=== PATIENT | female | born 1975 | race Caucasian/White ===

== ENCOUNTER 2020-12-30 14:14 | Emergency (ER) | payer OTHER, SELFPAY ==
--- NOTE | ~2020-12-30 | XR_ITS ---
EXAMINATION: XR CHEST CLINICAL INFORMATION: Cough COMPARISON: CT abdomen and pelvis 06/13/2019. TECHNIQUE: Frontal view of the chest was obtained. FINDINGS: The lungs are clear. There is no pneumothorax, pleural reaction, airspace solid lesion, or groundglass opacity. The costophrenic sulci are clear. The heart is normal in size. The hilar and mediastinal contours and visualized bony structures are unremarkable. There is a benign chronic calcified granuloma right posterior base overlying the upper abdomen on this frontal projection, measuring [address] 2019. XR/XR chest 1V IMPRESSION: 1. Normal chest. 2. Calcified granuloma right base similar to CT 2019.
[2020-12-30 14:20] VITALS: BP 133/83; PULSE 97; RESP 18; TEMP 36.6; O2SAT 97; BMI 28.2
--- NOTE | 2020-12-30 14:41 | ED.URI ---
HPI - URI/Sore Throat General Chief Complaint: Upper Respiratory Symptoms Stated Complaint: cough, headache Time Seen by Provider: 12/30/20 14:38 Source: patient Mode of arrival: ambulatory Limitations: no limitations History of Present Illness MD elicited complaint: cough and rhinorrhea Pertinent past history: seasonal allergies Onset (ago): week(s) (2) Consistency: constant Severity: moderate Description of mucous: clear Able to tolerate fluids by mouth: Yes Exacerbating factors: supine positioning Relieving factors: nothing Context: other (second covid shot 2 days ago) Associated symptoms: headache, rhinorrhea, nasal congestion and cough Treatments prior to arrival: none Related Data Previous Rx's Medication Instructions Recorded azithromycin See Rx Instructions .ROUTE 12/30/20 .COMPLEX #6 tab cetirizine 10 mg PO DAILY PRN #30 tab 12/30/20 hydrocodone-homatropine 5 ml PO Q6H PRN #60 ml 12/30/20 prednisone 40 mg PO DAILY 5 Days #10 tab 12/30/20 Allergies Allergy/AdvReac Type Severity Reaction Status Date / Time Sulfa (Sulfonamide Allergy Unknown SHORTNESS Verified 12/30/20 14:25 Antibiotics) OF BREATH [SULFA (SULFONAMIDE ANTIBIOTICS)] Review of Systems Review of Systems: Constitutional : No Weight loss, No Fever, No Chills, No Fatigue, pos Malaise ENT/Mouth : No sore throat, No Rhinorrhea Eyes: No Eye Pain, No Swelling, No Redness Cardiovascular : No Chest Pain, No SOB, No Dyspnea on Exertion, No Orthopnea, No Edema, No Palpitations Respiratory : pos Cough, No Sputum, No Wheezing Gastrointestinal : No Nausea, No Vomiting, No Diarrhea, No Constipation, No abdominal Pain, No Hematochezia, No Melena Genitourinary : No Dysuria, No Urinary Frequency, No Hematuria, Musculoskeletal : No joint pain, pos Myalgias, No Joint Swelling Skin : No Skin Lesions, No rash Neuro : No Weakness, No Numbness, No Dizziness, No Headache All other systems reviewed and are negative REPLACED BY [facility] Past Medical History Attestation statement: The following information was validated with the patient. Medical History Thyroid disease Social History Social History (Updated 12/30/20 @ 15:01 by Jacklyn Daley DO) Patient Tobacco Use Status: Never used Tobacco Use of substances other than those prescribed or required for medical reasons: No Advance Directives: No Advance Directives Information Provided: Yes Patient : No Physical Exam Vital Signs: Vital Signs: Last Vital Signs Temp 98 F 12/30/20 14:20 Pulse 96 12/30/20 15:14 Resp 18 12/30/20 14:20 BP 133/83 12/30/20 14:20 Pulse Ox 97 12/30/20 14:20 Body Mass Index 28.2 Appearance: Alert. Oriented X3. No acute distress. Eyes: Pupils equal, round and reactive to light. ENT: Pharynx normal. Neck: Normal inspection. Neck supple. CVS: Normal heart rate and rhythm. Pulses normal. Respiratory: No respiratory distress. Breath sounds normal. Abdomen: Soft and nontender. Skin: Skin warm and dry. Normal skin color. Normal skin turgor. Extremities: No lower extremity edema. No calf ttp Neuro: Oriented X 3. No motor deficit. No sensory deficit. Course Course Course Narrative: stable for DC MDM - URI/Sore Throat MDM Narrative Medical decision making narrative: 45 yo female with cough x 2 weeks now with headache, has post nasal drip possible seasonal allergies - at this time will need INH, CXR, COVID swab, anti tussive, dispo per results and findings, not toxic, will likely need to start on allergy medications as well. Lab Data Labs: Lab Results 12/30/20 12/30/20 Range/Units 14:53 14:57 Urine Color YELLOW Urine Appearance CLEAR Urine pH 6.0 (5.0-8.0) Ur Specific [place] <= 1.005 (1.005-1.025) Urine Protein NEG (NEG-TRACE) MG/DL Urine Glucose (UA) NEG (NEG) MG/DL Urine Ketones NEG (NEG) MG/DL Urine Blood NEG (NEG) Urine Nitrite NEG (NEG) Ur Leukocyte Esterase NEG (NEG) COVID-19 (GENI) Negative (Negative) COVID-19 Clin Com See Note Discharge Plan Discharge Clinical Impression: Bronchitis Allergic rhinitis Qualifiers: Allergic rhinitis trigger: unspecified Allergic rhinitis seasonality: unspecified Qualified Code(s): J30.9 - Allergic rhinitis, unspecified Patient Disposition: Home, Self-Care Instructions: Acute Bronchitis (ED), Allergies (ED) Additional Instructions: return to ED for any worsening symptoms or concerns USE INHALER 2 PUFFS EVERY 4 HOURS NEEDED FOR WHEEZING/SHORTNESS OF BREATH Prescriptions: New prednisone 20 mg tablet 40 mg PO DAILY 5 Days Qty: 10 RF: 0 azithromycin 500 mg tablet See Rx Instructions .ROUTE .COMPLEX Qty: 6 RF: 0 hydrocodone-homatropine 5-1.5 mg/5 mL (5 mL) syrup 5 ml PO Q6H PRN (Reason: cough) Qty: 60 RF: 0 cetirizine 10 mg tablet 10 mg PO DAILY PRN (Reason: allergy symptoms) Qty: 30 RF: 1 Stand Alone Forms: Work/School Release Print Language: Ukrainian
[2020-12-30 15:06] LABS: Appearance Urine CLEAR; Color Urine YELLOW; Glucose Urine UA NEG (NEG); Leukocyte Esterase Urine NEG (NEG); Nitrite Urine NEG (NEG); Specific Gravity - Urine <= 1.005 (1.005-1.025); Urine Blood NEG (NEG); Urine Ketones NEG (NEG); Urine Protein NEG (NEG-TRACE)
[2020-12-30] MEDS: Albuterol Sulfate 90 MCG 8 GM INHALER 2 PUFF INHALE (15:12)
[2020-12-30 15:14] VITALS: PULSE 96; O2SAT 100
[2020-12-30] MEDS: guaiFEN/Codeine SF 200/20/10ML 10 ML LIQUID 5 ML PO (15:18)
[2020-12-30 15:19] LABS: COVID-19 Test Negative (Negative); IDNOW Serial# 9DD0AD1C
== END 2020-12-30 15:53 | disposition home or self-care (01) ==
PROVIDERS: Emergency Provider Emergency Medicine
DX: J20.9 Acute bronchitis, unspecified (principal); J30.9 Allergic rhinitis, unspecified; R05 Cough; R51.9 Headache, unspecified; Z79.899 Other long term (current) drug therapy; Z20.822 Contact with and (suspected) exposure to COVID-19
CPT/HCPCS: 36415; 71045; 81003; 87635; 94640; 99283

== ENCOUNTER 2021-05-08 17:57 | Emergency (ER) | payer OTHER, SELFPAY ==
--- NOTE | ~2021-05-08 | XR_ITS ---
EXAMINATION: XR CHEST CLINICAL INFORMATION: Left chest wall pain. COMPARISON: Chest radiograph dated from 12/30/2020. TECHNIQUE: 2 views of the chest were obtained. FINDINGS: Normal appearance of the cardiomediastinal silhouette. Clear lungs. No pleural effusion or pneumothorax. Unchanged calcific body projecting over the right upper quadrant. No acute osseous abnormalities. Indeterminate linear foreign body projecting over the superficial soft tissues of the back on the lateral view. XR/XR chest 2V IMPRESSION: No acute cardiopulmonary findings.
[2021-05-08 20:22] VITALS: BP 132/95; PULSE 78; RESP 16; TEMP 36.8; O2SAT 100; BMI 23.8
--- NOTE | 2021-05-08 20:53 | ED.GENADULT ---
HPI - General Adult General Chief complaint: General Medical Stated complaint: multiple complaints Source: patient Mode of arrival: ambulatory Limitations: language barrier History of Present Illness HPI narrative: 45-year-old female presents with ulcerations in her mouth and lips. States that she has recurrent ulcerations, happens approximately once a month for the past 20 years. Onset (ago): day(s) (8) Location: mouth Severity: moderate Severity scale (1-10): 7 Quality: burning and aching Pain Consistency: constant Relieving factors: none Exacerbating factors: eating Associated symptoms: denies other symptoms Treatments prior to arrival: NSAID Related Data Previous Rx's Medication Instructions Recorded azithromycin 500 mg tablet See Rx Instructions .ROUTE 12/30/20 .COMPLEX #6 tab cetirizine 10 mg tablet 10 mg PO DAILY PRN #30 tab 12/30/20 hydrocodone-homatropine 5 mg-1.5 5 ml PO Q6H PRN #60 ml 12/30/20 mg/5 mL (5 mL) oral syrup prednisone 20 mg tablet 40 mg PO DAILY 5 Days #10 tab 12/30/20 Magic Mouthwash 30 ml PO Q6H 10 Days #240 ml 05/08/21 Diphen/Lido/Antacid 1:1:1 240 mL suspension Allergies Allergy/AdvReac Type Severity Reaction Status Date / Time Sulfa (Sulfonamide Allergy Unknown SHORTNESS Verified 12/30/20 14:25 Antibiotics) OF BREATH [SULFA (SULFONAMIDE ANTIBIOTICS)] Review of Systems Review of Systems: Constitutional: No Fever, No Chills ENT/Mouth: Positive ulcerations, No Ear Pain, No Hoarseness, positive sore throat Eyes: No Eye Pain, No Swelling, No Redness, No Foreign Body Cardiovascular: No Chest Pain, No SOB Respiratory: No Cough, No Dyspnea Gastrointestinal: No Nausea, No Vomiting, No Diarrhea, No abdominal Pain Genitourinary: No Dysuria, No Hematuria Musculoskeletal: positive left chest wall pain, No Myalgias, No Joint Swelling Skin: No Skin lacerations, No rash Neuro: No Weakness, No Numbness, No Paresthesias, No Loss of Consciousness, No Dizziness, No Headache Psych: No Anxiety/Panic, No Depression Heme/Lymph: no easy bruising, no Lymphadenopathy Endocrine: No Polyuria, No Polydipsia Yes all other systems are reviewed and are negative [facility] Past Medical History Attestation statement: The following information was validated with the patient. Source: old records reviewed Medical History Thyroid disease Social History Social History Alcohol intake: never Patient Tobacco Use Status: Never used Tobacco Use of substances other than those prescribed or required for medical reasons: No Advance Directives: No Advance Directives Information Provided: Yes Physical Exam Vital Signs: Vital Signs: Last Vital Signs Temp 98.2 F 05/08/21 20:22 Pulse 78 05/08/21 20:22 Resp 16 05/08/21 20:22 BP 132/95 H 05/08/21 20:22 Pulse Ox 100 05/08/21 20:22 Body Mass Index 23.8 Appearance: Alert. Oriented X3. No acute distress. Eyes: Pupils equal, round and reactive to light. ENT: Multiple ulcerations buccal mucosa, upper palate, and pharynx. Neck: Normal inspection. Neck supple. CVS: Normal heart rate and rhythm. Pulses normal. Reproducible chest pain to palpation to the left side. Respiratory: No respiratory distress. Breath sounds normal. Abdomen: Soft and nontender. Skin: Skin warm and dry. Normal skin color. Normal skin turgor. Extremities: No lower extremity edema. Gait well balanced well coordinated. Neuro: No motor deficit. No sensory deficit. Cranial nerves 2-12 intact. Course Course Course Narrative: 45-year-old female presents with abscess ulcer. States this is been a chronic condition for the past 20 years and occurs approximately once a month. She usually has a mouthwash, but does not know the name of it because she usually gets it from [facility]. She also reports left-sided chest wall pain. Lung sounds clear to auscultation all lobes. No recent travel. No hormone use. Will provide lidocaine swish swallow, EKG and chest x-ray. EKG is normal sinus rhythm, chest x-ray is normal. Patient will follow-up with primary care for recurrent aphthous ulcers, script for magic mouthwash given. Patient verbalized understanding of and agrees plan of care discharge home. 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 Google translate utilized for discharge instructions. Medical Decision Making MDM Narrative Medical decision making narrative: Aphthous stomatitis Medical Records Medical records reviewed: Yes I reviewed the patient's medical records. Imaging Data Chest x-ray: Attestation: I personally reviewed and interpreted this imaging study as follows: Radiologist's impression: EXAMINATION: XR CHEST CLINICAL INFORMATION: Left chest wall pain. COMPARISON: Chest radiograph dated from 12/30/2020. TECHNIQUE: 2 views of the chest were obtained. FINDINGS: Normal appearance of the cardiomediastinal silhouette. Clear lungs. No pleural effusion or pneumothorax. Unchanged calcific body projecting over the right upper quadrant. No acute osseous abnormalities. Indeterminate linear foreign body projecting over the superficial soft tissues of the back on the lateral view. XR/XR chest 2V IMPRESSION: No acute cardiopulmonary findings. ECG Data Attestation: I personally reviewed and interpreted this ECG as follows: Prior ECG tracings: not available for review Interpretation: Vent. Rate : 064 BPM ? ? Atrial Rate : 064 BPM ?? P-R Int : 144 ms? QRS Dur : 096 ms ? ? QT Int : 406 ms ? ? ? P-R-T Axes : 058 -14 029 degrees ?? QTc Int : 418 ms ? Normal sinus rhythm Incomplete right bundle branch block Borderline ECG No previous ECGs available 08-MAY-2021 22:25:28 Discharge Plan Discharge Clinical Impression: Aphthous stomatitis Patient Disposition: Home, Self-Care Instructions: Canker Sores (ED) Additional Instructions: Voc? foi avaliado para ?lceras aptosas recorrentes. N?s prescrevemos enxaguat?brown bucal Magic. Use 30 mL a cada 6-8 horas conforme necess?brown para o controle da colin. Agite e cuspa esta solu??o. Obrigado por escolher anthony departamento de emerg?ncia para avalia??o. Acompanhe com um m?dico de aten??o prim?octavio conforme necess?brown. Retorne ao pronto-corona para qualquer sintoma getachew, preocupante ou agravante. You were evaluated for recurrent apthous ulcers. We prescribed Magic mouthwash. Please use 30 mL every 6-8 hours as needed for pain management. Swish and spit this solution. Thank you for choosing this emergency department for evaluation. Please follow-up with primary care physician as needed. Return to the emergency department for any new, concerning, or worsening symptoms. Prescriptions: New Magic Mouthwash Diphen/Lido/Antacid 1:1:1 240 mL suspension 30 ml PO Q6H 10 Days Qty: 240 RF: 2 No Action prednisone 20 mg tablet 40 mg PO DAILY 5 Days Qty: 10 RF: 0 azithromycin 500 mg tablet See Rx Instructions .ROUTE .COMPLEX Qty: 6 RF: 0 hydrocodone-homatropine 5-1.5 mg/5 mL (5 mL) syrup 5 ml PO Q6H PRN (Reason: cough) Qty: 60 RF: 0 cetirizine 10 mg tablet 10 mg PO DAILY PRN (Reason: allergy symptoms) Qty: 30 RF: 1 Interventions: ED Discharge Assessment Last Done: 05/08/21 23:12 Discharge Date/Time: 05/08/21 23:12
--- NOTE | 2021-05-08 21:11 | ECG_ITS ---
Test Reason : CHEST PAIN Blood Pressure : / mmHG Vent. Rate : 064 BPM Atrial Rate : 064 BPM P-R Int : 144 ms QRS Dur : 096 ms QT Int : 406 ms P-R-T Axes : 058 -14 029 degrees QTc Int : 418 ms Normal sinus rhythm Incomplete right bundle branch block Borderline ECG No previous ECGs available Referred By: Cherise Scott Electronically Signed By:JENNY BOWLING
[2021-05-08] MEDS: Lidocaine HCl Viscous 2 % 15 ML SOLUTION MUCOUS MEM (21:41)
== END 2021-05-08 23:12 | disposition home or self-care (01) ==
PROVIDERS: Emergency Provider Emergency Medicine Emergency Medical Services
DX: K12.0 Recurrent oral aphthae (principal); R07.89 Other chest pain; Z79.899 Other long term (current) drug therapy
CPT/HCPCS: 71046; 93005; 99283

== ENCOUNTER 2022-09-22 21:44 | Inpatient (IN) | payer MEDICAID, OTHER, SELFPAY ==
--- NOTE | ~2022-09-22 | XR_ITS ---
EXAMINATION: XR CHEST CLINICAL INFORMATION: Cough COMPARISON: 05/08/2021 TECHNIQUE: Frontal view of the chest was obtained. FINDINGS: Cardiac leads overlie the chest. The lungs are well expanded. There is no focal consolidation, edema, or effusion. No pneumothorax. The cardiomediastinal silhouette is within normal limits. No acute osseous abnormality. XR/XR chest 1V IMPRESSION: Clear lungs.
--- NOTE | ~2022-09-22 | CT_ITS ---
EXAMINATION: CT HEAD WITH/WITHOUT CONTRAST CLINICAL INFORMATION: Fever. Bacteremia. Rule out meningitis. COMPARISON: None TECHNIQUE: Contiguous axial imaging was performed from the skull base to vertex before and after the administration of 100 mL of Omnipaque [address] examination was performed using dose optimization techniques as appropriate, variously including the following: *Automated exposure control *Adjustment of mA and/or kV according to patient size (this includes techniques or standardized protocols for targeted exams where dose is matched to indication/reason for exam; i.e. extremities or head) *Use of iterative reconstruction technique DLP: 1365 mGy-cm FINDINGS: There is no evidence of an extra-axial collection. There is no evidence of intra or extra-axial hemorrhage. The ventricles and extra-axial CSF spaces are appropriate. Lau-white matter differentiation is normal. No mass, mass effect or infarct. No abnormal enhancement. No bone lesion or skull fracture. The paranasal sinuses, mastoid air cells and middle ears are clear. CT/CT head/brain wo/w IV con IMPRESSION: Unremarkable exam.
--- NOTE | ~2022-09-22 | NM_ITS ---
EXAMINATION: BILIARY TRACT IMAGING STUDY WITH CCK CLINICAL INFORMATION: Abnormal abdominal ultrasound.. COMPARISON: No previous biliary scan is available for comparison. Abdominal ultrasound dated 09/25/2022 is available for comparison.. TECHNIQUE: Serial gamma scintillation camera images were obtained over the abdomen for a total observation period of 90 minutes following the intravenous administration of 5 mCi Tc-99m Mebrofenin. FINDINGS: There is good concentration of activity in the liver by 5 minutes post injection. Biliary activity is visualized by 10 minutes. The gallbladder is well visualized by 15 minutes. Small bowel is also well visualized by 15 minutes. The gallbladder continues to accumulate activity and is better visualized at 60 minutes post injection. At 60 minutes post radiopharmaceutical injection, a 30-minute infusion of 1.3 micrograms Sincalide was then begun and an additional 40 minutes of images were obtained. There is good emptying of the gallbladder. By the end of the study there is good clearance of activity from the liver and visualization of diffuse small bowel activity. The calculated gallbladder ejection fraction is 79% (normal gallbladder ejection fraction is greater than 35%). NM/NM hepatobiliary w pharm IMPRESSION: Visualization of the gallbladder is evidence of a patent cystic duct and strong evidence against the diagnosis of acute cholecystitis. The common bile duct is patent. Gallbladder emptying and ejection fraction are normal. Liver function appears normal.
--- NOTE | ~2022-09-22 | US_ITS ---
EXAMINATION: US ABDOMEN LIMITED CLINICAL INFORMATION: The Bacteremia. Rule out biliary involvement.. COMPARISON: Previous CT of the abdomen and pelvis 09/23/2022 and abdominal ultrasound June 2019 TECHNIQUE: Real-time imaging of the right upper quadrant abdominal viscera. FINDINGS: PANCREAS: Not well visualized. LIVER: Normal. The liver is normal in size. The liver contour is normal. Parenchymal echogenicity is normal. No focal hepatic lesion. There is no intrahepatic biliary duct dilatation seen. GALLBLADDER: The gallbladder is normal in size. No gallstones are seen. The gallbladder wall appears thickened and edematous. COMMON BILE DUCT: Normal in caliber measuring 0.3 cm in diameter. RIGHT KIDNEY: Normal. No hydronephrosis. No renal calculi or focal parenchymal lesions. The kidney measures 11.5 cm in maximum dimension. FREE FLUID: There is trace ascites seen around the liver.. US/US abdomen limited IMPRESSION: Normal-size gallbladder. Thickened edematous gallbladder wall. No gallstone seen by CT scan. Differential would include acalculous cholecystitis, gallbladder wall changes related to liver disease, low albumin and cholangitis. If there is concern for acalculous cholecystitis, HIDA scan would be recommended. Findings will be communicated by the [place] work flow teamcenter consultant.
--- NOTE | ~2022-09-22 | US_ITS ---
EXAMINATION: US PELVIS COMPLETE CLINICAL INFORMATION: Menorrhagia; the last menstrual period was on 08/2020. COMPARISON: None. TECHNIQUE: Transabdominal and transvaginal imaging were performed. FINDINGS: The uterus is of normal size and echogenicity measuring 9.8 x 4.5 x 4.9 cm. A regular homogeneous endometrium is identified measuring 0.5 cm. FIBROIDS: There are 2 fibroids seen. 1. Location: Anterior fundus, myometrial. Size: 2.2 x 2.0 x 2.3 cm. Fibroid characteristics: Isoechoic. 2. Location: Upper leftward body, subserosal. Size: 1.5 x 1.3 x 1.4 cm. Fibroid characteristics: Heterogeneously hypoechoic. Both ovaries are of normal size and echogenicity. The right ovary measures 3.1 x 3.2 x 2 point cm for a volume of 7.8 mL. The right ovary contains a 2.1 cm in maximal diameter corpus luteum cyst. The left ovary measures 2.9 x 2.1 x 1.6 cm for a volume of 5.1 mL. There is moderate free fluid in the cul-de-sac. No adnexal sammi is seen. US/US pelvic and transvaginal IMPRESSION: 1. There is uterine fibroid disease. 2. A 2.1 cm right ovarian corpus luteum cyst is seen. 3. There is moderate free fluid in the cul-de-sac.
--- NOTE | ~2022-09-22 | CT_ITS ---
EXAMINATION: CT ABDOMEN AND PELVIS WITH CONTRAST CLINICAL INFORMATION: Left lower quadrant pain COMPARISON: 06/13/2019 TECHNIQUE: Multidetector volumetric images were obtained from the superior aspect of the liver through the pubic symphysis following administration 85 mL of Omnipaque 350 intravenous contrast. Sagittal and coronal reformatted images were obtained on the technologist's workstation. Oral contrast: No This CT examination was performed using dose optimization techniques as appropriate, variously including the following: *Automated exposure control *Adjustment of mA and/or kV according to patient size (this includes techniques or standardized protocols for targeted exams where dose is matched to indication/reason for exam; i.e. extremities or head) *Use of iterative reconstruction technique DLP: 543 mGy-cm FINDINGS: LUNG BASES: Calcified right lower lobe nodule again noted, unchanged. No acute finding. Normal heart size. LIVER, GALLBLADDER, AND BILIARY TREE: The liver is normal in size, shape, and attenuation. No focal hepatic lesion or biliary ductal dilatation is present. The gallbladder is unremarkable with no evidence of radiopaque gallstones, gallbladder wall thickening, or obvious pericholecystic inflammatory changes. PANCREAS: Unremarkable. SPLEEN: Unremarkable. ADRENAL GLANDS: Unremarkable. KIDNEYS AND URETERS: The kidneys are normal in size, shape, and attenuation. No hydronephrosis or hydroureter. 0.2 cm left upper pole calculus is 7 cm from the posterior axillary line. BLADDER: Unremarkable. GASTROINTESTINAL TRACT: The stomach is unremarkable. Normal caliber small bowel. No obstruction. No colonic wall thickening or inflammatory change. No free air. No significant free fluid. Normal appendix. Likely tiny appendicolith. ABDOMINAL WALL: No significant hernia is appreciated. LYMPH NODES: Normal. VASCULAR: Normal caliber aorta. Circumaortic left renal vein. PELVIC VISCERA: Anteverted uterus. Peripherally enhancing right ovarian follicle. No adnexal mass. OSSEOUS STRUCTURES: No acute or suspicious osseous abnormality. Posterior hardware from L4 through the sacrum. CT/CT abdomen pelvis w IV con IMPRESSION: 1. No acute findings in the abdomen or pelvis. No inflammatory changes. 2. Nonobstructing left upper pole renal calculus. Fleischner guidelines were followed.
--- NOTE | ~2022-09-22 | FL_ITS ---
EXAMINATION: XR LUMBAR PUNCTURE CLINICAL INFORMATION: Fever with bacteremia, headache, and stiff neck. COMPARISON: CT abdomen of September 23, 2022 TECHNIQUE: Fluoroscopic guided lumbar puncture. FINDINGS: Informed consent was obtained from the patient prior to the procedure. During this process, the procedure and potential alternatives were explained, along with the intended outcome and benefits. The risks of the procedure, as well as the risk of not doing the procedure, were discussed. The patient was given the opportunity to ask questions regarding the procedure and appeared competent to make medical decisions. A signed consent form which documents this discussion was placed in the medical record. Patient is status post previous back surgery of L4-S1. Patient gives history of previous dry tap. Using sterile technique and fluoroscopic guidance a 22-gauge spinal needle was directed into the L2-L3 level from a midline approach. Opening pressure was 21 cm water. 8 mL of clear CSF was collected. Patient tolerated procedure without difficulty. FLUOROSCOPY TIME: 0.5 minutes DOSE AREA PRODUCT: 2.782 Gy-cm2 (davis-centimeter squared) FL/FL guided lumbar puncture LP IMPRESSION: Noncomplicated lumbar puncture as described.
[2022-09-22 22:01] VITALS: BP 95/51; PULSE 133; RESP 16; TEMP 37.5; O2SAT 98; BMI 23.8
[2022-09-22 22:18] LABS: Basophils Percent Auto 0.1 % (0-2); Eosinophils Percent Auto 0.1 % (0-4); Hemoglobin 10.5 g/dl (12.0-16.0); Imm Gran Abs Auto 0.01 X10*3/uL (0.00-0.03); Imm Gran Pct Auto 0.1 % (0.0-0.4); Lymphocytes Absolute Auto 0.4 X10*3/uL (1.2-4.9); Lymphocytes Percent Auto 4.8 % (20-40); MANUAL DIFF FLAG SCAN; Mean Corpuscular HGB Conc 32.8 g/dl (31.0-35.0); Mean Corpuscular Hemoglobin 24.9 pg (27.0-33.0); Mean Platelet Volume 9.1 fL (9.4-12.3); Monocytes Absolute Auto 0.2 X10*3/uL (0.1-1.2); Monocytes Percent Auto 2.3 % (2-11); Neutrophils Absolute Auto 7.4 x10*3/uL (2.0-8.3); Neutrophils Percent Auto 92.6 % (45-73); Platelet Count 231 X10*3/uL (160-400); Red Blood Count 4.21 X10*6/uL (4.20-5.50); SCAN SMEAR FLAG 1
[2022-09-22 22:23] LABS: Appearance Urine Clear; Color Urine Yellow; Glucose Urine UA Negative (Negative); Leukocyte Esterase Urine Negative (Negative); Nitrite Urine Negative (Negative); Urine Blood Negative (Negative); Urine Ketones Negative (Negative); Urine Protein Negative (Neg-Trace)
[2022-09-22 22:25] LABS: UPreg QC Valid YES; Urine Pregnancy NEGATIVE (NEGATIVE)
[2022-09-22 22:28] LABS: Bacteria Urine None Seen (None Seen); Hyaline Casts Urine 0-2 /LPF (0-2); RBC Urine 0-2 /HPF (0-2); Squamous Epithelial Cell Urine 0-2 /HPF (0-2); WBC Urine 0-5 /HPF (0-5)
[2022-09-22 22:33] LABS: Alanine Aminotransferase 7 U/L (0-31); Albumin Level 4.5 g/dL (3.5-5.0); Alkaline Phosphatase 64 U/L (39-117); Anion Gap 16 (12-20); Aspartate Amino Transferase 11 U/L (5-31); Bilirubin Direct < 0.2 mg/dL (0.0-0.5); Bilirubin Total 0.5 mg/dL (0.0-1.0); Blood Urea Nitrogen 16 mg/dL (9-16); Calcium 9.1 mg/dL (8.4-10.2); Carbon Dioxide 18 mmol/L (22-29); Chloride 107 mmol/L (96-108); Estimated Glomerular Filt Rate 54; Glucose Random 113 mg/dL (60-115); Lipase 38 U/L (8-78); Potassium 3.4 mmol/L (3.3-5.1); Sodium 138 mmol/L (135-145); Total Protein 6.9 g/dL (6.5-8.0)
[2022-09-22 22:36] LABS: Lactic Acid 2.1 mmol/L (0.5-2.0)
--- NOTE | 2022-09-22 22:48 | ED.ABDPAIN ---
HPI - Abdominal Pain General Chief Complaint: Abdominal Pain Stated Complaint: ?kidney stones/Fever Time Seen by Provider: 09/22/22 22:05 Source: patient and family (Patient's daughter) Mode of arrival: ambulatory Limitations: no limitations History of Present Illness HPI narrative: Patient comes in the emergency room complaining of headache and abdominal pain in lower quadrants and epigastric area. Patient complaining of fever and chills at home. Also patient reports nausea vomiting and 1 episode of diarrhea. Patient also complaining of headache. Patient denies fever chills Related Data Previous Rx's Medication Instructions Recorded azithromycin 500 mg tablet See Rx Instructions PO .COMPLEX #6 12/30/20 tabs cetirizine 10 mg tablet 10 mg PO DAILY PRN allergy 12/30/20 symptoms #30 tabs hydrocodone-homatropine 5 mg-1.5 5 ml PO Q6H PRN cough #60 mL 12/30/20 mg/5 mL (5 mL) oral syrup prednisone 20 mg tablet 40 mg PO DAILY 5 days #10 tabs 12/30/20 Magic Mouthwash 30 ml PO Q6H 10 days #240 mL 05/08/21 Diphen/Lido/Antacid 1:1:1 240 mL suspension Allergies Allergy/AdvReac Type Severity Reaction Status Date / Time Sulfa (Sulfonamide Allergy Unknown SHORTNESS Verified 12/30/20 14:25 Antibiotics) OF BREATH [SULFA (SULFONAMIDE ANTIBIOTICS)] Review of Systems Review of Systems Constitutional : No Weight loss, No Fever, No Chills, No Night Sweats, No Fatigue, No Malaise ENT/Mouth : No Hearing loss, No Ear Pain, No Nasal Congestion, No Sinus Pain, No Hoarseness, No sore throat, No Rhinorrhea, No Swallowing Difficulty Eyes: No Eye Pain, No Swelling, No Redness, No Foreign Body, No Discharge, No Vision Changes Cardiovascular : No Chest Pain, No SOB, No Dyspnea on Exertion, No Orthopnea, No Edema, No Palpitations Respiratory : No Cough, No Sputum, No Wheezing, No Smoke Exposure, No Dyspnea Gastrointestinal : Patient complaining of nausea vomiting, No Diarrhea, No Constipation, No abdominal Pain, No Hematochezia, No Melena Genitourinary : no irregular bleeding, No Dysuria, No Urinary Frequency, No Hematuria, No Urinary Incontinence, No Urgency, No Flank Pain, No Urinary Flow Changes, No Hesitancy Musculoskeletal : No joint pain, No Myalgias, No Joint Swelling Skin : No Skin Lesions, No rash Neuro : No Weakness, No Numbness, No Paresthesias, No Loss of Consciousness, No Dizziness, complaining of Headache Psych : No Anxiety/Panic, No Depression, No SI/HI/AH/VH, No Social Issues, Heme/Lymph: No Bruising, No Bleeding,No Lymphadenopathy Endocrine : No Polyuria, No Polydipsia, No Temperature Intolerance [facility] Past Medical History Medical History Thyroid disease Social History Social History Alcohol intake: current Alcohol intake frequency: holidays/special occasions only Patient Tobacco Use Status: Never used Tobacco Smoked in Last 30 Days: No Use of substances other than those prescribed or required for medical reasons: No Advance Directives: No Patient : No Physical Exam ED Vital Signs: Vital Signs - 24 hr 09/22/22 22:01 09/22/22 23:07 09/22/22 23:26 Temperature 99.5 F Pulse Rate 133 H 134 H 107 H Respiratory Rate 16 15 20 Blood Pressure 95/51 L 82/43 L 124/65 Pulse Oximetry 98 98 98 Oxygen Delivery Method Room Air Room Air Room Air 09/23/22 00:57 09/23/22 00:57 09/23/22 00:58 Temperature Pulse Rate 120 H 138 H 140 H Respiratory Rate Blood Pressure 102/61 94/56 L 79/37 L Pulse Oximetry Oxygen Delivery Method 09/23/22 01:23 09/23/22 02:31 Temperature Pulse Rate 113 H 116 H Respiratory Rate 19 21 H Blood Pressure 95/52 L 88/50 L Pulse Oximetry 100 98 Oxygen Delivery Method Room Air Room Air BMI result Body Mass Index 23.8 Const Other: Appearance: Alert. Oriented X3. No acute distress. Eyes: Pupils equal, round and reactive to light. ENT: Pharynx normal. Neck: Normal inspection. Neck supple. No lymph nodes noted. No crepitus CVS: Normal heart rate and rhythm. Pulses normal. Normal S1 and S2 Respiratory: No respiratory distress. Breath sounds normal. No Wheezing. No rales Abdomen: Soft , minimal to moderate tenderness to palpation in all quadrants especially epigastric area No rigidity. No distention. Skin: Skin warm and dry. Normal skin color. Normal skin turgor. Extremities: No lower extremity edema. No Lacerations. No Rash Neuro: Oriented X 3. No motor deficit. No sensory deficit. Moving all extremities. No slurred speech. CN 2 through 12 grossly intact Psych: calm, cooperative, normal affect Course Course Course Narrative: -patient's orthostatic vitals were grossly positive. -patient receiving IV fluids and we will reassess vitals. -CT scan shows no acute findings -patient has had 2 L of IV fluids, patient remains tachycardic. Remains feeling lightheaded with standing. Patient given 1 dose of midodrine -sign-out given to Dr. Johansen Medical Decision Making Medical Decision Making [facility] Narrative: -patient's EKG my interpretation: Sinus tachycardia, 100 109, no ST segment depressions or elevation, no T-wave inversions, QTC 490. EKG not the best quality, due to patient's tremor -patient has almost had 3 L of normal saline, blood pressure is on the softer side. Patient about to get midodrine. -patient remains tachycardic, D-dimer pending. -sign-out given to Dr. Carson Lab Data [facility] Lab Attestation statement: I reviewed the patient's lab results. 09/22/22 22:09 09/22/22 22:09 Labs: Lab Results 09/22/22 09/22/22 09/22/22 Range/Units 22:09 22:09 22:09 WBC 8.0 (4.8-10.8) X10*3/uL RBC 4.21 (4.20-5.50) X10*6/uL Hgb 10.5 L (12.0-16.0) g/dl Hct 32.0 L (37.0-47.0) % MCV 76.0 L (80.0-98.0) fL MCH 24.9 L (27.0-33.0) pg MCHC 32.8 (31.0-35.0) g/dl RDW 14.0 (11.0-16.0) % Plt Count 231 (160-400) X10*3/uL MPV 9.1 L (9.4-12.3) fL Immature Gran % (Auto) 0.1 (0.0-0.4) % Neut % (Auto) 92.6 H (45-73) % Lymph % (Auto) 4.8 L (20-40) % [place] % (Auto) 2.3 (2-11) % Eos % (Auto) 0.1 (0-4) % Baso % (Auto) 0.1 (0-2) % Lymph # (Auto) 0.4 L (1.2-4.9) X10*3/uL [place] # (Auto) 0.2 (0.1-1.2) X10*3/uL Eos # (Auto) 0.0 (0.0-0.4) X10*3/uL Baso # (Auto) 0.0 (0.0-0.2) X10*3/uL Abs Immat Gran (auto) 0.01 (0.00-0.03) X10*3/uL Absolute Neuts (auto) 7.4 (2.0-8.3) x10*3/uL Absolute Nucleated RBC 0.000 (0.0-0.012) X10*3/uL Nucleated RBC % (auto) 0.0 (0.0-0.2) /100WBC Smear Tech's Comments VERIFIED Sodium 138 (135-145) mmol/L Potassium 3.4 (3.3-5.1) mmol/L Chloride 107 (96-108) mmol/L Carbon Dioxide 18 L (22-29) mmol/L Anion Gap 16 (12-20) BUN 16 (9-16) mg/dL Creatinine 1.09 (0.5-1.4) mg/dL Estim Creat Clear Calc 58.0 Estimated GFR 54 Random Glucose 113 (60-115) mg/dL Lactic Acid 2.1 H* (0.5-2.0) mmol/L Lactic Acid F/U @ 2Hr (0.5-2.0) mmol/L Calcium 9.1 (8.4-10.2) mg/dL Total Bilirubin 0.5 (0.0-1.0) mg/dL Direct Bilirubin < 0.2 (0.0-0.5) mg/dL AST 11 (5-31) U/L ALT 7 (0-31) U/L Alkaline Phosphatase 64 (39-117) U/L Total Protein 6.9 (6.5-8.0) g/dL Albumin 4.5 (3.5-5.0) g/dL Lipase 38 (8-78) U/L Urine Color Urine Appearance Urine pH (5.0-9.0) Ur Specific [place] (1.005-1.025) Urine Protein (Neg-Trace) mg/dL Urine Glucose (UA) (Negative) mg/dL Urine Ketones (Negative) mg/dL Urine Blood (Negative) Urine Nitrite (Negative) Ur Leukocyte Esterase (Negative) Urine RBC (0-2) /HPF Urine WBC (0-5) /HPF Ur Squamous Epith Cells (0-2) /HPF Urine Bacteria (None Seen) Hyaline Casts (0-2) /LPF Urine Test (NEGATIVE) COVID-19 (GENI) (Negative) COVID-19 Clin Com Influenza Type A (ANIYA) (Negative) Influenza Type B (ANIYA) (Negative) Influenza A & B Note 09/22/22 09/22/22 09/22/22 Range/Units 22:15 22:15 23:11 WBC (4.8-10.8) X10*3/uL RBC (4.20-5.50) X10*6/uL Hgb (12.0-16.0) g/dl Hct (37.0-47.0) % MCV (80.0-98.0) fL MCH (27.0-33.0) pg MCHC (31.0-35.0) g/dl RDW (11.0-16.0) % Plt Count (160-400) X10*3/uL MPV (9.4-12.3) fL Immature Gran % (Auto) (0.0-0.4) % Neut % (Auto) (45-73) % Lymph % (Auto) (20-40) % [place]lan % (Auto) (2-11) % Eos % (Auto) (0-4) % Baso % (Auto) (0-2) % Lymph # (Auto) (1.2-4.9) X10*3/uL [place] # (Auto) (0.1-1.2) X10*3/uL Eos # (Auto) (0.0-0.4) X10*3/uL Baso # (Auto) (0.0-0.2) X10*3/uL Abs Immat Gran (auto) (0.00-0.03) X10*3/uL Absolute Neuts (auto) (2.0-8.3) x10*3/uL Absolute Nucleated RBC (0.0-0.012) X10*3/uL Nucleated RBC % (auto) (0.0-0.2) /100WBC Smear Tech's Comments Sodium (135-145) mmol/L Potassium (3.3-5.1) mmol/L Chloride (96-108) mmol/L Carbon Dioxide (22-29) mmol/L Anion Gap (12-20) BUN (9-16) mg/dL Creatinine (0.5-1.4) mg/dL Estim Creat Clear Calc Estimated GFR Random Glucose (60-115) mg/dL Lactic Acid (0.5-2.0) mmol/L Lactic Acid F/U @ 2Hr (0.5-2.0) mmol/L Calcium (8.4-10.2) mg/dL Total Bilirubin (0.0-1.0) mg/dL Direct Bilirubin (0.0-0.5) mg/dL AST (5-31) U/L ALT (0-31) U/L Alkaline Phosphatase (39-117) U/L Total Protein (6.5-8.0) g/dL Albumin (3.5-5.0) g/dL Lipase (8-78) U/L Urine Color Yellow Urine Appearance Clear Urine pH 5.0 (5.0-9.0) Ur Specific [place] 1.010 (1.005-1.025) Urine Protein Negative (Neg-Trace) mg/dL Urine Glucose (UA) Negative (Negative) mg/dL Urine Ketones Negative (Negative) mg/dL Urine Blood Negative (Negative) Urine Nitrite Negative (Negative) Ur Leukocyte Esterase Negative (Negative) Urine RBC 0-2 (0-2) /HPF Urine WBC 0-5 (0-5) /HPF Ur Squamous Epith Cells 0-2 (0-2) /HPF Urine Bacteria None Seen (None Seen) Hyaline Casts 0-2 (0-2) /LPF Urine Test NEGATIVE (NEGATIVE) COVID-19 (GENI) (Negative) COVID-19 Clin Com Influenza Type A (ANIYA) Negative (Negative) Influenza Type B (ANIYA) Negative (Negative) Influenza A & B Note See Note 09/22/22 09/23/22 Range/Units 23:11 00:47 WBC (4.8-10.8) X10*3/uL RBC (4.20-5.50) X10*6/uL Hgb (12.0-16.0) g/dl Hct (37.0-47.0) % MCV (80.0-98.0) fL MCH (27.0-33.0) pg MCHC (31.0-35.0) g/dl RDW (11.0-16.0) % Plt Count (160-400) X10*3/uL MPV (9.4-12.3) fL Immature Gran % (Auto) (0.0-0.4) % Neut % (Auto) (45-73) % Lymph % (Auto) (20-40) % [place] % (Auto) (2-11) % Eos % (Auto) (0-4) % Baso % (Auto) (0-2) % Lymph # (Auto) (1.2-4.9) X10*3/uL [place] # (Auto) (0.1-1.2) X10*3/uL Eos # (Auto) (0.0-0.4) X10*3/uL Baso # (Auto) (0.0-0.2) X10*3/uL Abs Immat Gran (auto) (0.00-0.03) X10*3/uL Absolute Neuts (auto) (2.0-8.3) x10*3/uL Absolute Nucleated RBC (0.0-0.012) X10*3/uL Nucleated RBC % (auto) (0.0-0.2) /100WBC Smear Tech's Comments Sodium (135-145) mmol/L Potassium (3.3-5.1) mmol/L Chloride (96-108) mmol/L Carbon Dioxide (22-29) mmol/L Anion Gap (12-20) BUN (9-16) mg/dL Creatinine (0.5-1.4) mg/dL Estim Creat Clear Calc Estimated GFR Random Glucose (60-115) mg/dL Lactic Acid (0.5-2.0) mmol/L Lactic Acid F/U @ 2Hr 1.0 (0.5-2.0) mmol/L Calcium (8.4-10.2) mg/dL Total Bilirubin (0.0-1.0) mg/dL Direct Bilirubin (0.0-0.5) mg/dL AST (5-31) U/L ALT (0-31) U/L Alkaline Phosphatase (39-117) U/L Total Protein (6.5-8.0) g/dL Albumin (3.5-5.0) g/dL Lipase (8-78) U/L Urine Color Urine Appearance Urine pH (5.0-9.0) Ur Specific [place] (1.005-1.025) Urine Protein (Neg-Trace) mg/dL Urine Glucose (UA) (Negative) mg/dL Urine Ketones (Negative) mg/dL Urine Blood (Negative) Urine Nitrite (Negative) Ur Leukocyte Esterase (Negative) Urine RBC (0-2) /HPF Urine WBC (0-5) /HPF Ur Squamous Epith Cells (0-2) /HPF Urine Bacteria (None Seen) Hyaline Casts (0-2) /LPF Urine Test (NEGATIVE) COVID-19 (GENI) Negative (Negative) COVID-19 Clin Com See Note Influenza Type A (ANIYA) (Negative) Influenza Type B (ANIYA) (Negative) Influenza A & B Note Radiology Impression Discussion of test interpretation with radiology: I have reviewed the radiologist's reading. Radiologist Impression: FINDINGS: LUNG BASES: Calcified right lower lobe nodule again noted, unchanged. No acute finding. Normal heart size. LIVER, GALLBLADDER, AND BILIARY TREE: The liver is normal in size, shape, and attenuation. No focal hepatic lesion or biliary ductal dilatation is present. The gallbladder is unremarkable with no evidence of radiopaque gallstones, gallbladder wall thickening, or obvious pericholecystic inflammatory changes.? PANCREAS: Unremarkable.? SPLEEN: Unremarkable.? ADRENAL GLANDS: Unremarkable.? KIDNEYS AND URETERS: The kidneys are normal in size, shape, and attenuation. No hydronephrosis or hydroureter. 0.2 cm left upper pole calculus is 7 cm from the posterior axillary line. BLADDER: Unremarkable.? GASTROINTESTINAL TRACT: The stomach is unremarkable. Normal caliber small bowel. No obstruction. No colonic wall thickening or inflammatory change. No free air. No significant free fluid. Normal appendix. Likely tiny appendicolith. ABDOMINAL WALL: No significant hernia is appreciated.? LYMPH NODES: Normal. VASCULAR: Normal caliber aorta. Circumaortic left renal vein. PELVIC VISCERA: Anteverted uterus. Peripherally enhancing right ovarian follicle. No adnexal mass. OSSEOUS STRUCTURES: No acute or suspicious osseous abnormality. Posterior hardware from L4 through the sacrum.? CT/CT abdomen pelvis w IV con IMPRESSION: 1.? No acute findings in the abdomen or pelvis. No inflammatory changes. 2.? Nonobstructing left upper pole renal calculus. Medications Administered Discontinued Medications Generic Name Dose Route Start Last Admin Trade Name Freq PRN Reason Stop Dose Admin Sodium Chloride 1,000 mls @ 999 mls/hr 09/22/22 22:44 09/23/22 00:47 Ns IVCONT 09/22/22 23:44 Infused .Q1H1M ONE Infusion Sodium Chloride 1,000 mls @ 999 mls/hr 09/23/22 01:11 09/23/22 02:21 Ns IVCONT 09/23/22 02:11 Infused .Q1H1M ONE Infusion Iohexol 85 ml 09/23/22 00:18 09/23/22 00:19 Iohexol 350 Mg/Ml 100 Ml Infus..Btl IV 09/23/22 00:19 85 ml ONCE ONE Administration Midodrine 10 mg 09/23/22 02:28 09/23/22 02:36 Midodrine Hcl 10 Mg Tablet PO 09/23/22 02:29 10 mg ONCE ONE Administration Morphine Sulfate 2 mg 09/22/22 22:44 09/22/22 23:08 Morphine Sulfate 2 Mg/Ml Cartridge IVPUSH 09/22/22 22:45 2 mg ONCE ONE Administration Protocol Ondansetron HCl 4 mg 09/22/22 22:44 09/22/22 23:08 Ondansetron Hcl 4 Mg/2 Ml Vial IVPUSH 09/22/22 22:45 4 mg ONCE ONE Administration Discharge Plan Discharge Clinical Impression: Abdominal pain, Nausea & vomiting, Orthostatic hypotension Patient Disposition: Still a Patient Prescriptions: No Action prednisone 20 mg tablet 40 mg PO DAILY 5 Days Qty: 10 0RF azithromycin 500 mg tablet See Rx Instructions .ROUTE .COMPLEX Qty: 6 0RF Rx Instructions: take 500 mg today (day 1), then 250 mg for 4 days (days 2-5) hydrocodone-homatropine 5-1.5 mg/5 mL (5 mL) syrup 5 ml PO Q6H PRN (Reason: cough) Qty: 60 0RF cetirizine 10 mg tablet 10 mg PO DAILY PRN (Reason: allergy symptoms) Qty: 30 1RF Magic Mouthwash Diphen/Lido/Antacid 1:1:1 240 mL suspension 30 ml PO Q6H 10 Days Qty: 240 2RF Rx Instructions: Lidocaine Viscous 2 % 80mL; diphenhydramine 12.5 mg/5 mL 80mL; aluminum-mag hydrox-simeth [id number] 80mL
[2022-09-22 23:07] VITALS: BP 82/43; PULSE 134; RESP 15; O2SAT 98
[2022-09-22] MEDS: Morphine Sulfate 2 MG/ML CARTRIDGE IVPUSH (23:08)
[2022-09-22] MEDS: 0.9 % Sodium Chloride 1,000 ML 999 ML IVCONT (23:08)
[2022-09-22] MEDS: ondansetron HCL 4 MG/2 ML VIAL IVPUSH (23:08)
[2022-09-22 23:18] LABS: SLIDE REVIEW VERIFIED
[2022-09-22 23:26] VITALS: BP 124/65; PULSE 107; RESP 20; O2SAT 98
[2022-09-22 23:55] LABS: COVID-19 Test Negative (Negative); IDNOW Serial# 16C4AD1C; IDNOW Serial# BCCEAD1C; Influenza A Negative (Negative); Influenza B2 Negative (Negative)
[2022-09-23] VITALS (19 sets, daily range): BP systolic 79–109; BP diastolic 37–74; PULSE 87–140; RESP 13–30; TEMP 36.6–40; O2SAT 95–100
--- NOTE | 2022-09-23 | ECG_ITS ---
Test Reason : chest pain Blood Pressure : / mmHG Vent. Rate : 109 BPM Atrial Rate : 109 BPM P-R Int : 120 ms QRS Dur : 088 ms QT Int : 364 ms P-R-T Axes : 051 -08 049 degrees QTc Int : 490 ms Sinus tachycardia Otherwise normal ECG When compared with ECG of 08-MAY-2021 22:25, Vent. rate has increased BY 45 BPM QT has lengthened Referred By: Miriam Correia Electronically Signed By:Silvano Melton
[2022-09-23 00:16] LABS: Reflex Lactate? Lactic Acid Added
[2022-09-23] MEDS: iohexoL 350 MG/ML 100 ML INFUS..BTL 85 ML IV (00:19)
--- NOTE | 2022-09-23 01:06 | PC.NURSE ---
Late entry: pt family member attempted to bring to pt bathroom, pt stated she felt faint. pt was brought back to room and moved back to stretcher safely. Pt BP did decrease. Orthostatic vital signs completed on pt, positive orthos obtained. Pt verbalizes feeling better as of this time. Pt has been given fluid and, morphine and zofran. awaiting new MD orders at this time
--- NOTE | 2022-09-23 01:08 | PC.NURSE ---
Addendum entered by Hue Maurer 09/23/22 01:11: MD scott is aware Original Note: Late entry: septic workup for pt complete including blood cultures and lactic, low grade temp, tachy and low bp
[2022-09-23] MEDS: 0.9 % Sodium Chloride 1,000 ML 999 ML IVCONT (01:24)
--- NOTE | 2022-09-23 02:31 | PC.NURSE ---
aware of low BPs, pt began reporting chest pressure, enid RAYO in room at this time performing ekg, aware no new orders at this time
[2022-09-23] MEDS: Midodrine HCl 10 MG TABLET PO (02:36)
[2022-09-23 03:06] LABS: D Dimer High Sensitivity 176 NG/ML
--- NOTE | 2022-09-23 03:49 | PC.NURSE ---
Took over care at 3:30am pt has low bp and is having tachycardia. Notified Dr. Shin, Will continue to monitor. No new orders at this time.
[2022-09-23] MEDS: cefTRIAXone sodium 1 GM in 0.9 % Sodium Chloride 50 ML IV (04:50)
[2022-09-23] MEDS: ondansetron HCL 4 MG/2 ML VIAL IVPUSH ×3 (04:50→16:03)
--- NOTE | 2022-09-23 04:56 | PC.NURSE ---
Pt medicated per mar, labs drawn, collected and sent.
[2022-09-23 05:05] LABS: Basophils Percent Auto 0.1 % (0-2); Hematocrit 28.2 % (37.0-47.0); Hemoglobin 9.3 g/dl (12.0-16.0); Imm Gran Abs Auto 0.02 X10*3/uL (0.00-0.03); Imm Gran Pct Auto 0.3 % (0.0-0.4); Lymphocytes Absolute Auto 0.2 X10*3/uL (1.2-4.9); Lymphocytes Percent Auto 3.4 % (20-40); MANUAL DIFF FLAG SCAN; Mean Corpuscular Hemoglobin 25.6 pg (27.0-33.0); Mean Corpuscular Volume 77.7 fL (80.0-98.0); Mean Platelet Volume 9.4 fL (9.4-12.3); Monocytes Absolute Auto 0.2 X10*3/uL (0.1-1.2); Monocytes Percent Auto 2.5 % (2-11); Neutrophils Absolute Auto 6.6 x10*3/uL (2.0-8.3); Neutrophils Percent Auto 93.7 % (45-73); Platelet Count 178 X10*3/uL (160-400); Red Blood Count 3.63 X10*6/uL (4.20-5.50); Red Cell Distribution Width 14.1 % (11.0-16.0); SCAN SMEAR FLAG 1; White Blood Count 7.1 X10*3/uL (4.8-10.8)
[2022-09-23 05:19] LABS: Anion Gap 15 (12-20); Blood Urea Nitrogen 11 mg/dL (9-16); Carbon Dioxide 17 mmol/L (22-29); Chloride 113 mmol/L (96-108); Creatinine Clr Calc Pharmacy 74.4; Estimated Glomerular Filt Rate > 60; Glucose Random 137 mg/dL (60-115); Potassium 4.1 mmol/L (3.3-5.1); Sodium 141 mmol/L (135-145)
--- NOTE | 2022-09-23 05:27 | P.HPHOSP_ITS ---
History of Present Illness Date of Service: 09/23/22 Chief Complaint: Abdominal pain/nausea/vomiting This is a 47-year-old female with pertinent history of hypothyroidism who presents to the emergency department for evaluation of abdominal pain/nausea/vomiting. Patient states it was sudden in since onset and started around 15:00. Patient had left-sided flank pain along with epigastric pain, it was constant and did not relieved with Tylenol at home. No exacerbating factors. It was associated with nausea and multiple episodes of nonbloody emesis. No diarrhea. Patient also had fevers up to 103 and chills at home. No similar symptoms in the past. No recent travel. No tick or insect bite. States her was sick with productive cough and laryngitis about a week ago. Soon after patient had developed similar cough but it is now resolving. No urinary complaints. Patient denies chest discomfort, palpitations, shortness of breath, changes in urinary or bowel habits. Patient also complains of dizziness. In the emergency department, patient was found to be tachycardic and hypotensive. Orthostatic vital signs positive in the ER Review of Systems Constitutional: Constitutional: Reports chills, Reports fever(s), Reports lethargy and Reports malaise Cardiovascular: Cardiovascular: Reports no additional cardiovascular complaints Respiratory: Respiratory: Reports no additional respiratory complaints Gastrointestinal: Gastrointestinal: Reports abdominal pain, Reports nausea and Reports vomiting Genitourinary: Genitourinary: Reports no additional female genitourinary c omplaints [facility] Medical History Thyroid disease Functional capacity: independent ambulation Pertinent family history: No family history of CAD Social History Alcohol intake: current Alcohol intake frequency: holidays/special occasions only Patient Tobacco Use Status: Never used Tobacco Smoked in Last 30 Days: No Use of substances other than those prescribed or required for medical reasons: No Advance Directives: No Patient : No Meds Allergies Allergy/AdvReac Type Severity Reaction Status Date / Time Sulfa (Sulfonamide Allergy Unknown SHORTNESS Verified 09/23/22 03:11 Antibiotics) OF BREATH [SULFA (SULFONAMIDE ANTIBIOTICS)] Physical Exam Vital Signs and Narrative: Vital Signs: Last Vital Signs Temp 98.2 F 09/23/22 03:49 Pulse 119 H 09/23/22 04:00 Resp 28 H 09/23/22 03:09 BP 109/60 09/23/22 04:00 Pulse Ox 100 09/23/22 03:09 O2 Del Method 09/23/22 03:09 BMI result Body Mass Index 23.8 Middle-aged female lying in bed in mild distress Neck supple, no JVD Tachycardic with regular rhythm, S1-S2 heard Regular breath sounds bilaterally, no wheezing or crackles appreciated Abdomen with epigastric tenderness, no guarding, no rigidity, no rebound tenderness Patient is awake, alert and oriented to self, place, time and person ; no focal motor deficit Psych: Normal mood No pedal edema Results Labs 09/23/22 04:58 09/23/22 04:58 Labs: Laboratory Results - last 24 hr 09/22/22 09/22/22 09/22/22 22:09 22:09 22:09 MCV 76.0 L MCH 24.9 L MCHC 32.8 RDW 14.0 Plt Count 231 MPV 9.1 L Immature Gran % (Auto) 0.1 Neut % (Auto) 92.6 H Lymph % (Auto) 4.8 L [place] % (Auto) 2.3 Eos % (Auto) 0.1 Baso % (Auto) 0.1 Lymph # (Auto) 0.4 L [place] # (Auto) 0.2 Eos # (Auto) 0.0 Baso # (Auto) 0.0 Abs Immat Gran (auto) 0.01 Absolute Neuts (auto) 7.4 Absolute Nucleated RBC 0.000 Nucleated RBC % (auto) 0.0 Smear Tech's Comments VERIFIED D-Dimer High Sensitivty Anion Gap 16 Estim Creat Clear Calc 58.0 Estimated GFR 54 Random Glucose 113 Lactic Acid 2.1 H* Lactic Acid F/U @ 2Hr Calcium 9.1 Total Bilirubin 0.5 Direct Bilirubin < 0.2 AST 11 ALT 7 Alkaline Phosphatase 64 C-Reactive Protein Total Protein 6.9 Albumin 4.5 Lipase 38 Urine Color Urine Appearance Urine pH Ur Specific Sherman Urine Protein Urine Glucose (UA) Urine Ketones Urine Blood Urine Nitrite Ur Leukocyte Esterase Urine RBC Urine WBC Ur Squamous Epith Cells Urine Bacteria Hyaline Casts Urine Test COVID-19 (GENI) COVID-19 Clin Com Influenza Type A (ANIYA) Influenza Type B (ANIYA) Influenza A & B Note 09/22/22 09/22/22 09/22/22 22:15 22:15 23:11 MCV MCH MCHC RDW Plt Count MPV Immature Gran % (Auto) Neut % (Auto) Lymph % (Auto) [place] % (Auto) Eos % (Auto) Baso % (Auto) Lymph # (Auto) [place] # (Auto) Eos # (Auto) Baso # (Auto) Abs Immat Gran (auto) Absolute Neuts (auto) Absolute Nucleated RBC Nucleated RBC % (auto) Smear Tech's Comments D-Dimer High Sensitivty Anion Gap Estim Creat Clear Calc Estimated GFR Random Glucose Lactic Acid Lactic Acid F/U @ 2Hr Calcium Total Bilirubin Direct Bilirubin AST ALT Alkaline Phosphatase C-Reactive Protein Total Protein Albumin Lipase Urine Color Yellow Urine Appearance Clear Urine pH 5.0 Ur Specific Sherman 1.010 Urine Protein Negative Urine Glucose (UA) Negative Urine Ketones Negative Urine Blood Negative Urine Nitrite Negative Ur Leukocyte Esterase Negative Urine RBC 0-2 Urine WBC 0-5 Ur Squamous Epith Cells 0-2 Urine Bacteria None Seen Hyaline Casts 0-2 Urine Test NEGATIVE COVID-19 (GENI) [email or web address] Influenza Type A (ANIYA) Negative Influenza Type B (ANIYA) Negative Influenza A & B Note See Note 09/22/22 09/23/22 09/23/22 23:11 00:47 02:46 MCV MCH MCHC RDW Plt Count MPV Immature Gran % (Auto) Neut % (Auto) Lymph % (Auto) [place] % (Auto) Eos % (Auto) Baso % (Auto) Lymph # (Auto) [place] # (Auto) Eos # (Auto) Baso # (Auto) Abs Immat Gran (auto) Absolute Neuts (auto) Absolute Nucleated RBC Nucleated RBC % (auto) Smear Tech's Comments D-Dimer High Sensitivty 176 Anion Gap Estim Creat Clear Calc Estimated GFR Random Glucose Lactic Acid Lactic Acid F/U @ 2Hr 1.0 Calcium Total Bilirubin Direct Bilirubin AST ALT Alkaline Phosphatase C-Reactive Protein Total Protein Albumin Lipase Urine Color Urine Appearance Urine pH Ur Specific Sherman Urine Protein Urine Glucose (UA) Urine Ketones Urine Blood Urine Nitrite Ur Leukocyte Esterase Urine RBC Urine WBC Ur Squamous Epith Cells Urine Bacteria Hyaline Casts Urine Test COVID-19 (GENI) Negative COVID-[email or web address] See Note Influenza Type A (ANIAY) Influenza Type B (ANIYA) Influenza A & B Note 09/23/22 09/23/22 04:58 04:58 MCV 77.7 L MCH 25.6 L MCHC 33.0 RDW 14.1 Plt Count 178 MPV 9.4 Immature Gran % (Auto) 0.3 Neut % (Auto) 93.7 H Lymph % (Auto) 3.4 L [place] % (Auto) 2.5 Eos % (Auto) 0.0 Baso % (Auto) 0.1 Lymph # (Auto) 0.2 L [place] # (Auto) 0.2 Eos # (Auto) 0.0 Baso # (Auto) 0.0 Abs Immat Gran (auto) 0.02 Absolute Neuts (auto) 6.6 Absolute Nucleated RBC 0.000 Nucleated RBC % (auto) 0.0 Smear Tech's Comments D-Dimer High Sensitivty Anion Gap 15 Estim Creat Clear Calc 74.4 Estimated GFR > 60 Random Glucose 137 H Lactic Acid Lactic Acid F/U @ 2Hr Calcium 8.0 L D Total Bilirubin Direct Bilirubin AST ALT Alkaline Phosphatase C-Reactive Protein 3.20 H Total Protein Albumin Lipase Urine Color Urine Appearance Urine pH Ur Specific [place] Urine Protein Urine Glucose (UA) Urine Ketones Urine Blood Urine Nitrite Ur Leukocyte Esterase Urine RBC Urine WBC Ur Squamous Epith Cells Urine Bacteria Hyaline Casts Urine Test COVID-19 (GENI) COVID-19 Clin Com Influenza Type A (ANIYA) Influenza Type B (ANIYA) Influenza A & B Note Imaging Radiologist's Impressions: Impressions Abdomen/Pelvis CT 09/23/22 00:19 IMPRESSION: 1. No acute findings in the abdomen or pelvis. No inflammatory changes. 2. Nonobstructing left upper pole renal calculus. Fleischner guidelines were followed. Chest X-Ray 09/23/22 04:15 IMPRESSION: Clear lungs. Assessment and Plan (1) Abdominal pain: Status: Acute (2) Nausea & vomiting: Status: Acute (3) Orthostatic hypotension: Status: Acute Plan This is a 47-year-old female with pertinent history of hypothyroidism who presents to the emergency department for evaluation of abdominal pain/michael sea/vomiting. #. SIRS with abdominal pain and nausea/vomiting: Unclear etiology. CT abdomen unrevealing. Patient was given Rocephin 1 g in the ER. Defer further antibiotics. Procalcitonin pending. Symptomatic treatment for now. Consider GI consult if symptoms continue. Resuscitated with IV crystalloids in the ER. Lactic acid and blood culture obtained #. Orthostatic hypotension in the setting of GI losses #. Acute lactic acidosis due to sepsis. Resolved with fluid resuscitation #. Hypothyroidism: Continue Synthroid. Obtaining TSH #. Microcytic anemia: Obtaining iron studies Med rec pending DVT prophylaxis: Lovenox 40 mg daily Full code Regular diet Time Spent With Patient Time: Total time managing care of this patient today ____ minutes. Quality Stroke Does the patient have a stroke diagnosis?: No VTE Prior VTE?: No VTE Risk Level:: Medical - moderate - high VTE Device Contraindication: Treatment Not Indicated VTE Drug Contraindication: N/A - Med Ordered
[2022-09-23 05:49] LABS: Procalcitonin 2.43 ng/mL
--- NOTE | 2022-09-23 06:00 | ECG_ITS ---
Test Reason : cp Blood Pressure : / mmHG Vent. Rate : 143 BPM Atrial Rate : 000 BPM P-R Int : 000 ms QRS Dur : 084 ms QT Int : 342 ms P-R-T Axes : 000 003 054 degrees QTc Int : 527 ms Artifact in tracing Probably Sinus tachycardia Nonspecific ST and T wave abnormality Abnormal ECG When compared with ECG of 23-SEP-2022 02:35, No significant changes seen Referred By: Royer Hoenycutt Electronically Signed By:SHANELLE FINN
[2022-09-23 06:10] LABS: Iron 15 mcg/dL (30-160); Percent Iron Saturation 6 % (15-50); Thyroid Stimulating Hormone 2.75 uIU/mL (0.32-4.0); Total Iron Binding Capacity 268 mcg/dL (228-428); Unsaturated Iron Binding 253 ug/dL
[2022-09-23] MEDS: Acetaminophen 325 MG TABLET 650 MG PO ×2 (06:12→16:02)
--- NOTE | 2022-09-23 06:15 | PC.NURSE ---
PT Tachy cardiac, Rectal temp taken -103.7 provider aware, medicated per oct. Ice pack placed for cooling, Will continue to monitor.
--- NOTE | 2022-09-23 06:19 | PC.NURSE ---
pt able to void in bed pain 200cc of clear urine.
--- NOTE | 2022-09-23 07:53 | PC.NURSE ---
Mel Mayo made aware of BP 92/49 (MAP 61) as well as high temp 104 rectally. no new orders at this time
[2022-09-23] MEDS: cefEPime HCl 2 GM in 0.9 % Sodium Chloride 50 ML IV ×3 (08:03→22:51)
[2022-09-23] MEDS: Lactated Ringers 1,000 ML 150 ML IVCONT ×3 (08:08→20:45)
--- NOTE | 2022-09-23 08:14 | PC.NURSE ---
22G IV placed in pts R hand. pt started on cooling blanket at this time for rectal temp 104.
--- NOTE | 2022-09-23 08:46 | PHA.MEDREC ---
Pharmacy Consult ? Medication Reconciliation Pharmacy has completed the medication reconciliation. Patient is from [place] and only speaks Portugese. Completed med rec with help of family member at bedside. She takes a thyroid medication from [place] that they say is called T4 . The dose is unknown. It could be some form of levothyroxine. She also states she took a cough syrup but doesn't know which one.
[2022-09-23] MEDS: Enoxaparin Sodium 40 MG/0.4 ML SYRINGE SUBCUT (09:10)
[2022-09-23] MEDS: Ibuprofen 400 MG TABLET PO (09:11)
[2022-09-23] MEDS: vancomycin HCL 1,500 MG in 0.9 % Sodium Chloride 500 ML 333.33 MG IV (09:11)
--- NOTE | 2022-09-23 09:28 | PHA.PROG ---
Addendum entered by Monique Kurtz RPh 09/23/22 12:57: Patient had infusion related reaction. Started aggresively itching her head. Order was dc'd and switch to Doxycyline per Mel Mayo Original Note: Admission Date/Time: September 23, 2022 05:28 Indication: Sepsis Weight in k.864 kg Adjusted body weight in K.145 kg Gentry body weight in K kg Obesity Dosing Indication % IBW: 113% Serum Creatinine - Last 168 Hours 09/22/22 09/23/22 22:09 04:58 Creatinine 1.09 0.85 Estimated CrCl and GFR - Last 168 Hours 09/22/22 09/23/22 22:09 04:58 Estim Creat Clear Calc 58.0 74.4 Estimated GFR 54 > 60 Vancomycin Loading Dose: 1500 mg Current Vancomycin Dosing Regimen: 1000 mg Q12H Date and Time for next Vancomycin Level to be drawn: 09/24 @ 1900 Pharmacist Comments on Vancomycin Plan: Patient received an adequate vancomycin 1500 mg loading dose on 09/23 @ 0911. Maintenance dose vancomycin 1000 mg Q12H is schedule to start 09/23 @ 2100. Expected AUC 579 with a trough of 18.1. Trough to be drawn prior to 4th Pharmacy to monitor renal function daily Monique Kurtz PharmJorden Vancomycin dosing will take advantage of [employer] as a clinical decision support tool that uses Bayesian modeling to calculate individual patient's pharmacokinetic parameters and forecast the patient's drug concentration time course with the target goal AUC 24 range of 400 - 600 mg/L/hr.
--- NOTE | 2022-09-23 09:55 | PC.NURSE ---
pt reporting severe head itching. vanco currently running and has been stopped to hear back from Mel DYER. Mel made aware via [employer] of pts sx, she reports no other sx at this time.
--- NOTE | 2022-09-23 10:59 | PM.EVENT ---
Event Note Date of Service: 09/23/22 Event Note: This is a 47-year-old female with pertinent history of hypothyroidism who presents to the emergency department for evaluation of abdominal pain/nausea/vomiting. SIRS with abdominal pain and nausea/vomiting, no source fever, tachycardia, tachypnea, lactic acidosisa Unclear etiology.? CT abdomen unrevealinga as well as CXR neg covid, flu,rsv, ua started on Rocephin and Vanco ? CRP 3.20, procal 2.43 complete respiratory pathogen panel, HIV, throat swab follow final blood cultures Alternate Tylenol and ibuprofen for fever Orthostatic hypotension in the setting of GI losses resolved continue IV fluids Acute lactic acidosis due to sepsis Resolved with fluid resuscitation Hypothyroidism Continue Synthroid.? TSH 2.75 Microcytic anemia iron 15, TIBC 268 add iron supplement at discharge Time Spent With Patient Time: Total time managing care of this patient today ____ minutes.
[2022-09-23 11:24] LABS: Amphetamine Screen Urine Not Detected (Not Detect); Barbiturates, Urine Not Detected (Not Detect); Benzodiazepines Screen Urine Not Detected (Not Detect); Cannabinoid Screen Urine Not Detected (Not Detect); Cocaine Screen Urine Not Detected (Not Detect); Fentanyl, urine Not Detected (Not Detect); Opiate Screen Urine Not Detected (Not Detect); Phencyclidine Screen Urine Not Detected (Not Detect)
--- NOTE | 2022-09-23 12:03 | PC.NURSE ---
pt taken off of cooling blanket - rectal temp 99.7
[2022-09-23 13:01] LABS: Adenovirus PCR Not Detected (Not Detect.); Bordetella parapertussis PCR Not Detected (Not Detect.); Bordetella pertussis PCR Not Detected (Not Detect.); Chlamydia pneumoniae PCR Not Detected (Not Detect.); Coronavirus 229E PCR Not Detected (Not Detect.); Coronavirus HKU1 PCR Not Detected (Not Detect.); Coronavirus NL63 PCR Not Detected (Not Detect.); Coronavirus OC43 PCR Not Detected (Not Detect.); Human metapneumovirus PCR Not Detected (Not Detect.); Influenza A PCR Not Detected (Not Detect.); Influenza B PCR Not Detected (Not Detect.); Mycoplasma pneumoniae PCR Not Detected (Not Detect.); Parainfluenza 1 PCR Not Detected (Not Detect.); Parainfluenza 2 PCR Not Detected (Not Detect.); Parainfluenza 3 PCR Not Detected (Not Detect.); Parainfluenza 4 PCR Not Detected (Not Detect.); RSV PCR Not Detected (Not Detect.); Rhino/Enterovirus PCR Not Detected (Not Detect.); SARS-CoV-2 PCR Not Detected (Not Detect.)
[2022-09-23] MEDS: Doxycycline Hyclate 100 MG in 0.9 % Sodium Chloride 250 ML 166.67 MG IV (14:27)
[2022-09-23] MEDS: 0.9 % Sodium Chloride Flush 3 ML SYRINGE IVFLUSH (16:03)
[2022-09-23] MEDS: Metoclopramide HCl 10 MG/2 ML VIAL IVPUSH (21:02)
--- NOTE | 2022-09-24 | ECG_ITS ---
Test Reason : chest pain Blood Pressure : / mmHG Vent. Rate : 069 BPM Atrial Rate : 069 BPM P-R Int : 160 ms QRS Dur : 096 ms QT Int : 422 ms P-R-T Axes : 060 -06 011 degrees QTc Int : 452 ms Normal sinus rhythm Normal ECG When compared with ECG of 23-SEP-2022 02:35, Vent. rate has decreased BY 40 BPM Referred By: Royer Honeycutt Electronically Signed By:SHANELLE FINN
[2022-09-24] MEDS: Doxycycline Hyclate 100 MG in 0.9 % Sodium Chloride 250 ML 166.67 MG IV (00:34)
[2022-09-24] MEDS: Acetaminophen 325 MG TABLET 650 MG PO ×3 (00:42→16:05)
[2022-09-24] MEDS: ondansetron HCL 4 MG/2 ML VIAL IVPUSH ×3 (01:48→22:14)
[2022-09-24] MEDS: Lactated Ringers 1,000 ML 150 ML IVCONT ×3 (02:53→20:34)
[2022-09-24 03:51] VITALS: BP 99/58; PULSE 95; RESP 16; TEMP 37.3; O2SAT 96
[2022-09-24 06:31] LABS: Hematocrit 25.3 % (37.0-47.0); Hemoglobin 8.1 g/dl (12.0-16.0); Mean Corpuscular Hemoglobin 24.7 pg (27.0-33.0); Mean Corpuscular Volume 77.1 fL (80.0-98.0); Mean Platelet Volume 9.9 fL (9.4-12.3); Platelet Count 160 X10*3/uL (160-400); Red Blood Count 3.28 X10*6/uL (4.20-5.50); Red Cell Distribution Width 14.3 % (11.0-16.0); White Blood Count 2.5 X10*3/uL (4.8-10.8)
[2022-09-24] MEDS: cefEPime HCl 2 GM in 0.9 % Sodium Chloride 50 ML IV (06:33)
[2022-09-24 06:40] LABS: Creatinine Clr Calc Pharmacy 90.4; Estimated Glomerular Filt Rate > 60
[2022-09-24 06:47] LABS: Anion Gap 12 (12-20); Blood Urea Nitrogen 8 mg/dL (9-16); Calcium 7.4 mg/dL (8.4-10.2); Carbon Dioxide 16 mmol/L (22-29); Chloride 115 mmol/L (96-108); Creatinine Clr Calc Pharmacy 91.6; Estimated Glomerular Filt Rate > 60; Glucose Random 96 mg/dL (60-115); Potassium 3.2 mmol/L (3.3-5.1); Sodium 140 mmol/L (135-145)
[2022-09-24 06:52] LABS: Band Neutrophils Percent 15 % (3-5); Lymphocytes Absolute Manual 0.3 X10*3/uL (1.2-4.9); Lymphocytes Percent Manual 12 % (20-40); Monocytes Percent Manual 1 % (2-11); Neutrophils Absolute Manual 2.2 X10*3/uL (2.0-8.3); Neutrophils Percent Manual 72 % (45-73)
[2022-09-24 06:54] LABS: Hypochromasia 1+ (5-14) /OIF; Microcytosis 1+ (5-14) /OIF; Platelet Estimate NORMAL (NORMAL); Platelet Morphology Comment NORMAL; RBC Morphology NOTED
[2022-09-24 08:00] VITALS: BP 107/65; PULSE 88; RESP 18; TEMP 37.1; O2SAT 98
[2022-09-24] MEDS: Enoxaparin Sodium 40 MG/0.4 ML SYRINGE SUBCUT (08:00)
[2022-09-24] MEDS: Potassium Chloride Packet 20 MEQ PACKET 40 MEQ PO (08:00)
[2022-09-24] MEDS: 0.9 % Sodium Chloride Flush 3 ML SYRINGE IVFLUSH (08:01)
--- NOTE | 2022-09-24 09:44 | P.PNIM_ITS ---
Subjective Subjective Date of Service: 09/24/22 Review of Systems Follow up sepsis, GPR bacteremia neck pain, nausea an vomiting Physical Exam Vital Signs: Vital Signs: Last Vital Signs Temp 98.8 F 09/24/22 08:00 Pulse 88 09/24/22 08:00 Resp 18 09/24/22 08:00 BP 107/65 09/24/22 08:00 Pulse Ox 98 09/24/22 08:00 O2 Del Method 09/24/22 08:00 BMI result Body Mass Index 23.8 Appearing in no acute distress head is normocephalic atraumatic eyes pupils are PERRLA sclera is anicteric mouth throat mucous membranes are intact and moist neck is supple no lymphadenopathy, no JVD noted lung sounds are clear to auscultation heart regular rate rhythm, clear S1, S2 positive bowel sounds, abdomen is soft, nontender neuro patient is alert x3, no focal deficits Objective Data Active Medications Acetaminophen (Acetaminophen 325 Mg Tablet) 650 mg PO Q6H PRN PRN Reason: Pain, Mild (Pain Scale 1-3) Last Admin: 09/24/22 08:10 Dose: 650 mg Documented By: ROBERT Enoxaparin Sodium (Enoxaparin Sodium 40 Mg/0.4 Ml Syringe) 40 mg SUBCUT DAILY [facility] Last Admin: 09/24/22 08:00 Dose: 40 mg Documented By: ROBERT Cefepime HCl 2 gm/ Sodium (Chloride) 50 mls @ 100 mls/hr IV Q8H [facility] Last Infusion: 09/24/22 08:15 Dose: 0 mls/hr Documented By: ROBERT Lactated Ringer's (Lr) 1,000 mls @ 150 mls/hr IVCONT .Q6H40M [facility] Last Infusion: 09/24/22 09:35 Dose: 0 mls/hr Documented By: ROBERT Doxycycline Hyclate 100 mg/ (Sodium Chloride) 250 mls @ 166.67 mls/hr IV Q12H [facility] Last Infusion: 09/24/22 02:20 Dose: 0 mls/hr Documented By: ANGELA Ibuprofen (Ibuprofen 400 Mg Tablet) 400 mg PO Q4H PRN PRN Reason: Fever Last Admin: 09/23/22 09:11 Dose: 400 mg Documented By: MARY Melatonin (Melatonin 3 Mg Tablet) 6 mg PO BEDTIME PRN PRN Reason: Insomnia Ondansetron HCl (Ondansetron Hcl 4 Mg/2 Ml Vial) 4 mg IVPUSH Q8H PRN PRN Reason: Nausea and Vomiting Last Admin: 09/24/22 01:48 Dose: 4 mg Documented By: ANGELA Pharmacy Consult (Consult Rx Perform Med Rec) 1 each MISCELLANE ONCE PRN PRN Reason: Consult order Sodium Chloride (0.9 % Sodium Chloride Flush 3 Ml Syringe) 3 ml IVFLUSH QSHIFT ALYSSA Last Admin: 09/24/22 08:01 Dose: 3 ml Documented By: ROBERT Labs 09/24/22 05:20 09/24/22 05:20 Labs: Laboratory Results - last 24 hr 09/23/22 09/23/22 09/24/22 10:51 11:06 05:20 MCV MCH MCHC RDW Plt Count MPV Immature Gran % (Auto) Neut % (Auto) Lymph % (Auto) [place] % (Auto) Eos % (Auto) Baso % (Auto) Lymph # (Auto) [place] # (Auto) Eos # (Auto) Baso # (Auto) Abs Immat Gran (auto) Absolute Neuts (auto) Absolute Nucleated RBC Nucleated RBC % (auto) Neutrophils % (Manual) Band Neutrophils % Lymphocytes % (Manual) Monocytes % (Manual) Abs Neuts (Manual) Lymphocytes # (Manual) Platelet Estimate Plt Morphology Comment RBC Morphology Hypochromasia Microcytosis Anion Gap Estim Creat Clear Calc 90.4 Estimated GFR > 60 Random Glucose Calcium Urine Opiates Screen Not Detected Urine Fentanyl Screen Not Detected Ur Barbiturates Screen Not Detected Ur Phencyclidine Scrn Not Detected Ur Amphetamines Screen Not Detected U Benzodiazepines Scrn Not Detected Urine Cocaine Screen Not Detected U Marijuana (THC) Screen Not Detected Respiratory Panel Herrera See Note Adenovirus (Rapid PCR) Not Detected B.pert (TEM-PCR) Not Detected B.parapertussis DNA PCR Not Detected C. pneumoniae DNA (PCR) Not Detected Coronavirus OC43 (PCR) Not Detected Coronavirus HKU1 (PCR) Not Detected Coronavirus 229E (PCR) Not Detected Coronavirus NL63 (PCR) Not Detected Human Metapneumovir PCR Not Detected Influenza A (RT-PCR) Not Detected Influenza B (RT-PCR) Not Detected M. pneumoniae (PCR) Not Detected Parainfluenza 1 (PCR) Not Detected Parainfluenza 2 (PCR) Not Detected Parainfluenza 3 (PCR) Not Detected Parainfluenza 4 (PCR) Not Detected RSV (PCR) Not Detected Entero/Rhino (PCR) Not Detected SARS-CoV-2 RNA (RT-PCR) Not Detected 09/24/22 09/24/22 05:20 05:20 MCV 77.1 L MCH 24.7 L MCHC 32.0 RDW 14.3 Plt Count 160 MPV 9.9 Immature Gran % (Auto) Cancelled Neut % (Auto) Cancelled Lymph % (Auto) Cancelled [place] % (Auto) Cancelled Eos % (Auto) Cancelled Baso % (Auto) Cancelled Lymph # (Auto) Cancelled [place] # (Auto) Cancelled Eos # (Auto) Cancelled Baso # (Auto) Cancelled Abs Immat Gran (auto) Cancelled Absolute Neuts (auto) Cancelled Absolute Nucleated RBC 0.000 Nucleated RBC % (auto) 0.0 Neutrophils % (Manual) 72 Band Neutrophils % 15 H Lymphocytes % (Manual) 12 L Monocytes % (Manual) 1 L Abs Neuts (Manual) 2.2 Lymphocytes # (Manual) 0.3 L Platelet Estimate NORMAL Plt Morphology Comment NORMAL RBC Morphology NOTED Hypochromasia 1+ (5-14) Microcytosis 1+ (5-14) Anion Gap 12 Estim Creat Clear Calc 91.6 Estimated GFR > 60 Random Glucose 96 Calcium 7.4 L D Urine Opiates Screen Urine Fentanyl Screen Ur Barbiturates Screen Ur Phencyclidine Scrn Ur Amphetamines Screen U Benzodiazepines Scrn Urine Cocaine Screen U Marijuana (THC) Screen Respiratory Panel Herrera Adenovirus (Rapid PCR) B.pert (TEM-PCR) B.parapertussis DNA PCR C. pneumoniae DNA (PCR) Coronavirus OC43 (PCR) Coronavirus HKU1 (PCR) Coronavirus 229E (PCR) Coronavirus NL63 (PCR) Human Metapneumovir PCR Influenza A (RT-PCR) Influenza B (RT-PCR) M. pneumoniae (PCR) Parainfluenza 1 (PCR) Parainfluenza 2 (PCR) Parainfluenza 3 (PCR) Parainfluenza 4 (PCR) RSV (PCR) Entero/Rhino (PCR) SARS-CoV-2 RNA (RT-PCR) Microbiology Microbiology Results: Microbiology 09/22/22 22:09 Blood Culture - Preliminary Blood - Venous Prelim: GNR Gram Stain only 09/22/22 22:09 Blood Culture - Preliminary Blood - Venous Prelim: GNR Gram Stain only Assessment and Plan (1) Bacteremia: Status: Acute Plan This is a 47-year-old female with pertinent history of hypothyroidism who presents to the emergency department for evaluation of abdominal pain/nausea/vomiting. SIRS with abdominal pain and nausea/vomiting, no source fever, tachycardia, tachypnea, lactic acidosis Unclear etiology.?? GI source vs CSF CT abdomen unrevealing as well as CXR neg covid, flu,rsv, ua, resp pathogen panel CRP 3.20, procal 2.43 Alternate Tylenol and ibuprofen for fever GPR bacteremia LP ordered to r/o viral meningitis HSV, HIV, Lyme pending discussed with ID will change to ampicillin, Rocephin and acyclovir stool studies need to be collected Orthostatic hypotension in the setting of GI losses resolved continue IV fluids Acute lactic acidosis due to sepsis Resolved with fluid resuscitation Hypothyroidism Continue Synthroid.? TSH 2.75 Microcytic anemia iron 15, TIBC 268 add iron supplement at discharge DVT prophylaxis with Lovenox Attending Dr. Stewart Full code OBS Time Spent With Patient Time: Total time managing care of this patient today ____ minutes. Quality Stroke Does the patient have a stroke diagnosis?: No VTE Prior VTE?: No VTE Risk Level:: Medical - moderate - high VTE Device Contraindication: Treatment Not Indicated VTE Drug Contraindication: N/A - Med Ordered
[2022-09-24] MEDS: cefTRIAXone sodium 1 GM in 0.9 % Sodium Chloride 50 ML IV (10:31)
--- NOTE | 2022-09-24 11:27 | MHC.CM.PN ---
PATIENT (PRIMARILY SPANISH SPEAKING) LIVES WITH SPOUSE RECENTLY HERE FROM [place] AND DO NOT HAVE THEIR TRAVELER'S INSURANCE ANY LONGER PATIENT AND SPOUSE GIVE PERMISSION FOR FACE SHEET TO BE FAXED TO [facility], NOW COMPLETED. ([phone]) PATIENT IS INDEPENDENT WITH HER ADLS. NO DME OR [facility]NA SERVICES NO PCP YET LAN[place] 09/24 IN CHART
[2022-09-24] MEDS: Ampicillin Sodium 2 GM in 0.9 % Sodium Chloride 100 ML IV ×3 (13:50→22:14)
[2022-09-24 14:34] LABS: Adenovirus F 40/41 Not Detected (Not Detect.); Astrovirus Not Detected (Not Detect.); Campylobacter Not Detected (Not Detect.); Cryptosporidium Not Detected (Not Detect.); Cyclospora cayetanensis Not Detected (Not Detect.); E. coli EAEC Not Detected (Not Detect.); E. coli EPEC Not Detected (Not Detect.); E. coli ETEC Not Detected (Not Detect.); E. coli STEC Not Detected (Not Detect.); Entamoeba histolytica Not Detected (Not Detect.); Giardia lamblia Not Detected (Not Detect.); Norovirus GI/GII Not Detected (Not Detect.); Plesiomonas shigelloides Not Detected (Not Detect.); Rotavirus A Not Detected (Not Detect.); Salmonella Not Detected (Not Detect.); Sapovirus Not Detected (Not Detect.); Shigella sp./EIEC Not Detected (Not Detect.); Vibrio Not Detected (Not Detect.); Vibrio Cholerae Not Detected (Not Detect.); Yersinia enterocolitica Not Detected (Not Detect.)
[2022-09-24 16:00] VITALS: BP 116/71; PULSE 72; RESP 18; TEMP 36.3; O2SAT 100
[2022-09-24] MEDS: Ibuprofen 400 MG TABLET PO (17:30)
[2022-09-24 19:49] LABS: Vancomycin Trough < 2.0 mcg/mL (10.0-20.0)
[2022-09-24 20:00] VITALS: BP 111/71; PULSE 71; RESP 16; TEMP 36.5; O2SAT 100
[2022-09-24 23:40] LABS: Troponin-I High Sensitivity < 3.5 ng/L (<3.5-17.0)
[2022-09-25] VITALS (7 sets, daily range): BP systolic 111–128; BP diastolic 70–79; PULSE 64–79; RESP 18–20; TEMP 36–37.1; O2SAT 96–100
[2022-09-25] MEDS: Ampicillin Sodium 2 GM in 0.9 % Sodium Chloride 100 ML IV ×5 (01:46→19:34)
[2022-09-25] MEDS: Lactated Ringers 1,000 ML 150 ML IVCONT (03:42)
[2022-09-25] MEDS: Acetaminophen 325 MG TABLET 650 MG PO ×2 (05:51→17:56)
[2022-09-25 06:30] LABS: MANUAL DIFF FLAG NO
[2022-09-25 06:35] LABS: Basophils Percent Auto 0.3 % (0-2); Eosinophils Percent Auto 0.7 % (0-4); Hematocrit 26.6 % (37.0-47.0); Hemoglobin 8.6 g/dl (12.0-16.0); Imm Gran Abs Auto 0.01 X10*3/uL (0.00-0.03); Imm Gran Pct Auto 0.3 % (0.0-0.4); Lymphocytes Absolute Auto 0.5 X10*3/uL (1.2-4.9); Lymphocytes Percent Auto 18.2 % (20-40); Mean Corpuscular HGB Conc 32.3 g/dl (31.0-35.0); Mean Corpuscular Hemoglobin 24.9 pg (27.0-33.0); Mean Corpuscular Volume 76.9 fL (80.0-98.0); Mean Platelet Volume 9.9 fL (9.4-12.3); Monocytes Absolute Auto 0.2 X10*3/uL (0.1-1.2); Monocytes Percent Auto 6.4 % (2-11); Neutrophils Absolute Auto 2.2 x10*3/uL (2.0-8.3); Neutrophils Percent Auto 74.1 % (45-73); Platelet Count 183 X10*3/uL (160-400); Red Blood Count 3.46 X10*6/uL (4.20-5.50); Red Cell Distribution Width 14.5 % (11.0-16.0)
[2022-09-25 07:00] LABS: Anion Gap 12 (12-20); Blood Urea Nitrogen 7 mg/dL (9-16); Calcium 7.7 mg/dL (8.4-10.2); Carbon Dioxide 19 mmol/L (22-29); Chloride 112 mmol/L (96-108); Creatinine Clr Calc Pharmacy 89.1; Estimated Glomerular Filt Rate > 60; Glucose Random 83 mg/dL (60-115); Potassium 3.1 mmol/L (3.3-5.1); Sodium 140 mmol/L (135-145)
[2022-09-25 07:13] LABS: Creatinine Clr Calc Pharmacy 91.6; Estimated Glomerular Filt Rate > 60
[2022-09-25 08:24] LABS: HIV Num 1 1.06 S/CO (0.00-0.99)
[2022-09-25] MEDS: Potassium Chloride ER 20 MEQ TAB.ER.PRT 60 MEQ PO (08:32)
[2022-09-25 09:45] LABS: Prothrombin Time 11.9 SEC (10.0-13.1)
[2022-09-25 09:58] LABS: HIV AB/AG Nonreactive (Nonreactive); HIV Num 2 0.06 S/CO; HIV Num 3 0.06 S/CO
--- NOTE | 2022-09-25 10:17 | P.PNIM_ITS ---
Subjective Subjective Date of Service: 09/25/22 Review of Systems Follow up sepsis, ecoli bacteremia neck pain, nausea and vomiting Physical Exam Vital Signs: Vital Signs: Last Vital Signs Temp 98.8 F 09/25/22 08:00 Pulse 79 09/25/22 08:00 Resp 18 09/25/22 08:00 BP 111/71 09/25/22 08:00 Pulse Ox 96 09/25/22 08:00 O2 Del Method 09/25/22 08:00 BMI result Body Mass Index 23.8 Appearing in no acute distress lung sounds are clear to auscultation heart regular rate rhythm, clear S1, S2 positive bowel sounds, abdomen is soft, nontender neuro patient is alert x3, no focal deficits Objective Data Active Medications Acetaminophen (Acetaminophen 325 Mg Tablet) 650 mg PO Q6H PRN PRN Reason: Pain, Mild (Pain Scale 1-3) Last Admin: 09/25/22 05:51 Dose: 650 mg Documented By: SIHVA Enoxaparin Sodium (Enoxaparin Sodium 40 Mg/0.4 Ml Syringe) 40 mg SUBCUT DAILY [facility] Last Admin: 09/24/22 08:00 Dose: 40 mg Documented By: ROBERT Ampicillin Sodium 2 gm/ Sodium (Chloride) 100 mls @ 100 mls/hr IV Q4H [facility] Last Admin: 09/25/22 09:39 Dose: 100 mls/hr Documented By: CAESAR Ceftriaxone Sodium 1 gm/ (Sodium Chloride) 50 mls @ 100 mls/hr IV Q24H [facility] Last Infusion: 09/24/22 11:13 Dose: 0 mls/hr Documented By: ROBERT Ibuprofen (Ibuprofen 400 Mg Tablet) 400 mg PO Q4H PRN PRN Reason: Fever Last Admin: 09/24/22 17:30 Dose: 400 mg Documented By: ROBERT Melatonin (Melatonin 3 Mg Tablet) 6 mg PO BEDTIME PRN PRN Reason: Insomnia Ondansetron HCl (Ondansetron Hcl 4 Mg/2 Ml Vial) 4 mg IVPUSH Q8H PRN PRN Reason: Nausea and Vomiting Last Admin: 09/24/22 22:14 Dose: 4 mg Documented By: SHIVA Pharmacy Consult (Consult Rx Perform Med Rec) 1 each MISCELLANE ONCE PRN PRN Reason: Consult order Sodium Chloride (0.9 % Sodium Chloride Flush 3 Ml Syringe) 3 ml IVFLUSH QSHIFT [facility] Last Admin: 09/25/22 07:31 Dose: Not Given Documented By: CAESAR Non-Admin Reason: IV Running Labs 09/25/22 05:35 09/25/22 05:35 Labs: Laboratory Results - last 24 hr 09/23/22 09/24/22 09/24/22 11:08 11:55 19:04 MCV MCH MCHC RDW Plt Count MPV Immature Gran % (Auto) Neut % (Auto) Lymph % (Auto) [place] % (Auto) Eos % (Auto) Baso % (Auto) Lymph # (Auto) [place] # (Auto) Eos # (Auto) Baso # (Auto) Abs Immat Gran (auto) Absolute Neuts (auto) Absolute Nucleated RBC Nucleated RBC % (auto) PT INR Anion Gap Estim Creat Clear Calc Estimated GFR Random Glucose Calcium Troponin I High Sens Stl C. cayetanensis PCR Not Detected Stool Rotavirus A PCR Not Detected Stl Adenov F 40/41 PCR Not Detected Stool Astrovirus (PCR) Not Detected Stool Campylobacter PCR Not Detected Stool Cryptosporidium PCR Not Detected Stl Sh Tox Pr E STEC PCR Not Detected Stool E coli O157 PCR Not applicable Stl Enterotoxigenic E PCR Not Detected Stool EPEC (PCR) Not Detected Stool EAEC (PCR) Not Detected Stl E. histolytica PCR Not Detected Stool Giardia Lamblia PCR Not Detected Stl P. shigelloides PCR Not Detected Stool Salmonella PCR Not Detected Stool Sapovirus (PCR) Not Detected Stl Shigella/EIEC PCR Not Detected St Y.enterocolitica PCR Not Detected Stool Vibrio (PCR) Not Detected Stl Vibrio cholerae PCR Not Detected Stl Norovirus GI/GII PCR Not Detected Vancomycin Trough < 2.0 L HIV 1&2 Ab/P24 Ag 4thGn Nonreactive 09/24/22 09/25/22 09/25/22 23:10 05:35 05:35 MCV 76.9 L MCH 24.9 L MCHC 32.3 RDW 14.5 Plt Count 183 MPV 9.9 Immature Gran % (Auto) 0.3 Neut % (Auto) 74.1 H Lymph % (Auto) 18.2 L [place] % (Auto) 6.4 Eos % (Auto) 0.7 Baso % (Auto) 0.3 Lymph # (Auto) 0.5 L [place] # (Auto) 0.2 Eos # (Auto) 0.0 Baso # (Auto) 0.0 Abs Immat Gran (auto) 0.01 Absolute Neuts (auto) 2.2 Absolute Nucleated RBC 0.000 Nucleated RBC % (auto) 0.0 PT INR Anion Gap Estim Creat Clear Calc 91.6 Estimated GFR > 60 Random Glucose Calcium Troponin I High Sens < 3.5 Stl C. cayetanensis PCR Stool Rotavirus A PCR Stl Adenov F / PCR Stool Astrovirus (PCR) Stool Campylobacter PCR Stool Cryptosporidium PCR Stl Sh Tox Pr E STEC PCR Stool E coli O157 PCR Stl Enterotoxigenic E PCR Stool EPEC (PCR) Stool EAEC (PCR) Stl E. histolytica PCR Stool Giardia Lamblia PCR Stl P. shigelloides PCR Stool Salmonella PCR Stool Sapovirus (PCR) Stl Shigella/EIEC PCR St Y.enterocolitica PCR Stool Vibrio (PCR) Stl Vibrio cholerae PCR Stl Norovirus GI/GII PCR Vancomycin Trough HIV 1&2 Ab/P24 Ag 4thGn 09/25/22 09/25/22 05:35 08:43 MCV MCH MCHC RDW Plt Count MPV Immature Gran % (Auto) Neut % (Auto) Lymph % (Auto) [place] % (Auto) Eos % (Auto) Baso % (Auto) Lymph # (Auto) [place] # (Auto) Eos # (Auto) Baso # (Auto) Abs Immat Gran (auto) Absolute Neuts (auto) Absolute Nucleated RBC Nucleated RBC % (auto) PT 11.9 INR 1.0 Anion Gap 12 Estim Creat Clear Calc 89.1 Estimated GFR > 60 Random Glucose 83 Calcium 7.7 L Troponin I High Sens Stl C. cayetanensis PCR Stool Rotavirus A PCR Stl Adenov F PCR Stool Astrovirus (PCR) Stool Campylobacter PCR Stool Cryptosporidium PCR Stl Sh Tox Pr E STEC PCR Stool E coli O157 PCR Stl Enterotoxigenic E PCR Stool EPEC (PCR) Stool EAEC (PCR) Stl E. histolytica PCR Stool Giardia Lamblia PCR Stl P. shigelloides PCR Stool Salmonella PCR Stool Sapovirus (PCR) Stl Shigella/EIEC PCR St Y.enterocolitica PCR Stool Vibrio (PCR) Stl Vibrio cholerae PCR Stl Norovirus GI/GII PCR Vancomycin Trough HIV 1&2 Ab/P24 Ag 4thGn Microbiology Microbiology Results: Microbiology 09/22/22 22:09 Blood Culture - Final Blood - Venous Escherichia coli 09/22/22 22:09 Blood Culture - Final Blood - Venous Escherichia coli Assessment and Plan (1) Bacteremia: Status: Acute Plan This is a 47-year-old female with pertinent history of hypothyroidism who presents to the emergency department for evaluation of abdominal pain/nausea/vomiting. SIRS with abdominal pain, nausea and vomiting, no source ? gallbladder fever as high as 104, tachycardia, tachypnea, lactic acidosis CT abdomen unrevealing as well as CXR neg covid, flu, rsv, ua, resp pathogen panel, stool panel, HIV CRP 3.20, procal 2.43 HSV, CMV, Lyme pending head CT acute abnormalities noted CSF WNL Ecoli bacteremia LP ordered to r/o viral meningitis, WNL continue ampicillin, Rocephin, stop acyclovir ABD us to r/u biliary tree involvement, question acalculous cholecystitis, radiologist recommend HIDA scan HIDA scan tomorrow, NPO after midnight Orthostatic hypotension in the setting of GI losses resolved continue IV fluids Acute lactic acidosis due to sepsis Resolved with fluid resuscitation Hypothyroidism Continue Synthroid.? TSH 2.75 Microcytic anemia iron 15, TIBC 268 add iron supplement at discharge DVT prophylaxis with Lovenox Attending Dr. Villanueva Full code OBS Time Spent With Patient Time: Total time managing care of this patient today ____ minutes. Quality Stroke Does the patient have a stroke diagnosis?: No VTE Prior VTE?: No VTE Risk Level:: Medical - moderate - high VTE Device Contraindication: Treatment Not Indicated VTE Drug Contraindication: N/A - Med Ordered
[2022-09-25] MEDS: cefTRIAXone sodium 1 GM in 0.9 % Sodium Chloride 50 ML IV (10:48)
[2022-09-25] MEDS: Ibuprofen 400 MG TABLET PO ×2 (10:57→23:20)
[2022-09-25] MEDS: iohexoL 350 MG/ML 100 ML INFUS..BTL 85 ML IV (12:05)
[2022-09-25] MEDS: Acyclovir Sodium 600 MG in 0.9 % Sodium Chloride 100 ML 112 MG IV (14:35)
[2022-09-25 15:51] LABS: CSF Appearance Clear, Colorless; CSF Tube # 1
[2022-09-25 15:58] LABS: Appearance CSF CLEAR; CSF Monos 0 %; CSF Other Cells % 0 %; CSF Tube # 1; Color CSF COLORLESS; Lymphocytes CSF 0 %; Neutrophils CSF 0 %; Red Blood Cell CSF 20 MM*3; White Blood Cell CSF 0 MM*3
[2022-09-25 15:59] LABS: Appearance CSF CLEAR; CSF Tube # 4; Color CSF COLORLESS; Glucose CSF 47 mg/dL; Lymphocytes CSF 100 %; Red Blood Cell CSF 208 MM*3; Total Protein CSF 26.4 mg/dL (15-45); White Blood Cell CSF 8 MM*3
[2022-09-25 16:52] LABS: Cryptococcus neoformans/gattii Not Detected (Not Detect.); Enterovirus Not Detected (Not Detect.); Escherichia coli K1 Not Detected (Not Detect.); Haemophilus influenzae Not Detected (Not Detect.); Herpes simplex virus 1 Not Detected (Not Detect.); Herpes simplex virus 2 Not Detected (Not Detect.); Human herpesvirus 6 Not Detected (Not Detect.); Human parechovirus Not Detected (Not Detect.); Listeria monocytogenes Not Detected (Not Detect.); Neisseria meningitidis Not Detected (Not Detect.); Streptococcus agalactiae Not Detected (Not Detect.); Streptococcus pneumoniae Not Detected (Not Detect.); Varicella zoster virus Not Detected (Not Detect.)
[2022-09-25] MEDS: ondansetron HCL 4 MG/2 ML VIAL IVPUSH (17:49)
[2022-09-25] MEDS: 0.9 % Sodium Chloride Flush 3 ML SYRINGE IVFLUSH (19:34)
[2022-09-25] MEDS: Melatonin 3 MG TABLET 6 MG PO (23:20)
[2022-09-26 00:59] LABS: Lyme Abs Screen <0.90 index
[2022-09-26 03:22] VITALS: BP 105/60; PULSE 79; RESP 18; TEMP 36.7; O2SAT 95
[2022-09-26] MEDS: Acetaminophen 325 MG TABLET 650 MG PO (06:02)
[2022-09-26 06:39] LABS: Anion Gap 16 (12-20); Blood Urea Nitrogen 5 mg/dL (9-16); Calcium 7.8 mg/dL (8.4-10.2); Carbon Dioxide 16 mmol/L (22-29); Chloride 111 mmol/L (96-108); Creatinine Clr Calc Pharmacy 95.8; Creatinine Clr Calc Pharmacy 97.2; Estimated Glomerular Filt Rate > 60; Glucose Random 74 mg/dL (60-115); Potassium 3.5 mmol/L (3.3-5.1); Sodium 139 mmol/L (135-145)
[2022-09-26 06:46] LABS: Hematocrit 24.8 % (37.0-47.0); Hemoglobin 8.2 g/dl (12.0-16.0); Mean Corpuscular HGB Conc 33.1 g/dl (31.0-35.0); Mean Corpuscular Hemoglobin 25.3 pg (27.0-33.0); Mean Corpuscular Volume 76.5 fL (80.0-98.0); Mean Platelet Volume 10.1 fL (9.4-12.3); Platelet Count 185 X10*3/uL (160-400); Red Blood Count 3.24 X10*6/uL (4.20-5.50); Red Cell Distribution Width 14.5 % (11.0-16.0); White Blood Count 4.9 X10*3/uL (4.8-10.8)
[2022-09-26 06:56] VITALS: BP 98/55; PULSE 71; RESP 18; TEMP 36.1; O2SAT 99
--- NOTE | 2022-09-26 07:46 | P.CONGS_ITS ---
History of Present Illness Consult details Consult date: 09/26/22 Reason for consult: abdominal pain Requesting physician: Mel Mayo Narrative: 47-year-old female patient presenting with complaints of abdominal pain in the right upper quadrant and epigastrium. The pain began in the back on 09/22/2022 and began suddenly. She denies previous episode of similar pain. The pain then became more concentrated to the right upper quadrant was associated with multiple episodes of nausea and vomiting. Initial workup with CT abdomen and pelvis revealed a normal appearing gallbladder with no gallstones. Subsequent ultrasound however revealed a physiologically distended gallbladder with no wall thickening but pericholecystic fluid. Findings were suggestive of acalculous cholecystitis. She is awaiting HIDA scan this morning. She continues to report abdominal pain in the right upper quadrant this morning. Blood cultures were positive for E coli. Review of Systems Review of Systems: Yes all other systems are reviewed and are negative Constitutional: Constitutional: Reports chills and Reports fever(s) Cardiovascular: Cardiovascular: Denies chest pain and Reports Epigastric Pain Respiratory: Respiratory: Denies chest congestion, Denies cough and Denies hemoptysis Gastrointestinal: Gastrointestinal: Reports as per [facility] Past Medical History Medical History Thyroid disease Functional capacity: independent ambulation Social History Social History Household Members: Family Housing: House Do you presently have visiting nurse or other home services: No Alcohol intake: current Alcohol intake frequency: holidays/special occasions only Patient Tobacco Use Status: Never used Tobacco Smoked in Last 30 Days: No Use of substances other than those prescribed or required for medical reasons: No Currently Displaying Signs/Symptoms of Drug Intoxication Withdrawal: No Have you been hit, kicked, punched, or otherwise hurt by someone within the past year? If so, by whom?: No Do you feel safe in your current relationship?: Yes Is there a partner from a previous relationship who is making you feel unsafe now?: No Are you made to feel afraid or neglected: No Advance Directives: No Do you have thoughts of harming others: None Do you have a plan to hurt others: No Plan Nutrition Risks: No Nutritional Risk Patient : No : No Poor oral hygiene: No service: No Current occupational status: unemployed Meds Allergies Allergy/AdvReac Type Severity Reaction Status Date / Time Sulfa (Sulfonamide Allergy Unknown SHORTNESS Verified 09/23/22 03:11 Antibiotics) OF BREATH [SULFA (SULFONAMIDE ANTIBIOTICS)] vancomycin AdvReac Red Man Verified 09/23/22 18:14 Syndrome Active Medications: Current Medications Acetaminophen (Acetaminophen 325 Mg Tablet) 650 mg PO Q6H PRN PRN Reason: Pain, Mild (Pain Scale 1-3) Last Admin: 09/26/22 06:02 Dose: 650 mg Enoxaparin Sodium (Enoxaparin Sodium 40 Mg/0.4 Ml Syringe) 40 mg SUBCUT DAILY [facility] OF [facility] Last Admin: 09/24/22 08:00 Dose: 40 mg Ceftriaxone Sodium 1 gm/ (Sodium Chloride) 50 mls @ 100 mls/hr IV Q24H [facility] OF [facility] Last Infusion: 09/25/22 12:38 Dose: Infused Ibuprofen (Ibuprofen 400 Mg Tablet) 400 mg PO Q4H PRN PRN Reason: Fever Last Admin: 09/25/22 23:20 Dose: 400 mg Melatonin (Melatonin 3 Mg Tablet) 6 mg PO BEDTIME PRN PRN Reason: Insomnia Last Admin: 09/25/22 23:20 Dose: 6 mg Ondansetron HCl (Ondansetron Hcl 4 Mg/2 Ml Vial) 4 mg IVPUSH Q8H PRN PRN Reason: Nausea and Vomiting Last Admin: 09/25/22 17:49 Dose: 4 mg Pharmacy Consult (Consult Rx Perform Med Rec) 1 each MISCELLANE ONCE PRN PRN Reason: Consult order Sodium Chloride (0.9 % Sodium Chloride Flush 3 Ml Syringe) 3 ml IVFLUSH QSHIFT ON LICENSE OF [facility] Last Admin: 09/25/22 19:34 Dose: 3 ml Home Medications Medication Instructions Recorded Confirmed Last Taken Type acetaminophen 325 mg tablet 650 mg PO Q6H PRN Fever Or Pain 09/23/22 09/23/22 09/22/22 History non-formulary 1 tab PO DAILY 09/23/22 09/23/22 09/22/22 History Physical Exam Vital Signs: Vital Signs: Last Vital Signs Temp 97 F 09/26/22 06:56 Pulse 71 09/26/22 06:56 Resp 18 09/26/22 06:56 BP 98/55 L 09/26/22 06:56 Pulse Ox 99 09/26/22 06:56 O2 Del Method 09/26/22 06:56 BMI result Body Mass Index 23.8 Const: General: no acute distress and well developed Nutritional Appearance: well nourished Orientation/consciousness: patient oriented x3 Limitations: no limitations HEENT: Head: Yes normocephalic and Yes atraumatic Ears: hearing grossly normal bilaterally Resp: Effort & Inspection: normal respiratory effort, no audible wheezes, no cough and no respiratory distress GI: Inspection: Yes normal to inspection Palpation (GI): Soft to palpation, Tenderness to palpation present (GI) in the RUQ and Fuentes's sign positive, no guarding and not rigid Percussion: Yes normal to percussion Auscultation: normal bowel sounds Rectal Exam - Female: deferred Skin: General skin exam: no rashes or lesions noted Neuro: General: patient oriented x3 Extrem: General: Yes no clubbing, cyanosis or edema Results Labs 09/26/22 05:20 09/26/22 05:20 Labs: Abnormal lab results 09/26/22 09/26/22 Range/Units 05:20 05:20 RBC 3.24 L (4.20-5.50) X10*6/uL Hgb 8.2 L (12.0-16.0) g/dl Hct 24.8 L (37.0-47.0) % MCV 76.5 L (80.0-98.0) fL MCH 25.3 L (27.0-33.0) pg Chloride 111 H (96-108) mmol/L Carbon Dioxide 16 L (22-29) mmol/L BUN 5 L (9-16) mg/dL Calcium 7.8 L (8.4-10.2) mg/dL Short CBC 09/26/22 Range/Units 05:20 WBC 4.9 (4.8-10.8) X10*3/uL Hgb 8.2 L (12.0-16.0) g/dl Hct 24.8 L (37.0-47.0) % Plt Count 185 (160-400) X10*3/uL BMP 09/26/22 09/26/22 05:20 05:20 Sodium 139 Potassium 3.5 Chloride 111 H Carbon Dioxide 16 L BUN 5 L Creatinine 0.66 0.65 Calcium 7.8 L Urine 09/22/22 09/22/22 Range/Units 22:15 22:15 Urine Color Yellow Urine Appearance Clear Urine pH 5.0 (5.0-9.0) Ur Specific [place] 1.010 (1.005-1.025) Urine Protein Negative (Neg-Trace) mg/dL Urine Glucose (UA) Negative (Negative) mg/dL Urine Test NEGATIVE (NEGATIVE) All other labs normal. Assessment and Plan (1) Abdominal pain: Status: Acute (2) Bacteremia: Status: Acute Plan 47-year-old female patient presenting with right upper quadrant abdominal pain, nausea, vomiting, E coli bacteremia found to have pericholecystic fluid but no gallstones. These are suggestive of acute acalculous cholecystitis. She is scheduled for a HIDA scan this morning. Will review this study when complete and provide further recommendations. Time Spent With Patient Time: Total time managing care of this patient today ____ minutes. Procedures Date of Service Date of Service: 09/26/22
--- NOTE | 2022-09-26 09:04 | HO.PM.IMPN ---
Subjective Subjective Date of Service: 09/26/22 Review of Systems Follow up sepsis, ecoli bacteremia neck pain, nausea and vomiting feeling better today Physical Exam Vital Signs: Vital Signs: Last Vital Signs Temp 97 F 09/26/22 06:56 Pulse 71 09/26/22 06:56 Resp 18 09/26/22 06:56 BP 98/55 L 09/26/22 06:56 Pulse Ox 99 09/26/22 06:56 O2 Del Method 09/26/22 06:56 BMI result Body Mass Index 23.8 Appearing in no acute distress lung sounds are clear to auscultation heart regular rate rhythm, clear S1, S2 positive bowel sounds, abdomen is soft, nontender neuro patient is alert x3, no focal deficits Objective Data Active Medications Acetaminophen (Acetaminophen 325 Mg Tablet) 650 mg PO Q6H PRN PRN Reason: Pain, Mild (Pain Scale 1-3) Last Admin: 09/26/22 06:02 Dose: 650 mg Documented By: SHIVA Enoxaparin Sodium (Enoxaparin Sodium 40 Mg/0.4 Ml Syringe) 40 mg SUBCUT DAILY [facility] Last Admin: 09/24/22 08:00 Dose: 40 mg Documented By: ROBERT Ceftriaxone Sodium 1 gm/ (Sodium Chloride) 50 mls @ 100 mls/hr IV Q24H [facility] Last Infusion: 09/25/22 12:38 Dose: 0 mls/hr Documented By: CAESAR Ibuprofen (Ibuprofen 400 Mg Tablet) 400 mg PO Q4H PRN PRN Reason: Fever Last Admin: 09/25/22 23:20 Dose: 400 mg Documented By: SHIVA Melatonin (Melatonin 3 Mg Tablet) 6 mg PO BEDTIME PRN PRN Reason: Insomnia Last Admin: 09/25/22 23:20 Dose: 6 mg Documented By: SHIVA Ondansetron HCl (Ondansetron Hcl 4 Mg/2 Ml Vial) 4 mg IVPUSH Q8H PRN PRN Reason: Nausea and Vomiting Last Admin: 09/25/22 17:49 Dose: 4 mg Documented By: CAESAR Pharmacy Consult (Consult Rx Perform Med Rec) 1 each MISCELLANE ONCE PRN PRN Reason: Consult order Sodium Chloride (0.9 % Sodium Chloride Flush 3 Ml Syringe) 3 ml IVFLUSH QSHIFT [facility] Last Admin: 09/25/22 19:34 Dose: 3 ml Documented By: SHIVA Labs 09/26/22 05:20 09/26/22 05:20 Labs: Laboratory Results - last 24 hr 09/23/22 09/24/22 09/25/22 11:08 10:06 08:43 MCV MCH MCHC RDW Plt Count MPV Absolute Nucleated RBC Nucleated RBC % (auto) PT 11.9 INR 1.0 Anion Gap Estim Creat Clear Calc Estimated GFR Random Glucose Calcium CSF Tube Number CSF Volume CSF Appearance CSF Color CSF WBC CSF RBC CSF Neutrophils CSF Lymphocytes CSF Monocytes % CSF Other Cells % CSF Appearance (b) CSF Glucose CSF Total Protein CSF C.neoform/gat PCR CSF CMV DNA (PCR) CSF Enterovirus (PCR) CSF E. coli K1 (PCR) CSF H. influenzae (PCR) CSF HSV I (PCR) CSF HSV II (PCR) CSF HHV 6 (PCR) CSF L.monocytogenes PCR CSF N. meningitidis PCR CSF Parechovirus (PCR) CSF S. agalactiae (PCR) CSF S. pneumoniae (PCR) CSF VZV (PCR) Lyme Screen IgG & IgM <0.90 HIV 1&2 Ab/P24 Ag 4thGn Nonreactive 09/25/22 09/25/22 09/25/22 13:55 13:55 13:55 MCV MCH MCHC RDW Plt Count MPV Absolute Nucleated RBC Nucleated RBC % (auto) PT INR Anion Gap Estim Creat Clear Calc Estimated GFR Random Glucose Calcium CSF Tube Number 1 1 CSF Volume 2.0 CSF Appearance CLEAR CSF Color COLORLESS CSF WBC 0 CSF RBC 20 CSF Neutrophils 0 CSF Lymphocytes 0 CSF Monocytes % 0 CSF Other Cells % 0 CSF Appearance (b) Clear, Colorless CSF Glucose 47 CSF Total Protein 26.4 CSF C.neoform/gat PCR Not Detected CSF CMV DNA (PCR) Not Detected CSF Enterovirus (PCR) Not Detected CSF E. coli K1 (PCR) Not Detected CSF H. influenzae (PCR) Not Detected CSF HSV I (PCR) Not Detected CSF HSV II (PCR) Not Detected CSF HHV 6 (PCR) Not Detected CSF L.monocytogenes PCR Not Detected CSF N. meningitidis PCR Not Detected CSF Parechovirus (PCR) Not Detected CSF S. agalactiae (PCR) Not Detected CSF S. pneumoniae (PCR) Not Detected CSF VZV (PCR) Not Detected Lyme Screen IgG & IgM HIV 1&2 Ab/P24 Ag 4thGn 09/25/22 09/26/22 09/26/22 13:55 05:20 05:20 MCV 76.5 L MCH 25.3 L MCHC 33.1 RDW 14.5 Plt Count 185 MPV 10.1 Absolute Nucleated RBC 0.000 Nucleated RBC % (auto) 0.0 PT INR Anion Gap Estim Creat Clear Calc 95.8 Estimated GFR > 60 Random Glucose Calcium CSF Tube Number 4 CSF Volume 2.0 CSF Appearance CLEAR CSF Color COLORLESS CSF WBC 8 CSF RBC 208 CSF Neutrophils CSF Lymphocytes 100 CSF Monocytes % CSF Other Cells % CSF Appearance (b) CSF Glucose CSF Total Protein CSF C.neoform/gat PCR CSF CMV DNA (PCR) CSF Enterovirus (PCR) CSF E. coli K1 (PCR) CSF H. influenzae (PCR) CSF HSV I (PCR) CSF HSV II (PCR) CSF HHV 6 (PCR) CSF L.monocytogenes PCR CSF N. meningitidis PCR CSF Parechovirus (PCR) CSF S. agalactiae (PCR) CSF S. pneumoniae (PCR) CSF VZV (PCR) Lyme Screen IgG & IgM HIV 1&2 Ab/P24 Ag 4thGn 09/26/22 05:20 MCV MCH MCHC RDW Plt Count MPV Absolute Nucleated RBC Nucleated RBC % (auto) PT INR Anion Gap 16 Estim Creat Clear Calc 97.2 Estimated GFR > 60 Random Glucose 74 Calcium 7.8 L CSF Tube Number CSF Volume CSF Appearance CSF Color CSF WBC CSF RBC CSF Neutrophils CSF Lymphocytes CSF Monocytes % CSF Other Cells % CSF Appearance (b) CSF Glucose CSF Total Protein CSF C.neoform/gat PCR CSF CMV DNA (PCR) CSF Enterovirus (PCR) CSF E. coli K1 (PCR) CSF H. influenzae (PCR) CSF HSV I (PCR) CSF HSV II (PCR) CSF HHV 6 (PCR) CSF L.monocytogenes PCR CSF N. meningitidis PCR CSF Parechovirus (PCR) CSF S. agalactiae (PCR) CSF S. pneumoniae (PCR) CSF VZV (PCR) Lyme Screen IgG & IgM HIV 1&2 Ab/P24 Ag 4thGn Microbiology Microbiology Results: Microbiology 09/25/22 13:55 Gram Stain - Final Cerebrospinal Fluid CSF Examination - Final Fluid Description - Final CSF Culture - Preliminary No growth after 1 day 09/22/22 22:09 Blood Culture - Final Blood - Venous Escherichia coli 09/22/22 22:09 Blood Culture - Final Blood - Venous Escherichia coli Assessment and Plan (1) Bacteremia: Status: Acute Plan This is a 47-year-old female with pertinent history of hypothyroidism who presents to the emergency department for evaluation of abdominal pain/nausea/vomiting. SIRS with abdominal pain, nausea and vomiting, no source ? gallbladder fever as high as 104, tachycardia, tachypnea, lactic acidosis CT abdomen unrevealing as well as CXR neg covid, flu, rsv, ua, resp pathogen panel, stool panel, HIV CRP 3.20, procal 2.43 HSV, CMV, Lyme pending head CT acute abnormalities noted CSF WNL Ecoli bacteremia LP ordered to r/o viral meningitis, WNL continue Rocephin, stop acyclovir and ampicillin ABD us to r/u biliary tree involvement, question acalculous cholecystitis, radiologist recommend HIDA scan HIDA scan today general surgery following Orthostatic hypotension in the setting of GI losses resolved continue IV fluids Acute lactic acidosis due to sepsis Resolved with fluid resuscitation Hypothyroidism Continue Synthroid.? TSH 2.75 Microcytic anemia iron 15, TIBC 268 add iron supplement at discharge DVT prophylaxis with Lovenox Attending Dr. Villanueva Full code OBS Time Spent With Patient Time: Total time managing care of this patient today ____ minutes. Quality Stroke Does the patient have a stroke diagnosis?: No VTE Prior VTE?: No VTE Risk Level:: Medical - moderate - high VTE Device Contraindication: Treatment Not Indicated VTE Drug Contraindication: N/A - Med Ordered
[2022-09-26] MEDS: 0.9 % Sodium Chloride Flush 3 ML SYRINGE IVFLUSH ×3 (09:37→21:14)
[2022-09-26] MEDS: cefTRIAXone sodium 1 GM in 0.9 % Sodium Chloride 50 ML IV (09:37)
[2022-09-26] MEDS: Ibuprofen 400 MG TABLET PO ×2 (10:19→21:05)
--- NOTE | 2022-09-26 13:11 | MHC.CM.PN ---
EMR REVIEWED, PER HOSPITALIST PLAN FOR HIDA SCAN TODAY AND PLAN PENDING RESULTS, NO D/C PLAN AT THIS TIME, CM TO CONT TO FOLLOW D/C NEEDS.
[2022-09-26 13:39] LABS: CMV DNA PCR Qn Source BLOOD; CMV DNA Qn PCR NOT DETECTED Log IU/mL (NOT DETECTED); CMV DNA Qn Real Time PCR NOT DETECTED (NOT DETECTED)
[2022-09-26 15:26] VITALS: BP 123/79; PULSE 70; RESP 18; TEMP 37.2; O2SAT 97
--- NOTE | 2022-09-26 17:39 | P.CNGI_ITS ---
History of Present Illness Data of Consult Service Date: 09/26/22 Requesting physician: Mel Mayo Primary Care Provider: None Physician HPI Reason for consult: E coli bacteremia 47-year-old female with history of hypothyroidism who I am seeing for assessment for e coli bacteremia. SHe initially presented with sudden onset severe left flank and epigastric pain with nausea and non bloody emesis. Associated with poor appetite and fevers not relieved by tylenol. she did admit to constipation which is he baseline for a long time going up to 7 d without stool sometimes. Denies rectal bleeding or melena. Endorses heavy period bleeding for last 6 months which is new. No urinary complaints.?No similar symptoms in the past.? No recent travel Blood cultures eventually grew GNR but symptoms and lab indices have improved with antibiotics. UA was clean, and biliary scans were negative. She has never had colonoscopy, there is hx of CRC in uncle and uterine ca in aunt, father with brain ca. she also had LP this admission which was neg. Currently there is ongoing epigastric pain 4/10 wore with food, and still associated with nausea, but no more vomiting. No relieving factors Review of Systems Review of Systems: Constitutional : No Weight loss, + Fever, No Chills ENT/Mouth : No sore throat, No Rhinorrhea Eyes: No Swelling, No Redness Cardiovascular : No Chest Pain, No SOB, No Edema Respiratory : No Cough, No Sputum, No Wheezing Gastrointestinal : see HPI Genitourinary : NO Dysuria, No Urinary Frequency, No Hematuria, No Urgency Musculoskeletal : No joint pain, No Myalgias, No Joint Swelling Skin : No Skin Lesions, No rash Neuro : No Weakness, No Numbness, No Dizziness, No Headache Psych : No Anxiety/Panic, No Depression Heme/Lymph: No Bruising, No Lymphadenopathy Endocrine : No Polyuria, No Polydipsia All other systems reviewed and are negative. [facility] Past Medical History Medical History Thyroid disease Functional capacity: independent ambulation Family History Pertinent family history: as above in HPI Social History Social History Household Members: Family Housing: House Do you presently have visiting nurse or other home services: No Alcohol intake: current Alcohol intake frequency: holidays/special occasions only Patient Tobacco Use Status: Never used Tobacco Smoked in Last 30 Days: No Use of substances other than those prescribed or required for medical reasons: No Currently Displaying Signs/Symptoms of Drug Intoxication Withdrawal: No Have you been hit, kicked, punched, or otherwise hurt by someone within the past year? If so, by whom?: No Do you feel safe in your current relationship?: Yes Is there a partner from a previous relationship who is making you feel unsafe now?: No Are you made to feel afraid or neglected: No Advance Directives: No Do you have thoughts of harming others: None Do you have a plan to hurt others: No Plan Nutrition Risks: No Nutritional Risk Patient : No : No Poor oral hygiene: No service: No Current occupational status: unemployed Meds Allergies Allergy/AdvReac Type Severity Reaction Status Date / Time Sulfa (Sulfonamide Allergy Unknown SHORTNESS Verified 09/23/22 03:11 Antibiotics) OF BREATH [SULFA (SULFONAMIDE ANTIBIOTICS)] vancomycin AdvReac Red Man Verified 09/23/22 18:14 Syndrome Active Medications: Current Medications Acetaminophen (Acetaminophen 325 Mg Tablet) 650 mg PO Q6H PRN PRN Reason: Pain, Mild (Pain Scale 1-3) Last Admin: 09/26/22 06:02 Dose: 650 mg Enoxaparin Sodium (Enoxaparin Sodium 40 Mg/0.4 Ml Syringe) 40 mg SUBCUT DAILY [facility] Last Admin: 09/24/22 08:00 Dose: 40 mg Ceftriaxone Sodium 1 gm/ (Sodium Chloride) 50 mls @ 100 mls/hr IV Q24H [facility] Last Infusion: 09/26/22 10:17 Dose: Infused Ibuprofen (Ibuprofen 400 Mg Tablet) 400 mg PO Q4H PRN PRN Reason: Fever Last Admin: 09/26/22 10:19 Dose: 400 mg Melatonin (Melatonin 3 Mg Tablet) 6 mg PO BEDTIME PRN PRN Reason: Insomnia Last Admin: 09/25/22 23:20 Dose: 6 mg Ondansetron HCl (Ondansetron Hcl 4 Mg/2 Ml Vial) 4 mg IVPUSH Q8H PRN PRN Reason: Nausea and Vomiting Last Admin: 09/25/22 17:49 Dose: 4 mg Pharmacy Consult (Consult Rx Perform Med Rec) 1 each MISCELLANE ONCE PRN PRN Reason: Consult order Sodium Chloride (0.9 % Sodium Chloride Flush 3 Ml Syringe) 3 ml IVFLUSH QSHIFT [facility] Last Admin: 09/26/22 16:57 Dose: 3 ml Home Medications Medication Instructions Recorded Confirmed Last Taken Type acetaminophen 325 mg tablet 650 mg PO Q6H PRN Fever Or Pain 09/23/22 09/23/22 09/22/22 History non-formulary 1 tab PO DAILY 09/23/22 09/23/22 09/22/22 History Physical Exam Vital Signs: Vital Signs: Last Vital Signs Temp 98.9 F 09/26/22 15:26 Pulse 70 09/26/22 15:26 Resp 18 09/26/22 15:26 BP 123/79 09/26/22 15:26 Pulse Ox 97 09/26/22 15:26 O2 Del Method 09/26/22 15:26 BMI result Body Mass Index 23.8 EXAM: GENERAL: The patient is well developed and nontoxic. VITAL SIGNS:see workflow HEENT: Nonicteric sclerae, PERRLA, EOMI. Oropharynx clear. Moist mucous membranes. Conjunctivae appear well perfused. No thyroid mass. CHEST: Chest wall is nontender. HEART: Regular rate and rhythm without murmurs. LUNGS: Clear to auscultation bilaterally. ABDOMEN: Soft, positive bowel sounds, tender epigastrium with some guarding, no organomegaly.no flank tenderness SKIN: No rash, no excessive bruising, petechiae, or purpura. NEUROLOGIC: Cranial nerves II-XII intact without motor/sensory deficit. psych--nml affect Results Labs 09/26/22 05:20 09/26/22 05:20 Labs: Short CBC 09/26/22 Range/Units 05:20 WBC 4.9 (4.8-10.8) X10*3/uL Hgb 8.2 L (12.0-16.0) g/dl Hct 24.8 L (37.0-47.0) % Plt Count 185 (160-400) X10*3/uL BMP 09/26/22 09/26/22 05:20 05:20 Sodium 139 Potassium 3.5 Chloride 111 H Carbon Dioxide 16 L BUN 5 L Creatinine 0.66 0.65 Calcium 7.8 L Microbiology Microbiology Results: Microbiology 09/25/22 13:55 Cerebrospinal Fluid Gram Stain - Final 09/25/22 13:55 Cerebrospinal Fluid CSF Examination - Final 09/25/22 13:55 Cerebrospinal Fluid Fluid Description - Final 09/25/22 13:55 Cerebrospinal Fluid CSF Culture - Preliminary No growth after 1 day 09/22/22 22:09 Blood - Venous Blood Culture - Final Escherichia coli 09/22/22 22:09 Blood - Venous Blood Culture - Final Escherichia coli Imaging CT scan - abdomen: Attestation: I personally reviewed and interpreted this imaging study as follows: (normal) Assessment and Plan (1) Bacteremia: Status: Acute (2) Epigastric abdominal pain: Status: Acute (3) FH: colon cancer: Status: Acute Plan 1/ E.coli bacteremia w/o obvious source of infection, there is FH of crc, uterine ca and brain ca which cqn be seen in colonic polyposis syndromes. If there is an early stage crc or advanced polyp this could be associated with bacterial translocation PLAN: 1/ Clears tomorrow and bowel prep from the evening with plan for egd and colonoscopy 2/ consider pelvic us due to change in periods last several months Time Spent With Patient Time: Total time managing care of this patient today ____ minutes. Procedures Date of Service Date of Service: 09/26/22
[2022-09-26 23:40] VITALS: BP 119/72; PULSE 76; RESP 18; TEMP 37.1; O2SAT 95
[2022-09-27 03:45] VITALS: BP 124/75; PULSE 68; RESP 16; TEMP 36.6; O2SAT 97
[2022-09-27] MEDS: Acetaminophen 325 MG TABLET 650 MG PO (03:54)
--- NOTE | 2022-09-27 04:24 | MHC.PIE ---
p; pt c/o nasal congestion i; dr harvey notified; new order nasal spray e; will cont to monitor
[2022-09-27 06:56] LABS: Creatinine Clr Calc Pharmacy 97.2; Estimated Glomerular Filt Rate > 60
--- NOTE | 2022-09-27 07:40 | PM.UROCN ---
History of Present Illness Consult details Consult date: 09/27/22 Requesting physician: Mel Mayo Narrative: 47-year-old female with history of kidney stones, states she saw a Urologist in the past in [place]. The patient's sister in law Chichi was available to interpret. H/O UTI about 5 years ago. Denies UTI symptoms. H of hypothyroidism who was admitted on 09/22/22 with complaints of abdominal pain/nausea/vomiting.? Patient states it was sudden in onset she had left-sided flank pain, it was constant and was not relieved with Tylenol at home.? It was associated with nausea and multiple episodes of nonbloody emesis.? No diarrhea.? Patient also had fevers up to 103 and chills at home.? Per history and physical.? Patient denies chest discomfort, palpitations, shortness of breath, changes in urinary or bowel habits.? Called for consult due to blood cultures positive for E. coli. Urinalysis was negative. Pertinent CT findings: KIDNEYS AND URETERS: The kidneys are normal in size, shape, and attenuation. No hydronephrosis or hydroureter. 0.2 cm left upper pole calculus. BLADDER: Unremarkable.? Review of Systems Review of Systems: 10 point ROS negative other than noted in [facility] Past Medical History Medical History Thyroid disease Functional capacity: independent ambulation Social History Social History Household Members: Family Housing: House Do you presently have visiting nurse or other home services: No Alcohol intake: current Alcohol intake frequency: holidays/special occasions only Patient Tobacco Use Status: Never used Tobacco Smoked in Last 30 Days: No Use of substances other than those prescribed or required for medical reasons: No Currently Displaying Signs/Symptoms of Drug Intoxication Withdrawal: No Have you been hit, kicked, punched, or otherwise hurt by someone within the past year? If so, by whom?: No Do you feel safe in your current relationship?: Yes Is there a partner from a previous relationship who is making you feel unsafe now?: No Are you made to feel afraid or neglected: No Advance Directives: No Do you have thoughts of harming others: None Do you have a plan to hurt others: No Plan Nutrition Risks: No Nutritional Risk Patient : No : No Poor oral hygiene: No service: No Current occupational status: unemployed Meds Allergies Allergy/AdvReac Type Severity Reaction Status Date / Time Sulfa (Sulfonamide Allergy Unknown SHORTNESS Verified 09/23/22 03:11 Antibiotics) OF BREATH [SULFA (SULFONAMIDE ANTIBIOTICS)] vancomycin AdvReac Red Man Verified 09/23/22 18:14 Syndrome Active Medications: Current Medications Acetaminophen (Acetaminophen 325 Mg Tablet) 650 mg PO Q6H PRN PRN Reason: Pain, Mild (Pain Scale 1-3) Last Admin: 09/27/22 03:54 Dose: 650 mg Enoxaparin Sodium (Enoxaparin Sodium 40 Mg/0.4 Ml Syringe) 40 mg SUBCUT DAILY [facility] Last Admin: 09/24/22 08:00 Dose: 40 mg Fluticasone Propionate (Fluticasone Propionate Nasal 16 Gm [place]) 1 spray NOSTRIL-B DAILY [facility] Last Admin: 09/27/22 01:01 Dose: Not Given Ceftriaxone Sodium 1 gm/ (Sodium Chloride) 50 mls @ 100 mls/hr IV Q24H [facility] Last Infusion: 09/26/22 10:17 Dose: Infused Ibuprofen (Ibuprofen 400 Mg Tablet) 400 mg PO Q4H PRN PRN Reason: Fever Last Admin: 09/26/22 21:05 Dose: 400 mg Melatonin (Melatonin 3 Mg Tablet) 6 mg PO BEDTIME PRN PRN Reason: Insomnia Last Admin: 09/25/22 23:20 Dose: 6 mg Ondansetron HCl (Ondansetron Hcl 4 Mg/2 Ml Vial) 4 mg IVPUSH Q8H PRN PRN Reason: Nausea and Vomiting Last Admin: 09/25/22 17:49 Dose: 4 mg Pharmacy Consult (Consult Rx Perform Med Rec) 1 each MISCELLANE ONCE PRN PRN Reason: Consult order Sodium Chloride (0.9 % Sodium Chloride Flush 3 Ml Syringe) 3 ml IVFLUSH QSHIFT [facility] Last Admin: 09/26/22 21:14 Dose: 3 ml Home Medications Medication Instructions Recorded Confirmed Last Taken Type acetaminophen 325 mg tablet 650 mg PO Q6H PRN Fever Or Pain 09/23/22 09/23/22 09/22/22 History non-formulary 1 tab PO DAILY 09/23/22 09/23/2209/22/23 History Physical Exam Vital Signs: Vital Signs: Last Vital Signs Temp 97.8 F 09/27/22 03:45 Pulse 68 09/27/22 03:45 Resp 16 09/27/22 03:45 BP 124/75 09/27/22 03:45 Pulse Ox 97 09/27/22 03:45 O2 Del Method 09/27/22 03:45 BMI result Body Mass Index 23.8 Const: General: cooperative, healthy appearing and no acute distress Orientation/consciousness: patient oriented x3 HEENT: Head: Yes normal to inspection, Yes normocephalic and Yes atraumatic Eyes: Conjunctivae: conjunctivae normal Neck: Neck: Yes normal visual inspection and Yes trachea midline Chest: Chest palpation & inspection: normal inspection of the chest Resp: Effort & Inspection: normal respiratory effort Cardio: Rate: regular rate GI: Inspection: Yes normal to inspection Palpation (GI): Soft to palpation : General: No no CVA tenderness Back/Spine/Pelvis: Back: No no CVA tenderness Skin: General skin exam: no rashes or lesions noted Neuro: General: patient oriented x3 Extrem: General: No edema Psych: Appearance: grossly normal Results Labs 09/26/22 05:20 09/27/22 05:23 Labs: BMP 09/27/22 05:23 Creatinine 0.65 Urine 09/22/22 09/22/22 Range/Units 22:15 22:15 Urine Color Yellow Urine Appearance Clear Urine pH 5.0 (5.0-9.0) Ur Specific [place] 1.010 (1.005-1.025) Urine Protein Negative (Neg-Trace) mg/dL Urine Glucose (UA) Negative (Negative) mg/dL Urine Test NEGATIVE (NEGATIVE) Imaging Abdomen CT scan report/results: report reviewed and image reviewed CT scan - pelvis: report reviewed and image reviewed Additional studies: Date of Service: 09/23/22 EXAMINATION: CT ABDOMEN AND PELVIS WITH CONTRAST? CLINICAL INFORMATION: Left lower quadrant pain? COMPARISON: 06/13/2019? FINDINGS: LUNG BASES: Calcified right lower lobe nodule again noted, unchanged. No acute finding. Normal heart size. LIVER, GALLBLADDER, AND BILIARY TREE: The liver is normal in size, shape, and attenuation. No focal hepatic lesion or biliary ductal dilatation is present. The gallbladder is unremarkable with no evidence of radiopaque gallstones, gallbladder wall thickening, or obvious pericholecystic inflammatory changes.? PANCREAS: Unremarkable.? SPLEEN: Unremarkable.? ADRENAL GLANDS: Unremarkable.? KIDNEYS AND URETERS: The kidneys are normal in size, shape, and attenuation. No hydronephrosis or hydroureter. 0.2 cm left upper pole calculus is 7 cm from the posterior axillary line. BLADDER: Unremarkable.? GASTROINTESTINAL TRACT: The stomach is unremarkable. Normal caliber small bowel. No obstruction. No colonic wall thickening or inflammatory change. No free air. No significant free fluid. Normal appendix. Likely tiny appendicolith. ABDOMINAL WALL: No significant hernia is appreciated.? LYMPH NODES: Normal. VASCULAR: Normal caliber aorta. Circumaortic left renal vein. PELVIC VISCERA: Anteverted uterus. Peripherally enhancing right ovarian follicle. No adnexal mass. OSSEOUS STRUCTURES: No acute or suspicious osseous abnormality. Posterior hardware from L4 through the sacrum.? IMPRESSION: 1.? No acute findings in the abdomen or pelvis. No inflammatory changes. 2.? Nonobstructing left upper pole renal calculus. Assessment and Plan (1) Kidney stone on left side: Status: Acute (2) History of kidney stones: Status: Acute (3) E. coli bacteremia: Status: Acute Plan Lakshmi's symptoms of Left flank pain is suspicious of renal colic and she may have passed a tiny stone, currently left sided pain is resolved. UA is negative and she denies UTI symptoms or problems with recurrent UTI's Unclear if E.coli bacteremia is secondary to primary, however no surgical intervention indicated at this time and will have her follow up as an out patient. Time Spent With Patient Time: Total time managing care of this patient today ____ minutes. Procedures Date of Service Date of Service: 09/27/22
[2022-09-27 07:59] VITALS: BP 124/81; PULSE 67; RESP 16; TEMP 36.8; O2SAT 97
[2022-09-27] MEDS: 0.9 % Sodium Chloride Flush 3 ML SYRINGE IVFLUSH ×2 (08:10→15:05)
[2022-09-27] MEDS: cefTRIAXone sodium 1 GM in 0.9 % Sodium Chloride 50 ML IV (08:12)
[2022-09-27] MEDS: Fluticasone Propionate Nasal 16 GM SPRAY 1 SPRAY NOSTRIL-B (10:45)
[2022-09-27] MEDS: Levothyroxine Sodium 100 MCG TABLET PO (10:46)
--- NOTE | 2022-09-27 12:14 | W.PM.IDCN ---
History of Present Illness Data of Consult Service Date: 09/26/22 Requesting physician: Mel Mayo Primary Care Provider: None Physician HPI Reason for consult: sepsis,abdominal pain She presents with abdominal pain epigastric upper 02/12 with presentation ER 09/22. Pain described at that time LUQ. She has small renal stone left,non obstructive. She had chills and rigors with initial presentation and elevated lactate level. Review of Systems Review of Systems: Yes all other systems are reviewed and are negative PMFSH Past Medical History Medical History Thyroid disease Functional capacity: independent ambulation Family History Family history: reviewed and not pertinent Social History Social History Household Members: Family Housing: House Do you presently have visiting nurse or other home services: No Alcohol intake: current Alcohol intake frequency: holidays/special occasions only Patient Tobacco Use Status: Never used Tobacco Smoked in Last 30 Days: No Use of substances other than those prescribed or required for medical reasons: No Currently Displaying Signs/Symptoms of Drug Intoxication Withdrawal: No Have you been hit, kicked, punched, or otherwise hurt by someone within the past year? If so, by whom?: No Do you feel safe in your current relationship?: Yes Is there a partner from a previous relationship who is making you feel unsafe now?: No Are you made to feel afraid or neglected: No Advance Directives: No Do you have thoughts of harming others: None Do you have a plan to hurt others: No Plan Nutrition Risks: No Nutritional Risk Patient : No : No Poor oral hygiene: No service: No Current occupational status: unemployed Meds Allergies Allergy/AdvReac Type Severity Reaction Status Date / Time Sulfa (Sulfonamide Allergy Unknown SHORTNESS Verified 09/23/22 03:11 Antibiotics) OF BREATH [SULFA (SULFONAMIDE ANTIBIOTICS)] vancomycin AdvReac Red Man Verified 09/23/22 18:14 Syndrome Active Medications: Current Medications Acetaminophen (Acetaminophen 325 Mg Tablet) 650 mg PO Q6H PRN PRN Reason: Pain, Mild (Pain Scale 1-3) Last Admin: 09/27/22 03:54 Dose: 650 mg Enoxaparin Sodium (Enoxaparin Sodium 40 Mg/0.4 Ml Syringe) 40 mg SUBCUT DAILY [facility] Last Admin: 09/24/22 08:00 Dose: 40 mg Fluticasone Propionate (Fluticasone Propionate Nasal 16 Gm [place]) 1 spray NOSTRIL-B DAILY [facility] Last Admin: 09/27/22 10:45 Dose: 1 spray Ceftriaxone Sodium 1 gm/ (Sodium Chloride) 50 mls @ 100 mls/hr IV Q24H [facility] Last Infusion: 09/27/22 09:19 Dose: Infused Ibuprofen (Ibuprofen 400 Mg Tablet) 400 mg PO Q4H PRN PRN Reason: Fever Last Admin: 09/26/22 21:05 Dose: 400 mg Levothyroxine Sodium (Levothyroxine Sodium 100 Mcg Tablet) 100 mcg PO DAILY@0600 [facility] Melatonin (Melatonin 3 Mg Tablet) 6 mg PO BEDTIME PRN PRN Reason: Insomnia Last Admin: 09/25/22 23:20 Dose: 6 mg Ondansetron HCl (Ondansetron Hcl 4 Mg/2 Ml Vial) 4 mg IVPUSH Q8H PRN PRN Reason: Nausea and Vomiting Last Admin: 09/25/22 17:49 Dose: 4 mg Pharmacy Consult (Consult Rx Perform Med Rec) 1 each MISCELLANE ONCE PRN PRN Reason: Consult order Polyethylene Glycol/Electrolytes (Peg 3350/Na Sulf,Bicarb,Cl/Kcl 4,000 Ml Soln.Recon) 4,000 ml PO ONCE ONE Stop: 09/27/22 19:31 Sodium Chloride (0.9 % Sodium Chloride Flush 3 Ml Syringe) 3 ml IVFLUSH QSHIFT [facility] Last Admin: 09/27/22 08:10 Dose: 3 ml Home Medications Medication Instructions Recorded Confirmed Last Taken Type acetaminophen 325 mg tablet 650 mg PO Q6H PRN Fever Or Pain 09/23/22 09/23/22 09/22/22 History non-formulary 1 tab PO DAILY 09/23/22 09/23/22 09/22/22 History Physical Exam Vital Signs: Vital Signs: Last Vital Signs Temp 98.3 F 09/27/22 07:59 Pulse 67 09/27/22 07:59 Resp 16 09/27/22 07:59 BP 124/81 09/27/22 07:59 Pulse Ox 97 09/27/22 07:59 O2 Del Method 09/27/22 07:59 BMI result Body Mass Index 23.8 Const: General: cooperative HEENT: Head: Yes normal to inspection Face and sinus: Yes normal facial exam Mouth: Normal oral and palatal mucosa present Teeth and gingiva: dentition normal Eyes: General: appearance normal, both eyes and all related structures Pupils: Equal, round and reactive pupils present Resp: Effort & Inspection: normal respiratory effort Cardio: Rate: regular rate Rhythm: regular rhythm GI: Other: mild abdominal discomfort,epigastric Palpation (GI): Soft to palpation and nontender : General: Yes no CVA tenderness Back/Spine/Pelvis: Back: no CVA tenderness Skin: General skin exam: no rashes or lesions noted Neuro: General: moves all extremities Cranial nerves: Yes Equal, round and reactive pupils present Extrem: General: Yes normal to inspection Psych: Appearance: grossly normal Results Labs 09/26/22 05:20 09/27/22 05:23 Labs: BMP 09/27/22 05:23 Creatinine 0.65 Microbiology Microbiology Results: Microbiology 09/25/22 13:55 Cerebrospinal Fluid Gram Stain - Final 09/25/22 13:55 Cerebrospinal Fluid CSF Examination - Final 09/25/22 13:55 Cerebrospinal Fluid Fluid Description - Final 09/25/22 13:55 Cerebrospinal Fluid CSF Culture - Preliminary No growth after 2 days 09/22/22 22:09 Blood - Venous Blood Culture - Final Escherichia coli 09/22/22 22:09 Blood - Venous Blood Culture - Final Escherichia coli Assessment and Plan (1) Bacteremia: Status: Acute E. coli bacteremia This with initial left sided pain may be consistent with nephrolithiasis,with passing of stone concern Less likely but possible is pain due to gynecologic reasons or bowel source (2) Abdominal pain: Status: Acute Plan Continue Cefriaxone. Await possible EGD and colonoscopy. Urology evaluation Probable po Ceftin or Levaquin cover above on discharge for 14 days total. Time Spent With Patient Time: Total time managing care of this patient today ____ minutes.
[2022-09-27] MEDS: bisacodyL 5 MG TABLET.DR 10 MG PO (12:23)
--- NOTE | 2022-09-27 12:47 | PM.EVENT ---
Event Note Date of Service: 09/27/22 Event Note: she also complained of breast lump for last month .5 cm mobile dense area by my palpation medial to nipple right breast Time Spent With Patient Time: Total time managing care of this patient today ____ minutes.
--- NOTE | 2022-09-27 13:15 | MHC.CM.PN ---
Per MD rounds no dc today. Patient is planned for EGD tomorrow. CM will follow for discharge.
--- NOTE | 2022-09-27 14:20 | HO.PM.IMPN ---
Subjective Subjective Date of Service: 09/27/22 Interval History: All information clean via social media marketing analyst. .. Patient reported he speaking States pain has essentially resolved. Review of Systems Denies chest pain Denies shortness of breath Denies nausea vomiting diarrhea Denies fever chills Physical Exam Vital Signs: Vital Signs: Last Vital Signs Temp 98.3 F 09/27/22 07:59 Pulse 67 09/27/22 07:59 Resp 16 09/27/22 07:59 BP 124/81 09/27/22 07:59 Pulse Ox 97 09/27/22 07:59 O2 Del Method 09/27/22 07:59 BMI result Body Mass Index 23.8 Const: Other: Awake alert oriented x3 no acute distress Resp: Other: Clear to auscultation bilaterally no rales rhonchi or wheezes Cardio: Other: No S4; positive S1-S2; no S3 murmurs or gallops GI: Other: Soft nontender nondistended normoactive bowel sounds. No acute peritoneal signs Back/Spine/Pelvis: Other: No CVA tenderness Extrem: Other: No edema bilaterally Objective Data Active Medications Acetaminophen (Acetaminophen 325 Mg Tablet) 650 mg PO Q6H PRN PRN Reason: Pain, Mild (Pain Scale 1-3) Last Admin: 09/27/22 03:54 Dose: 650 mg Documented By: SARKIS Enoxaparin Sodium (Enoxaparin Sodium 40 Mg/0.4 Ml Syringe) 40 mg SUBCUT DAILY [facility] Last Admin: 09/24/22 08:00 Dose: 40 mg Documented By: ROBERT Fluticasone Propionate (Fluticasone Propionate Nasal 16 Gm [place]) 1 spray NOSTRIL-B DAILY [facility] Last Admin: 09/27/22 10:45 Dose: 1 spray Documented By: DESI Ceftriaxone Sodium 1 gm/ (Sodium Chloride) 50 mls @ 100 mls/hr IV Q24H [facility] Last Infusion: 09/27/22 09:19 Dose: 0 mls/hr Documented By: CHRISTIANO Ibuprofen (Ibuprofen 400 Mg Tablet) 400 mg PO Q4H PRN PRN Reason: Fever Last Admin: 09/26/22 21:05 Dose: 400 mg Documented By: SARKIS Levothyroxine Sodium (Levothyroxine Sodium 100 Mcg Tablet) 100 mcg PO DAILY@0600 [facility] Melatonin (Melatonin 3 Mg Tablet) 6 mg PO BEDTIME PRN PRN Reason: Insomnia Last Admin: 09/25/22 23:20 Dose: 6 mg Documented By: SHIVA Ondansetron HCl (Ondansetron Hcl 4 Mg/2 Ml Vial) 4 mg IVPUSH Q8H PRN PRN Reason: Nausea and Vomiting Last Admin: 09/25/22 17:49 Dose: 4 mg Documented By: CAESAR Pharmacy Consult (Consult Rx Perform Med Rec) 1 each MISCELLANE ONCE PRN PRN Reason: Consult order Polyethylene Glycol/Electrolytes (Peg 3350/Na Sulf,Bicarb,Cl/Kcl 4,000 Ml Soln.Recon) 4,000 ml PO ONCE ONE Stop: 09/27/22 19:31 Sodium Chloride (0.9 % Sodium Chloride Flush 3 Ml Syringe) 3 ml IVFLUSH QSHIFT [facility] Last Admin: 09/27/22 08:10 Dose: 3 ml Documented By: DESI Labs 09/26/22 05:20 09/27/22 05:23 Labs: Laboratory Results - last 24 hr 09/24/22 09/27/22 10:06 05:23 Estim Creat Clear Calc 97.2 Estimated GFR > 60 [place] Progressive Test TNP Microbiology Microbiology Results: Microbiology 09/25/22 13:55 Gram Stain - Final Cerebrospinal Fluid CSF Examination - Final Fluid Description - Final CSF Culture - Preliminary No growth after 2 days Assessment and Plan (1) Abdominal pain: Status: Acute (2) E. coli bacteremia: Status: Acute (3) Hypothyroidism: Status: Acute Plan This is a 47-year-old female with pertinent history of hypothyroidism who presents to the emergency department for evaluation of abdominal pain/nausea/vomiting. 1.SIRS with abdominal pain(resolved) -likely secondary to renal calculi -follow clinically 2.Ecoli bacteremia -surgical workup essentially unremarkable -GI to scope; EGD/colon in a.m. -continue ceftriaxone(4) 3.Hypothyroidism -Synthroid as ordered Lovenox Full code Requires ongoing hospitalization for IV antibiotics to treat bacteremia pending workup Time Spent With Patient Time: Total time managing care of this patient today ____ minutes. Quality Stroke Does the patient have a stroke diagnosis?: No VTE Prior VTE?: No VTE Risk Level:: Medical - moderate - high VTE Device Contraindication: Treatment Not Indicated VTE Drug Contraindication: N/A - Med Ordered
[2022-09-27 15:39] VITALS: BP 120/80; PULSE 70; RESP 16; TEMP 37.5; O2SAT 98
[2022-09-27] MEDS: PEG 3350/Na Sulf,Bicarb,Cl/KCL 4,000 ML SOLN.RECON 4000 ML PO (17:49)
[2022-09-27 17:53] LABS: Albumin 3.1 g/dL (3.6-5.1); Albumin, CSF 15.2 mg/dL (8.0-42.0); IgG 521 mg/dL (600-1640); IgG Synthesis Rate 0.8 mg/24 h (-9.9-3.3); IgG, CSF 1.7 mg/dL (0.8-7.7)
[2022-09-27 18:19] LABS: VDRL Qualitative CSF Nonreactive (Nonreactive)
[2022-09-27 19:44] VITALS: BP 128/67; PULSE 70; RESP 18; TEMP 36.9; O2SAT 99
[2022-09-27 23:39] VITALS: BP 124/79; PULSE 60; RESP 18; TEMP 36.9; O2SAT 99
[2022-09-28] MEDS: Acetaminophen 325 MG TABLET 650 MG PO (06:03)
[2022-09-28 06:38] LABS: Basophils Percent Auto 0.3 % (0-2); Eosinophils Absolute Auto 0.1 X10*3/uL (0.0-0.4); Eosinophils Percent Auto 1.8 % (0-4); Hematocrit 24.2 % (37.0-47.0); Imm Gran Abs Auto 0.07 X10*3/uL (0.00-0.03); Imm Gran Pct Auto 2.1 % (0.0-0.4); Lymphocytes Absolute Auto 1.5 X10*3/uL (1.2-4.9); Lymphocytes Percent Auto 42.5 % (20-40); MANUAL DIFF FLAG SCAN; Mean Corpuscular HGB Conc 33.1 g/dl (31.0-35.0); Mean Corpuscular Hemoglobin 24.8 pg (27.0-33.0); Mean Corpuscular Volume 74.9 fL (80.0-98.0); Mean Platelet Volume 9.7 fL (9.4-12.3); Monocytes Absolute Auto 0.3 X10*3/uL (0.1-1.2); Monocytes Percent Auto 8.5 % (2-11); Neutrophils Absolute Auto 1.5 x10*3/uL (2.0-8.3); Neutrophils Percent Auto 44.8 % (45-73); Platelet Count 243 X10*3/uL (160-400); Red Blood Count 3.23 X10*6/uL (4.20-5.50); Red Cell Distribution Width 14.1 % (11.0-16.0); SCAN SMEAR FLAG 1; White Blood Count 3.4 X10*3/uL (4.8-10.8)
[2022-09-28 06:56] LABS: SLIDE REVIEW VERIFIED
[2022-09-28 07:46] LABS: Alanine Aminotransferase 7 U/L (0-31); Albumin Level 3.3 g/dL (3.5-5.0); Alkaline Phosphatase 44 U/L (39-117); Anion Gap 13 (12-20); Aspartate Amino Transferase 9 U/L (5-31); Bilirubin Total 0.2 mg/dL (0.0-1.0); Blood Urea Nitrogen 9 mg/dL (9-16); Calcium 7.9 mg/dL (8.4-10.2); Carbon Dioxide 22 mmol/L (22-29); Chloride 111 mmol/L (96-108); Estimated Glomerular Filt Rate > 60; Glucose Fasting 96 mg/dL (60-99); Potassium 3.7 mmol/L (3.3-5.1); Sodium 142 mmol/L (135-145); Total Protein 5.2 g/dL (6.5-8.0)
[2022-09-28 08:00] VITALS: BP 125/73; PULSE 68; RESP 17; TEMP 37.6; O2SAT 96
[2022-09-28] MEDS: 0.9 % Sodium Chloride Flush 3 ML SYRINGE IVFLUSH (08:19)
[2022-09-28] MEDS: Fluticasone Propionate Nasal 16 GM SPRAY 1 SPRAY NOSTRIL-B (08:19)
--- NOTE | 2022-09-28 11:28 | MHC.SHP ---
Pre-Procedural Eval Section A Date of Service: 09/28/22 The patient is an INPATIENT: Yes The History & Physical has been completed within 30 days and I have reviewed it.: Yes Section B Chief Complaint: Abdominal pain Allergies: Allergies Allergy/AdvReac Type Severity Reaction Status Date / Time Sulfa (Sulfonamide Allergy Unknown SHORTNESS Verified 09/23/22 03:11 Antibiotics) OF BREATH [SULFA (SULFONAMIDE ANTIBIOTICS)] vancomycin AdvReac Red Man Verified 09/23/22 18:14 Syndrome Plan Diagnosis/Plan: Unchanged I have reviewed the history and physical and performed a pertinent physical examination on my patient. No changes have occurred unless specified. Time Spent With Patient Time: Total time managing care of this patient today ____ minutes.
[2022-09-28] MEDS: cefTRIAXone sodium 1 GM in 0.9 % Sodium Chloride 50 ML IV (12:10)
--- NOTE | 2022-09-28 12:53 | HO.ANESPROP2 ---
Documented by User: Katya Durand MD 09/28/22 14:32 HPI - Anesthesia Eval Consult details Narrative: 47 yo female for EGD, Colonoscopy PMF Active Problems Active Problems: All Active Problems (Updated 09/28/22 @ 14:28 by Katya Durand MD) Hypothyroidism (Acute) E. coli bacteremia (Acute) History of kidney stones (Acute) Kidney stone on left side (Acute) FH: colon cancer (Acute) Epigastric abdominal pain (Acute) Bacteremia (Acute) Abdominal pain (Acute) Nausea & vomiting (Acute) Orthostatic hypotension (Acute) Anemia Past Medical History Medical History Thyroid disease Family History Family history of problems with anesthesia: No Surgical History Surgical History (Updated 09/28/22 @ 14:13 by Katya Durand MD) H/O section History of back surgery History of Problems with Anesthesia: No Social History Social History Household Members: Family Housing: House Do you presently have visiting nurse or other home services: No Alcohol intake: current Alcohol intake frequency: holidays/special occasions only Patient Tobacco Use Status: Never used Tobacco Smoked in Last 30 Days: No Use of substances other than those prescribed or required for medical reasons: No Currently Displaying Signs/Symptoms of Drug Intoxication Withdrawal: No Have you been hit, kicked, punched, or otherwise hurt by someone within the past year? If so, by whom?: No Do you feel safe in your current relationship?: Yes Is there a partner from a previous relationship who is making you feel unsafe now?: No Are you made to feel afraid or neglected: No Advance Directives: No Do you have thoughts of harming others: None Do you have a plan to hurt others: No Plan Nutrition Risks: No Nutritional Risk Patient : No : No Poor oral hygiene: No service: No Current occupational status: unemployed Meds Allergies Allergy/AdvReac Type Severity Reaction Status Date / Time Sulfa (Sulfonamide Allergy Unknown SHORTNESS Verified 09/23/22 03:11 Antibiotics) OF BREATH [SULFA (SULFONAMIDE ANTIBIOTICS)] vancomycin AdvReac Red Man Verified 09/23/22 18:14 Syndrome Home Medications Medication Instructions Recorded Confirmed Last Taken Type acetaminophen 325 mg tablet 650 mg PO Q6H PRN Fever Or Pain 09/23/22 09/23/22 09/22/22 History non-formulary 1 tab PO DAILY 09/23/22 09/23/22 09/22/22 History Exam Height,Weight and Vital Signs: Height 5 ft 5 in Weight 64.864 kg Last Vital Signs Temp 99.6 F 09/28/22 08:00 Pulse 68 09/28/22 08:00 Resp 17 09/28/22 08:00 BP 125/73 09/28/22 08:00 Pulse Ox 96 09/28/22 08:00 O2 Del Method 09/28/22 08:00 Vital Signs Temp Pulse Resp BP Pulse Ox O2 Del Method 09/28/22 13:15 98.3 F 66 18 141/86 H 100 Room Air 09/28/22 08:00 99.6 F 68 17 125/73 96 Room Air 09/27/22 23:39 98.5 F 60 18 124/79 99 Room Air 09/27/22 19:44 98.5 F 70 18 128/67 99 Room Air 09/27/22 15:39 99.5 F 70 16 120/80 98 Room Air Airway Mallampati Class: II TM Dist: >3cm Neck ROM: Limited (Some occipital and neck pain) Loose/Missing/Broken Teeth: Yes (Broken tooth bottom right. Many missing teeth) Heart: RRR Lungs: CTAB Assessment and Plan Assessment Anesthesia Assessment: Anesthesia Plan Discussed and Chart Reviewed Final Anesthetic Review Family History of Problems with Anesthesia: No History of Problems with Anesthesia: No NPO: Yes ASA Class: III Final Preanesthetic Review: No Changes in Pt Med Stat, Meds/Allgs Chart Reviewed, Consent Obtained/Reviewed and Anes Risks/Benef Reviewed Patient Risk: Intermediate Procedure Risk: Low Assessment/Block/Sedation in SS: Assess/Block/Sedation-SS Anesthetic Plan Anesthetic Plan: MAC: Disposition: Standard PACU Documented by User: Vika Garcia MD [facility] Active Problems Active Problems: All Active Problems (Updated 09/27/22 @ 14:28 by Thierno Mcdaniel DO) Hypothyroidism (Acute) E. coli bacteremia (Acute) History of kidney stones (Acute) Kidney stone on left side (Acute) FH: colon cancer (Acute) Epigastric abdominal pain (Acute) Bacteremia (Acute) Abdominal pain (Acute) Nausea & vomiting (Acute) Orthostatic hypotension (Acute) Past Medical History Medical History Thyroid disease Functional capacity: independent ambulation Surgical History Surgical History (Updated 09/28/22 @ 14:13 by Katya Durand MD) H/O section History of back surgery Social History Social History Household Members: Family Housing: House Do you presently have visiting nurse or other home services: No Alcohol intake: current Alcohol intake frequency: holidays/special occasions only Patient Tobacco Use Status: Never used Tobacco Smoked in Last 30 Days: No Use of substances other than those prescribed or required for medical reasons: No Currently Displaying Signs/Symptoms of Drug Intoxication Withdrawal: No Have you been hit, kicked, punched, or otherwise hurt by someone within the past year? If so, by whom?: No Do you feel safe in your current relationship?: Yes Is there a partner from a previous relationship who is making you feel unsafe now?: No Are you made to feel afraid or neglected: No Advance Directives: No Do you have thoughts of harming others: None Do you have a plan to hurt others: No Plan Nutrition Risks: No Nutritional Risk Patient : No : No Poor oral hygiene: No service: No Current occupational status: unemployed Meds Allergies Allergy/AdvReac Type Severity Reaction Status Date / Time Sulfa (Sulfonamide Allergy Unknown SHORTNESS Verified 09/23/22 03:11 Antibiotics) OF BREATH [SULFA (SULFONAMIDE ANTIBIOTICS)] vancomycin AdvReac Red Man Verified 09/23/22 18:14 Syndrome Active Medications: Current Medications Acetaminophen (Acetaminophen 325 Mg Tablet) 650 mg PO Q6H PRN PRN Reason: Pain, Mild (Pain Scale 1-3) Last Admin: 09/28/22 06:03 Dose: 650 mg Enoxaparin Sodium (Enoxaparin Sodium 40 Mg/0.4 Ml Syringe) 40 mg SUBCUT DAILY [facility] Last Admin: 09/24/22 08:00 Dose: 40 mg Fluticasone Propionate (Fluticasone Propionate Nasal 16 Gm [place]) 1 spray NOSTRIL-B DAILY [facility] Last Admin: 09/28/22 08:19 Dose: 1 spray Ceftriaxone Sodium 1 gm/ (Sodium Chloride) 50 mls @ 100 mls/hr IV Q24H [facility] Last Admin: 09/28/22 12:10 Dose: 100 mls/hr Ibuprofen (Ibuprofen 400 Mg Tablet) 400 mg PO Q4H PRN PRN Reason: Fever Last Admin: 09/26/22 21:05 Dose: 400 mg Levothyroxine Sodium (Levothyroxine Sodium 100 Mcg Tablet) 100 mcg PO DAILY@0600 [facility] Last Admin: 09/28/22 04:40 Dose: Not Given Melatonin (Melatonin 3 Mg Tablet) 6 mg PO BEDTIME PRN PRN Reason: Insomnia Last Admin: 09/25/22 23:20 Dose: 6 mg Ondansetron HCl (Ondansetron Hcl 4 Mg/2 Ml Vial) 4 mg IVPUSH Q8H PRN PRN Reason: Nausea and Vomiting Last Admin: 09/25/22 17:49 Dose: 4 mg Pharmacy Consult (Consult Rx Perform Med Rec) 1 each MISCELLANE ONCE PRN PRN Reason: Consult order Sodium Chloride (0.9 % Sodium Chloride Flush 3 Ml Syringe) 3 ml IVFLUSH QSHIFT [facility] Last Admin: 09/28/22 08:19 Dose: 3 ml Home Medications Medication Instructions Recorded Confirmed Last Taken Type acetaminophen 325 mg tablet 650 mg PO Q6H PRN Fever Or Pain 09/23/22 09/23/22 09/22/22 History non-formulary 1 tab PO DAILY 09/23/22 09/23/22 09/22/22 History Exam Exam Date and Time: September 28, 2022 1253 Height,Weight and Vital Signs: Height 5 ft 5 in Weight 64.864 kg Last Vital Signs Temp 99.6 F 09/28/22 08:00 Pulse 68 09/28/22 08:00 Resp 17 09/28/22 08:00 BP 125/73 09/28/22 08:00 Pulse Ox 96 09/28/22 08:00 O2 Del Method 09/28/22 08:00 Pertinent Lab Results Pertinent Lab Results: Laboratory Tests 09/22/22 09/22/22 09/22/22 22:09 22:09 22:09 WBC 8.0 RBC 4.21 Hgb 10.5 L Hct 32.0 L MCV 76.0 L MCH 24.9 L MCHC 32.8 RDW 14.0 Plt Count 231 MPV 9.1 L Immature Gran % (Auto) 0.1 Neut % (Auto) 92.6 H Lymph % (Auto) 4.8 L [place] % (Auto) 2.3 Eos % (Auto) 0.1 Baso % (Auto) 0.1 Lymph # (Auto) 0.4 L [place] # (Auto) 0.2 Eos # (Auto) 0.0 Baso # (Auto) 0.0 Abs Immat Gran (auto) 0.01 Absolute Neuts (auto) 7.4 Absolute Nucleated RBC 0.000 Nucleated RBC % (auto) 0.0 Neutrophils % (Manual) Band Neutrophils % Lymphocytes % (Manual) Monocytes % (Manual) Abs Neuts (Manual) Lymphocytes # (Manual) Platelet Estimate Plt Morphology Comment RBC Morphology Hypochromasia Microcytosis Smear Tech's Comments VERIFIED PT INR D-Dimer High Sensitivty Sodium 138 Potassium 3.4 Chloride 107 Carbon Dioxide 18 L Anion Gap 16 BUN 16 Creatinine 1.09 Estim Creat Clear Calc 58.0 Estimated GFR 54 Random Glucose 113 Fasting Glucose Lactic Acid 2.1 H* Lactic Acid F/U @ 2Hr Calcium 9.1 Iron TIBC % Saturation Unsat Iron Binding Total Bilirubin 0.5 Direct Bilirubin < 0.2 AST 11 ALT 7 Alkaline Phosphatase 64 Troponin I High Sens C-Reactive Protein Total Protein 6.9 Albumin 4.5 Albumin (Send Out) Lipase 38 Procalcitonin TSH Urine Color Urine Appearance Urine pH Ur Specific [place] Urine Protein Urine Glucose (UA) Urine Ketones Urine Blood Urine Nitrite Ur Leukocyte Esterase Urine RBC Urine WBC Ur Squamous Epith Cells Urine Bacteria Hyaline Casts Urine Test CSF Tube Number CSF Volume CSF Appearance CSF Color CSF WBC CSF RBC CSF Neutrophils CSF Lymphocytes CSF Monocytes % CSF Other Cells % CSF Appearance (b) CSF Glucose CSF Total Protein CSF Albumin CSF IgG Index CSF IgG Synthesis Rate CSF/Serum IgG Index CSF VDRL CSF C.neoform/gat PCR CSF CMV DNA (PCR) CSF Enterovirus (PCR) CSF E. coli K1 (PCR) CSF H. influenzae (PCR) CSF HSV I (PCR) CSF HSV II (PCR) CSF HHV 6 (PCR) CSF L.monocytogenes PCR CSF N. meningitidis PCR CSF Parechovirus (PCR) CSF S. agalactiae (PCR) CSF S. pneumoniae (PCR) CSF VZV (PCR) Stl C. cayetanensis PCR Stool Rotavirus A PCR Stl Adenov F 40/41 PCR Stool Astrovirus (PCR) Stool Campylobacter PCR Stool Cryptosporidium PCR Stl Sh Tox Pr E STEC PCR Stool E coli O157 PCR Stl Enterotoxigenic E PCR Stool EPEC (PCR) Stool EAEC (PCR) Stl E. histolytica PCR Stool Giardia Lamblia PCR Stl P. shigelloides PCR Stool Salmonella PCR Stool Sapovirus (PCR) Stl Shigella/EIEC PCR St Y.enterocolitica PCR Stool Vibrio (PCR) Stl Vibrio cholerae PCR Stl Norovirus GI/GII PCR Vancomycin Trough Urine Opiates Screen Urine Fentanyl Screen Ur Barbiturates Screen Ur Phencyclidine Scrn Ur Amphetamines Screen U Benzodiazepines Scrn Urine Cocaine Screen U Marijuana (THC) Screen IgG Index Respiratory Panel Herrera Adenovirus (Rapid PCR) B.pert (TEM-PCR) B.parapertussis DNA PCR Lyme Screen IgG & IgM Lyme Progressive Test C. pneumoniae DNA (PCR) Coronavirus OC43 (PCR) Coronavirus HKU1 (PCR) Coronavirus 229E (PCR) COVID-19 (GENI) COVID-19 Clin Com Coronavirus NL63 (PCR) CMV Specimen Source CMV Qnt PCR IU/mL CMV Qnt PCR log IU/mL HIV 1&2 Ab/P24 Ag 4thGn Human Metapneumovir PCR Influenza Type A (ANIYA) Influenza A (RT-PCR) Influenza Type B (ANIYA) Influenza B (RT-PCR) Influenza A & B Note M. pneumoniae (PCR) Parainfluenza 1 (PCR) Parainfluenza 2 (PCR) Parainfluenza 3 (PCR) Parainfluenza 4 (PCR) RSV (PCR) Entero/Rhino (PCR) SARS-CoV-2 RNA (RT-PCR) 09/22/22 09/22/22 09/22/22 22:15 22:15 23:11 WBC RBC Hgb Hct MCV MCH MCHC RDW Plt Count MPV Immature Gran % (Auto) Neut % (Auto) Lymph % (Auto) [place] % (Auto) Eos % (Auto) Baso % (Auto) Lymph # (Auto) [place] # (Auto) Eos # (Auto) Baso # (Auto) Abs Immat Gran (auto) Absolute Neuts (auto) Absolute Nucleated RBC Nucleated RBC % (auto) Neutrophils % (Manual) Band Neutrophils % Lymphocytes % (Manual) Monocytes % (Manual) Abs Neuts (Manual) Lymphocytes # (Manual) Platelet Estimate Plt Morphology Comment RBC Morphology Hypochromasia Microcytosis Smear Tech's Comments PT INR D-Dimer High Sensitivty Sodium Potassium Chloride Carbon Dioxide Anion Gap BUN Creatinine Estim Creat Clear Calc Estimated GFR Random Glucose Fasting Glucose Lactic Acid Lactic Acid F/U @ 2Hr Calcium Iron TIBC % Saturation Unsat Iron Binding Total Bilirubin Direct Bilirubin AST ALT Alkaline Phosphatase Troponin I High Sens C-Reactive Protein Total Protein Albumin Albumin (Send Out) Lipase Procalcitonin TSH Urine Color Yellow Urine Appearance Clear Urine pH 5.0 Ur Specific [place] 1.010 Urine Protein Negative Urine Glucose (UA) Negative Urine Ketones Negative Urine Blood Negative Urine Nitrite Negative Ur Leukocyte Esterase Negative Urine RBC 0-2 Urine WBC 0-5 Ur Squamous Epith Cells 0-2 Urine Bacteria None Seen Hyaline Casts 0-2 Urine Test NEGATIVE CSF Tube Number CSF Volume CSF Appearance CSF Color CSF WBC CSF RBC CSF Neutrophils CSF Lymphocytes CSF Monocytes % CSF Other Cells % CSF Appearance (b) CSF Glucose CSF Total Protein CSF Albumin CSF IgG Index CSF IgG Synthesis Rate CSF/Serum IgG Index CSF VDRL CSF C.neoform/gat PCR CSF CMV DNA (PCR) CSF Enterovirus (PCR) CSF E. coli K1 (PCR) CSF H. influenzae (PCR) CSF HSV I (PCR) CSF HSV II (PCR) CSF HHV 6 (PCR) CSF L.monocytogenes PCR CSF N. meningitidis PCR CSF Parechovirus (PCR) CSF S. agalactiae (PCR) CSF S. pneumoniae (PCR) CSF VZV (PCR) Stl C. cayetanensis PCR Stool Rotavirus A PCR Stl Adenov F 40/41 PCR Stool Astrovirus (PCR) Stool Campylobacter PCR Stool Cryptosporidium PCR Stl Sh Tox Pr E STEC PCR Stool E coli O157 PCR Stl Enterotoxigenic E PCR Stool EPEC (PCR) Stool EAEC (PCR) Stl E. histolytica PCR Stool Giardia Lamblia PCR Stl P. shigelloides PCR Stool Salmonella PCR Stool Sapovirus (PCR) Stl Shigella/EIEC PCR St Y.enterocolitica PCR Stool Vibrio (PCR) Stl Vibrio cholerae PCR Stl Norovirus GI/GII PCR Vancomycin Trough Urine Opiates Screen Urine Fentanyl Screen Ur Barbiturates Screen Ur Phencyclidine Scrn Ur Amphetamines Screen U Benzodiazepines Scrn Urine Cocaine Screen U Marijuana (THC) Screen IgG Index Respiratory Panel Herrera Adenovirus (Rapid PCR) B.pert (TEM-PCR) B.parapertussis DNA PCR Lyme Screen IgG & IgM Lyme Progressive Test C. pneumoniae DNA (PCR) Coronavirus OC43 (PCR) Coronavirus HKU1 (PCR) Coronavirus 229E (PCR) COVID-19 (GENI) COVID-19 Clin Com Coronavirus NL63 (PCR) CMV Specimen Source CMV Qnt PCR IU/mL CMV Qnt PCR log IU/mL HIV 1&2 Ab/P24 Ag 4thGn Human Metapneumovir PCR Influenza Type A (ANIYA) Negative Influenza A (RT-PCR) Influenza Type B (ANIYA) Negative Influenza B (RT-PCR) Influenza A & B Note See Note M. pneumoniae (PCR) Parainfluenza 1 (PCR) Parainfluenza 2 (PCR) Parainfluenza 3 (PCR) Parainfluenza 4 (PCR) RSV (PCR) Entero/Rhino (PCR) SARS-CoV-2 RNA (RT-PCR) 09/22/22 09/23/22 09/23/22 23:11 00:47 02:46 WBC RBC Hgb Hct MCV MCH MCHC RDW Plt Count MPV Immature Gran % (Auto) Neut % (Auto) Lymph % (Auto) [place] % (Auto) Eos % (Auto) Baso % (Auto) Lymph # (Auto) [place] # (Auto) Eos # (Auto) Baso # (Auto) Abs Immat Gran (auto) Absolute Neuts (auto) Absolute Nucleated RBC Nucleated RBC % (auto) Neutrophils % (Manual) Band Neutrophils % Lymphocytes % (Manual) Monocytes % (Manual) Abs Neuts (Manual) Lymphocytes # (Manual) Platelet Estimate Plt Morphology Comment RBC Morphology Hypochromasia Microcytosis Smear Tech's Comments PT INR D-Dimer High Sensitivty 176 Sodium Potassium Chloride Carbon Dioxide Anion Gap BUN Creatinine Estim Creat Clear Calc Estimated GFR Random Glucose Fasting Glucose Lactic Acid Lactic Acid F/U @ 2Hr 1.0 Calcium Iron TIBC % Saturation Unsat Iron Binding Total Bilirubin Direct Bilirubin AST ALT Alkaline Phosphatase Troponin I High Sens C-Reactive Protein Total Protein Albumin Albumin (Send Out) Lipase Procalcitonin TSH Urine Color Urine Appearance Urine pH Ur Specific [place] Urine Protein Urine Glucose (UA) Urine Ketones Urine Blood Urine Nitrite Ur Leukocyte Esterase Urine RBC Urine WBC Ur Squamous Epith Cells Urine Bacteria Hyaline Casts Urine Test CSF Tube Number CSF Volume CSF Appearance CSF Color CSF WBC CSF RBC CSF Neutrophils CSF Lymphocytes CSF Monocytes % CSF Other Cells % CSF Appearance (b) CSF Glucose CSF Total Protein CSF Albumin CSF IgG Index CSF IgG Synthesis Rate CSF/Serum IgG Index CSF VDRL CSF C.neoform/gat PCR CSF CMV DNA (PCR) CSF Enterovirus (PCR) CSF E. coli K1 (PCR) CSF H. influenzae (PCR) CSF HSV I (PCR) CSF HSV II (PCR) CSF HHV 6 (PCR) CSF L.monocytogenes PCR CSF N. meningitidis PCR CSF Parechovirus (PCR) CSF S. agalactiae (PCR) CSF S. pneumoniae (PCR) CSF VZV (PCR) Stl C. cayetanensis PCR Stool Rotavirus A PCR Stl Adenov F 40/41 PCR Stool Astrovirus (PCR) Stool Campylobacter PCR Stool Cryptosporidium PCR Stl Sh Tox Pr E STEC PCR Stool E coli O157 PCR Stl Enterotoxigenic E PCR Stool EPEC (PCR) Stool EAEC (PCR) Stl E. histolytica PCR Stool Giardia Lamblia PCR Stl P. shigelloides PCR Stool Salmonella PCR Stool Sapovirus (PCR) Stl Shigella/EIEC PCR St Y.enterocolitica PCR Stool Vibrio (PCR) Stl Vibrio cholerae PCR Stl Norovirus GI/GII PCR Vancomycin Trough Urine Opiates Screen Urine Fentanyl Screen Ur Barbiturates Screen Ur Phencyclidine Scrn Ur Amphetamines Screen U Benzodiazepines Scrn Urine Cocaine Screen U Marijuana (THC) Screen IgG Index Respiratory Panel Herrera Adenovirus (Rapid PCR) B.pert (TEM-PCR) B.parapertussis DNA PCR Lyme Screen IgG & IgM Lyme Progressive Test C. pneumoniae DNA (PCR) Coronavirus OC43 (PCR) Coronavirus HKU1 (PCR) Coronavirus 229E (PCR) COVID-19 (GENI) Negative COVID-19 Clin Com See Note Coronavirus NL63 (PCR) CMV Specimen Source CMV Qnt PCR IU/mL CMV Qnt PCR log IU/mL HIV 1&2 Ab/P24 Ag 4thGn Human Metapneumovir PCR Influenza Type A (ANIYA) Influenza A (RT-PCR) Influenza Type B (ANIYA) Influenza B (RT-PCR) Influenza A & B Note M. pneumoniae (PCR) Parainfluenza 1 (PCR) Parainfluenza 2 (PCR) Parainfluenza 3 (PCR) Parainfluenza 4 (PCR) RSV (PCR) Entero/Rhino (PCR) SARS-CoV-2 RNA (RT-PCR) 09/23/22 09/23/22 09/23/22 04:58 04:58 10:51 WBC 7.1 RBC 3.63 L Hgb 9.3 L Hct 28.2 L MCV 77.7 L MCH 25.6 L MCHC 33.0 RDW 14.1 Plt Count 178 MPV 9.4 Immature Gran % (Auto) 0.3 Neut % (Auto) 93.7 H Lymph % (Auto) 3.4 L [place] % (Auto) 2.5 Eos % (Auto) 0.0 Baso % (Auto) 0.1 Lymph # (Auto) 0.2 L [place] # (Auto) 0.2 Eos # (Auto) 0.0 Baso # (Auto) 0.0 Abs Immat Gran (auto) 0.02 Absolute Neuts (auto) 6.6 Absolute Nucleated RBC 0.000 Nucleated RBC % (auto) 0.0 Neutrophils % (Manual) Band Neutrophils % Lymphocytes % (Manual) Monocytes % (Manual) Abs Neuts (Manual) Lymphocytes # (Manual) Platelet Estimate Plt Morphology Comment RBC Morphology Hypochromasia Microcytosis Smear Tech's Comments PT INR D-Dimer High Sensitivty Sodium 141 Potassium 4.1 D Chloride 113 H Carbon Dioxide 17 L Anion Gap 15 BUN 11 Creatinine 0.85 Estim Creat Clear Calc 74.4 Estimated GFR > 60 Random Glucose 137 H Fasting Glucose Lactic Acid Lactic Acid F/U @ 2Hr Calcium 8.0 L D Iron 15 L TIBC 268 % Saturation 6 L Unsat Iron Binding 253 Total Bilirubin Direct Bilirubin AST ALT Alkaline Phosphatase Troponin I High Sens C-Reactive Protein 3.20 H Total Protein Albumin Albumin (Send Out) Lipase Procalcitonin 2.43 TSH 2.75 Urine Color Urine Appearance Urine pH Ur Specific [place] Urine Protein Urine Glucose (UA) Urine Ketones Urine Blood Urine Nitrite Ur Leukocyte Esterase Urine RBC Urine WBC Ur Squamous Epith Cells Urine Bacteria Hyaline Casts Urine Test CSF Tube Number CSF Volume CSF Appearance CSF Color CSF WBC CSF RBC CSF Neutrophils CSF Lymphocytes CSF Monocytes % CSF Other Cells % CSF Appearance (b) CSF Glucose CSF Total Protein CSF Albumin CSF IgG Index CSF IgG Synthesis Rate CSF/Serum IgG Index CSF VDRL CSF C.neoform/gat PCR CSF CMV DNA (PCR) CSF Enterovirus (PCR) CSF E. coli K1 (PCR) CSF H. influenzae (PCR) CSF HSV I (PCR) CSF HSV II (PCR) CSF HHV 6 (PCR) CSF L.monocytogenes PCR CSF N. meningitidis PCR CSF Parechovirus (PCR) CSF S. agalactiae (PCR) CSF S. pneumoniae (PCR) CSF VZV (PCR) Stl C. cayetanensis PCR Stool Rotavirus A PCR Stl Adenov F 40/41 PCR Stool Astrovirus (PCR) Stool Campylobacter PCR Stool Cryptosporidium PCR Stl Sh Tox Pr E STEC PCR Stool E coli O157 PCR Stl Enterotoxigenic E PCR Stool EPEC (PCR) Stool EAEC (PCR) Stl E. histolytica PCR Stool Giardia Lamblia PCR Stl P. shigelloides PCR Stool Salmonella PCR Stool Sapovirus (PCR) Stl Shigella/EIEC PCR St Y.enterocolitica PCR Stool Vibrio (PCR) Stl Vibrio cholerae PCR Stl Norovirus GI/GII PCR Vancomycin Trough Urine Opiates Screen Not Detected Urine Fentanyl Screen Not Detected Ur Barbiturates Screen Not Detected Ur Phencyclidine Scrn Not Detected Ur Amphetamines Screen Not Detected U Benzodiazepines Scrn Not Detected Urine Cocaine Screen Not Detected U Marijuana (THC) Screen Not Detected IgG Index Respiratory Panel Herrera Adenovirus (Rapid PCR) B.pert (TEM-PCR) B.parapertussis DNA PCR Lyme Screen IgG & IgM Lyme Progressive Test C. pneumoniae DNA (PCR) Coronavirus OC43 (PCR) Coronavirus HKU1 (PCR) Coronavirus 229E (PCR) COVID-19 (GENI) COVID-19 Clin Com Coronavirus NL63 (PCR) CMV Specimen Source CMV Qnt PCR IU/mL CMV Qnt PCR log IU/mL HIV 1&2 Ab/P24 Ag 4thGn Human Metapneumovir PCR Influenza Type A (ANIYA) Influenza A (RT-PCR) Influenza Type B (ANIYA) Influenza B (RT-PCR) Influenza A & B Note M. pneumoniae (PCR) Parainfluenza 1 (PCR) Parainfluenza 2 (PCR) Parainfluenza 3 (PCR) Parainfluenza 4 (PCR) RSV (PCR) Entero/Rhino (PCR) SARS-CoV-2 RNA (RT-PCR) 09/23/22 09/23/22 09/24/22 11:06 11:08 05:20 WBC RBC Hgb Hct MCV MCH MCHC RDW Plt Count MPV Immature Gran % (Auto) Neut % (Auto) Lymph % (Auto) [place] % (Auto) Eos % (Auto) Baso % (Auto) Lymph # (Auto) [place] # (Auto) Eos # (Auto) Baso # (Auto) Abs Immat Gran (auto) Absolute Neuts (auto) Absolute Nucleated RBC Nucleated RBC % (auto) Neutrophils % (Manual) Band Neutrophils % Lymphocytes % (Manual) Monocytes % (Manual) Abs Neuts (Manual) Lymphocytes # (Manual) Platelet Estimate Plt Morphology Comment RBC Morphology Hypochromasia Microcytosis Smear Tech's Comments PT INR D-Dimer High Sensitivty Sodium Potassium Chloride Carbon Dioxide Anion Gap BUN Creatinine 0.70 Estim Creat Clear Calc 90.4 Estimated GFR > 60 Random Glucose Fasting Glucose Lactic Acid Lactic Acid F/U @ 2Hr Calcium Iron TIBC % Saturation Unsat Iron Binding Total Bilirubin Direct Bilirubin AST ALT Alkaline Phosphatase Troponin I High Sens C-Reactive Protein Total Protein Albumin Albumin (Send Out) Lipase Procalcitonin TSH Urine Color Urine Appearance Urine pH Ur Specific [place] Urine Protein Urine Glucose (UA) Urine Ketones Urine Blood Urine Nitrite Ur Leukocyte Esterase Urine RBC Urine WBC Ur Squamous Epith Cells Urine Bacteria Hyaline Casts Urine Test CSF Tube Number CSF Volume CSF Appearance CSF Color CSF WBC CSF RBC CSF Neutrophils CSF Lymphocytes CSF Monocytes % CSF Other Cells % CSF Appearance (b) CSF Glucose CSF Total Protein CSF Albumin CSF IgG Index CSF IgG Synthesis Rate CSF/Serum IgG Index CSF VDRL CSF C.neoform/gat PCR CSF CMV DNA (PCR) CSF Enterovirus (PCR) CSF E. coli K1 (PCR) CSF H. influenzae (PCR) CSF HSV I (PCR) CSF HSV II (PCR) CSF HHV 6 (PCR) CSF L.monocytogenes PCR CSF N. meningitidis PCR CSF Parechovirus (PCR) CSF S. agalactiae (PCR) CSF S. pneumoniae (PCR) CSF VZV (PCR) Stl C. cayetanensis PCR Stool Rotavirus A PCR Stl Adenov F 40/41 PCR Stool Astrovirus (PCR) Stool Campylobacter PCR Stool Cryptosporidium PCR Stl Sh Tox Pr E STEC PCR Stool E coli O157 PCR Stl Enterotoxigenic E PCR Stool EPEC (PCR) Stool EAEC (PCR) Stl E. histolytica PCR Stool Giardia Lamblia PCR Stl P. shigelloides PCR Stool Salmonella PCR Stool Sapovirus (PCR) Stl Shigella/EIEC PCR St Y.enterocolitica PCR Stool Vibrio (PCR) Stl Vibrio cholerae PCR Stl Norovirus GI/GII PCR Vancomycin Trough Urine Opiates Screen Urine Fentanyl Screen Ur Barbiturates Screen Ur Phencyclidine Scrn Ur Amphetamines Screen U Benzodiazepines Scrn Urine Cocaine Screen U Marijuana (THC) Screen IgG Index Respiratory Panel Herrera See Note Adenovirus (Rapid PCR) Not Detected B.pert (TEM-PCR) Not Detected B.parapertussis DNA PCR Not Detected Lyme Screen IgG & IgM Lyme Progressive Test C. pneumoniae DNA (PCR) Not Detected Coronavirus OC43 (PCR) Not Detected Coronavirus HKU1 (PCR) Not Detected Coronavirus 229E (PCR) Not Detected COVID-19 (GENI) COVID-19 Clin Com Coronavirus NL63 (PCR) Not Detected CMV Specimen Source CMV Qnt PCR IU/mL CMV Qnt PCR log IU/mL HIV 1&2 Ab/P24 Ag 4thGn Nonreactive Human Metapneumovir PCR Not Detected Influenza Type A (ANIYA) Influenza A (RT-PCR) Not Detected Influenza Type B (ANIYA) Influenza B (RT-PCR) Not Detected Influenza A & B Note M. pneumoniae (PCR) Not Detected Parainfluenza 1 (PCR) Not Detected Parainfluenza 2 (PCR) Not Detected Parainfluenza 3 (PCR) Not Detected Parainfluenza 4 (PCR) Not Detected RSV (PCR) Not Detected Entero/Rhino (PCR) Not Detected SARS-CoV-2 RNA (RT-PCR) Not Detected 09/24/22 09/24/22 09/24/22 05:20 05:20 10:06 WBC 2.5 L RBC 3.28 L Hgb 8.1 L Hct 25.3 L MCV 77.1 L MCH 24.7 L MCHC 32.0 RDW 14.3 Plt Count 160 MPV 9.9 Immature Gran % (Auto) Cancelled Neut % (Auto) Cancelled Lymph % (Auto) Cancelled [place] % (Auto) Cancelled Eos % (Auto) Cancelled Baso % (Auto) Cancelled Lymph # (Auto) Cancelled [place] # (Auto) Cancelled Eos # (Auto) Cancelled Baso # (Auto) Cancelled Abs Immat Gran (auto) Cancelled Absolute Neuts (auto) Cancelled Absolute Nucleated RBC 0.000 Nucleated RBC % (auto) 0.0 Neutrophils % (Manual) 72 Band Neutrophils % 15 H Lymphocytes % (Manual) 12 L Monocytes % (Manual) 1 L Abs Neuts (Manual) 2.2 Lymphocytes # (Manual) 0.3 L Platelet Estimate NORMAL Plt Morphology Comment NORMAL RBC Morphology NOTED Hypochromasia 1+ (5-14) Microcytosis 1+ (5-14) Smear Tech's Comments PT INR D-Dimer High Sensitivty Sodium 140 Potassium 3.2 L D Chloride 115 H Carbon Dioxide 16 L Anion Gap 12 BUN 8 L Creatinine 0.69 Estim Creat Clear Calc 91.6 Estimated GFR > 60 Random Glucose 96 Fasting Glucose Lactic Acid Lactic Acid F/U @ 2Hr Calcium 7.4 L D Iron TIBC % Saturation Unsat Iron Binding Total Bilirubin Direct Bilirubin AST ALT Alkaline Phosphatase Troponin I High Sens C-Reactive Protein Total Protein Albumin Albumin (Send Out) Lipase Procalcitonin TSH Urine Color Urine Appearance Urine pH Ur Specific [place] Urine Protein Urine Glucose (UA) Urine Ketones Urine Blood Urine Nitrite Ur Leukocyte Esterase Urine RBC Urine WBC Ur Squamous Epith Cells Urine Bacteria Hyaline Casts Urine Test CSF Tube Number CSF Volume CSF Appearance CSF Color CSF WBC CSF RBC CSF Neutrophils CSF Lymphocytes CSF Monocytes % CSF Other Cells % CSF Appearance (b) CSF Glucose CSF Total Protein CSF Albumin CSF IgG Index CSF IgG Synthesis Rate CSF/Serum IgG Index CSF VDRL CSF C.neoform/gat PCR CSF CMV DNA (PCR) CSF Enterovirus (PCR) CSF E. coli K1 (PCR) CSF H. influenzae (PCR) CSF HSV I (PCR) CSF HSV II (PCR) CSF HHV 6 (PCR) CSF L.monocytogenes PCR CSF N. meningitidis PCR CSF Parechovirus (PCR) CSF S. agalactiae (PCR) CSF S. pneumoniae (PCR) CSF VZV (PCR) Stl C. cayetanensis PCR Stool Rotavirus A PCR Stl Adenov F 40/41 PCR Stool Astrovirus (PCR) Stool Campylobacter PCR Stool Cryptosporidium PCR Stl Sh Tox Pr E STEC PCR Stool E coli O157 PCR Stl Enterotoxigenic E PCR Stool EPEC (PCR) Stool EAEC (PCR) Stl E. histolytica PCR Stool Giardia Lamblia PCR Stl P. shigelloides PCR Stool Salmonella PCR Stool Sapovirus (PCR) Stl Shigella/EIEC PCR St Y.enterocolitica PCR Stool Vibrio (PCR) Stl Vibrio cholerae PCR Stl Norovirus GI/GII PCR Vancomycin Trough Urine Opiates Screen Urine Fentanyl Screen Ur Barbiturates Screen Ur Phencyclidine Scrn Ur Amphetamines Screen U Benzodiazepines Scrn Urine Cocaine Screen U Marijuana (THC) Screen IgG Index Respiratory Panel Herrera Adenovirus (Rapid PCR) B.pert (TEM-PCR) B.parapertussis DNA PCR Lyme Screen IgG & IgM <0.90 Lyme Progressive Test TNP C. pneumoniae DNA (PCR) Coronavirus OC43 (PCR) Coronavirus HKU1 (PCR) Coronavirus 229E (PCR) COVID-19 (GENI) COVID-19 Clin Com Coronavirus NL63 (PCR) CMV Specimen Source CMV Qnt PCR IU/mL CMV Qnt PCR log IU/mL HIV 1&2 Ab/P24 Ag 4thGn Human Metapneumovir PCR Influenza Type A (ANIYA) Influenza A (RT-PCR) Influenza Type B (ANIYA) Influenza B (RT-PCR) Influenza A & B Note M. pneumoniae (PCR) Parainfluenza 1 (PCR) Parainfluenza 2 (PCR) Parainfluenza 3 (PCR) Parainfluenza 4 (PCR) RSV (PCR) Entero/Rhino (PCR) SARS-CoV-2 RNA (RT-PCR) 09/24/22 09/24/22 09/24/22 11:55 19:04 23:10 WBC RBC Hgb Hct MCV MCH MCHC RDW Plt Count MPV Immature Gran % (Auto) Neut % (Auto) Lymph % (Auto) [place] % (Auto) Eos % (Auto) Baso % (Auto) Lymph # (Auto) [place] # (Auto) Eos # (Auto) Baso # (Auto) Abs Immat Gran (auto) Absolute Neuts (auto) Absolute Nucleated RBC Nucleated RBC % (auto) Neutrophils % (Manual) Band Neutrophils % Lymphocytes % (Manual) Monocytes % (Manual) Abs Neuts (Manual) Lymphocytes # (Manual) Platelet Estimate Plt Morphology Comment RBC Morphology Hypochromasia Microcytosis Smear Tech's Comments PT INR D-Dimer High Sensitivty Sodium Potassium Chloride Carbon Dioxide Anion Gap BUN Creatinine Estim Creat Clear Calc Estimated GFR Random Glucose Fasting Glucose Lactic Acid Lactic Acid F/U @ 2Hr Calcium Iron TIBC % Saturation Unsat Iron Binding Total Bilirubin Direct Bilirubin AST ALT Alkaline Phosphatase Troponin I High Sens < 3.5 C-Reactive Protein Total Protein Albumin Albumin (Send Out) Lipase Procalcitonin TSH Urine Color Urine Appearance Urine pH Ur Specific [place] Urine Protein Urine Glucose (UA) Urine Ketones Urine Blood Urine Nitrite Ur Leukocyte Esterase Urine RBC Urine WBC Ur Squamous Epith Cells Urine Bacteria Hyaline Casts Urine Test CSF Tube Number CSF Volume CSF Appearance CSF Color CSF WBC CSF RBC CSF Neutrophils CSF Lymphocytes CSF Monocytes % CSF Other Cells % CSF Appearance (b) CSF Glucose CSF Total Protein CSF Albumin CSF IgG Index CSF IgG Synthesis Rate CSF/Serum IgG Index CSF VDRL CSF C.neoform/gat PCR CSF CMV DNA (PCR) CSF Enterovirus (PCR) CSF E. coli K1 (PCR) CSF H. influenzae (PCR) CSF HSV I (PCR) CSF HSV II (PCR) CSF HHV 6 (PCR) CSF L.monocytogenes PCR CSF N. meningitidis PCR CSF Parechovirus (PCR) CSF S. agalactiae (PCR) CSF S. pneumoniae (PCR) CSF VZV (PCR) Stl C. cayetanensis PCR Not Detected Stool Rotavirus A PCR Not Detected Stl Adenov F 40/41 PCR Not Detected Stool Astrovirus (PCR) Not Detected Stool Campylobacter PCR Not Detected Stool Cryptosporidium PCR Not Detected Stl Sh Tox Pr E STEC PCR Not Detected Stool E coli O157 PCR Not applicable Stl Enterotoxigenic E PCR Not Detected Stool EPEC (PCR) Not Detected Stool EAEC (PCR) Not Detected Stl E. histolytica PCR Not Detected Stool Giardia Lamblia PCR Not Detected Stl P. shigelloides PCR Not Detected Stool Salmonella PCR Not Detected Stool Sapovirus (PCR) Not Detected Stl Shigella/EIEC PCR Not Detected St Y.enterocolitica PCR Not Detected Stool Vibrio (PCR) Not Detected Stl Vibrio cholerae PCR Not Detected Stl Norovirus GI/GII PCR Not Detected Vancomycin Trough < 2.0 L Urine Opiates Screen Urine Fentanyl Screen Ur Barbiturates Screen Ur Phencyclidine Scrn Ur Amphetamines Screen U Benzodiazepines Scrn Urine Cocaine Screen U Marijuana (THC) Screen IgG Index Respiratory Panel [place] Adenovirus (Rapid PCR) B.pert (TEM-PCR) B.parapertussis DNA PCR Lyme Screen IgG & IgM Lyme Progressive Test C. pneumoniae DNA (PCR) Coronavirus OC43 (PCR) Coronavirus HKU1 (PCR) Coronavirus 229E (PCR) COVID-19 (GENI) COVID-19 Clin Com Coronavirus NL63 (PCR) CMV Specimen Source CMV Qnt PCR IU/mL CMV Qnt PCR log IU/mL HIV 1&2 Ab/P24 Ag 4thGn Human Metapneumovir PCR Influenza Type A (ANIYA) Influenza A (RT-PCR) Influenza Type B (ANIYA) Influenza B (RT-PCR) Influenza A & B Note M. pneumoniae (PCR) Parainfluenza 1 (PCR) Parainfluenza 2 (PCR) Parainfluenza 3 (PCR) Parainfluenza 4 (PCR) RSV (PCR) Entero/Rhino (PCR) SARS-CoV-2 RNA (RT-PCR) 09/25/22 09/25/22 09/25/22 05:35 05:35 05:35 WBC 3.0 L RBC 3.46 L Hgb 8.6 L Hct 26.6 L MCV 76.9 L MCH 24.9 L MCHC 32.3 RDW 14.5 Plt Count 183 MPV 9.9 Immature Gran % (Auto) 0.3 Neut % (Auto) 74.1 H Lymph % (Auto) 18.2 L [place] % (Auto) 6.4 Eos % (Auto) 0.7 Baso % (Auto) 0.3 Lymph # (Auto) 0.5 L [place] # (Auto) 0.2 Eos # (Auto) 0.0 Baso # (Auto) 0.0 Abs Immat Gran (auto) 0.01 Absolute Neuts (auto) 2.2 Absolute Nucleated RBC 0.000 Nucleated RBC % (auto) 0.0 Neutrophils % (Manual) Band Neutrophils % Lymphocytes % (Manual) Monocytes % (Manual) Abs Neuts (Manual) Lymphocytes # (Manual) Platelet Estimate Plt Morphology Comment RBC Morphology Hypochromasia Microcytosis Smear Tech's Comments PT INR D-Dimer High Sensitivty Sodium Potassium Chloride Carbon Dioxide Anion Gap BUN Creatinine 0.69 Estim Creat Clear Calc 91.6 Estimated GFR > 60 Random Glucose Fasting Glucose Lactic Acid Lactic Acid F/U @ 2Hr Calcium Iron TIBC % Saturation Unsat Iron Binding Total Bilirubin Direct Bilirubin AST ALT Alkaline Phosphatase Troponin I High Sens C-Reactive Protein Total Protein Albumin Albumin (Send Out) Lipase Procalcitonin TSH Urine Color Urine Appearance Urine pH Ur Specific [place] Urine Protein Urine Glucose (UA) Urine Ketones Urine Blood Urine Nitrite Ur Leukocyte Esterase Urine RBC Urine WBC Ur Squamous Epith Cells Urine Bacteria Hyaline Casts Urine Test CSF Tube Number CSF Volume CSF Appearance CSF Color CSF WBC CSF RBC CSF Neutrophils CSF Lymphocytes CSF Monocytes % CSF Other Cells % CSF Appearance (b) CSF Glucose CSF Total Protein CSF Albumin CSF IgG Index CSF IgG Synthesis Rate CSF/Serum IgG Index CSF VDRL CSF C.neoform/gat PCR CSF CMV DNA (PCR) CSF Enterovirus (PCR) CSF E. coli K1 (PCR) CSF H. influenzae (PCR) CSF HSV I (PCR) CSF HSV II (PCR) CSF HHV 6 (PCR) CSF L.monocytogenes PCR CSF N. meningitidis PCR CSF Parechovirus (PCR) CSF S. agalactiae (PCR) CSF S. pneumoniae (PCR) CSF VZV (PCR) Stl C. cayetanensis PCR Stool Rotavirus A PCR Stl Adenov F 40/41 PCR Stool Astrovirus (PCR) Stool Campylobacter PCR Stool Cryptosporidium PCR Stl Sh Tox Pr E STEC PCR Stool E coli O157 PCR Stl Enterotoxigenic E PCR Stool EPEC (PCR) Stool EAEC (PCR) Stl E. histolytica PCR Stool Giardia Lamblia PCR Stl P. shigelloides PCR Stool Salmonella PCR Stool Sapovirus (PCR) Stl Shigella/EIEC PCR St Y.enterocolitica PCR Stool Vibrio (PCR) Stl Vibrio cholerae PCR Stl Norovirus GI/GII PCR Vancomycin Trough Urine Opiates Screen Urine Fentanyl Screen Ur Barbiturates Screen Ur Phencyclidine Scrn Ur Amphetamines Screen U Benzodiazepines Scrn Urine Cocaine Screen U Marijuana (THC) Screen IgG Index Respiratory Panel Herrera Adenovirus (Rapid PCR) B.pert (TEM-PCR) B.parapertussis DNA PCR Lyme Screen IgG & IgM Lyme Progressive Test C. pneumoniae DNA (PCR) Coronavirus OC43 (PCR) Coronavirus HKU1 (PCR) Coronavirus 229E (PCR) COVID-19 (GENI) COVID-19 Clin Com Coronavirus NL63 (PCR) CMV Specimen Source BLOOD CMV Qnt PCR IU/mL NOT DETECTED CMV Qnt PCR log IU/mL NOT DETECTED HIV 1&2 Ab/P24 Ag 4thGn Human Metapneumovir PCR Influenza Type A (ANIYA) Influenza A (RT-PCR) Influenza Type B (ANIYA) Influenza B (RT-PCR) Influenza A & B Note M. pneumoniae (PCR) Parainfluenza 1 (PCR) Parainfluenza 2 (PCR) Parainfluenza 3 (PCR) Parainfluenza 4 (PCR) RSV (PCR) Entero/Rhino (PCR) SARS-CoV-2 RNA (RT-PCR) 09/25/22 09/25/22 09/25/22 05:35 08:43 13:55 WBC RBC Hgb Hct MCV MCH MCHC RDW Plt Count MPV Immature Gran % (Auto) Neut % (Auto) Lymph % (Auto) [place] % (Auto) Eos % (Auto) Baso % (Auto) Lymph # (Auto) [place] # (Auto) Eos # (Auto) Baso # (Auto) Abs Immat Gran (auto) Absolute Neuts (auto) Absolute Nucleated RBC Nucleated RBC % (auto) Neutrophils % (Manual) Band Neutrophils % Lymphocytes % (Manual) Monocytes % (Manual) Abs Neuts (Manual) Lymphocytes # (Manual) Platelet Estimate Plt Morphology Comment RBC Morphology Hypochromasia Microcytosis Smear Tech's Comments PT 11.9 INR 1.0 D-Dimer High Sensitivty Sodium 140 Potassium 3.1 L Chloride 112 H Carbon Dioxide 19 L Anion Gap 12 BUN 7 L Creatinine 0.71 Estim Creat Clear Calc 89.1 Estimated GFR > 60 Random Glucose 83 Fasting Glucose Lactic Acid Lactic Acid F/U @ 2Hr Calcium 7.7 L Iron TIBC % Saturation Unsat Iron Binding Total Bilirubin Direct Bilirubin AST ALT Alkaline Phosphatase Troponin I High Sens C-Reactive Protein Total Protein Albumin Albumin (Send Out) Lipase Procalcitonin TSH Urine Color Urine Appearance Urine pH Ur Specific [place] Urine Protein Urine Glucose (UA) Urine Ketones Urine Blood Urine Nitrite Ur Leukocyte Esterase Urine RBC Urine WBC Ur Squamous Epith Cells Urine Bacteria Hyaline Casts Urine Test CSF Tube Number CSF Volume CSF Appearance CSF Color CSF WBC CSF RBC CSF Neutrophils CSF Lymphocytes CSF Monocytes % CSF Other Cells % CSF Appearance (b) CSF Glucose CSF Total Protein CSF Albumin CSF IgG Index CSF IgG Synthesis Rate CSF/Serum IgG Index CSF VDRL CSF C.neoform/gat PCR Not Detected CSF CMV DNA (PCR) Not Detected CSF Enterovirus (PCR) Not Detected CSF E. coli K1 (PCR) Not Detected CSF H. influenzae (PCR) Not Detected CSF HSV I (PCR) Not Detected CSF HSV II (PCR) Not Detected CSF HHV 6 (PCR) Not Detected CSF L.monocytogenes PCR Not Detected CSF N. meningitidis PCR Not Detected CSF Parechovirus (PCR) Not Detected CSF S. agalactiae (PCR) Not Detected CSF S. pneumoniae (PCR) Not Detected CSF VZV (PCR) Not Detected Stl C. cayetanensis PCR Stool Rotavirus A PCR Stl Adenov F 40/41 PCR Stool Astrovirus (PCR) Stool Campylobacter PCR Stool Cryptosporidium PCR Stl Sh Tox Pr E STEC PCR Stool E coli O157 PCR Stl Enterotoxigenic E PCR Stool EPEC (PCR) Stool EAEC (PCR) Stl E. histolytica PCR Stool Giardia Lamblia PCR Stl P. shigelloides PCR Stool Salmonella PCR Stool Sapovirus (PCR) Stl Shigella/EIEC PCR St Y.enterocolitica PCR Stool Vibrio (PCR) Stl Vibrio cholerae PCR Stl Norovirus GI/GII PCR Vancomycin Trough Urine Opiates Screen Urine Fentanyl Screen Ur Barbiturates Screen Ur Phencyclidine Scrn Ur Amphetamines Screen U Benzodiazepines Scrn Urine Cocaine Screen U Marijuana (THC) Screen IgG Index Respiratory Panel Herrera Adenovirus (Rapid PCR) B.pert (TEM-PCR) B.parapertussis DNA PCR Lyme Screen IgG & IgM Lyme Progressive Test C. pneumoniae DNA (PCR) Coronavirus OC43 (PCR) Coronavirus HKU1 (PCR) Coronavirus 229E (PCR) COVID-19 (GENI) COVID-19 Clin Com Coronavirus NL63 (PCR) CMV Specimen Source CMV Qnt PCR IU/mL CMV Qnt PCR log IU/mL HIV 1&2 Ab/P24 Ag 4thGn Human Metapneumovir PCR Influenza Type A (ANIYA) Influenza A (RT-PCR) Influenza Type B (ANIYA) Influenza B (RT-PCR) Influenza A & B Note M. pneumoniae (PCR) Parainfluenza 1 (PCR) Parainfluenza 2 (PCR) Parainfluenza 3 (PCR) Parainfluenza 4 (PCR) RSV (PCR) Entero/Rhino (PCR) SARS-CoV-2 RNA (RT-PCR) 09/25/22 09/25/22 09/25/22 13:55 13:55 13:55 WBC RBC Hgb Hct MCV MCH MCHC RDW Plt Count MPV Immature Gran % (Auto) Neut % (Auto) Lymph % (Auto) [place] % (Auto) Eos % (Auto) Baso % (Auto) Lymph # (Auto) [place] # (Auto) Eos # (Auto) Baso # (Auto) Abs Immat Gran (auto) Absolute Neuts (auto) Absolute Nucleated RBC Nucleated RBC % (auto) Neutrophils % (Manual) Band Neutrophils % Lymphocytes % (Manual) Monocytes % (Manual) Abs Neuts (Manual) Lymphocytes # (Manual) Platelet Estimate Plt Morphology Comment RBC Morphology Hypochromasia Microcytosis Smear Tech's Comments PT INR D-Dimer High Sensitivty Sodium Potassium Chloride Carbon Dioxide Anion Gap BUN Creatinine Estim Creat Clear Calc Estimated GFR Random Glucose Fasting Glucose Lactic Acid Lactic Acid F/U @ 2Hr Calcium Iron TIBC % Saturation Unsat Iron Binding Total Bilirubin Direct Bilirubin AST ALT Alkaline Phosphatase Troponin I High Sens C-Reactive Protein Total Protein Albumin Albumin (Send Out) Lipase Procalcitonin TSH Urine Color Urine Appearance Urine pH Ur Specific [place] Urine Protein Urine Glucose (UA) Urine Ketones Urine Blood Urine Nitrite Ur Leukocyte Esterase Urine RBC Urine WBC Ur Squamous Epith Cells Urine Bacteria Hyaline Casts Urine Test CSF Tube Number 1 1 4 CSF Volume 2.0 2.0 CSF Appearance CLEAR CLEAR CSF Color COLORLESS COLORLESS CSF WBC 0 8 CSF RBC 20 208 CSF Neutrophils 0 CSF Lymphocytes 0 100 CSF Monocytes % 0 CSF Other Cells % 0 CSF Appearance (b) Clear, Colorless CSF Glucose 47 CSF Total Protein 26.4 CSF Albumin CSF IgG Index CSF IgG Synthesis Rate CSF/Serum IgG Index CSF VDRL CSF C.neoform/gat PCR CSF CMV DNA (PCR) CSF Enterovirus (PCR) CSF E. coli K1 (PCR) CSF H. influenzae (PCR) CSF HSV I (PCR) CSF HSV II (PCR) CSF HHV 6 (PCR) CSF L.monocytogenes PCR CSF N. meningitidis PCR CSF Parechovirus (PCR) CSF S. agalactiae (PCR) CSF S. pneumoniae (PCR) CSF VZV (PCR) Stl C. cayetanensis PCR Stool Rotavirus A PCR Stl Adenov F 40/41 PCR Stool Astrovirus (PCR) Stool Campylobacter PCR Stool Cryptosporidium PCR Stl Sh Tox Pr E STEC PCR Stool E coli O157 PCR Stl Enterotoxigenic E PCR Stool EPEC (PCR) Stool EAEC (PCR) Stl E. histolytica PCR Stool Giardia Lamblia PCR Stl P. shigelloides PCR Stool Salmonella PCR Stool Sapovirus (PCR) Stl Shigella/EIEC PCR St Y.enterocolitica PCR Stool Vibrio (PCR) Stl Vibrio cholerae PCR Stl Norovirus GI/GII PCR Vancomycin Trough Urine Opiates Screen Urine Fentanyl Screen Ur Barbiturates Screen Ur Phencyclidine Scrn Ur Amphetamines Screen U Benzodiazepines Scrn Urine Cocaine Screen U Marijuana (THC) Screen IgG Index Respiratory Panel Herrera Adenovirus (Rapid PCR) B.pert (TEM-PCR) B.parapertussis DNA PCR Lyme Screen IgG & IgM Lyme Progressive Test C. pneumoniae DNA (PCR) Coronavirus OC43 (PCR) Coronavirus HKU1 (PCR) Coronavirus 229E (PCR) COVID-19 (GENI) COVID-19 Clin Com Coronavirus NL63 (PCR) CMV Specimen Source CMV Qnt PCR IU/mL CMV Qnt PCR log IU/mL HIV 1&2 Ab/P24 Ag 4thGn Human Metapneumovir PCR Influenza Type A (ANIYA) Influenza A (RT-PCR) Influenza Type B (ANIYA) Influenza B (RT-PCR) Influenza A & B Note M. pneumoniae (PCR) Parainfluenza 1 (PCR) Parainfluenza 2 (PCR) Parainfluenza 3 (PCR) Parainfluenza 4 (PCR) RSV (PCR) Entero/Rhino (PCR) SARS-CoV-2 RNA (RT-PCR) 09/25/22 09/25/22 09/26/22 13:55 13:55 05:20 WBC RBC Hgb Hct MCV MCH MCHC RDW Plt Count MPV Immature Gran % (Auto) Neut % (Auto) Lymph % (Auto) [place] % (Auto) Eos % (Auto) Baso % (Auto) Lymph # (Auto) [place] # (Auto) Eos # (Auto) Baso # (Auto) Abs Immat Gran (auto) Absolute Neuts (auto) Absolute Nucleated RBC Nucleated RBC % (auto) Neutrophils % (Manual) Band Neutrophils % Lymphocytes % (Manual) Monocytes % (Manual) Abs Neuts (Manual) Lymphocytes # (Manual) Platelet Estimate Plt Morphology Comment RBC Morphology Hypochromasia Microcytosis Smear Tech's Comments PT INR D-Dimer High Sensitivty Sodium Potassium Chloride Carbon Dioxide Anion Gap BUN Creatinine 0.66 Estim Creat Clear Calc 95.8 Estimated GFR > 60 Random Glucose Fasting Glucose Lactic Acid Lactic Acid F/U @ 2Hr Calcium Iron TIBC % Saturation Unsat Iron Binding Total Bilirubin Direct Bilirubin AST ALT Alkaline Phosphatase Troponin I High Sens C-Reactive Protein Total Protein Albumin Albumin (Send Out) 3.1 L Lipase Procalcitonin TSH Urine Color Urine Appearance Urine pH Ur Specific [place] Urine Protein Urine Glucose (UA) Urine Ketones Urine Blood Urine Nitrite Ur Leukocyte Esterase Urine RBC Urine WBC Ur Squamous Epith Cells Urine Bacteria Hyaline Casts Urine Test CSF Tube Number CSF Volume CSF Appearance CSF Color CSF WBC CSF RBC CSF Neutrophils CSF Lymphocytes CSF Monocytes % CSF Other Cells % CSF Appearance (b) CSF Glucose CSF Total Protein CSF Albumin 15.2 CSF IgG Index 0.67 CSF IgG Synthesis Rate 0.8 CSF/Serum IgG Index 1.7 CSF VDRL Nonreactive CSF C.neoform/gat PCR CSF CMV DNA (PCR) CSF Enterovirus (PCR) CSF E. coli K1 (PCR) CSF H. influenzae (PCR) CSF HSV I (PCR) CSF HSV II (PCR) CSF HHV 6 (PCR) CSF L.monocytogenes PCR CSF N. meningitidis PCR CSF Parechovirus (PCR) CSF S. agalactiae (PCR) CSF S. pneumoniae (PCR) CSF VZV (PCR) Stl C. cayetanensis PCR Stool Rotavirus A PCR Stl Adenov F 40/41 PCR Stool Astrovirus (PCR) Stool Campylobacter PCR Stool Cryptosporidium PCR Stl Sh Tox Pr E STEC PCR Stool E coli O157 PCR Stl Enterotoxigenic E PCR Stool EPEC (PCR) Stool EAEC (PCR) Stl E. histolytica PCR Stool Giardia Lamblia PCR Stl P. shigelloides PCR Stool Salmonella PCR Stool Sapovirus (PCR) Stl Shigella/EIEC PCR St Y.enterocolitica PCR Stool Vibrio (PCR) Stl Vibrio cholerae PCR Stl Norovirus GI/GII PCR Vancomycin Trough Urine Opiates Screen Urine Fentanyl Screen Ur Barbiturates Screen Ur Phencyclidine Scrn Ur Amphetamines Screen U Benzodiazepines Scrn Urine Cocaine Screen U Marijuana (THC) Screen IgG Index 521 L Respiratory Panel Herrera Adenovirus (Rapid PCR) B.pert (TEM-PCR) B.parapertussis DNA PCR Lyme Screen IgG & IgM Lyme Progressive Test C. pneumoniae DNA (PCR) Coronavirus OC43 (PCR) Coronavirus HKU1 (PCR) Coronavirus 229E (PCR) COVID-19 (GENI) COVID-19 Clin Com Coronavirus NL63 (PCR) CMV Specimen Source CMV Qnt PCR IU/mL CMV Qnt PCR log IU/mL HIV 1&2 Ab/P24 Ag 4thGn Human Metapneumovir PCR Influenza Type A (ANIYA) Influenza A (RT-PCR) Influenza Type B (ANIYA) Influenza B (RT-PCR) Influenza A & B Note M. pneumoniae (PCR) Parainfluenza 1 (PCR) Parainfluenza 2 (PCR) Parainfluenza 3 (PCR) Parainfluenza 4 (PCR) RSV (PCR) Entero/Rhino (PCR) SARS-CoV-2 RNA (RT-PCR) 09/26/22 09/26/22 09/27/22 05:20 05:20 05:23 WBC 4.9 RBC 3.24 L Hgb 8.2 L Hct 24.8 L MCV 76.5 L MCH 25.3 L MCHC 33.1 RDW 14.5 Plt Count 185 MPV 10.1 Immature Gran % (Auto) Neut % (Auto) Lymph % (Auto) [place] % (Auto) Eos % (Auto) Baso % (Auto) Lymph # (Auto) [place] # (Auto) Eos # (Auto) Baso # (Auto) Abs Immat Gran (auto) Absolute Neuts (auto) Absolute Nucleated RBC 0.000 Nucleated RBC % (auto) 0.0 Neutrophils % (Manual) Band Neutrophils % Lymphocytes % (Manual) Monocytes % (Manual) Abs Neuts (Manual) Lymphocytes # (Manual) Platelet Estimate Plt Morphology Comment RBC Morphology Hypochromasia Microcytosis Smear Tech's Comments PT INR D-Dimer High Sensitivty Sodium 139 Potassium 3.5 Chloride 111 H Carbon Dioxide 16 L Anion Gap 16 BUN 5 L Creatinine 0.65 0.65 Estim Creat Clear Calc 97.2 97.2 Estimated GFR > 60 > 60 Random Glucose 74 Fasting Glucose Lactic Acid Lactic Acid F/U @ 2Hr Calcium 7.8 L Iron TIBC % Saturation Unsat Iron Binding Total Bilirubin Direct Bilirubin AST ALT Alkaline Phosphatase Troponin I High Sens C-Reactive Protein Total Protein Albumin Albumin (Send Out) Lipase Procalcitonin TSH Urine Color Urine Appearance Urine pH Ur Specific [place] Urine Protein Urine Glucose (UA) Urine Ketones Urine Blood Urine Nitrite Ur Leukocyte Esterase Urine RBC Urine WBC Ur Squamous Epith Cells Urine Bacteria Hyaline Casts Urine Test CSF Tube Number CSF Volume CSF Appearance CSF Color CSF WBC CSF RBC CSF Neutrophils CSF Lymphocytes CSF Monocytes % CSF Other Cells % CSF Appearance (b) CSF Glucose CSF Total Protein CSF Albumin CSF IgG Index CSF IgG Synthesis Rate CSF/Serum IgG Index CSF VDRL CSF C.neoform/gat PCR CSF CMV DNA (PCR) CSF Enterovirus (PCR) CSF E. coli K1 (PCR) CSF H. influenzae (PCR) CSF HSV I (PCR) CSF HSV II (PCR) CSF HHV 6 (PCR) CSF L.monocytogenes PCR CSF N. meningitidis PCR CSF Parechovirus (PCR) CSF S. agalactiae (PCR) CSF S. pneumoniae (PCR) CSF VZV (PCR) Stl C. cayetanensis PCR Stool Rotavirus A PCR Stl Adenov F 40/41 PCR Stool Astrovirus (PCR) Stool Campylobacter PCR Stool Cryptosporidium PCR Stl Sh Tox Pr E STEC PCR Stool E coli O157 PCR Stl Enterotoxigenic E PCR Stool EPEC (PCR) Stool EAEC (PCR) Stl E. histolytica PCR Stool Giardia Lamblia PCR Stl P. shigelloides PCR Stool Salmonella PCR Stool Sapovirus (PCR) Stl Shigella/EIEC PCR St Y.enterocolitica PCR Stool Vibrio (PCR) Stl Vibrio cholerae PCR Stl Norovirus GI/GII PCR Vancomycin Trough Urine Opiates Screen Urine Fentanyl Screen Ur Barbiturates Screen Ur Phencyclidine Scrn Ur Amphetamines Screen U Benzodiazepines Scrn Urine Cocaine Screen U Marijuana (THC) Screen IgG Index Respiratory Panel Herrera Adenovirus (Rapid PCR) B.pert (TEM-PCR) B.parapertussis DNA PCR Lyme Screen IgG & IgM Lyme Progressive Test C. pneumoniae DNA (PCR) Coronavirus OC43 (PCR) Coronavirus HKU1 (PCR) Coronavirus 229E (PCR) COVID-19 (GENI) COVID-19 Clin Com Coronavirus NL63 (PCR) CMV Specimen Source CMV Qnt PCR IU/mL CMV Qnt PCR log IU/mL HIV 1&2 Ab/P24 Ag 4thGn Human Metapneumovir PCR Influenza Type A (ANIYA) Influenza A (RT-PCR) Influenza Type B (ANIYA) Influenza B (RT-PCR) Influenza A & B Note M. pneumoniae (PCR) Parainfluenza 1 (PCR) Parainfluenza 2 (PCR) Parainfluenza 3 (PCR) Parainfluenza 4 (PCR) RSV (PCR) Entero/Rhino (PCR) SARS-CoV-2 RNA (RT-PCR) 09/28/22 09/28/22 05:23 05:23 WBC 3.4 L RBC 3.23 L Hgb 8.0 L Hct 24.2 L MCV 74.9 L MCH 24.8 L MCHC 33.1 RDW 14.1 Plt Count 243 D MPV 9.7 Immature Gran % (Auto) 2.1 H Neut % (Auto) 44.8 L Lymph % (Auto) 42.5 H [place] % (Auto) 8.5 Eos % (Auto) 1.8 Baso % (Auto) 0.3 Lymph # (Auto) 1.5 [place] # (Auto) 0.3 Eos # (Auto) 0.1 Baso # (Auto) 0.0 Abs Immat Gran (auto) 0.07 H Absolute Neuts (auto) 1.5 L Absolute Nucleated RBC 0.000 Nucleated RBC % (auto) 0.0 Neutrophils % (Manual) Band Neutrophils % Lymphocytes % (Manual) Monocytes % (Manual) Abs Neuts (Manual) Lymphocytes # (Manual) Platelet Estimate Plt Morphology Comment RBC Morphology Hypochromasia Microcytosis Smear Tech's Comments VERIFIED PT INR D-Dimer High Sensitivty Sodium 142 Potassium 3.7 Chloride 111 H Carbon Dioxide 22 Anion Gap 13 BUN 9 Creatinine 0.68 Estim Creat Clear Calc 93.0 Estimated GFR > 60 Random Glucose Fasting Glucose 96 Lactic Acid Lactic Acid F/U @ 2Hr Calcium 7.9 L Iron TIBC % Saturation Unsat Iron Binding Total Bilirubin 0.2 Direct Bilirubin AST 9 ALT 7 Alkaline Phosphatase 44 Troponin I High Sens C-Reactive Protein Total Protein 5.2 L Albumin 3.3 L Albumin (Send Out) Lipase Procalcitonin TSH Urine Color Urine Appearance Urine pH Ur Specific [place] Urine Protein Urine Glucose (UA) Urine Ketones Urine Blood Urine Nitrite Ur Leukocyte Esterase Urine RBC Urine WBC Ur Squamous Epith Cells Urine Bacteria Hyaline Casts Urine Test CSF Tube Number CSF Volume CSF Appearance CSF Color CSF WBC CSF RBC CSF Neutrophils CSF Lymphocytes CSF Monocytes % CSF Other Cells % CSF Appearance (b) CSF Glucose CSF Total Protein CSF Albumin CSF IgG Index CSF IgG Synthesis Rate CSF/Serum IgG Index CSF VDRL CSF C.neoform/gat PCR CSF CMV DNA (PCR) CSF Enterovirus (PCR) CSF E. coli K1 (PCR) CSF H. influenzae (PCR) CSF HSV I (PCR) CSF HSV II (PCR) CSF HHV 6 (PCR) CSF L.monocytogenes PCR CSF N. meningitidis PCR CSF Parechovirus (PCR) CSF S. agalactiae (PCR) CSF S. pneumoniae (PCR) CSF VZV (PCR) Stl C. cayetanensis PCR Stool Rotavirus A PCR Stl Adenov F 40/41 PCR Stool Astrovirus (PCR) Stool Campylobacter PCR Stool Cryptosporidium PCR Stl Sh Tox Pr E STEC PCR Stool E coli O157 PCR Stl Enterotoxigenic E PCR Stool EPEC (PCR) Stool EAEC (PCR) Stl E. histolytica PCR Stool Giardia Lamblia PCR Stl P. shigelloides PCR Stool Salmonella PCR Stool Sapovirus (PCR) Stl Shigella/EIEC PCR St Y.enterocolitica PCR Stool Vibrio (PCR) Stl Vibrio cholerae PCR Stl Norovirus GI/GII PCR Vancomycin Trough Urine Opiates Screen Urine Fentanyl Screen Ur Barbiturates Screen Ur Phencyclidine Scrn Ur Amphetamines Screen U Benzodiazepines Scrn Urine Cocaine Screen U Marijuana (THC) Screen IgG Index Respiratory Panel Herrera Adenovirus (Rapid PCR) B.pert (TEM-PCR) B.parapertussis DNA PCR Lyme Screen IgG & IgM Lyme Progressive Test C. pneumoniae DNA (PCR) Coronavirus OC43 (PCR) Coronavirus HKU1 (PCR) Coronavirus 229E (PCR) COVID-19 (GENI) COVID-19 Clin Com Coronavirus NL63 (PCR) CMV Specimen Source CMV Qnt PCR IU/mL CMV Qnt PCR log IU/mL HIV 1&2 Ab/P24 Ag 4thGn Human Metapneumovir PCR Influenza Type A (ANIYA) Influenza A (RT-PCR) Influenza Type B (ANIYA) Influenza B (RT-PCR) Influenza A & B Note M. pneumoniae (PCR) Parainfluenza 1 (PCR) Parainfluenza 2 (PCR) Parainfluenza 3 (PCR) Parainfluenza 4 (PCR) RSV (PCR) Entero/Rhino (PCR) SARS-CoV-2 RNA (RT-PCR)
[2022-09-28 13:15] VITALS: BP 141/86; PULSE 66; RESP 18; TEMP 36.8; O2SAT 100
--- NOTE | 2022-09-28 14:28 | P.OP_ITS ---
Operative Note Operative Note Date of Service: 09/28/22 Narrative: Operative Information Procedure Description: EGD, Colonoscopy Indication: anemia, abdo pain, e coli bacteremia Anesthesia: MAC FLEXIBLE TRANSORAL UPPER GASTROINTESTINAL ENDOSCOPY AND COLONOSCOPY PROCEDURE NOTE UPPER ENDOSCOPY Consent: Indications for the procedure and potential complications of bleeding, perforation, reaction to medications and missed diagnosis were discussed with the patient and informed consent was obtained. Instrument: Olympus GIF H 190 J mid size upper endoscope Monitoring: Vital signs and clinical assessment, continuous EKG monitoring, Pulse oximetry, Carbon Dioxide monitoring and blood pressure monitoring were done throughout the procedure. Procedure: The patient was placed in the left lateral decubitis position and pre-procedure medications were administered and a bite block was placed. The endoscope was inserted into the mouth and advanced under direct vision to the third part of duodenum. A careful inspection was made as the upper endoscope was withdrawn including a retroflexed examination of the proximal stomach; Findings and interventions are described below. Findings: Larynx:normal Esophagus: GE junction at 39 cm, diaphragm hiatus at 39 cm, bogginess and erythema with irregular Z line, bx taken to r/o barretts esophagus Stomach: Patchy erythema. Biopsies were obtained. Grade 2 flap valve on retroflexed examination of the cardia. Few fundic gland appearing polyps noted and one was biopsied. At antrum there was an inflammed polypoid lesion vs fold about 10 mm removed with cold snare Duodenum: Normal bulb and descending duodenum, bx taken to r/o celiac sprue Intervention: Biopsies as noted above, polypectomy, snare COLONOSCOPY Instrument: Olympus variable stiffness pediatric scope 190L Colonoscopy Monitoring: Vital signs and clinical assessment, continuous EKG monitoring, Pulse oximetry, Carbon Dioxide monitoring and blood pressure monitoring were done throughout the procedure. Colon withdrawal time was 12 minutes. Procedure: The patient was placed in the left lateral decubitis position and pre-procedure medications were administered. After a digital rectal examination of the ano-rectum, the video colonoscope was inserted into the rectum and advanced through the colon to the cecum/TI. The colonoscope was slowly withdrawn in a retrograde panoramic fashion and the colon mucosa was carefully examined including a retroflexed view of the rectum. Findings and interventions are described below. Procedure Difficulty:easy Findings: Terminal Ileum-normal Cecum: 10-11 mm sessile polyp, adenomatous appearing by kudo markings, removed by cold snare but not retrieved Ascending Colon: normal Transverse Colon -normal Descending Colon:normal Sigmoid Colon: normal Rectum: Retroflexion with small internal hemorrhoids, grade I, 10 mm sessile polyp removed with cold snare Anorectum - normal Colon preparation: [place] Bowel Preparation Scale Right colon; 2 Transverse colon: 2 Left colon; 1-2 (0 = Unprepared colon segment with mucosa not seen due to solid stool that cannot be cleared. 1 = Portion of mucosa of the colon segment seen, but other areas of the colon segment not well seen due to staining, residual stool and/or opaque liquid. 2 = Minor amount of residual staining, small fragments of stool and/or opaque liquid, but mucosa of colon segment seen well. 3 = Entire mucosa of colon segment seen well with no residual staining, small fragments of stool or opaque liquid) Impression and Post Procedure Diagnosis: Endoscopy Findings: hiatal hernia gastritis esophagitis, possible barretts Colonoscopy Findings: polyps internal hemorrhoids Plan: Await Pathology results Repeat Colonoscopy in 2-3 years due to left sided fair prep or earlier if clinically indicated High fiber diet leaflet avoid straining at stool, epsom salts and sitz bath, anusol supps or cream if h pylori pos then treat no obvious cause to explain e coli bactermia on exam today, consider gyne input due to free fluid around pelvis and ongoing menstrual bleeding Above findings were reviewed with the patient and relevant handouts were provided if indicated.
[2022-09-28 14:35] VITALS: BP 99/57; PULSE 67; RESP 20; TEMP 36.6; O2SAT 100
--- NOTE | 2022-09-28 14:39 | HO.PM.IMPN ---
Subjective Subjective Date of Service: 09/28/22 Interval History: remains pain-free overnight. Tolerated colo Review of Systems Denies chest pain Denies shortness of breath Denies nausea vomiting diarrhea Denies fever chills Physical Exam Vital Signs: Vital Signs: Last Vital Signs Temp 98.3 F 09/28/22 13:15 Pulse 66 09/28/22 13:15 Resp 18 09/28/22 13:15 BP 141/86 H 09/28/22 13:15 Pulse Ox 100 09/28/22 13:15 O2 Del Method 09/28/22 13:15 BMI result Body Mass Index 23.8 Const: Other: Awake alert oriented x3 no acute distress Resp: Other: Clear to auscultation bilaterally no rales rhonchi or wheezes Cardio: Other: No S4; positive S1-S2; no S3 murmurs or gallops GI: Other: Soft nontender nondistended normoactive bowel sounds. No acute peritoneal signs Back/Spine/Pelvis: Other: No CVA tenderness Extrem: Other: No edema bilaterally Objective Data Active Medications Acetaminophen (Acetaminophen 325 Mg Tablet) 650 mg PO Q6H PRN PRN Reason: Pain, Mild (Pain Scale 1-3) Last Admin: 09/28/22 06:03 Dose: 650 mg Documented By: MAGY Enoxaparin Sodium (Enoxaparin Sodium 40 Mg/0.4 Ml Syringe) 40 mg SUBCUT DAILY ON LICENSE OF [facility] Last Admin: 09/24/22 08:00 Dose: 40 mg Documented By: ROBERT Fluticasone Propionate (Fluticasone Propionate Nasal 16 Gm [place]) 1 spray NOSTRIL-B DAILY ON LICENSE OF [facility] Last Admin: 09/28/22 08:19 Dose: 1 spray Documented By: CHRISTIANO Ceftriaxone Sodium 1 gm/ (Sodium Chloride) 50 mls @ 100 mls/hr IV Q24H ON LICENSE OF [facility] Last Infusion: 09/28/22 13:06 Dose: 0 mls/hr Documented By: ANGEL Lactated Ringer's (Lr) 1,000 mls @ 100 mls/hr IVCONT .Q10H ON LICENSE OF [facility] Ibuprofen (Ibuprofen 400 Mg Tablet) 400 mg PO Q4H PRN PRN Reason: Fever Last Admin: 09/26/22 21:05 Dose: 400 mg Documented By: SARKIS Levothyroxine Sodium (Levothyroxine Sodium 100 Mcg Tablet) 100 mcg PO DAILY@0600 ON LICENSE OF [facility] Last Admin: 09/28/22 04:40 Dose: Not Given Documented By: MAGY Non-Admin Reason: NPO Melatonin (Melatonin 3 Mg Tablet) 6 mg PO BEDTIME PRN PRN Reason: Insomnia Last Admin: 09/25/22 23:20 Dose: 6 mg Documented By: SHIVA Ondansetron HCl (Ondansetron Hcl 4 Mg/2 Ml Vial) 4 mg IVPUSH Q8H PRN PRN Reason: Nausea and Vomiting Last Admin: 09/25/22 17:49 Dose: 4 mg Documented By: CAESAR Pharmacy Consult (Consult Rx Perform Med Rec) 1 each MISCELLANE ONCE PRN PRN Reason: Consult order Sodium Chloride (0.9 % Sodium Chloride Flush 3 Ml Syringe) 3 ml IVFLUSH QSHIFT ON LICENSE OF [facility] Last Admin: 09/28/22 08:19 Dose: 3 ml Documented By: MARLENEENOAL Labs 09/28/22 05:23 09/28/22 05:23 Labs: Laboratory Results - last 24 hr 09/25/22 09/25/22 09/28/22 13:55 13:55 05:23 MCV MCH MCHC RDW Plt Count MPV Immature Gran % (Auto) Neut % (Auto) Lymph % (Auto) [place] % (Auto) Eos % (Auto) Baso % (Auto) Lymph # (Auto) [place] # (Auto) Eos # (Auto) Baso # (Auto) Abs Immat Gran (auto) Absolute Neuts (auto) Absolute Nucleated RBC Nucleated RBC % (auto) Smear Tech's Comments Anion Gap 13 Estim Creat Clear Calc 93.0 Estimated GFR > 60 Fasting Glucose 96 Calcium 7.9 L Total Bilirubin 0.2 AST 9 ALT 7 Alkaline Phosphatase 44 Total Protein 5.2 L Albumin 3.3 L Albumin (Send Out) 3.1 L CSF Albumin 15.2 CSF IgG Index 0.67 CSF IgG Synthesis Rate 0.8 CSF/Serum IgG Index 1.7 CSF VDRL Nonreactive IgG Index 521 L 09/28/22 05:23 MCV 74.9 L MCH 24.8 L MCHC 33.1 RDW 14.1 Plt Count 243 D MPV 9.7 Immature Gran % (Auto) 2.1 H Neut % (Auto) 44.8 L Lymph % (Auto) 42.5 H [place] % (Auto) 8.5 Eos % (Auto) 1.8 Baso % (Auto) 0.3 Lymph # (Auto) 1.5 [place] # (Auto) 0.3 Eos # (Auto) 0.1 Baso # (Auto) 0.0 Abs Immat Gran (auto) 0.07 H Absolute Neuts (auto) 1.5 L Absolute Nucleated RBC 0.000 Nucleated RBC % (auto) 0.0 Smear Tech's Comments VERIFIED Anion Gap Estim Creat Clear Calc Estimated GFR Fasting Glucose Calcium Total Bilirubin AST ALT Alkaline Phosphatase Total Protein Albumin Albumin (Send Out) CSF Albumin CSF IgG Index CSF IgG Synthesis Rate CSF/Serum IgG Index CSF VDRL IgG Index Microbiology Microbiology Results: Microbiology 09/25/22 13:55 Gram Stain - Final Cerebrospinal Fluid CSF Examination - Final Fluid Description - Final CSF Culture - Final No growth after 3 days. 09/26/22 16:03 Blood Culture - Preliminary Blood - Venous No growth after 24 hours. 09/26/22 16:03 Blood Culture - Preliminary Blood - Venous No growth after 24 hours. Assessment and Plan (1) E. coli bacteremia: Status: Acute (2) Hypothyroidism: Status: Acute Plan This is a 47-year-old female with pertinent history of hypothyroidism who presents to the emergency department for evaluation of abdominal pain/nausea/vomiting. 1.SIRS with abdominal pain(resolved) -likely secondary to renal calculi -follow clinically 2.Ecoli bacteremia -surgical workup essentially unremarkable; likely related to renal calculus which has passed -GI to scope; EGD/colon in a.m. -continue ceftriaxone(5) 3.Hypothyroidism -Synthroid as ordered Lovenox Full code Requires ongoing hospitalization for IV antibiotics to treat bacteremia pending workup Time Spent With Patient Time: Total time managing care of this patient today ____ minutes. Quality Stroke Does the patient have a stroke diagnosis?: No VTE Prior VTE?: No VTE Risk Level:: Medical - moderate - high VTE Device Contraindication: Treatment Not Indicated VTE Drug Contraindication: N/A - Med Ordered
--- NOTE | 2022-09-28 15:20 | PM.DS ---
DS: Providers Provider Date of Service: 09/28/22 Date of admission: 09/26/22 13:22 Date of discharge: 09/28/22 Primary care physician: None Physician Consults: 09/23/22 06:38 Consult to Infectious Diseases Routine Consulting Provider: Mylene Parks Reason for consultation: sepsis. ?source 09/25/22 16:27 Consult to General Surgery Routine Consulting Provider: Hardik Lemus Reason for consultation: acalculous cholecystitis Has provider been notified: No 09/26/22 14:57 Consult to Gastroenterology Routine Consulting Provider: Jair Perez Reason for consultation: ecoli bacteremia Has provider been notified: No 09/26/22 15:16 Consult to Urology Routine Consulting Provider: Johnson Duran Reason for consultation: ecoli bacteremia, no source DS: Diagnosis Discharge Diagnosis (1) E. coli bacteremia: Status: Acute (2) Hypothyroidism: Status: Acute DS: Summary Hospital Course Hospital Course: 47-year-old female with pertinent history of hypothyroidism who presents to the emergency department for evaluation of abdominal pain/nausea/vomiting.? Patient states it was sudden in since onset and started around 15:00.? Patient had left-sided flank pain along with epigastric pain, it was constant and did not relieved with Tylenol at home.? No exacerbating factors.? It was associated with nausea and multiple episodes of nonbloody emesis.? No diarrhea.? Patient also had fevers up to 103 and chills at home.? No similar symptoms in the past.? No recent travel.? No tick or insect bite.? States her was sick with productive cough and laryngitis about a week ago.? Soon after patient had developed similar cough but it is now resolving.? No urinary complaints.? Patient denies chest discomfort, palpitations, shortness of breath, changes in urinary or bowel habits.? Patient also complains of dizziness. Hospital Course . admitted to general medical floor. Seen in consultation by Urology who felt there was no indication for surgical intervention. Pain continued and about 48-72 hours pain subsided. She was seen in consultation by Infectious Disease who felt as did urology that her pain was related to her renal calculi. Subsequent blood cultures grew out E coli 2/2 sensitive to ceftriaxone; urine culture was not obtained. she was also seen in consultation by GI and underwent an upper and lower endoscopy that failed to reveal any acute pathology. Most likely cause for hospitalization was UTI with sepsis related to renal calculi. She remained afebrile and blood cultures have been negative since starting antibiotic. Patient was offered iron infusion however declined as she wished to go home. Given such she will be started on iron/ vitamin-C b.i.d. and can follow-up with her PCP. She also complained of some dysfunctional uterine bleeding and is advised to follow up with trade show coordinator as outpatient Time Spent with Patient Time attestation: Total time managing care of this patient today ____ minutes. Discharge coordination time: Greater than 30 minutes Quality: Safe Use of Opioids Does Pt have an Active Cancer Diagnosis on the Problem List?: No Quality: Stroke Does the patient have a stroke diagnosis?: No Physical Exam Vital Signs: Vital Signs: Last Vital Signs Temp 98 F 09/28/22 14:35 Pulse 67 09/28/22 14:35 Resp 20 09/28/22 14:35 BP 99/57 L 09/28/22 14:35 Pulse Ox 100 09/28/22 14:35 O2 Del Method 09/28/22 14:35 BMI result Body Mass Index 23.8 Const: Other: Awake alert oriented x3 no acute distress Resp: Other: Clear to auscultation bilaterally no rales rhonchi or wheezes Cardio: Other: No S4; positive S1-S2; no S3 murmurs or gallops GI: Other: Soft nontender nondistended normoactive bowel sounds. No acute peritoneal signs Back/Spine/Pelvis: Other: No CVA tenderness Extrem: Other: No edema bilaterally DS: Data Data Completed and Pending Pending studies at discharge: Pending at discharge 09/28/22 14:00 Surgical [PTH] Routine Labs on day of discharge: Laboratory Results - last 24 hr 09/25/22 09/25/22 09/28/22 13:55 13:55 05:23 WBC RBC Hgb Hct MCV MCH MCHC RDW Plt Count MPV Immature Gran % (Auto) Neut % (Auto) Lymph % (Auto) [place] % (Auto) Eos % (Auto) Baso % (Auto) Lymph # (Auto) [place] # (Auto) Eos # (Auto) Baso # (Auto) Abs Immat Gran (auto) Absolute Neuts (auto) Absolute Nucleated RBC Nucleated RBC % (auto) Smear Tech's Comments Sodium 142 Potassium 3.7 Chloride 111 H Carbon Dioxide 22 Anion Gap 13 BUN 9 Creatinine 0.68 Estim Creat Clear Calc 93.0 Estimated GFR > 60 Fasting Glucose 96 Calcium 7.9 L Total Bilirubin 0.2 AST 9 ALT 7 Alkaline Phosphatase 44 Total Protein 5.2 L Albumin 3.3 L Albumin (Send Out) 3.1 L CSF Albumin 15.2 CSF IgG Index 0.67 CSF IgG Synthesis Rate 0.8 CSF/Serum IgG Index 1.7 CSF VDRL Nonreactive IgG Index 521 L 09/28/22 05:23 WBC 3.4 L RBC 3.23 L Hgb 8.0 L Hct 24.2 L MCV 74.9 L MCH 24.8 L MCHC 33.1 RDW 14.1 Plt Count 243 D MPV 9.7 Immature Gran % (Auto) 2.1 H Neut % (Auto) 44.8 L Lymph % (Auto) 42.5 H [place] % (Auto) 8.5 Eos % (Auto) 1.8 Baso % (Auto) 0.3 Lymph # (Auto) 1.5 [place] # (Auto) 0.3 Eos # (Auto) 0.1 Baso # (Auto) 0.0 Abs Immat Gran (auto) 0.07 H Absolute Neuts (auto) 1.5 L Absolute Nucleated RBC 0.000 Nucleated RBC % (auto) 0.0 Smear Tech's Comments VERIFIED Sodium Potassium Chloride Carbon Dioxide Anion Gap BUN Creatinine Estim Creat Clear Calc Estimated GFR Fasting Glucose Calcium Total Bilirubin AST ALT Alkaline Phosphatase Total Protein Albumin Albumin (Send Out) CSF Albumin CSF IgG Index CSF IgG Synthesis Rate CSF/Serum IgG Index CSF VDRL IgG Index Preliminary micro results at discharge 09/26/22 16:03 Blood Culture - Preliminary Blood - Venous No growth after 24 hours. 09/26/22 16:03 Blood Culture - Preliminary Blood - Venous No growth after 24 hours. Discharge Plan Discharge Anticipated Discharge Date/Time: 09/28/22 15:14 Patient Disposition: Home, Self-Care Discharge Diagnosis: E coli bacteremia secondary to renal calculi Referrals: Physician,None [Primary Care Provider] - 1 Week Discharge Medications: New levothyroxine [Synthroid] 100 mcg Tablet 100 mcg PO DAILY@0600 Qty: 30 0RF cefuroxime axetil 500 mg tablet 500 mg PO BID Qty: 28 0RF ferrous sulfate [Feosol] 325 mg (65 mg iron) tablet 325 mg PO BID Qty: 60 0RF ascorbic acid (vitamin C) 500 mg tablet 500 mg PO BID Qty: 60 0RF Continued acetaminophen 325 mg Tablet 650 mg PO Q6H PRN (Reason: Fever Or Pain) Discontinued non-formulary tablet 1 tab PO DAILY Rx Instructions: T4 thyroid medication from [facility] (unknown exact name or dose) Discharge Orders: Discharge Order (Routine); Ordered 09/28/22 Ordered By: Thierno Mcdaniel Diet: Advance to usual diet Activity on Discharge: As tolerated Stand Alone Forms: Patient Portal Discharge page Care Plan Goals: follow-up with PCP in 2 weeks; you need to obtain an trade show coordinator and get established Health Concerns: complete Ceftin twice daily for 14 days; iron/ vitamin-C twice daily. Plan of Treatment: Follow-up with your PCP in 2 weeks Assessment: see discharge summary
[2022-09-28 15:26] VITALS: BP 145/83; PULSE 64; RESP 18; TEMP 36.2; O2SAT 100
--- NOTE | 2022-09-28 15:52 | MHC.CM.PN ---
PT MEDICALLY CLEARED FOR D/C HOME SELF CARE, PT TO ARRANGE TRANSPORT.
[2022-09-28 19:13] LABS: Lyme IgG CSF Immunoblot NO BANDS DETECTED; Lyme IgM CSF Immunoblot NO BANDS DETECTED
[2022-09-28 20:53] LABS: Myelin Basic Protein <2.0 mcg/L (<=4.0)
[2022-09-29 19:33] LABS: HSV 1 IgM IFA Negative (Negative); HSV 2 IgM IFA Negative (Negative)
== END 2022-09-28 16:42 | disposition home or self-care (01) | DRG 872 ==
LOC: HO.ED 09-23 02:34 → HO.EDOVER 09-23 05:49 → HO.S3 09-23 19:32
PROVIDERS: Internal Medicine; Internal Medicine Gastroenterology; Nurse Practitioner Acute Care; Admitting Provider Student in an Organized Health Care Education/Training Program; Emergency Provider Emergency Medicine; Visit Provider Hospitalist
PROC: 0DB98ZX Excision of Duodenum, Via Natural or Artificial Opening Endoscopic, Diagnostic (ICD-10-PCS; principal; 2022-09-28 13:50)
DX: A41.9 Sepsis, unspecified organism (principal); N39.0 Urinary tract infection, site not specified; I95.1 Orthostatic hypotension; D50.9 Iron deficiency anemia, unspecified; K29.70 Gastritis, unspecified, without bleeding; K44.9 Diaphragmatic hernia without obstruction or gangrene; K20.90 Esophagitis, unspecified without bleeding; K64.8 Other hemorrhoids; K62.1 Rectal polyp; D12.0 Benign neoplasm of cecum; N20.0 Calculus of kidney; B96.20 Unspecified Escherichia coli [E. coli] as the cause of diseases classified elsewhere; K22.70 Barrett's esophagus without dysplasia; E03.9 Hypothyroidism, unspecified; Z20.822 Contact with and (suspected) exposure to COVID-19; Z87.442 Personal history of urinary calculi; Z88.2 Allergy status to sulfonamides; Z79.890 Hormone replacement therapy; Z79.899 Other long term (current) drug therapy
CPT/HCPCS: 36415; 62328; 70470; 71045; 74177; 76705; 76830; 76856; 78227; 80048; 80053; 80076; 80202; 80307; 81001; 81025; 82042; 82565; 82945; 83540; 83605; 83690; 83873; 83916; 84145; 84157; 84166; 84443; 84484; 85007; 85025; 85027; 85379; 85610; 86140; 86335; 86592; 86617; 86618; 86695; 86696; 87015; 87040; 87070; 87077; 87102; 87116; 87186; 87205; 87206; 87389; 87483; 87497; 87502; 87507; 87633; 87635; 88305; 88342; 89051; 93005; 99285; A9537; J0133; J0290; J0692; J0696; J1650; J2270; J2405; J2765; J2805; J3371; Q9967

== ENCOUNTER 2022-10-20 19:30 | Emergency (ER) | payer MEDICAID, OTHER, SELFPAY ==
--- NOTE | ~2022-10-20 | CT_ITS ---
EXAMINATION: CT ABDOMEN AND PELVIS WITH CONTRAST CLINICAL INFORMATION: Lower abdominal pain. COMPARISON: CT abdomen/pelvis 09/23/2022. TECHNIQUE: Multidetector volumetric images were obtained from the superior aspect of the liver through the pubic symphysis following administration 85 mL of Omnipaque 350 intravenous contrast. Sagittal and coronal reformatted images were obtained on the technologist's workstation. Oral contrast: No This CT examination was performed using dose optimization techniques as appropriate, variously including the following: *Automated exposure control *Adjustment of mA and/or kV according to patient size (this includes techniques or standardized protocols for targeted exams where dose is matched to indication/reason for exam; i.e. extremities or head) *Use of iterative reconstruction technique DLP: 491 mGy-cm FINDINGS: LUNG BASES: Redemonstration of calcified granuloma in the right lung base. No focal consolidation or pleural effusion. LIVER, GALLBLADDER, AND BILIARY TREE: The liver is enlarged measuring 21 cm craniocaudally but is otherwise normal in shape and attenuation. No discrete focal lesion. Decompressed gallbladder. No significant pericholecystic inflammatory changes to suspect acute cholecystitis. PANCREAS: Unremarkable. SPLEEN: The spleen is enlarged measuring 13.3 cm anterior to posterior. No focal lesion. ADRENAL GLANDS: Unremarkable. KIDNEYS AND URETERS: There is redemonstration of a 0.3 cm calculus in the upper pole of the left kidney, and a few additional bilateral punctate nonobstructive calculi. Symmetric nephrograms. No hydronephrosis. No perinephric fat stranding. A region of focal hypodensity and cortical thinning, likely scarring in the upper left kidney (8:49) is unchanged compared to 09/23/2022 in the area of a prior hemorrhagic/proteinaceous cyst on 06/13/2019. A few tiny cortical hypodensities are noted bilaterally, to a small to characterize but statistically likely to represent simple cysts, for which no imaging follow-up is recommended. BLADDER: Decompressed and suboptimally assessed. GASTROINTESTINAL TRACT: Nonspecific gastric distention. The small bowel is nondilated. Normal appendix. Colonic diverticulosis. No pericolonic inflammatory changes or evidence of bowel obstruction. ABDOMINAL WALL: No significant hernia is appreciated. LYMPH NODES: No lymphadenopathy. VASCULAR: Abdominal aorta is of normal diameter. Main portal vein is patent. PELVIC VISCERA: Heterogeneous uterine myometrium with multiple lesions, a statistically likely to represent fibroids. One of the lesions distorts the endometrium with a possible submucosal component (age: 69). The endometrium measures 0.7 cm in thickness. There is a 1.3 cm corpus luteal cyst in the left ovary (7:38). Trace amount of free fluid, likely physiologic. OSSEOUS STRUCTURES: Redemonstration of cerclage wire and postsurgical changes from L4 through S1. Multilevel degenerative changes of the spine with unchanged anterolisthesis of L5 on S1. No acute or aggressive appearing osseous abnormalities. CT/CT abdomen pelvis w IV con IMPRESSION: 1. Nonspecific gastric distention, correlate clinically for postprandial state, other differentials include gastroparesis and gastric outlet obstruction. 2. Mild colonic diverticulosis but no evidence of acute diverticulitis. 3. Nonobstructive bilateral renal calculi. 4. Nonspecific hepatosplenomegaly. 5. Heterogeneous uterine myometrium with multiple lesions, statistically likely to represent fibroids. One of the lesions distorts the endometrium with a possible submucosal component. The endometrium measures 0.7 cm in thickness, which is enlarged for a postmenopausal patient. Recommend correlation with menstrual history, and if indicated PRODUCTION COOK consultation.
[2022-10-20 19:45] VITALS: BP 117/82; PULSE 91; RESP 16; TEMP 36.6; O2SAT 100; BMI 23.6
--- NOTE | 2022-10-20 19:51 | ED_ITS ---
HPI - General Adult General Chief complaint: General Medical <GOMEZ Cruz - Last Filed: 10/20/22 19:52> Stated complaint: Vomiting/Diarrhea <GOMEZ Cruz - Last Filed: 10/20/22 19:52> Time Seen by Provider: 10/20/22 22:01 <GOMEZ Cruz - Last Filed: 10/20/22 19:52> Source: patient and RN notes reviewed <River Ritchie - Last Filed: 10/21/22 02:28> Mode of arrival: ambulatory <River Ritchie - Last Filed: 10/21/22 02:28> Limitations: no limitations <River Ritchie - Last Filed: 10/21/22 02:28> History of Present Illness HPI narrative: 47-year-old primarily Icelandic speaking female presents for evaluation of vomiting and diarrhea. Of note, the patient was admitted to this facility on 09/22/2022 with E coli bacteremia The source was felt to be a renal stone despite the CT scan not showing any obstructive uropathy in the urine being negative for infection. The patient was treated with ceftriaxone while admitted and was discharged with cefuroxime which she was taking up until 4 days ago She reports that her symptoms started shortly after stopping the antibiotics The patient presents to the daughter and states that she has had left lower abdominal pain with nausea vomiting and diarrhea for the last 4 days. She also reports subjective fevers at home not take her temperature She is concerned due to her recent blood infected <River Ritchie - Last Filed: 10/21/22 02:28> Related Data Home medications: Home Medications Medication Instructions Recorded Confirmed acetaminophen 325 mg tablet 650 mg PO Q6H PRN Fever Or Pain 09/23/22 09/23/22 Previous Rx's Medication Instructions Recorded ascorbic acid (vitamin C) 500 mg 500 mg PO BID #60 tabs 09/28/22 tablet cefuroxime axetil 500 mg tablet 500 mg PO BID #28 tabs 09/28/22 ferrous sulfate 325 mg (65 mg 325 mg PO BID #60 tabs 09/28/22 iron) tablet (Feosol) levothyroxine 100 mcg tablet 100 mcg PO DAILY@0600 #30 tabs 09/28/22 (Synthroid) fidaxomicin 200 mg tablet 200 mg PO BID 10 days #20 tabs 10/20/22 vancomycin 125 mg capsule 125 mg PO QID #40 caps 10/21/22 <GOMEZ Cruz - Last Filed: 10/20/22 19:52> Allergies/adverse reactions: Allergies Allergy/AdvReac Type Severity Reaction Status Date / Time Sulfa (Sulfonamide Allergy Unknown SHORTNESS Verified 09/23/22 03:11 Antibiotics) OF BREATH [SULFA (SULFONAMIDE ANTIBIOTICS)] vancomycin AdvReac Red Man Verified 09/23/22 18:14 Syndrome <GOMEZ Cruz - Last Filed: 10/20/22 19:52> Review of Systems Constitutional: Constitutional: Reports as per HPI, Denies chills, Denies fatigue, Denies fever(s) and Denies headache(s) <River Ritchie - Last Filed: 10/21/22 02:28> ENT: Denies headache(s) <River Ritchie - Last Filed: 10/21/22 02:28> Cardiovascular: Cardiovascular: Denies chest pain and Denies dyspnea <River Ritchie - Last Filed: 10/21/22 02:28> Respiratory: Respiratory: Denies cough and Denies dyspnea <River Ritchie - Last Filed: 10/21/22 02:28> Gastrointestinal: Gastrointestinal: Reports abdominal pain, Denies constipation, Reports diarrhea and Reports vomiting <River Ritchie - Last Filed: 10/21/22 02:28> Genitourinary: Genitourinary: Denies dysuria <River Ritchie - Last Filed: 10/21/22 02:28> Neurologic: Denies headache(s) and Denies focal weakness <River Ritchie - Last Filed: 10/21/22 02:28> Endocrine: Endocrine: Denies fatigue <River Ritchie - Last Filed: 10/21/22 02:28> PENDING SALE TO [facility] Past Medical History Medical History: Medical History (Updated 10/20/22 @ 23:49 by River Ritchie) FH: colon cancer Thyroid disease <GOMEZ Cruz - Last Filed: 10/20/22 19:52> Surgical History: Surgical History (Updated 09/28/22 @ 14:13 by Katya Durand MD) H/O section History of back surgery <GOMEZ Cruz - Last Filed: 10/20/22 19:52> Social History Social History: Social History Household Members: Family Housing: House Do you presently have visiting nurse or other home services: No Alcohol intake: never Patient Tobacco Use Status: Never used Tobacco Smoked in Last 30 Days: No Use of substances other than those prescribed or required for medical reasons: No Advance Directives: No Advance Directives Information Provided: No Patient : No service: No Current occupational status: unemployed <GOMEZ Cruz - Last Filed: 10/20/22 19:52> Physical Exam ED Vital Signs: Vital Signs - 24 hr 10/20/22 19:45 10/20/22 21:47 10/21/22 00:00 Temperature 97.9 F 97.6 F 98.1 F Pulse Rate 91 74 76 Respiratory Rate 16 16 16 Blood Pressure 117/82 120/82 134/93 H Pulse Oximetry 100 98 98 Oxygen Delivery Method Room Air Room Air Room Air BMI result Body Mass Index 23.6 <GOMEZ Cruz - Last Filed: 10/20/22 19:52> Vital Signs - 24 hr 10/20/22 19:45 10/20/22 21:47 10/21/22 00:00 Temperature 97.9 F 97.6 F 98.1 F Pulse Rate 91 74 76 Respiratory Rate 16 16 16 Blood Pressure 117/82 120/82 134/93 H Pulse Oximetry 100 98 98 Oxygen Delivery Method Room Air Room Air Room Air BMI result Body Mass Index 23.6 <River Ritchie - Last Filed: 10/21/22 02:28> Const General: healthy appearing, comfortable, no acute distress, alert and awake <River Ritchie - Last Filed: 10/21/22 02:28> Nutritional Appearance: well nourished <River Ritchie - Last Filed: 10/21/22 02:28> Orientation/consciousness: patient oriented x3 <River Ritchie - Last Filed: 10/21/22 02:28> HENMT Head: Yes normocephalic and Yes atraumatic <River Ritchie - Last Filed: 10/21/22 02:28> Throat: Yes posterior oropharynx normal <River ORappahannock - Last Filed: 10/21/22 02:28> Eyes Eyelids: Yes eyelids normal <River ORapp[place]annock - Last Filed: 10/21/22 02:28> Conjunctivae: conjunctivae normal <River OR[place] - Last Filed: 10/21/22 02:28> Sclerae: sclerae normal <River AudioCompassRappahannock - Last Filed: 10/21/22 02:28> Corneas: corneas normal <River AudioCompassCaden - Last Filed: 10/21/22 02:28> Pupils: Equal, round and reactive pupils present <River OCaden - Last Filed: 10/21/22 02:28> EOM: EOMs intact bilaterally <River OCaden - Last Filed: 10/21/22 02:28> Neck Neck: Yes full ROM <River OCaden - Last Filed: 10/21/22 02:28> Resp Effort & Inspection: normal respiratory effort, able to speak in complete sentences, no audible wheezes and not labored <River [place]ock - Last Filed: 10/21/22 02:28> Auscultation: clear to auscultation bilaterally <River [place] - Last Filed: 10/21/22 02:28> Cardio Rate: regular rate <River [place] - Last Filed: 10/21/22 02:28> Rhythm: regular rhythm <River [place] - Last Filed: 10/21/22 02:28> GI Inspection: No distended <River ORapp[place]ock - Last Filed: 10/21/22 02:28> Palpation (GI): Soft to palpation, not firm, Tenderness to palpation present (GI) in the LLQ, Guarding due to palpation present (GI) in the LLQ and not rigid <Riveranuj Ferrery - Last Filed: 10/21/22 02:28> Auscultation: normoactive bowel sounds <Riveranuj Ferrery - Last Filed: 10/21/22 02:28> Skin General skin exam: no rashes or lesions noted and elasticity normal <River BlueVineCaden - Last Fi led: 10/21/22 02:28> Neuro General: patient oriented x3 <River Ritchie Filed: 10/21/22 02:28> Cranial nerves: Yes CN's II-XII intact bilaterally, Yes Equal, round and reactive pupils present and Yes Bilaterally intact EOM present <River SwiftRimaRappahannock Filed: 10/21/22 02:28> Cognition (Neuro): normal cognition <River Rtichie Last Filed: 10/21/22 02:28> Extrem Other: Moving all extremities well without any obvious deformities <River waite Filed: 10/21/22 02:28> Course Course Course Narrative: RME performed by Chioma Jin PA-C. Patient is a 47 year old female presenting to the emergency department with nausea, vomiting, and diarrhea. Labs ordered. Patient placed back in the waiting room pending results and room availability. <GOMEZ Cruz Last Filed: 10/20/22 19:52> Reevaluation(s) Reevaluation #1: Patient tested positive for C diff colitis pain is discussed with the pat eligio and her at bedside. Patient has an allergy to vancomycin, she will be treated with for Dr. Salvador. She is clinically stable has a mild case, there is no evidence of severe infection. Patient's CT scan which does show endometrial lesion is likely a fibroid but the patient will be instructed to follow-up with her OBGYN for this. <River JamisonAbey - Last Filed: 10/21/22 02:28> Time: 23:48 <River OAbey - Last Filed: 10/21/22 02:28> Reevaluation #2: Received call from the patient's . Apparently no [facility] locally has the the doximity stent was prescribed. I also tried calling [facility] and again they do not have the medication. The patient adverse reaction to vancomycin is red man syndrome. Therefore after discussing with my attending, Dr Locke, vancomycin p.o. can be prescribed without side effect. This was relayed to the patient and I prescribed vancomycin 125 mg q.i.d. <River Ritchie - Last Filed: 10/21/22 02:28> Time: 02:27 <River Ritchie - Last Filed: 10/21/22 02:28> Medications Administered Discontinued Medications Generic Name Dose Route Start Last Admin Trade Name Freq PRN Reason Stop Dose Admin Fidaxomicin 200 mg 10/20/22 23:43 10/21/22 00:22 Fidaxomicin 200 Mg Tablet PO 10/20/22 23:44 Not Given ONCE ONE Sodium Chloride 1,000 mls @ 999 mls/hr 10/20/22 22:45 10/21/22 00:20 Ns IV 10/20/22 23:45 999 mls/hr .Q1H1M ALYSSA Infusion Iohexol 85 ml 10/20/22 23:15 10/20/22 23:16 Iohexol 350 Mg/Ml 100 Ml Infus..Btl IV 10/20/22 23:16 85 ml ONCE ONE Administration Ondansetron HCl 4 mg 10/20/22 22:34 10/20/22 22:58 Ondansetron Hcl 4 Mg/2 Ml Vial IVPUSH 10/20/22 22:35 4 mg ONCE ONE Administration <GOMEZ Cruz - Last Filed: 10/20/22 19:52> Medications Administered Discontinued Medications Generic Name Dose Route Start Last Admin Trade Name Freq PRN Reason Stop Dose Admin Fidaxomicin 200 mg 10/20/22 23:43 10/21/22 00:22 Fidaxomicin 200 Mg Tablet PO 10/20/22 23:44 Not Given ONCE ONE Sodium Chloride 1,000 mls @ 999 mls/hr 10/20/22 22:45 10/21/22 00:20 Ns IV 10/20/22 23:45 999 mls/hr .Q1H1M ALYSSA Infusion Iohexol 85 ml 10/20/22 23:15 10/20/22 23:16 Iohexol 350 Mg/Ml 100 Ml Infus..Btl IV 10/20/22 23:16 85 ml ONCE ONE Administration Ondansetron HCl 4 mg 10/20/22 22:34 10/20/22 22:58 Ondansetron Hcl 4 Mg/2 Ml Vial IVPUSH 10/20/22 22:35 4 mg ONCE ONE Administration <River Ritchie - Last Filed: 10/21/22 02:28> Medical Decision Making Medical Decision Making MDM Narrative: 47 year female presents for evaluation of abdominal pain, vomiting and diarrhea. She is currently afebrile with stable vital signs. She has no leukocytosis. However given her recent bacteremia, I feel it is appropriate draw blood cultures to make sure her infection has been thoroughly treated. Will also get a stool sample for C diff testing given her antibiotic use for 3 weeks. I will repeat a CT scan of the of the pelvis care discomfort in the left lower quadrant. It is possible that her diarrhea is related to GI upset from her antibiotic use. However we will work to rule out any more malignant pathology <River Chau - Last Filed: 10/21/22 02:28> Differential Diagnosis Pyelonephritis Obstructive uropathy Bacteremia C diff colitis Diverticulitis Constipation Side effect of antibiotic use <River Carissay - Last Filed: 10/21/22 02:28> Lab Data MDM Lab Attestation statement: I reviewed the patient's lab results. <River Chau - Last Filed: 10/21/22 02:28> Result Diagrams: 10/20/22 20:08 10/20/22 20:08 <GOMEZ Cruz - Last Filed: 10/20/22 19:52> Labs: Lab Results 10/20/22 10/20/22 10/20/22 Range/Units 20:08 20:08 20:08 WBC 5.1 (4.8-10.8) X10*3/uL RBC 4.09 L D (4.20-5.50) X10*6/uL Hgb 11.0 L D (12.0-16.0) g/dl Hct 33.2 L D (37.0-47.0) % MCV 81.2 (80.0-98.0) fL MCH 26.9 L (27.0-33.0) pg MCHC 33.1 (31.0-35.0) g/dl RDW 17.4 H (11.0-16.0) % Plt Count 272 (160-400) X10*3/uL MPV 9.1 L (9.4-12.3) fL Immature Gran % (Auto) 0.4 (0.0-0.4) % Neut % (Auto) 54.4 (45-73) % Lymph % (Auto) 34.0 (20-40) % [place] % (Auto) 8.8 (2-11) % Eos % (Auto) 1.8 (0-4) % Baso % (Auto) 0.6 (0-2) % Lymph # (Auto) 1.7 (1.2-4.9) X10*3/uL [place] # (Auto) 0.5 (0.1-1.2) X10*3/uL Eos # (Auto) 0.1 (0.0-0.4) X10*3/uL Baso # (Auto) 0.0 (0.0-0.2) X10*3/uL Abs Immat Gran (auto) 0.02 (0.00-0.03) X10*3/uL Absolute Neuts (auto) 2.8 (2.0-8.3) x10*3/uL Absolute Nucleated RBC 0.000 (0.0-0.012) X10*3/uL Nucleated RBC % (auto) 0.0 (0.0-0.2) /100WBC Sodium 142 (135-145) mmol/L Potassium 3.9 (3.3-5.1) mmol/L Chloride 111 H (96-108) mmol/L Carbon Dioxide 24 (22-29) mmol/L Anion Gap 11 L (12-20) BUN 12 (9-16) mg/dL Creatinine 0.82 (0.5-1.4) mg/dL Estim Creat Clear Calc 77.1 Estimated GFR > 60 Random Glucose 99 (60-115) mg/dL Lactic Acid (0.5-2.0) mmol/L Calcium 9.0 D (8.4-10.2) mg/dL Magnesium 2.1 (1.6-2.6) mg/dL Total Bilirubin 0.2 (0.0-1.0) mg/dL AST 11 (5-31) U/L ALT 7 (0-31) U/L Alkaline Phosphatase 55 (39-117) U/L Total Protein 6.6 (6.5-8.0) g/dL Albumin 4.2 (3.5-5.0) g/dL Urine Color Urine Appearance Urine pH (5.0-9.0) Ur Specific [place] (1.005-1.025) Urine Protein (Neg-Trace) mg/dL Urine Glucose (UA) (Negative) mg/dL Urine Ketones (Negative) mg/dL Urine Blood (Negative) Urine Nitrite (Negative) Ur Leukocyte Esterase (Negative) C. difficile Tox B Gene (Negative) C. difficile Toxin A&B (Negative) C. difficile Interpret COVID-19 (GENI) Negative (Negative) COVID-19 Clin Com See Note 10/20/22 10/20/22 10/20/22 Range/Units 20:08 22:30 23:45 WBC (4.8-10.8) X10*3/uL RBC (4.20-5.50) X10*6/uL Hgb (12.0-16.0) g/dl Hct (37.0-47.0) % MCV (80.0-98.0) fL MCH (27.0-33.0) pg MCHC (31.0-35.0) g/dl RDW (11.0-16.0) % Plt Count (160-400) X10*3/uL MPV (9.4-12.3) fL Immature Gran % (Auto) (0.0-0.4) % Neut % (Auto) (45-73) % Lymph % (Auto) (20-40) % [place] % (Auto) (2-11) % Eos % (Auto) (0-4) % Baso % (Auto) (0-2) % Lymph # (Auto) (1.2-4.9) X10*3/uL [place] # (Auto) (0.1-1.2) X10*3/uL Eos # (Auto) (0.0-0.4) X10*3/uL Baso # (Auto) (0.0-0.2) X10*3/uL Abs Immat Gran (auto) (0.00-0.03) X10*3/uL Absolute Neuts (auto) (2.0-8.3) x10*3/uL Absolute Nucleated RBC (0.0-0.012) X10*3/uL Nucleated RBC % (auto) (0.0-0.2) /100WBC Sodium (135-145) mmol/L Potassium (3.3-5.1) mmol/L Chloride (96-108) mmol/L Carbon Dioxide (22-29) mmol/L Anion Gap (12-20) BUN (9-16) mg/dL Creatinine (0.5-1.4) mg/dL Estim Creat Clear Calc Estimated GFR Random Glucose (60-115) mg/dL Lactic Acid 1.7 (0.5-2.0) mmol/L Calcium (8.4-10.2) mg/dL Magnesium (1.6-2.6) mg/dL Total Bilirubin (0.0-1.0) mg/dL AST (5-31) U/L ALT (0-31) U/L Alkaline Phosphatase (39-117) U/L Total Protein (6.5-8.0) g/dL Albumin (3.5-5.0) g/dL Urine Color Yellow Urine Appearance Clear Urine pH 5.5 (5.0-9.0) Ur Specific [place] >= 1.030 H (1.005-1.025) Urine Protein Negative (Neg-Trace) mg/dL Urine Glucose (UA) Negative (Negative) mg/dL Urine Ketones Trace (Negative) mg/dL Urine Blood Negative (Negative) Urine Nitrite Negative (Negative) Ur Leukocyte Esterase Negative (Negative) C. difficile Tox B Gene POSITIVE A* (Negative) C. difficile Toxin A&B Negative (Negative) C. difficile Interpret SEE NOTE COVID-19 (GENI) (Negative) COVID-19 Clin Com <GOMEZ Cruz - Last Filed: 10/20/22 19:52> Lab Results 10/20/22 10/20/22 10/20/22 Range/Units 20:08 20:08 20:08 WBC 5.1 (4.8-10.8) X10*3/uL RBC 4.09 L D (4.20-5.50) X10*6/uL Hgb 11.0 L D (12.0-16.0) g/dl Hct 33.2 L D (37.0-47.0) % MCV 81.2 (80.0-98.0) fL MCH 26.9 L (27.0-33.0) pg MCHC 33.1 (31.0-35.0) g/dl RDW 17.4 H (11.0-16.0) % Plt Count 272 (160-400) X10*3/uL MPV 9.1 L (9.4-12.3) fL Immature Gran % (Auto) 0.4 (0.0-0.4) % Neut % (Auto) 54.4 (45-73) % Lymph % (Auto) 34.0 (20-40) % [place] % (Auto) 8.8 (2-11) % Eos % (Auto) 1.8 (0-4) % Baso % (Auto) 0.6 (0-2) % Lymph # (Auto) 1.7 (1.2-4.9) X10*3/uL [place] # (Auto) 0.5 (0.1-1.2) X10*3/uL Eos # (Auto) 0.1 (0.0-0.4) X10*3/uL Baso # (Auto) 0.0 (0.0-0.2) X10*3/uL Abs Immat Gran (auto) 0.02 (0.00-0.03) X10*3/uL Absolute Neuts (auto) 2.8 (2.0-8.3) x10*3/uL Absolute Nucleated RBC 0.000 (0.0-0.012) X10*3/uL Nucleated RBC % (auto) 0.0 (0.0-0.2) /100WBC Sodium 142 (135-145) mmol/L Potassium 3.9 (3.3-5.1) mmol/L Chloride 111 H (96-108) mmol/L Carbon Dioxide 24 (22-29) mmol/L Anion Gap 11 L (12-20) BUN 12 (9-16) mg/dL Creatinine 0.82 (0.5-1.4) mg/dL Estim Creat Clear Calc 77.1 Estimated GFR > 60 Random Glucose 99 (60-115) mg/dL Lactic Acid (0.5-2.0) mmol/L Calcium 9.0 D (8.4-10.2) mg/dL Magnesium 2.1 (1.6-2.6) mg/dL Total Bilirubin 0.2 (0.0-1.0) mg/dL AST 11 (5-31) U/L ALT 7 (0-31) U/L Alkaline Phosphatase 55 (39-117) U/L Total Protein 6.6 (6.5-8.0) g/dL Albumin 4.2 (3.5-5.0) g/dL Urine Color Urine Appearance Urine pH (5.0-9.0) Ur Specific [place] (1.005-1.025) Urine Protein (Neg-Trace) mg/dL Urine Glucose (UA) (Negative) mg/dL Urine Ketones (Negative) mg/dL Urine Blood (Negative) Urine Nitrite (Negative) Ur Leukocyte Esterase (Negative) C. difficile Tox B Gene (Negative) C. difficile Toxin A&B (Negative) C. difficile Interpret COVID-19 (GENI) Negative (Negative) COVID-19 Clin Com See Note 10/20/22 10/20/22 10/20/22 Range/Units 20:08 22:30 23:45 WBC (4.8-10.8) X10*3/uL RBC (4.20-5.50) X10*6/uL Hgb (12.0-16.0) g/dl Hct (37.0-47.0) % MCV (80.0-98.0) fL MCH (27.0-33.0) pg MCHC (31.0-35.0) g/dl RDW (11.0-16.0) % Plt Count (160-400) X10*3/uL MPV (9.4-12.3) fL Immature Gran % (Auto) (0.0-0.4) % Neut % (Auto) (45-73) % Lymph % (Auto) (20-40) % [place] % (Auto) (2-11) % Eos % (Auto) (0-4) % Baso % (Auto) (0-2) % Lymph # (Auto) (1.2-4.9) X10*3/uL [place] # (Auto) (0.1-1.2) X10*3/uL Eos # (Auto) (0.0-0.4) X10*3/uL Baso # (Auto) (0.0-0.2) X10*3/uL Abs Immat Gran (auto) (0.00-0.03) X10*3/uL Absolute Neuts (auto) (2.0-8.3) x10*3/uL Absolute Nucleated RBC (0.0-0.012) X10*3/uL Nucleated RBC % (auto) (0.0-0.2) /100WBC Sodium (135-145) mmol/L Potassium (3.3-5.1) mmol/L Chloride (96-108) mmol/L Carbon Dioxide (22-29) mmol/L Anion Gap (12-20) BUN (9-16) mg/dL Creatinine (0.5-1.4) mg/dL Estim Creat Clear Calc Estimated GFR Random Glucose (60-115) mg/dL Lactic Acid 1.7 (0.5-2.0) mmol/L Calcium (8.4-10.2) mg/dL Magnesium (1.6-2.6) mg/dL Total Bilirubin (0.0-1.0) mg/dL AST (5-31) U/L ALT (0-31) U/L Alkaline Phosphatase (39-117) U/L Total Protein (6.5-8.0) g/dL Albumin (3.5-5.0) g/dL Urine Color Yellow Urine Appearance Clear Urine pH 5.5 (5.0-9.0) Ur Specific [place] >= 1.030 H (1.005-1.025) Urine Protein Negative (Neg-Trace) mg/dL Urine Glucose (UA) Negative (Negative) mg/dL Urine Ketones Trace (Negative) mg/dL Urine Blood Negative (Negative) Urine Nitrite Negative (Negative) Ur Leukocyte Esterase Negative (Negative) C. difficile Tox B Gene POSITIVE A* (Negative) C. difficile Toxin A&B Negative (Negative) C. difficile Interpret SEE NOTE COVID-19 (GENI) (Negative) COVID-19 Clin Com <River Ritchie - Last Filed: 10/21/22 02:28> Radiology Impression Discussion of test interpretation with radiology: I have reviewed the radiologist's reading. (Of the abdominal CT scan) <River Ritchie - Last Filed: 10/21/22 02:28> Discharge Plan Discharge Clinical Impression: C. difficile colitis <GOMEZ Cruz - Last Filed: 10/20/22 19:52> Patient Disposition: Home, Self-Care <GOMEZ Cruz - Last Filed: 10/20/22 19:52> Instructions: C. Diff (Clostridioides Difficile) Infection (ED) <GOMEZ Cruz - Last Filed: 10/20/22 19:52> Additional Instructions: You tested positive for C diff colitis. This is an infection that people can get frequently after being treated with antibiotics. The treatment is a different antibiotic that you will take twice daily for 10 days This can be contagious, make sure you wash her hands very frequently after using the bathroom Your CT scan also showed multiple uterine fibroids. One of them was likely a little bit deeper than the others and should be fol lowed by your OBGYN <GOMEZ Cruz - Last Filed: 10/20/22 19:52> Prescriptions: New fidaxomicin 200 mg tablet 200 mg PO BID 10 Days Qty: 20 0RF vancomycin 125 mg capsule 125 mg PO QID Qty: 40 0RF No Action acetaminophen 325 mg Tablet 650 mg PO Q6H PRN (Reason: Fever Or Pain) levothyroxine [Synthroid] 100 mcg Tablet 100 mcg PO DAILY@0600 Qty: 30 0RF cefuroxime axetil 500 mg tablet 500 mg PO BID Qty: 28 0RF ferrous sulfate [Feosol] 325 mg (65 mg iron) tablet 325 mg PO BID Qty: 60 0RF ascorbic acid (vitamin C) 500 mg tablet 500 mg PO BID Qty: 60 0RF <GOMEZ Cruz - Last Filed: 10/20/22 19:52> Interventions: ED Discharge Assessment Last Done: 10/21/22 00:01 <GOMEZ Cruz - Last Filed: 10/20/22 19:52> Discharge Date/Time: 10/21/22 00:48 <GOMEZ Cruz - Last Filed: 10/20/22 19:52>
[2022-10-20 20:20] LABS: MANUAL DIFF FLAG NO
[2022-10-20 20:27] LABS: Basophils Percent Auto 0.6 % (0-2); Eosinophils Absolute Auto 0.1 X10*3/uL (0.0-0.4); Eosinophils Percent Auto 1.8 % (0-4); Hematocrit 33.2 % (37.0-47.0); Imm Gran Abs Auto 0.02 X10*3/uL (0.00-0.03); Imm Gran Pct Auto 0.4 % (0.0-0.4); Lymphocytes Absolute Auto 1.7 X10*3/uL (1.2-4.9); Mean Corpuscular HGB Conc 33.1 g/dl (31.0-35.0); Mean Corpuscular Hemoglobin 26.9 pg (27.0-33.0); Mean Corpuscular Volume 81.2 fL (80.0-98.0); Mean Platelet Volume 9.1 fL (9.4-12.3); Monocytes Absolute Auto 0.5 X10*3/uL (0.1-1.2); Monocytes Percent Auto 8.8 % (2-11); Neutrophils Absolute Auto 2.8 x10*3/uL (2.0-8.3); Neutrophils Percent Auto 54.4 % (45-73); Platelet Count 272 X10*3/uL (160-400); Red Blood Count 4.09 X10*6/uL (4.20-5.50); Red Cell Distribution Width 17.4 % (11.0-16.0); White Blood Count 5.1 X10*3/uL (4.8-10.8)
[2022-10-20 20:29] LABS: Alanine Aminotransferase 7 U/L (0-31); Albumin Level 4.2 g/dL (3.5-5.0); Alkaline Phosphatase 55 U/L (39-117); Anion Gap 11 (12-20); Aspartate Amino Transferase 11 U/L (5-31); Bilirubin Total 0.2 mg/dL (0.0-1.0); Blood Urea Nitrogen 12 mg/dL (9-16); Carbon Dioxide 24 mmol/L (22-29); Chloride 111 mmol/L (96-108); Creatinine Clr Calc Pharmacy 77.1; Estimated Glomerular Filt Rate > 60; Glucose Random 99 mg/dL (60-115); Magnesium 2.1 mg/dL (1.6-2.6); Potassium 3.9 mmol/L (3.3-5.1); Sodium 142 mmol/L (135-145); Total Protein 6.6 g/dL (6.5-8.0)
[2022-10-20 20:34] LABS: COVID-19 Test Negative (Negative); IDNOW Serial# BCCEAD1C
[2022-10-20 20:35] LABS: Appearance Urine Clear; Color Urine Yellow; Glucose Urine UA Negative (Negative); Leukocyte Esterase Urine Negative (Negative); Nitrite Urine Negative (Negative); PH 5.5 (5.0-9.0); Specific Gravity - Urine >= 1.030 (1.005-1.025); Urine Blood Negative (Negative); Urine Ketones Trace mg/dL (Negative); Urine Protein Negative (Neg-Trace)
[2022-10-20 21:47] VITALS: BP 120/82; PULSE 74; RESP 16; TEMP 36.4; O2SAT 98
--- NOTE | 2022-10-20 22:01 | MHC.EDTECH ---
2200 ROUNDING DONE ,VITALS SIGN TAKEN .
--- NOTE | 2022-10-20 22:33 | MHC.EDTECH ---
PT STOOL SAMPLE COLECTED AND SENT TO LAB .
[2022-10-20] MEDS: ondansetron HCL 4 MG/2 ML VIAL IVPUSH (22:58)
[2022-10-20] MEDS: 0.9 % Sodium Chloride 1,000 ML 999 ML IV (22:58)
[2022-10-20] MEDS: iohexoL 350 MG/ML 100 ML INFUS..BTL 85 ML IV (23:16)
[2022-10-20 23:29] LABS: CDiff Gene PCR POSITIVE (Negative)
--- NOTE | 2022-10-20 23:48 | MHC.EDTECH ---
pt blood culture 1set ,second set and lactic acid drawn and sent to lab .
[2022-10-21] VITALS: BP 134/93; PULSE 76; RESP 16; TEMP 36.7; O2SAT 98
[2022-10-21 00:01] LABS: Lactic Acid 1.7 mmol/L (0.5-2.0)
--- NOTE | 2022-10-21 00:18 | PC.NURSE ---
Discharge instructions given/explained to pt No apparent distress IV cath intact upon removal Ambulates safely/independently
--- NOTE | 2022-10-21 00:19 | PC.NURSE ---
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
[2022-10-21 00:31] LABS: CDIFF Internal ctrl Dots and bkg OK (V); CDiff Toxin Negative (Negative)
== END 2022-10-21 00:48 | disposition home or self-care (01) ==
PROVIDERS: Physician Assistant; Physician Assistant Medical; Emergency Provider Emergency Medicine
DX: A04.72 Enterocolitis due to Clostridium difficile, not specified as recurrent (principal); Z20.822 Contact with and (suspected) exposure to COVID-19; Z20.828 Contact with and (suspected) exposure to other viral communicable diseases; Z79.899 Other long term (current) drug therapy
CPT/HCPCS: 36415; 74177; 80053; 81003; 83605; 83735; 85025; 87040; 87324; 87493; 87635; 96361; 96374; 99284; J2405; Q9967

== ENCOUNTER 2022-10-21 11:12 | Emergency (ER) | payer MEDICAID, OTHER, SELFPAY ==
[2022-10-21 11:14] VITALS: BP 117/90; PULSE 78; RESP 17; TEMP 36.6; O2SAT 100; BMI 23.6
--- NOTE | 2022-10-21 11:15 | ED_ITS ---
HPI - General Adult General Chief complaint: Abdominal Pain <GOMEZ Cruz - Last Filed: 10/21/22 11:17> Stated complaint: returning from last night, infecting is worse <GOMEZ Cruz - Last Filed: 10/21/22 11:17> Time Seen by Provider: 10/21/22 11:23 <GOMEZ Cruz - Last Filed: 10/21/22 11:17> Source: patient, family and old records reviewed <GOMEZ Khalil - Last Filed: 10/21/22 15:02> Mode of arrival: ambulatory <GOMEZ Khalil - Last Filed: 10/21/22 15:02> Limitations: no limitations <GOMEZ Khalil - Last Filed: 10/21/22 15:02> History of Present Illness HPI narrative: 47 yo female with history of hypothyroidism, hx E. Coli bacteremia 09/2022, and Cdiff diagnosed last night presents back to the ER for evaluation of ongoing nausea and vomiting since 7am today. She has had countless episodes of diarrhea as well. She also reports ongoing upper abdominal pains and headaches. After discharge late last night patient was unable to fill her oral vancomycin prescription for her C. diff. Her sister was concerned she was not going to be able take the medication due to vomiting. <GOMEZ Khalil - Last Filed: 10/21/22 15:02> MD complaint: vomiting and abdominal pain <GOMEZ Khalil - Last Filed: 10/21/22 1 5:02> Onset (ago): day(s) <GOMEZ Khalil Last Filed: 10/21/22 15:02> Location: abdomen <GOMEZ Khalil - Last Filed: 10/21/22 15:02> Radiation: non-radiation <GOMEZ Khalil Last Filed: 10/21/22 15:02> Severity: moderate <GOMEZ Khalil Last Filed: 10/21/22 15:02> Severity scale (1-10): 5 <GOMEZ Khalil - Last Filed: 10/21/22 15:02> Quality: aching <GOMEZ Khalil - Last Filed: 10/21/22 15:02> Pain Consistency: intermittent <GOMEZ Khalil - Last Filed: 10/21/22 15:02> Relieving factors: none <GOMEZ Khalil Last Filed: 10/21/22 15:02> Exacerbating factors: other (vomiting) <GOMEZ Khalil Last Filed: 10/21/22 15:02> Associated symptoms: loss of appetite, malaise, nausea/vomiting and weakness <GOMEZ Khalil - Last Filed: 10/21/22 15:02> Treatments prior to arrival: none <GOMEZ Khalil Last Filed: 10/21/22 15:02> Related Data Home medications: Home Medications Medication Instructions Recorded Confirmed acetaminophen 325 mg tablet 650 mg PO Q6H PRN Fever Or Pain 09/23/22 09/23/22 Previous Rx's Medication Instructions Recorded ascorbic acid (vitamin C) 500 mg 500 mg PO BID #60 tabs 09/28/22 tablet cefuroxime axetil 500 mg tablet 500 mg PO BID #28 tabs 09/28/22 ferrous sulfate 325 mg (65 mg 325 mg PO BID #60 tabs 09/28/22 iron) tablet (Feosol) levothyroxine 100 mcg tablet 100 mcg PO DAILY@0600 #30 tabs 09/28/22 (Synthroid) metoclopramide HCl 10 mg tablet 10 mg PO Q6H PRN nausea and 10/21/22 (Reglan) vomiting #20 tabs vancomycin 125 mg capsule 125 mg PO QID #40 caps 10/21/22 <GOMEZ Cruz - Last Filed: 10/21/22 11:17> Allergies/adverse reactions: Allergies Allergy/AdvReac Type Severity Reaction Status Date / Time Sulfa (Sulfonamide Allergy Unknown SHORTNESS Verified 09/23/22 03:11 Antibiotics) OF BREATH [SULFA (SULFONAMIDE ANTIBIOTICS)] vancomycin AdvReac Red Man Verified 09/23/22 18:14 Syndrome <GOMEZ Cruz - Last Filed: 10/21/22 11:17> Review of Systems Review of Systems: Yes all other systems are reviewed and are negative <GOMEZ Khalil Last Filed: 10/21/22 15:02> [facility] Past Medical History Medical History: Medical History (Updated 10/21/22 @ 11:49 by GOMEZ Khalil) FH: colon cancer Thyroid disease <GOMEZ Cruz - Last Filed: 10/21/22 11:17> Surgical History: Surgical History (Updated 09/28/22 @ 14:13 by Katya Durand MD) H/O section History of back surgery <GOMEZ Cruz - Last Filed: 10/21/22 11:17> Social History Social History: Social History Household Members: Family Housing: House Do you presently have visiting nurse or other home services: No Alcohol intake: never Patient Tobacco Use Status: Never used Tobacco Use of substances other than those prescribed or required for medical reasons: No Advance Directives: No Advance Directives Information Provided: No service: No Current occupational status: unemployed <GOMEZ Cruz - Last Filed: 10/21/22 11:17> Physical Exam ED Vital Signs: Vital Signs - 24 hr 10/21/22 11:14 10/21/22 11:36 10/21/22 14:52 Temperature 97.8 F 98.3 F 98.6 F Pulse Rate 78 84 783 H Respiratory Rate 17 16 16 Blood Pressure 117/90 H 134/87 117/83 Pulse Oximetry 100 100 100 Oxygen Delivery Method Room Air Room Air BMI result Body Mass Index 23.6 <GOMEZ Cruz - Last Filed: 10/21/22 11:17> Vital Signs - 24 hr 10/21/22 11:14 10/21/22 11:36 10/21/22 14:52 Temperature 97.8 F 98.3 F 98.6 F Pulse Rate 78 84 783 H Respiratory Rate 17 16 16 Blood Pressure 117/90 H 134/87 117/83 Pulse Oximetry 100 100 100 Oxygen Delivery Method Room Air Room Air BMI result Body Mass Index 23.6 <GOMEZ Khalil - Last Filed: 10/21/22 15:02> Appearance: Alert. Oriented X3. No acute distress. Eyes: Pupils equal, round and reactive to light. ENT: Pharynx normal. Neck: Normal inspection. Neck supple. CVS: Normal heart rate and rhythm. Pulses normal. Respiratory: No respiratory distress. Breath sounds normal. Abdomen: Soft with epigastric tenderness, normal active +BS x4 Skin: Skin warm and dry. Normal skin color. Normal skin turgor. No rashes. Extremities: No lower extremity edema. Neuro: Oriented X 3. No motor deficit. No sensory deficit. <GOMEZ Khalil - Last Filed: 10/21/22 15:02> Course Course Course Narrative: RME performed by Chioma Jin PA-C. Patient is a 47 year old female presenting to the emergency department with nausea and vomiting. Patient was seen here last night and discharged home with C.diff but now she is significantly worse. Labs ordered. Patient placed back in the waiting room pending room availability and results. <GOMEZ Cruz - Last Filed: 10/21/22 11:17> Medications Administered Discontinued Medications Generic Name Dose Route Start Last Admin Trade Name Freq PRN Reason Stop Dose Admin Sodium Chloride 1,000 mls @ 999 mls/hr 10/21/22 11:30 10/21/22 12:55 Ns IVCONT 10/21/22 12:30 Infused .Q1H1M ALYSSA Infusion Sodium Chloride 1,000 mls @ 999 mls/hr 10/21/22 13:45 10/21/22 14:22 Ns IVCONT 10/21/22 14:45 999 mls/hr .Q1H1M ALYSSA Administration Ketorolac Tromethamine 30 mg 10/21/22 11:56 10/21/22 12:17 Ketorolac Tromethamine 30 Mg/Ml Vial IVPUSH 10/21/22 11:57 30 mg ONCE ONE Administration Metoclopramide HCl 10 mg 10/21/22 11:24 10/21/22 11:52 Metoclopramide Hcl 10 Mg/2 Ml Vial IVPUSH 10/21/22 11:25 10 mg ONCE ONE Administration Vancomycin HCl 250 mg 10/21/22 11:41 10/21/22 12:54 Vancomycin Hcl 125 Mg Capsule PO 10/21/22 11:42 250 mg ONCE ONE Administration <GOMEZ Cruz - Last Filed: 10/21/22 11:17> Medications Administered Discontinued Medications Generic Name Dose Route Start Last Admin Trade Name Freq PRN Reason Stop Dose Admin Sodium Chloride 1,000 mls @ 999 mls/hr 10/21/22 11:30 10/21/22 12:55 Ns IVCONT 10/21/22 12:30 Infused .Q1H1M ALYSSA Infusion Sodium Chloride 1,000 mls @ 999 mls/hr 10/21/22 13:45 10/21/22 14:22 Ns IVCONT 10/21/22 14:45 999 mls/hr .Q1H1M ALYSSA Administration Ketorolac Tromethamine 30 mg 10/21/22 11:56 10/21/22 12:17 Ketorolac Tromethamine 30 Mg/Ml Vial IVPUSH 10/21/22 11:57 30 mg ONCE ONE Administration Metoclopramide HCl 10 mg 10/21/22 11:24 10/21/22 11:52 Metoclopramide Hcl 10 Mg/2 Ml Vial IVPUSH 10/21/22 11:25 10 mg ONCE ONE Administration Vancomycin HCl 250 mg 10/21/22 11:41 10/21/22 12:54 Vancomycin Hcl 125 Mg Capsule PO 10/21/22 11:42 250 mg ONCE ONE Administration <GOMEZ Khalil - Last Filed: 10/21/22 15:02> Medical Decision Making Lab Data Result Diagrams: 10/21/22 11:49 10/21/22 11:50 <GOMEZ Cruz - Last Filed: 10/21/22 11:17> Labs: Lab Results 10/21/22 10/21/22 10/21/22 Range/Units 11:49 11:50 11:50 WBC 4.1 L (4.8-10.8) X10*3/uL RBC 4.20 (4.20-5.50) X10*6/uL Hgb 11.0 L (12.0-16.0) g/dl Hct 33.8 L (37.0-47.0) % MCV 80.5 (80.0-98.0) fL MCH 26.2 L (27.0-33.0) pg MCHC 32.5 (31.0-35.0) g/dl RDW 17.1 H (11.0-16.0) % Plt Count 240 (160-400) X10*3/uL MPV 9.1 L (9.4-12.3) fL Immature Gran % (Auto) 0.5 H (0.0-0.4) % Neut % (Auto) 67.1 (45-73) % Lymph % (Auto) 24.9 (20-40) % [place] % (Auto) 6.8 (2-11) % Eos % (Auto) 0.5 (0-4) % Baso % (Auto) 0.2 (0-2) % Lymph # (Auto) 1.0 L (1.2-4.9) X10*3/uL [place] # (Auto) 0.3 (0.1-1.2) X10*3/uL Eos # (Auto) 0.0 (0.0-0.4) X10*3/uL Baso # (Auto) 0.0 (0.0-0.2) X10*3/uL Abs Immat Gran (auto) 0.02 (0.00-0.03) X10*3/uL Absolute Neuts (auto) 2.8 (2.0-8.3) x10*3/uL Absolute Nucleated RBC 0.000 (0.0-0.012) X10*3/uL Nucleated RBC % (auto) 0.0 (0.0-0.2) /100WBC Sodium 141 (135-145) mmol/L Potassium 4.0 (3.3-5.1) mmol/L Chloride 111 H (96-108) mmol/L Carbon Dioxide 22 (22-29) mmol/L Anion Gap 12 (12-20) BUN 10 (9-16) mg/dL Creatinine 0.77 (0.5-1.4) mg/dL Estim Creat Clear Calc 82.1 Estimated GFR > 60 Random Glucose 102 (60-115) mg/dL Calcium 8.8 (8.4-10.2) mg/dL Magnesium 2.0 (1.6-2.6) mg/dL Total Bilirubin 0.4 (0.0-1.0) mg/dL AST 11 (5-31) U/L ALT 7 (0-31) U/L Alkaline Phosphatase 54 (39-117) U/L Total Protein 6.5 (6.5-8.0) g/dL Albumin 4.2 (3.5-5.0) g/dL Urine Color Urine Appearance Urine pH (5.0-9.0) Ur Specific [place] (1.005-1.025) Urine Protein (Neg-Trace) mg/dL Urine Glucose (UA) (Negative) mg/dL Urine Ketones (Negative) mg/dL Urine Blood (Negative) Urine Nitrite (Negative) Ur Leukocyte Esterase (Negative) COVID-19 (GENI) Negative (Negative) COVID-19 Clin Com See Note 10/21/22 Range/Units 11:50 WBC (4.8-10.8) X10*3/uL RBC (4.20-5.50) X10*6/uL Hgb (12.0-16.0) g/dl Hct (37.0-47.0) % MCV (80.0-98.0) fL MCH (27.0-33.0) pg MCHC (31.0-35.0) g/dl RDW (11.0-16.0) % Plt Count (160-400) X10*3/uL MPV (9.4-12.3) fL Immature Gran % (Auto) (0.0-0.4) % Neut % (Auto) (45-73) % Lymph % (Auto) (20-40) % [place] % (Auto) (2-11) % Eos % (Auto) (0-4) % Baso % (Auto) (0-2) % Lymph # (Auto) (1.2-4.9) X10*3/uL [place] # (Auto) (0.1-1.2) X10*3/uL Eos # (Auto) (0.0-0.4) X10*3/uL Baso # (Auto) (0.0-0.2) X10*3/uL Abs Immat Gran (auto) (0.00-0.03) X10*3/uL Absolute Neuts (auto) (2.0-8.3) x10*3/uL Absolute Nucleated RBC (0.0-0.012) X10*3/uL Nucleated RBC % (auto) (0.0-0.2) /100WBC Sodium (135-145) mmol/L Potassium (3.3-5.1) mmol/L Chloride (96-108) mmol/L Carbon Dioxide (22-29) mmol/L Anion Gap (12-20) BUN (9-16) mg/dL Creatinine (0.5-1.4) mg/dL Estim Creat Clear Calc Estimated GFR Random Glucose (60-115) mg/dL Calcium (8.4-10.2) mg/dL Magnesium (1.6-2.6) mg/dL Total Bilirubin (0.0-1.0) mg/dL AST (5-31) U/L ALT (0-31) U/L Alkaline Phosphatase (39-117) U/L Total Protein (6.5-8.0) g/dL Albumin (3.5-5.0) g/dL Urine Color Yellow Urine Appearance Clear Urine pH 5.5 (5.0-9.0) Ur Specific [place] >= 1.030 H (1.005-1.025) Urine Protein Trace (Neg-Trace) mg/dL Urine Glucose (UA) Negative (Negative) mg/dL Urine Ketones Trace (Negative) mg/dL Urine Blood Negative (Negative) Urine Nitrite Negative (Negative) Ur Leukocyte Esterase Negative (Negative) COVID-19 (GENI) (Negative) COVID-19 Clin Com <GOMEZ Cruz - Last Filed: 10/21/22 11:17> Lab Results 10/21/22 10/21/22 10/21/22 Range/Units 11:49 11:50 11:50 WBC 4.1 L (4.8-10.8) X10*3/uL RBC 4.20 (4.20-5.50) X10*6/uL Hgb 11.0 L (12.0-16.0) g/dl Hct 33.8 L (37.0-47.0) % MCV 80.5 (80.0-98.0) fL MCH 26.2 L (27.0-33.0) pg MCHC 32.5 (31.0-35.0) g/dl RDW 17.1 H (11.0-16.0) % Plt Count 240 (160-400) X10*3/uL MPV 9.1 L (9.4-12.3) fL Immature Gran % (Auto) 0.5 H (0.0-0.4) % Neut % (Auto) 67.1 (45-73) % Lymph % (Auto) 24.9 (20-40) % [place] % (Auto) 6.8 (2-11) % Eos % (Auto) 0.5 (0-4) % Baso % (Auto) 0.2 (0-2) % Lymph # (Auto) 1.0 L (1.2-4.9) X10*3/uL [place] # (Auto) 0.3 (0.1-1.2) X10*3/uL Eos # (Auto) 0.0 (0.0-0.4) X10*3/uL Baso # (Auto) 0.0 (0.0-0.2) X10*3/uL Abs Immat Gran (auto) 0.02 (0.00-0.03) X10*3/uL Absolute Neuts (auto) 2.8 (2.0-8.3) x10*3/uL Absolute Nucleated RBC 0.000 (0.0-0.012) X10*3/uL Nucleated RBC % (auto) 0.0 (0.0-0.2) /100WBC Sodium 141 (135-145) mmol/L Potassium 4.0 (3.3-5.1) mmol/L Chloride 111 H (96-108) mmol/L Carbon Dioxide 22 (22-29) mmol/L Anion Gap 12 (12-20) BUN 10 (9-16) mg/dL Creatinine 0.77 (0.5-1.4) mg/dL Estim Creat Clear Calc 82.1 Estimated GFR > 60 Random Glucose 102 (60-115) mg/dL Calcium 8.8 (8.4-10.2) mg/dL Magnesium 2.0 (1.6-2.6) mg/dL Total Bilirubin 0.4 (0.0-1.0) mg/dL AST 11 (5-31) U/L ALT 7 (0-31) U/L Alkaline Phosphatase 54 (39-117) U/L Total Protein 6.5 (6.5-8.0) g/dL Albumin 4.2 (3.5-5.0) g/dL Urine Color Urine Appearance Urine pH (5.0-9.0) Ur Specific [place] (1.005-1.025) Urine Protein (Neg-Trace) mg/dL Urine Glucose (UA) (Negative) mg/dL Urine Ketones (Negative) mg/dL Urine Blood (Negative) Urine Nitrite (Negative) Ur Leukocyte Esterase (Negative) COVID-19 (GENI) Negative (Negative) COVID-19 Clin Com See Note 10/21/22 Range/Units 11:50 WBC (4.8-10.8) X10*3/uL RBC (4.20-5.50) X10*6/uL Hgb (12.0-16.0) g/dl Hct (37.0-47.0) % MCV (80.0-98.0) fL MCH (27.0-33.0) pg MCHC (31.0-35.0) g/dl RDW (11.0-16.0) % Plt Count (160-400) X10*3/uL MPV (9.4-12.3) fL Immature Gran % (Auto) (0.0-0.4) % Neut % (Auto) (45-73) % Lymph % (Auto) (20-40) % [place] % (Auto) (2-11) % Eos % (Auto) (0-4) % Baso % (Auto) (0-2) % Lymph # (Auto) (1.2-4.9) X10*3/uL [place] # (Auto) (0.1-1.2) X10*3/uL Eos # (Auto) (0.0-0.4) X10*3/uL Baso # (Auto) (0.0-0.2) X10*3/uL Abs Immat Gran (auto) (0.00-0.03) X10*3/uL Absolute Neuts (auto) (2.0-8.3) x10*3/uL Absolute Nucleated RBC (0.0-0.012) X10*3/uL Nucleated RBC % (auto) (0.0-0.2) /100WBC Sodium (135-145) mmol/L Potassium (3.3-5.1) mmol/L Chloride (96-108) mmol/L Carbon Dioxide (22-29) mmol/L Anion Gap (12-20) BUN (9-16) mg/dL Creatinine (0.5-1.4) mg/dL Estim Creat Clear Calc Estimated GFR Random Glucose (60-115) mg/dL Calcium (8.4-10.2) mg/dL Magnesium (1.6-2.6) mg/dL Total Bilirubin (0.0-1.0) mg/dL AST (5-31) U/L ALT (0-31) U/L Alkaline Phosphatase (39-117) U/L Total Protein (6.5-8.0) g/dL Albumin (3.5-5.0) g/dL Urine Color Yellow Urine Appearance Clear Urine pH 5.5 (5.0-9.0) Ur Specific [place] >= 1.030 H (1.005-1.025) Urine Protein Trace (Neg-Trace) mg/dL Urine Glucose (UA) Negative (Negative) mg/dL Urine Ketones Trace (Negative) mg/dL Urine Blood Negative (Negative) Urine Nitrite Negative (Negative) Ur Leukocyte Esterase Negative (Negative) COVID-19 (GENI) (Negative) COVID-19 Clin Com <GOMEZ Khalil - Last Filed: 10/21/22 15:02> Critical Care Time Critical Care Time Critical Care Time: No <GOMEZ Khalil - Last Filed: 10/21/22 15:02> Discharge Plan Discharge Clinical Impression: C. difficile colitis <GOMEZ Cruz - Last Filed: 10/21/22 11:17> Patient Disposition: Home, Self-Care <GOMEZ Cruz - Last Filed: 10/21/22 11:17> Instructions: C. Diff (Clostridioides Difficile) Infection (ED) <GOMEZ Cruz - Last Filed: 10/21/22 11:17> Additional Instructions: Your lab workup was unremarkable. Take your previously prescribed vancomycin as directed. Next dose is due around 5 or 6 this evening. Take the prescribed anti a nausea medication as needed. Try to stay hydrated, make sure drinking plenty of fluids. Follow-up with your doctor next week. If you develop new or worsening symptoms call 911 or come back to the ER for further evaluation. <GOMEZ Cruz - Last Filed: 10/21/22 11:17> Prescriptions: New metoclopramide HCl [Reglan] 10 mg tablet 10 mg PO Q6H PRN (Reason: nausea and vomiting) Qty: 20 0RF Discontinued fidaxomicin 200 mg tablet 200 mg PO BID 10 Days Qty: 20 0RF No Action acetaminophen 325 mg Tablet 650 mg PO Q6H PRN (Reason: Fever Or Pain) levothyroxine [Synthroid] 100 mcg Tablet 100 mcg PO DAILY@0600 Qty: 30 0RF cefuroxime axetil 500 mg tablet 500 mg PO BID Qty: 28 0RF ferrous sulfate [Feosol] 325 mg (65 mg iron) tablet 325 mg PO BID Qty: 60 0RF ascorbic acid (vitamin C) 500 mg tablet 500 mg PO BID Qty: 60 0RF vancomycin 125 mg capsule 125 mg PO QID Qty: 40 0RF <GOMEZ Cruz - Last Filed: 10/21/22 11:17>
[2022-10-21 11:36] VITALS: BP 134/87; PULSE 84; RESP 16; TEMP 36.8; O2SAT 100
[2022-10-21] MEDS: Metoclopramide HCl 10 MG/2 ML VIAL IVPUSH (11:52)
[2022-10-21] MEDS: 0.9 % Sodium Chloride 1,000 ML 999 ML IVCONT ×2 (11:52→14:22)
[2022-10-21 11:58] LABS: MANUAL DIFF FLAG NO
[2022-10-21 12:02] LABS: Basophils Percent Auto 0.2 % (0-2); Eosinophils Percent Auto 0.5 % (0-4); Hematocrit 33.8 % (37.0-47.0); Imm Gran Abs Auto 0.02 X10*3/uL (0.00-0.03); Imm Gran Pct Auto 0.5 % (0.0-0.4); Lymphocytes Percent Auto 24.9 % (20-40); Mean Corpuscular HGB Conc 32.5 g/dl (31.0-35.0); Mean Corpuscular Hemoglobin 26.2 pg (27.0-33.0); Mean Corpuscular Volume 80.5 fL (80.0-98.0); Mean Platelet Volume 9.1 fL (9.4-12.3); Monocytes Absolute Auto 0.3 X10*3/uL (0.1-1.2); Monocytes Percent Auto 6.8 % (2-11); Neutrophils Absolute Auto 2.8 x10*3/uL (2.0-8.3); Neutrophils Percent Auto 67.1 % (45-73); Platelet Count 240 X10*3/uL (160-400); Red Cell Distribution Width 17.1 % (11.0-16.0); White Blood Count 4.1 X10*3/uL (4.8-10.8)
[2022-10-21 12:03] LABS: Appearance Urine Clear; Color Urine Yellow; Glucose Urine UA Negative (Negative); Leukocyte Esterase Urine Negative (Negative); Nitrite Urine Negative (Negative); PH 5.5 (5.0-9.0); Specific Gravity - Urine >= 1.030 (1.005-1.025); Urine Blood Negative (Negative); Urine Ketones Trace mg/dL (Negative); Urine Protein Trace mg/dL (Neg-Trace)
[2022-10-21 12:12] LABS: COVID-19 Test Negative (Negative); IDNOW Serial# BCCEAD1C
[2022-10-21] MEDS: Ketorolac Tromethamine 30 MG/ML VIAL IVPUSH (12:17)
[2022-10-21 12:22] LABS: Alanine Aminotransferase 7 U/L (0-31); Albumin Level 4.2 g/dL (3.5-5.0); Alkaline Phosphatase 54 U/L (39-117); Anion Gap 12 (12-20); Aspartate Amino Transferase 11 U/L (5-31); Bilirubin Total 0.4 mg/dL (0.0-1.0); Blood Urea Nitrogen 10 mg/dL (9-16); Calcium 8.8 mg/dL (8.4-10.2); Carbon Dioxide 22 mmol/L (22-29); Chloride 111 mmol/L (96-108); Creatinine Clr Calc Pharmacy 82.1; Estimated Glomerular Filt Rate > 60; Glucose Random 102 mg/dL (60-115); Sodium 141 mmol/L (135-145); Total Protein 6.5 g/dL (6.5-8.0)
[2022-10-21] MEDS: vancomycin HCL 125 MG CAPSULE 250 MG PO (12:54)
[2022-10-21 14:52] VITALS: BP 117/83; PULSE 783; RESP 16; TEMP 37; O2SAT 100
== END 2022-10-21 15:59 | disposition home or self-care (01) ==
PROVIDERS: Physician Assistant Medical; Emergency Provider Emergency Medicine
DX: A04.72 Enterocolitis due to Clostridium difficile, not specified as recurrent (principal); R11.2 Nausea with vomiting, unspecified; Z20.822 Contact with and (suspected) exposure to COVID-19
CPT/HCPCS: 36415; 80053; 81003; 83735; 85025; 87635; 96361; 96374; 96375; 99284; J1885; J2765

== ENCOUNTER → 2022-11-06 09:03 | Outpatient (BNVA) | payer MEDICAID, OTHER, SELFPAY | PROVIDERS: Visit Provider Internal Medicine Gastroenterology | DX: Z11.0 Encounter for screening for intestinal infectious diseases (principal) | CPT/HCPCS: 99211 ==

== ENCOUNTER 2022-11-06 16:30 | Outpatient (REF) | payer OTHER, SELFPAY ==
[2022-11-09 11:58] LABS: H Pylori Breath Test Negative (Negative)
== END 2022-11-06 16:31 | disposition home or self-care (01) ==
LOC: HO.LNP 16:30
PROVIDERS: Visit Provider Internal Medicine Gastroenterology
DX: A04.8 Other specified bacterial intestinal infections (principal)
CPT/HCPCS: 83013

== ENCOUNTER → 2022-11-09 08:24 | Outpatient (BNVA) | payer OTHER, SELFPAY | PROVIDERS: Visit Provider Urology | DX: Z13.89 Encounter for screening for other disorder (principal) ==

== ENCOUNTER → 2023-01-03 08:52 | Outpatient (BNVA) | payer OTHER, SELFPAY | PROVIDERS: Visit Provider Urology ==

== ENCOUNTER 2023-04-20 22:54 | Emergency (ER) | payer OTHER, SELFPAY ==
[2023-04-20 23:10] VITALS: BP 123/87; PULSE 77; RESP 14; TEMP 36.6; O2SAT 99; BMI 28.7
--- NOTE | 2023-04-20 23:18 | ECG_ITS ---
Test Reason : DIZZINESS Blood Pressure : / mmHG Vent. Rate : 083 BPM Atrial Rate : 083 BPM P-R Int : 142 ms QRS Dur : 090 ms QT Int : 386 ms P-R-T Axes : 045 -21 014 degrees QTc Int : 453 ms Normal sinus rhythm Normal ECG When compared with ECG of 24-SEP-2022 22:54, No significant change was found Referred By: Generic ED Physician Electronically Signed By:JENNY BOWLING
[2023-04-20 23:44] LABS: MANUAL DIFF FLAG NO
[2023-04-20 23:51] LABS: Basophils Percent Auto 0.7 % (0-2); Eosinophils Absolute Auto 0.1 X10*3/uL (0.0-0.4); Eosinophils Percent Auto 1.6 % (0-4); Hematocrit 33.9 % (37.0-47.0); Hemoglobin 11.5 g/dl (12.0-16.0); Imm Gran Abs Auto 0.01 X10*3/uL (0.00-0.03); Imm Gran Pct Auto 0.2 % (0.0-0.4); Lymphocytes Absolute Auto 1.9 X10*3/uL (1.2-4.9); Lymphocytes Percent Auto 43.9 % (20-40); Mean Corpuscular HGB Conc 33.9 g/dl (31.0-35.0); Mean Corpuscular Hemoglobin 27.9 pg (27.0-33.0); Mean Corpuscular Volume 82.3 fL (80.0-98.0); Mean Platelet Volume 9.3 fL (9.4-12.3); Monocytes Absolute Auto 0.4 X10*3/uL (0.1-1.2); Monocytes Percent Auto 8.6 % (2-11); Platelet Count 263 X10*3/uL (160-400); Red Blood Count 4.12 X10*6/uL (4.20-5.50); Red Cell Distribution Width 13.4 % (11.0-16.0); White Blood Count 4.4 X10*3/uL (4.8-10.8)
[2023-04-20 23:57] LABS: Anion Gap 9 (12-20); Blood Urea Nitrogen 16 mg/dL (9-16); Calcium 9.2 mg/dL (8.4-10.2); Carbon Dioxide 24 mmol/L (22-29); Chloride 112 mmol/L (96-108); Creatinine Clr Calc Pharmacy 84.1; Estimated Glomerular Filt Rate > 60; Glucose Random 86 mg/dL (60-115); Potassium 4.2 mmol/L (3.3-5.1); Sodium 141 mmol/L (135-145)
[2023-04-21 00:01] VITALS: BP 101/62; PULSE 67; RESP 16; TEMP 36.7; O2SAT 98
--- NOTE | 2023-04-21 00:39 | ED_ITS ---
HPI - Dizziness General Chief Complaint: Dizziness Stated Complaint: Dizzininess/Weakness Time Seen by Provider: 04/21/23 00:18 Source: patient Mode of arrival: ambulatory Limitations: no limitations History of Present Illness HPI Narrative: Patient history of hypothyroidism, anemia comes in for 3 days vertiginous feeling feels everything is spinning especially when stands up and walk around no syncope no chest pain no palpitation no headache no history of similar episode in the past also patient has slight diarrhea 3 times a day for last 2 days patient noncompliant to her levothyroxine has not taken for a month Related Data Previous Rx's Medication Instructions Recorded ascorbic acid (vitamin C) 500 mg 500 mg PO BID #60 tabs 09/28/22 tablet ferrous sulfate 325 mg (65 mg 325 mg PO BID #60 tabs 09/28/22 iron) tablet (Feosol) levothyroxine 100 mcg tablet 100 mcg PO DAILY@0600 #30 tabs 09/28/22 (Synthroid) levothyroxine 100 mcg capsule 100 mcg PO DAILY #90 caps 04/21/23 meclizine 25 mg tablet 25 mg PO TID PRN dizziness #20 tabs 04/21/23 Allergies Allergy/AdvReac Type Severity Reaction Status Date / Time Sulfa (Sulfonamide Allergy Unknown SHORTNESS Verified 01/03/23 08:56 Antibiotics) OF BREATH [SULFA (SULFONAMIDE ANTIBIOTICS)] vancomycin AdvReac Red Man Verified 01/03/23 08:56 Syndrome Review of Systems 2 Review of Systems: Yes all other systems are reviewed and are negative PMFSH Past Medical History Medical History FH: colon cancer Thyroid disease Surgical History History of back surgery H/O section Social History Social History Household Members: Family Housing: House Do you presently have visiting nurse or other home services: No Alcohol intake: current Alcohol intake frequency: holidays/special occasions only Patient Tobacco Use Status: Never used Tobacco Smoked in Last 30 Days: No Use of substances other than those prescribed or required for medical reasons: No Advance Directives: No Advance Directives Information Provided: No service: No Current occupational status: unemployed Physical Exam 2 Vital Signs: Vital Signs: Last Vital Signs Temp 98.1 F 04/21/23 00:01 Pulse 67 04/21/23 00:01 Resp 16 04/21/23 00:01 BP 101/62 04/21/23 00:01 Pulse Ox 98 04/21/23 00:01 O2 Del Method Room Air 04/21/23 00:01 BMI result Body Mass Index 28.7 Appearance: Alert. Oriented X3. No acute distress. Eyes: PERRLA, No Nystagmus ENT: Pharynx normal. Oral Mucosa moist Neck: Normal inspection. Neck supple. CVS: Normal heart rate and rhythm. Pulses normal. Respiratory: No respiratory distress. Equal air entry bilateral, no wheezing/rales/rhonchi Abdomen: Soft and nontender. Bowel sounds are present, no mass palpable, no CVA tenderness Skin: Skin warm and dry. Normal skin color. Normal skin turgor. Extremities: No lower extremity edema. No calf tenderness Neuro: Oriented X 3. No motor deficit. No sensory deficit.No cerebellar signs , cranial nerves II-XII intact Medications Administered Discontinued Medications Generic Name Dose Route Start Last Admin Trade Name Freq PRN Reason Stop Dose Admin Meclizine HCl 50 mg 04/21/23 00:40 04/21/23 00:50 Meclizine Hcl 25 Mg Tablet PO 04/21/23 00:41 50 mg ONCE ONE Administration Medical Decision Making Medical Decision Making [facility] Narrative: Patient clinically with benign positional vertigo also has some symptoms of hypothyroidism as she is noncompliant TSH is slightly elevated to 14.0 patient re-educated about importance of taking her medication and a new prescription was given to the patient Differential Diagnosis Differential Diagnoses: The differential diagnosis associated with the presentation includes Vertigo/CVA/cerebellar stroke/metabolic etiology/hypothyroidism Lab Data [facility] Lab Attestation statement: I reviewed the patient's lab results. 04/20/23 23:39 04/20/23 23:39 Labs: Lab Results 04/20/23 Range/Units 23:39 WBC 4.4 L (4.8-10.8) X10*3/uL RBC 4.12 L (4.20-5.50) X10*6/uL Hgb 11.5 L (12.0-16.0) g/dl Hct 33.9 L (37.0-47.0) % MCV 82.3 (80.0-98.0) fL MCH 27.9 (27.0-33.0) pg MCHC 33.9 (31.0-35.0) g/dl RDW 13.4 (11.0-16.0) % Plt Count 263 (160-400) X10*3/uL MPV 9.3 L (9.4-12.3) fL Immature Gran % (Auto) 0.2 (0.0-0.4) % Neut % (Auto) 45.0 (45-73) % Lymph % (Auto) 43.9 H (20-40) % Mathews % (Auto) 8.6 (2-11) % Eos % (Auto) 1.6 (0-4) % Baso % (Auto) 0.7 (0-2) % Lymph # (Auto) 1.9 (1.2-4.9) X10*3/uL Mathews # (Auto) 0.4 (0.1-1.2) X10*3/uL Eos # (Auto) 0.1 (0.0-0.4) X10*3/uL Baso # (Auto) 0.0 (0.0-0.2) X10*3/uL Abs Immat Gran (auto) 0.01 (0.00-0.03) X10*3/uL Absolute Neuts (auto) 2.0 (2.0-8.3) x10*3/uL Absolute Nucleated RBC 0.000 (0.0-0.012) X10*3/uL Nucleated RBC % (auto) 0.0 (0.0-0.2) /100WBC Sodium 141 (135-145) mmol/L Potassium 4.2 (3.3-5.1) mmol/L Chloride 112 H (96-108) mmol/L Carbon Dioxide 24 (22-29) mmol/L Anion Gap 9 L (12-20) BUN 16 (9-16) mg/dL Creatinine 0.78 (0.5-1.4) mg/dL Estim Creat Clear Calc 84.1 Estimated GFR > 60 Random Glucose 86 (60-115) mg/dL Calcium 9.2 (8.4-10.2) mg/dL TSH 14.27 H (0.32-4.0) uIU/mL Independent Interpretation I performed an independent interpretation of an: EKG Interpretation: Normal sinus rhythm heart rate 83 beats per minute normal intervals normal axis no acute ischemia Discharge Plan Discharge Clinical Impression: Hypothyroidism, Benign paroxysmal positional vertigo Patient Disposition: Home, Self-Care Instructions: Hypothyroidism (ED), Benign Paroxysmal Positional Vertigo (ED) Additional Instructions: Care and cautions as advised Take your thyroid medication daily Meclizine for severe dizziness as needed every 8 hours Follow with PCP Prescriptions: New levothyroxine 100 mcg capsule 100 mcg PO DAILY Qty: 90 3RF meclizine 25 mg tablet 25 mg PO TID PRN (Reason: dizziness) Qty: 20 0RF No Action levothyroxine [Synthroid] 100 mcg Tablet 100 mcg PO DAILY@0600 Qty: 30 0RF ferrous sulfate [Feosol] 325 mg (65 mg iron) tablet 325 mg PO BID Qty: 60 0RF ascorbic acid (vitamin C) 500 mg tablet 500 mg PO BID Qty: 60 0RF
[2023-04-21] MEDS: Meclizine HCl 25 MG TABLET 50 MG PO (00:50)
[2023-04-21 01:14] LABS: Thyroid Stimulating Hormone 14.27 uIU/mL (0.32-4.0)
== END 2023-04-21 01:51 | disposition home or self-care (01) ==
PROVIDERS: Emergency Provider Internal Medicine
DX: E03.9 Hypothyroidism, unspecified (principal); H81.10 Benign paroxysmal vertigo, unspecified ear; Z91.148 Patient's other noncompliance with medication regimen for other reason
CPT/HCPCS: 36415; 80048; 84443; 85025; 93005; 99283; 99284

== ENCOUNTER 2023-06-19 10:08 | Emergency (ER) | payer OTHER, SELFPAY ==
--- NOTE | ~2023-06-19 | US_ITS ---
EXAMINATION: US PELVIS CLINICAL INFORMATION: Abnormal uterine bleeding LMP: 6 days ago COMPARISON: Pelvic ultrasound 09/26/2022 TECHNIQUE: Ultrasound of the pelvis is performed using both transabdominal and transvaginal transducers along with Doppler. Transvaginal imaging is performed due to inadequate visualization transabdominally. FINDINGS: Uterus: The uterus is anteverted and measures 10.0 x 3.7 x 5.6 cm. The anterior fibroid distorts the view of the endometrium. The endometrium measures 0.7 cm. A small amount of fluid is seen within the cervix. There are 2 fibroids which include: 2.7 x 2.2 x 2.9 cm anterior fundus, intramural, isoechoic, previously measured 2.2 x 2.0 x 2.3 cm. 1.5 x 0.9 x 1.4 cm upper left body, subserosal, heterogeneously hypoechoic, previously measured 1.5 x 1.3 x 1.4 cm. Adnexa: Both ovaries are visualized and are normal in appearance. There is normal color flow to the adnexa. There is no ovarian torsion. Right ovary measures 2.3 x 1.3 x 2.8 cm. Volume 4.4 mL. Left ovary measures 2.2 x 1.8 x 2.3 cm. Volume 4.8 mL. There is trace free fluid within the cul-de-sac. US/US pelvic and transvaginal IMPRESSION: 1. Uterine fibroids. 2. Normal ovaries.
[2023-06-19 10:15] VITALS: BP 123/84; PULSE 87; RESP 19; TEMP 36.6; O2SAT 98; BMI 28.1
--- NOTE | 2023-06-19 10:39 | PC.NURSE ---
patient a&ox3, swabs obtained, urine obtained pt awaiting results of testing, family at bedside, call araujo within reach, will continue to monitor
[2023-06-19 10:45] LABS: Appearance Urine Clear; Color Urine Yellow; Glucose Urine UA Negative (Negative); Leukocyte Esterase Urine Negative (Negative); Nitrite Urine Negative (Negative); PH 6.5 (5.0-9.0); Specific Gravity - Urine <= 1.005 (1.005-1.025); Urine Blood Negative (Negative); Urine Ketones Negative (Negative); Urine Protein Negative (Neg-Trace)
[2023-06-19 10:46] LABS: UPreg QC Valid YES; Urine Pregnancy NEGATIVE (NEGATIVE)
--- NOTE | 2023-06-19 10:56 | ED_ITS ---
HPI - General Adult General Chief complaint: Upper Respiratory Symptoms Stated complaint: Cough Not Feeling Well Time Seen by Provider: 06/19/23 10:42 Source: patient and family Mode of arrival: ambulatory Limitations: no limitations History of Present Illness HPI narrative: Patient is a 47-year-old female presenting to the emergency department with complaint of productive cough for the past 3 days, chills last night, denies fevers. Reports some sputum this morning was blood tinged. Also complains of sore throat. Has taken COVID test at home which was negative. Also complaining of lower abdominal pain and abnormal uterine bleeding. Patient reports that she has had vaginal bleeding for the past 2 weeks, which is abnormal for her. Reports diagnosis of uterine fibroid in the past but typically does not have extensive bleeding. Also reports history of anemia related to abnormal uterine bleeding. Denies any nausea, vomiting, diarrhea, constipation. Denies any urinary frequency, dysuria, or other urinary symptoms. Denies any concern for STIs. MD complaint: cough, vaginal bleeding Associated symptoms: fever/chills and weakness Treatments prior to arrival: none Related Data Previous Rx's Medication Instructions Recorded ascorbic acid (vitamin C) 500 mg 500 mg PO BID #60 tabs 09/28/22 tablet ferrous sulfate 325 mg (65 mg 325 mg PO BID #60 tabs 09/28/22 iron) tablet (Feosol) levothyroxine 100 mcg tablet 100 mcg PO DAILY@0600 #30 tabs 09/28/22 (Synthroid) levothyroxine 100 mcg capsule 100 mcg PO DAILY #90 caps 04/21/23 meclizine 25 mg tablet 25 mg PO TID PRN dizziness #20 tabs 04/21/23 Allergies Allergy/AdvReac Type Severity Reaction Status Date / Time Sulfa (Sulfonamide Allergy Unknown SHORTNESS Verified 06/19/23 10:14 Antibiotics) OF BREATH [SULFA (SULFONAMIDE ANTIBIOTICS)] vancomycin AdvReac Red Man Verified 06/19/23 10:14 Syndrome Review of Systems 2 Review of Systems: As per HPI. Yes all other systems are reviewed and are negative Constitutional: Constitutional: Reports as per HPI [facility] Past Medical History Medical History FH: colon cancer Thyroid disease Surgical History History of back surgery H/O section Social History Social History Household Members: Family Housing: House Do you presently have visiting nurse or other home services: No Alcohol intake: current Alcohol intake frequency: holidays/special occasions only Patient Tobacco Use Status: Never used Tobacco Advance Directives: No Advance Directives Information Provided: Yes service: No Current occupational status: unemployed Physical Exam ED Vital Signs: Vital Signs - 24 hr 06/19/23 10:15 Temperature 98 F Pulse Rate 87 Respiratory Rate 19 Blood Pressure 123/84 Pulse Oximetry 98 BMI result Body Mass Index 28.1 Vital signs have been reviewed and appear to be correct. Blood pressure normal. Heart rate normal. Respiratory rate normal. Temperature normal. Oxygen saturation normal. Const General: cooperative, healthy appearing and no acute distress Orientation/consciousness: oriented to person, oriented to place, oriented to time and patient oriented x3 Limitations: no limitations HENMT Head: Yes normocephalic and Yes atraumatic Ears: external ears normal General nose exam: Normal external nose present Face and sinus: Yes face symmetric Mouth: oropharynx normal and moist mucous membranes Throat: Yes uvula midline Eyes Pupils: Equal, round and reactive pupils present Neck Neck: Yes normal visual inspection and Yes supple Resp Effort & Inspection: normal respiratory effort and able to speak in complete sentences Auscultation: clear to auscultation bilaterally Cardio Rate: regular rate Rhythm: regular rhythm Heart sounds: S1 normal heart sound present and S2 normal heart sound present GI Palpation (GI): Soft to palpation and nontender Auscultation: normoactive bowel sounds General: Yes no CVA tenderness Back/Spine/Pelvis Back: no CVA tenderness Skin General skin exam: elasticity normal and turgor normal Neuro General: oriented to person, oriented to place, oriented to time, patient oriented x3, moves all extremities, no focal motor deficits and CN's II-XI intact bilaterally Cranial nerves: Yes Equal, round and reactive pupils present Cognition (Neuro): normal cognition Extrem General: Yes full ROM, Yes no pedal edema and Yes no calf tenderness Psych Mental Status: mental status grossly normal Affect: normal affect Thought process: Normal thought process present Medical Decision Making Medical Decision Making MDM Narrative: Patient is a 47-year-old female presenting to the emergency department with complaint of productive cough for the past 3 days, chills last night, denies fevers. On exam patient is awake, A+Ox3, VS WNL, afebrile, normal neurological exam without focal deficits, physical exam findings as above. Given reported symptoms and physical exam findings, initial differential includes viral illness, COVID, flu, RSV, strep pharyngitis, bronchitis, abnormal uterine bleeding, uterine fibroid, , anemia. Labs notable for no leukocytosis, mild anemia consistent with chronic anemia, no significant electrolyte abnormalities. No evidence infection or in urine. Ultrasound notable for uterine fibroids. My interpretation is in agreement with the radiologist's interpretation. Swabs for COVID, flu, RSV, and strep all negative. All results discussed with patient and significant other in all questions answered. Will refer patient to OBGYN as patient states she does not have an OBGYN currently. Feel URI symptoms likely viral as physical exam is reassuring. Return precautions discussed at bedside. Patient verbalized understanding of and agreement with plan. Differential Diagnosis Differential Diagnoses: The differential diagnosis associated with the presentation includes As per MDM. Admission/Observation Consideration of admission/observation: Escalation of care including admission/observation considered Lab Data [facility] Lab Attestation statement: I reviewed the patient's lab results. As per MDM. 06/19/23 11:13 06/19/23 11:13 Labs: Lab Results 06/19/23 06/19/23 Range/Units 10:37 11:13 WBC 5.3 (4.8-10.8) X10*3/uL RBC 4.05 L (4.20-5.50) X10*6/uL Hgb 11.1 L (12.0-16.0) g/dl Hct 32.7 L (37.0-47.0) % MCV 80.7 (80.0-98.0) fL MCH 27.4 (27.0-33.0) pg MCHC 33.9 (31.0-35.0) g/dl RDW 12.7 (11.0-16.0) % Plt Count 257 (160-400) X10*3/uL MPV 8.9 L (9.4-12.3) fL Immature Gran % (Auto) 0.4 (0.0-0.4) % Neut % (Auto) 67.0 (45-73) % Lymph % (Auto) 20.0 (20-40) % Hudspeth % (Auto) 9.4 (2-11) % Eos % (Auto) 2.8 (0-4) % Baso % (Auto) 0.4 (0-2) % Lymph # (Auto) 1.1 L (1.2-4.9) X10*3/uL Hudspeth # (Auto) 0.5 (0.1-1.2) X10*3/uL Eos # (Auto) 0.2 (0.0-0.4) X10*3/uL Baso # (Auto) 0.0 (0.0-0.2) X10*3/uL Abs Immat Gran (auto) 0.02 (0.00-0.03) X10*3/uL Absolute Neuts (auto) 3.6 (2.0-8.3) x10*3/uL Absolute Nucleated RBC 0.000 (0.0-0.012) X10*3/uL Nucleated RBC % (auto) 0.0 (0.0-0.2) /100WBC Sodium 139 (135-145) mmol/L Potassium 4.2 (3.3-5.1) mmol/L Chloride 107 (96-108) mmol/L Carbon Dioxide 25 (22-29) mmol/L Anion Gap 11 L (12-20) BUN 10 (9-16) mg/dL Creatinine 0.80 (0.5-1.4) mg/dL Estim Creat Clear Calc 83.6 Estimated GFR > 60 Random Glucose 96 (60-115) mg/dL Calcium 9.4 (8.4-10.2) mg/dL Urine Color Yellow Urine Appearance Clear Urine pH 6.5 (5.0-9.0) Ur Specific Mimb[place] <= 1.005 (1.005-1.025) Urine Protein Negative (Neg-Trace) mg/dL Urine Glucose (UA) Negative (Negative) mg/dL Urine Ketones Negative (Negative) mg/dL Urine Blood Negative (Negative) Urine Nitrite Negative (Negative) Ur Leukocyte Esterase Negative (Negative) Urine Test NEGATIVE (NEGATIVE) Influenza Type A (PCR) NEGATIVE (Negative) Influenza Type B (PCR) NEGATIVE (Negative) RSV RNA Qual (PCR) NEGATIVE (Negative) SARS-CoV-2 RNA (RT-PCR) NEGATIVE (Negative) S. pyogenes GrpA ANIYA Negative (Negative) Independent Interpretation I performed an independent interpretation of an: Ultrasound Interpretation: Uterine fibroids on ultrasound Radiology Impression Discussion of test interpretation with radiology: I have reviewed the radiologist's reading. Radiologist Impression: US/US pelvic and transvaginal IMPRESSION: 1. Uterine fibroids. 2. Normal ovaries. Independent Historian Clinical information obtained from an independent historian. History obtained from or confirmed by: Spouse External Record Review External record reviewed: Inpatient record, Office record and Outpatient record Discharge Plan Discharge Clinical Impression: Viral infection, Uterine fibroid Patient Disposition: Home, Self-Care Instructions: Viral Syndrome (ED) Additional Instructions: You were evaluated in the emergency department today for sore throat and cough. Your Covid, flu, RSV, and strep tests were all negative. Your symptoms are likely related to a viral illness which will resolve on its own with time and rest. You should ensure adequate fluid intake, and can use Tylenol 650 mg or ibuprofen 600 mg every 6 hours as needed for fever or discomfort. Your ultrasound showed evidence of uterine fibroids. You are being referred to an MEDIA MARKETING DIRECTOR, please call the office to schedule an appointment. Please follow-up with your primary care provider this week. Return to the emergency department if you develop chest pain, worsening shortness of breath, difficulty swallowing, fever 100.4? F or greater or any other concerning symptoms. Prescriptions: No Action levothyroxine [Synthroid] 100 mcg Tablet 100 mcg PO DAILY@0600 Qty: 30 0RF ferrous sulfate [Feosol] 325 mg (65 mg iron) tablet 325 mg PO BID Qty: 60 0RF ascorbic acid (vitamin C) 500 mg tablet 500 mg PO BID Qty: 60 0RF levothyroxine 100 mcg capsule 100 mcg PO DAILY Qty: 90 3RF meclizine 25 mg tablet 25 mg PO TID PRN (Reason: dizziness) Qty: 20 0RF Referrals: Dakotah Ignacio MD [Physician] -
[2023-06-19 11:17] LABS: MANUAL DIFF FLAG NO
[2023-06-19 11:21] LABS: Influenza A PCR NEGATIVE (Negative); Influenza B PCR NEGATIVE (Negative); Resp Syncy Virus RNA Qual PCR NEGATIVE (Negative); SARS COV2 PCR INHOUSE NEGATIVE (Negative)
[2023-06-19 11:21] LABS: Basophils Percent Auto 0.4 % (0-2); Eosinophils Absolute Auto 0.2 X10*3/uL (0.0-0.4); Eosinophils Percent Auto 2.8 % (0-4); Hematocrit 32.7 % (37.0-47.0); Hemoglobin 11.1 g/dl (12.0-16.0); Imm Gran Abs Auto 0.02 X10*3/uL (0.00-0.03); Imm Gran Pct Auto 0.4 % (0.0-0.4); Lymphocytes Absolute Auto 1.1 X10*3/uL (1.2-4.9); Mean Corpuscular HGB Conc 33.9 g/dl (31.0-35.0); Mean Corpuscular Hemoglobin 27.4 pg (27.0-33.0); Mean Corpuscular Volume 80.7 fL (80.0-98.0); Mean Platelet Volume 8.9 fL (9.4-12.3); Monocytes Absolute Auto 0.5 X10*3/uL (0.1-1.2); Monocytes Percent Auto 9.4 % (2-11); Neutrophils Absolute Auto 3.6 x10*3/uL (2.0-8.3); Platelet Count 257 X10*3/uL (160-400); Red Blood Count 4.05 X10*6/uL (4.20-5.50); Red Cell Distribution Width 12.7 % (11.0-16.0); White Blood Count 5.3 X10*3/uL (4.8-10.8)
[2023-06-19 11:30] LABS: Anion Gap 11 (12-20); Blood Urea Nitrogen 10 mg/dL (9-16); Calcium 9.4 mg/dL (8.4-10.2); Carbon Dioxide 25 mmol/L (22-29); Chloride 107 mmol/L (96-108); Creatinine Clr Calc Pharmacy 83.6; Estimated Glomerular Filt Rate > 60; Glucose Random 96 mg/dL (60-115); Potassium 4.2 mmol/L (3.3-5.1); Sodium 139 mmol/L (135-145)
[2023-06-19 11:31] LABS: IDNOW Serial# 08D9AD1C; Strep A Nucleic Acid Negative (Negative)
== END 2023-06-19 13:09 | disposition home or self-care (01) ==
PROVIDERS: Registered Nurse Emergency; Emergency Provider Emergency Medicine
DX: B34.9 Viral infection, unspecified (principal); J02.9 Acute pharyngitis, unspecified; R05.9 Cough, unspecified; D25.9 Leiomyoma of uterus, unspecified; Z20.822 Contact with and (suspected) exposure to COVID-19; Z20.828 Contact with and (suspected) exposure to other viral communicable diseases
CPT/HCPCS: 0241U; 76830; 76856; 80048; 81003; 81025; 85025; 87651; 99282; 99284

== ENCOUNTER 2023-06-26 10:36 | Outpatient (REF) | payer OTHER, SELFPAY ==
[2023-06-29 08:53] LABS: HPV mRNA E6/E7 rflx Not Detected (Not Detected)
== END 2023-06-26 10:37 | disposition home or self-care (01) ==
LOC: HO.LNP 10:36
PROVIDERS: Visit Provider Advanced Practice Midwife
DX: Z01.419 Encounter for gynecological examination (general) (routine) without abnormal findings (principal); Z11.51 Encounter for screening for human papillomavirus (HPV); N93.9 Abnormal uterine and vaginal bleeding, unspecified
CPT/HCPCS: 87624; 88142

== ENCOUNTER 2023-06-26 10:36 | Outpatient (AMB) | payer OTHER, SELFPAY ==
[2023-06-26 10:43] VITALS: BP 126/80; BMI 28.3
--- NOTE | 2023-06-26 10:43 | A.OFFVIS_ITS ---
Intake Vital Signs 06/26/23 10:43 Height 5 ft 3 in Weight 160 lb BMI 28.3 BP 126/80 Intake Visit Reasons: ER follow up/[place]ander/45 min per Marleny Intake Note: pt c/o vag discharge and cramps with intercourse, lump in left breast and incontinence Buggy Ladle Tender Required: Yes Buggy Ladle Tender Language: [place] Buggy Ladle Tender Name: Zoë [id number] Information Interpreted: non-clinical & clinical Senior Billing Consultant: Senior Billing Consultant Present (Racquel) Accompanied by: Spouse Allergies Sulfa (Sulfonamide Antibiotics) [SULFA (SULFONAMIDE ANTIBIOTICS)] Allergy (Unknown, Verified 06/26/23 10:46) SHORTNESS OF BREATH vancomycin Adverse Reaction (Verified 06/26/23 10:46) Red Man Syndrome Is last menstrual period known: Yes (lasted 2 weeks) Last menstrual period: 1 HPI HPI Comments History of Present Illness Details Patient is a premenopausal patient here for a follow up ED visit for concerns re: bleeding x 2-3wks. x 1 yr. History of fibroids. Present with her Agus today. She does not have a PCP, looking for the last two years Clear, non odorous vaginal fluids, and some stress incontinence. No post coital bleeding. PFSH Medical History FH: colon cancer Thyroid disease Surgical History History of back surgery H/O section Family History Family/Other History of breast cancer Father Brain cancer Household Members: Family Housing: House Do you presently have visiting nurse or other home services: No Alcohol intake: current Alcohol intake frequency: holidays/special occasions only Patient Tobacco Use Status: Never used Tobacco service: No Current occupational status: unemployed Female Reproductive History Menstrual Date of last menstrual period: 06/05/23 control method: condoms Total pregnancies: 2 Full term: 2 Number of Living Children: 2 Physical Exam Vital Signs: Last Vital Signs BP 126/80 06/26/23 10:43 BMI result Body Mass Index 28.3 Results Reviewed Results Reviewed: [address] [place] [address] Ultrasound Report Signed Patient: Lakshmi Ramos MR#: [id number] : 1975 Acct:[id number] Age/Sex: 47 / F ADM Date: 06/19/23 Loc: HO.ED Attending Dr: Ordering Physician: Abby Gomez NP Date of Service: 06/19/23 Procedure(s): US pelvic and transvaginal Accession Number(s): [id number] cc: Physician,None ; Abby Gomez PICKER TENDER HELPER~ EXAMINATION: US PELVIS CLINICAL INFORMATION: Abnormal uterine bleeding LMP: 6 days ago COMPARISON: Pelvic ultrasound 09/26/2022 TECHNIQUE: Ultrasound of the pelvis is performed using both transabdominal and transvaginal transducers along with Doppler. Transvaginal imaging is performed due to inadequate visualization transabdominally. FINDINGS: Uterus: The uterus is anteverted and measures 10.0 x 3.7 x 5.6 cm. The anterior fibroid distorts the view of the endometrium. The endometrium measures 0.7 cm. A small amount of fluid is seen within the cervix. There are 2 fibroids which include: 2.7 x 2.2 x 2.9 cm anterior fundus, intramural, isoechoic, previously measured 2.2 x 2.0 x 2.3 cm. 1.5 x 0.9 x 1.4 cm upper left body, subserosal, heterogeneously hypoechoic, previously measured 1.5 x 1.3 x 1.4 cm. Adnexa: Both ovaries are visualized and are normal in appearance. There is normal color flow to the adnexa. There is no ovarian torsion. Right ovary measures 2.3 x 1.3 x 2.8 cm. Volume 4.4 mL. Left ovary measures 2.2 x 1.8 x 2.3 cm. Volume 4.8 mL. There is trace free fluid within the cul-de-sac. US/US pelvic and transvaginal IMPRESSION: 1. Uterine fibroids. 2. Normal ovaries. Assessment & Plan Assessment & Plan Orders: Orders 2 CT NG by PCR Today N93.9 - Abnormal uterine and vaginal bleeding, unspecified, R10.2 - Pelvic and perineal pain Pap Smear Today Z01.419 - Encounter for gynecological examination (general) (routine) without abnormal findings US breast LT complete Today N64.4 - Mastodynia MM tomosynthesis diagnostic BI Today N64.4 - Mastodynia, Z12.31 - Encounter for screening mammogram for malignant neoplasm of breast Bacterial Vaginosis Panel Today N93.9 - Abnormal uterine and vaginal bleeding, unspecified, R10.2 - Pelvic and perineal pain Coding Level of Care Code Est Pt Level 4 (89886)
== END 2023-06-26 12:18 | disposition home or self-care (01) ==
LOC: HO.HWS 10:36
PROVIDERS: Visit Provider Advanced Practice Midwife
DX: D25.9 Leiomyoma of uterus, unspecified (principal)
CPT/HCPCS: 99214

== ENCOUNTER 2023-06-26 11:27 | Outpatient (REF) | payer OTHER, SELFPAY ==
[2023-06-26 15:43] LABS: CT PCR NOT DETECTED (Not Detect.); NG PCR NOT DETECTED (Not Detect.)
[2023-06-27 13:20] LABS: BV Int Neg Control Negative (Negative); BV Int Pos Control Positive (Positive)
== END 2023-06-26 11:28 | disposition home or self-care (01) ==
LOC: HO.LAB 11:27
PROVIDERS: Visit Provider Advanced Practice Midwife
DX: R10.2 Pelvic and perineal pain (principal); N93.9 Abnormal uterine and vaginal bleeding, unspecified
CPT/HCPCS: 0353U; 87480; 87510; 87660

== ENCOUNTER → 2023-07-09 08:00 | Outpatient (BNV) | payer OTHER, SELFPAY | PROVIDERS: Visit Provider Radiology Diagnostic Radiology | DX: N64.4 Mastodynia (principal); R92.313 Mammographic fatty tissue density, bilateral breasts; R92.323 Mammographic fibroglandular density, bilateral breasts | CPT/HCPCS: 76642; 77062; 77066 ==

== ENCOUNTER 2023-07-09 08:15 | Outpatient (REF) | payer OTHER, SELFPAY ==
--- NOTE | ~2023-07-09 | US_ITS ---
EXAMINATION: MM DIAGNOSTIC DIGITAL BREAST TOMOSYNTHESIS, BILATERAL US BREAST LIMITED, LEFT MAMMOGRAPHY: CLINICAL INFORMATION: Left breast pain at the 7:00 and 12:00 axes. COMPARISON: Mammography: Last mammogram 6 years ago in residual, unobtainable. This will serve as the patient's new baseline. TECHNIQUE: Digital breast tomosynthesis is performed in both the craniocaudal and mediolateral oblique views along with computer-aided detection (CAD). Synthesized 2D images are generated from the tomosynthesis. FINDINGS: There are scattered areas of fibroglandular density (ACR BI-RADS breast composition Category b). There are no suspicious masses, suspicious grouped calcifications, or areas of architectural distortion in either breast. The parenchymal pattern is stable from prior exams. No mammographic abnormalities are identified at the 7:00 and 12:00 axes in the left breast. No skin or axillary abnormalities are present. ULTRASOUND: CLINICAL INFORMATION: Left breast pain 7:00 and 12:00 axes. COMPARISON: None TECHNIQUE: Targeted sonographic evaluation was performed using a high frequency linear transducer. Attention was given to the left breast 12:00 and 7:00 axes in the region of left breast pain as described by the patient. Selected archived documentation. FINDINGS: LEFT BREAST: There is a mixture of fatty and fibroglandular tissue. No suspicious mass is seen. There is no pathologic acoustic shadowing. No sonographic abnormality in the 7:00 and 12:00 axes of the left breast. US/US breast LT limited mamm only IMPRESSION: There is no findings suspicious for malignancy in either breast. There is no mammographic or sonographic correlate to the regions of breast pain left breast 7:00 and 12:00 axes. Recommend clinical management of these symptoms. Otherwise, recommend the patient resume routine annual screening in one year. OVERALL ASSESSMENT: Mammography: BI-RADS 1 - Negative Ultrasound: BI-RADS 1 - Negative RECOMMENDATION: 1. Patient should be managed based on the clinical impression. 2. Otherwise, routine annual screening mammography. This patient's information was entered into a reminder system with a target due date for their next mammogram.
== END 2023-07-09 08:16 | disposition home or self-care (01) ==
LOC: HO.MAMMO 08:15
PROVIDERS: Visit Provider Advanced Practice Midwife
DX: N64.4 Mastodynia (principal)
CPT/HCPCS: 76642; 77062; 77066

== ENCOUNTER 2023-08-09 08:20 | Outpatient (AMB) | payer OTHER, SELFPAY ==
[2023-08-09 08:22] VITALS: BP 110/70; BMI 28.3
--- NOTE | 2023-08-09 08:22 | MHC.OFFVIS ---
Intake Vital Signs 08/09/23 08:22 Height 5 ft 3 in Weight 160 lb BMI 28.3 BP 110/70 Intake Visit Reasons: EMB/French/60 min Maternal Child Nurse Required: No Information Interpreted: non-clinical & clinical Police Officer Booking: Police Officer Booking Present (Racquel) Accompanied by: Spouse Allergies Sulfa (Sulfonamide Antibiotics) [SULFA (SULFONAMIDE ANTIBIOTICS)] Allergy (Unknown, Verified 08/09/23 08:22) SHORTNESS OF BREATH vancomycin Adverse Reaction (Verified 08/09/23 08:22) Red Man Syndrome Is last menstrual period known: Yes Last menstrual period: 08/05/23 HPI HPI Comments History of Present Illness Details Patient is here today for follow-up ultrasound and EMB. History of abnormal bleeding lasting 2-3 weeks at a time also thyroid is 14.27. She reports some blurring vision, attempting to get an eye exam and to establish primary care, unsuccessful at this time. [facility] Medical History (Updated 08/09/23 @ 09:21 by Marleny Rivas CNM) Leiomyoma FH: colon cancer Thyroid disease Surgical History History of back surgery H/O section Family History Family/Other History of breast cancer Father Brain cancer Social History Household Members: Family Housing: House Do you presently have visiting nurse or other home services: No Alcohol intake: current Alcohol intake frequency: holidays/special occasions only Comment: pt family at bedside Patient Tobacco Use Status: Never used Tobacco service: No Current occupational status: unemployed Female Reproductive History Menstrual Date of last menstrual period: 08/05/23 Review of Systems Const All systems reviewed & are unremarkable except as noted in HPI and below Physical Exam Vital Signs: Last Vital Signs BP 110/70 08/09/23 08:22 BMI result Body Mass Index 28.3 Const General: cooperative, healthy appearing and no acute distress Orientation/consciousness: patient oriented x3 GI Inspection: Yes normal to inspection Palpation (GI): Soft to palpation and Other GI palpation findings present (Nontender) Rectal Exam - Female: visual inspection normal General: Yes bladder normal to palpation External Female Exam: normal appearance of the urethra Speculum Exam - Vagina: normal appearance of the vagina, normal palpation and normal vaginal discharge Speculum Exam - Cervix: normal appearance of the cervix and normal palpation Bimanual exam- vagina & uterus: normal bimanual exam, normal palpation, uterine size normal, bladder normal to palpation, normal palpation, uterine shape normal and non-tender Bimanual Exam- Adnexa, other: normal adnexae Neuro General: patient oriented x3 Office Procedures Endometrial Biopsy Details: The patient is here today for an endometrial biopsy due to AUB to rule out any pathology including atypical, hyperplasia or cancer cells of the uterus. She was counseled regarding anticipatory guidance for the procedure including the risks for pain, infection, bleeding, perforation, potential injury to the tissues may include the cervix, uterus, tubes, bladder and bowels. These injuries may include further treatment and evaluation including surgery, blood transfusions, antibiotics, hospitalizations and anesthesia. Permanent injury and scarring can occur. She was consented for the procedure, and the consent forms were signed. She is agreeable to have the procedure today. All questions were answered. Endometrial Biopsy Procedure: The patient was placed in the dorsal lithotomy position and a sterile speculum inserted. Using aseptic technique for the procedure. The cervix was cleansed with Betadine x 3 swabs. A single toothed tenaculum was placed on the cervix for stabilization and the uterus was sounded to 9 cm with a 4mm pipelle for 3 passes. Minimal bleeding was observed. The tissue sample was placed in formalin in a patient labeled container by staff assisting and sent to the pathology department for processing and interpretation. The patient tolerate the procedure well and was in good condition when leaving the department. Endometrial Biopsy Post Procedure Care: Nothing in the vagina including: tampons, douching or intimacy until all the bleeding has subsided. There may be some post procedure bleeding for several days, this bleeding is usually light and may turn to a light brown or pink color. Mild cramps may occurs. Nothing in the vaginal including: tampons, douching, or intimacy until all the bleeding has subsided. You may take an over the counter mild analgesic such as Tylenol or Advil (if no allergies) per the manufactures recommendation on dosing, frequency, and follow the directions completely. Call the office if any: fever (over 100.4), flu like symptoms, abdominal pain (worse than cramping), foul smelling, infected appearing vaginal discharge, or heavy bleeding. If indicated: Use condoms to prevent and STI's, and only after the bleeding has stopped completely. Return to the office in 2 weeks for results and plan of care. This note is constructed using voice recognition software. While every effort has been made to ensure accuracy, admissions officer errors may have been included. [id number] Biopsy Results AMB Test Urine AMB Test Urine Negative Last Edit by ELIAS Garcia on 08/09/23 08:37 Results Reviewed Results Reviewed: Laboratory Last Values Tst Clinic Negative 08/09/23 08:36 Assessment & Plan Assessment & Plan (1) Leiomyoma: Code(s): D21.9 - Benign neoplasm of connective and other soft tissue, unspecified (2) Leiomyoma: Code(s): D21.9 - Benign neoplasm of connective and other soft tissue, unspecified Plan: EXAMINATION: US PELVIS CLINICAL INFORMATION: Abnormal uterine bleeding LMP: 6 days ago COMPARISON: Pelvic ultrasound 09/26/2022 TECHNIQUE: Ultrasound of the pelvis is performed using both transabdominal and transvaginal transducers along with Doppler. Transvaginal imaging is performed due to inadequate visualization transabdominally. FINDINGS: Uterus: The uterus is anteverted and measures 10.0 x 3.7 x 5.6 cm. The anterior fibroid distorts the view of the endometrium. The endometrium measures 0.7 cm. A small amount of fluid is seen within the cervix. There are 2 fibroids which include: 2.7 x 2.2 x 2.9 cm anterior fundus, intramural, isoechoic, previously measured 2.2 x 2.0 x 2.3 cm. 1.5 x 0.9 x 1.4 cm upper left body, subserosal, heterogeneously hypoechoic, previously measured 1.5 x 1.3 x 1.4 cm. Adnexa: Both ovaries are visualized and are normal in appearance. There is normal color flow to the adnexa. There is no ovarian torsion. Right ovary measures 2.3 x 1.3 x 2.8 cm. Volume 4.4 mL. Left ovary measures 2.2 x 1.8 x 2.3 cm. Volume 4.8 mL. There is trace free fluid within the cul-de-sac. US/US pelvic and transvaginal IMPRESSION: 1. Uterine fibroids. 2. Normal ovaries. Dictated By: Vika Lucas MD Signed By: <Electronically signed by Vika Lucas MD in OV> 06/19/23 1247 DD/ 1204 TD/TT: Furniture Mover Driver: Plan Reviewed ultrasound findings: Fibroids Discussed Mirena IUD, booklet given. Return to the office in 2 weeks for test results and plan of care regarding: EMB results, fibroid, treatment plan. No unprotected intimacy to avoid any risk for prior to any neck is procedure in the future. 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 All of her questions and concerns were addressed to the best of my ability and shared decision making. She is agreeable to the plan of care. Orders: Orders AMB HCG Urine Test Today Z32.02 - Encounter for test, result negative Surgical Today D25.9 - Leiomyoma of uterus, unspecified, N93.9 - Abnormal uterine and vaginal bleeding, unspecified Thyroid Stimulating Hormone Today N92.1 - Excessive and frequent menstruation with irregular cycle, N93.9 - Abnormal uterine and vaginal bleeding, unspecified Prolactin Today N93.9 - Abnormal uterine and vaginal bleeding, unspecified Coding Level of Care Code Procedure Only Diagnoses Leiomyoma D21.9 CPT Codes Endometrial Biopsy - CPT: 90900-[id number] Biopsy ([id number])
== END 2023-08-09 09:16 | disposition home or self-care (01) ==
LOC: HO.HWS 08:20
PROVIDERS: Visit Provider Advanced Practice Midwife
DX: R93.89 Abnormal findings on diagnostic imaging of other specified body structures (principal); N80.9 Endometriosis, unspecified; E66.9 Obesity, unspecified; Z32.02 Encounter for pregnancy test, result negative
CPT/HCPCS: 58100; 99213

== ENCOUNTER 2023-08-09 08:20 | Outpatient (REF) | payer OTHER, SELFPAY | END 2023-08-09 08:21 | disposition home or self-care (01) | LOC: HO.LAB 08:20 | PROVIDERS: Visit Provider Advanced Practice Midwife | DX: D21.9 Benign neoplasm of connective and other soft tissue, unspecified (principal); N93.9 Abnormal uterine and vaginal bleeding, unspecified | CPT/HCPCS: 58100; 81025; 88305 ==

== ENCOUNTER 2023-08-09 09:27 | Outpatient (REF) | payer OTHER, SELFPAY | END 2023-08-09 09:28 | disposition home or self-care (01) | LOC: HO.LAB 09:27 | PROVIDERS: Visit Provider Advanced Practice Midwife | DX: N92.1 Excessive and frequent menstruation with irregular cycle (principal); N93.9 Abnormal uterine and vaginal bleeding, unspecified | CPT/HCPCS: 36415; 84146; 84443 ==

== ENCOUNTER 2023-09-07 08:20 | Outpatient (AMB) | payer OTHER, SELFPAY ==
[2023-09-07 08:35] VITALS: BP 118/72; BMI 28.1
--- NOTE | 2023-09-07 08:35 | A.OFFVIS_ITS ---
Intake Vital Signs 09/07/23 08:35 Height 5 ft 3 in Weight 158 lb 11.725 oz BMI 28.1 BP 118/72 Intake Visit Reasons: EMB/? Mirena Talent Acquisition Program Manager Required: Yes Talent Acquisition Program Manager Language: Citizen Of [place] Information Interpreted: non-clinical & clinical Accompanied by: Spouse Allergies Sulfa (Sulfonamide Antibiotics) [SULFA (SULFONAMIDE ANTIBIOTICS)] Allergy (Unknown, Verified 09/07/23 08:35) SHORTNESS OF BREATH vancomycin Adverse Reaction (Verified 09/07/23 08:35) Red Man Syndrome Is last menstrual period known: Yes Last menstrual period: 09/03/23 HPI HPI Comments History of Present Illness Details Patient is here for a follow-up endometrial biopsy results, history of AUB, history of fibroids. She is unsure if she wants to have a Mirena IUD placed. Her LMP was 09/03/2023. is present and supportive. She is concerns and questions about the IUD. Also reports an increase in vaginal discharge without any symptoms. [facility] Medical History Leiomyoma FH: colon cancer Thyroid disease Surgical History History of back surgery H/O section Family History Family/Other History of breast cancer Father Brain cancer Social History Household Members: Family Housing: House Do you presently have visiting nurse or other home services: No Alcohol intake: current Alcohol intake frequency: holidays/special occasions only Comment: pt family at bedside Patient Tobacco Use Status: Never used Tobacco service: No Current occupational status: unemployed Female Reproductive History Menstrual Date of last menstrual period: 09/03/23 control method: progestin IUCD (Mirena IUD 09/07/2023) Review of Systems Const All systems reviewed & are unremarkable except as noted in HPI and below Physical Exam Vital Signs: Last Vital Signs BP 118/72 09/07/23 08:35 BMI result Body Mass Index 28.1 Const General: cooperative, healthy appearing and no acute distress Orientation/consciousness: patient oriented x3 GI Inspection: Yes normal to inspection Palpation (GI): Soft to palpation and Other GI palpation findings present (Nontender) Rectal Exam - Female: visual inspection normal General: Yes bladder normal to palpation External Female Exam: normal appearance of the urethra Speculum Exam - Vagina: normal appearance of the vagina, normal palpation and vaginal bleeding Speculum Exam - Cervix: normal appearance of the cervix and normal palpation Bimanual exam- vagina & uterus: normal bimanual exam, normal palpation, uterine size normal, bladder normal to palpation, normal palpation, uterine shape normal and non-tender Bimanual Exam- Adnexa, other: normal adnexae OB/external & speculum: vaginal bleeding Neuro General: patient oriented x3 Office Procedures Contraception Insert/Removal Details Details: The patient is here today for a IUD insertion. She was counseled on the side effects including: menstrual cycle changes, pain, infection, bleeding, or expulsion. Risks of injury to the vagina, cervix, uterus, tubes, ovaries, bowel, bladder, and any adjacent tissue, resulting in nerve damage, scarring, and pain. Risks complications for the procedure that may require other test including ultrasounds, Xray, CT or MRI scan, surgery, anesthesia, blood transfusion. A urine test was completed and was negative. She was consented for the Mirena IUD insertion and has signed the consent form. All questions were answered. IUD Insertion: The patient was placed in the dorsal lithotomy position and a sterile speculum was inserted. The procedure was completed under aseptic technique. The cervix was cleansed with a Betadine solution x 3 swabs. A single toothed tenaculum was applied to the cervix for stabilization, and the uterus was sounded to 9cm. The device was inserted and released with a gentle motion. Bleeding from the tenaculum sites and the procedure were minimal. The strings were trimmed to 3cm. All of the equipment was removed and the bimanual was normal, no tip was palpable at the cervical os. The patient tolerated the procedure well and left the office in good condition. Post IUD Insertion Care: There may be some post insertion bleeding for several days that is usually light and can turn to a light brown or pink in color. Mild cramping may occur. Nothing in the vagina including: tampons, douching or intimacy for several days. You may take an over the counter mild analgesia like Tylenol or Advil (if no allergies), per the manufacturers recommendations on dosing and frequency. Follow the directions completely. Call the office if any: fever (over 100.4), flu like symptoms, abdominal pain, worsening cramping not resolved with over the counter medications, foul smelling vaginal odor, signs of infected appearing discharge, or heavy bleeding. Return to the office in 4-6 weeks for IUD recheck. This note is constructed using voice recognition software. While every effort has been made to ensure accuracy, rail project engineer errors may have been included. 75433 - Insertion Results Reviewed Results Reviewed: Surgical Pathology S24-60 Name: Lakshmi Ramos Age/Sex: 47/F Attending: Marleny Rivas CNM : 1975 Submitted by: Marleny Rivas CNM Copies to: MR #: [id number] Status: DEP REF Collected: 08/09/23 Location: [facility] Received: 08/09/23 Diagnosis Endometrium, biopsy: Benign endometrium with proliferative and secretory changes and extensive glandular and stromal breakdown (lytic endometrium), and fragments of benign endocervical glandular mucosa; no atypia or carcinoma. Clinical History Uterine fibroids, AUB Microscopic Description Microscopic sections reviewed. Material Received Endometrial biopsy Gross Description Received in formalin labeled ?EMB? is a 1.8 x 1.5 x 0.5 cm aggregate of multiple irregular and tubular cast fragments of congested and hemorrhagic pink-maroon tissue and blood, submit jun in toto in a cassette labeled A. CEDS NOTE: Unless otherwise stated, all tissue is formalin-fixed and paraffin- embedded. Some or all of the immunohistochemical tests reported herein may have been developed and their performance characteristics determined by [facility]. They have not been cleared or approved by the U.S. Food and Drug Administration (FDA). However, the FDA has determined that such clearance or approval is not necessary. This laboratory is certified under the Clinical Laboratory Improvement Amendments of 1988 (CLIA) as qualified to perform high complexity clinical laboratory testing. Electronically Signed By: Letty Vazquez 08/10/23 1221 Patient: Lakshmi Ramos Age/Sex: 47/F [facility]#: [id number] MR#: [id number] Page 1 of 1 Assessment & Plan Assessment & Plan (1) Encounter to discuss test results: Code(s): Z71.2 - Person consulting for explanation of examination or test findings (2) Encounter for IUD insertion: Code(s): Z30.430 - Encounter for insertion of intrauterine contraceptive device Plan Discussed: Endometrial results which are negative. See procedure notes. Return to the office in 4-6 weeks for IUD check or sooner as needed. Coding Level of Care Code Procedure Only Diagnoses Encounter to discuss test results Z71.2 Encounter for IUD insertion Z30.430 CPT Codes Details - Contraception: 13212 - Insertion ([id number]) Comment Additional modifier for visit with added procedure
== END 2023-09-07 09:25 | disposition home or self-care (01) ==
LOC: HO.HWS 08:20
PROVIDERS: PCP Nurse Practitioner Primary Care; Visit Provider Advanced Practice Midwife
DX: Z30.430 Encounter for insertion of intrauterine contraceptive device (principal); Z32.02 Encounter for pregnancy test, result negative
CPT/HCPCS: 58300

== ENCOUNTER → 2023-09-07 08:20 | Outpatient (BNVA) | payer OTHER, SELFPAY | PROVIDERS: PCP Nurse Practitioner Primary Care; Visit Provider Advanced Practice Midwife | DX: Z30.430 Encounter for insertion of intrauterine contraceptive device (principal); Z71.2 Person consulting for explanation of examination or test findings | CPT/HCPCS: 58300; 81025; J7298 ==

== ENCOUNTER 2023-09-12 08:14 | Outpatient (AMB) | payer OTHER, SELFPAY ==
[2023-09-12 08:18] VITALS: BP 122/78; PULSE 74; O2SAT 98; BMI 28.7
--- NOTE | 2023-09-12 08:18 | MHC.PC.OV ---
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 Intake Note: pt is here for establish care, patient has concerns of possible thyroid issues, anemia, and last year hospitalized for spepsis/cdiff/ecloi [employer] Required: Yes Allergies Sulfa (Sulfonamide Antibiotics) [SULFA (SULFONAMIDE ANTIBIOTICS)] Allergy (Unknown, Verified 01/25/24 08:14) SHORTNESS OF BREATH vancomycin Adverse Reaction (Verified 01/25/24 08:14) Red Man Syndrome Medication List - Last Reconciled 09/12/23 by ESTIVEN Ch levothyroxine 100 mcg PO DAILY Tobacco use date assessed: 09/12/23 Dental Screening Dental Screen Date: 09/12/23 Did you have a dental visit in the last 12 months?: No Did you have a dental problem in the last 6 months where you did not have access to dental care?: No Was dental information given to patient?: Yes HPI HPI Comments History of Present Illness Details Patient is a 48-year-old female here to establish care. Patient has an established OBGYN at [facility] , last appointment was September of 2023. She is up-to-date with her mammogram which was performed July of 2023. She has past medical history significant for hypothyroidism, and kidney stones. She also had an in-patient stay of over a week 1 year prior due to sepsis from an E coli infection. She is up-to-date with colonoscopy the next is due in September of 2024. The patient will get the influenza booster today. Will order labs. Patient states that she has been getting intermittent epigastric pain, that feels like a burning sensation. Patient states this can occur randomly during the day, often after meals. Denies chest pain, dizziness, numbness, nausea, vomiting, diarrhea. Will order patient omeprazole. Will refer for imaging and diagnostics. [facility] Medical History Leiomyoma FH: colon cancer Thyroid disease Surgical History History of back surgery H/O section Family History Family/Other History of breast cancer Father Brain cancer Social History Household Members: Family Housing: House Do you presently have visiting nurse or other home services: No Alcohol intake: current Alcohol intake frequency: holidays/special occasions only Comment: pt family at bedside Patient Tobacco Use Status: Never used Tobacco e-Cigarette/Vaping Use: Never Used service: No Current occupational status: employed Cognitive needs: No Hearing needs: No Vision needs: No Questionnaire PHQ-9 Over the last 2 weeks, how often have you been bothered by any of the following problems? 1. Little interest or pleasure in doing things: not at all 2. Feeling down, depressed, or hopeless: not at all 3. Trouble falling or staying asleep, or sleeping too much: not at all 4. Feeling tired or having little energy: not at all 5. Poor appetite or overeating: not at all 6. Feeling bad about yourself - or that you are a failure or have let yourself or your family down: not at all 7. Trouble concentrating on things, such as reading the newspaper or watching television: not at all 8. Moving or speaking so slowly that other people could have noticed. Or the opposite - being so fidgety or restless that you have been moving around a lot more than usual: not at all 9. Thoughts that you would be better off or of hurting yourself in some way: not at all Total score: 0 Depression Screening Interpretation: Negative Depression Screening Done: Yes [id number] - PHQ-9 Billing: Yes Source: Developed by Drs. Derick Harvey, Tanya Fontaine, Moris Quinones and colleagues, with an educational alexis from [employer]. Thrive Questionnaire Date Thrive assessed: 09/12/23 I am a: Patient What is your living situation today?: I have a steady place to live Within the past 12 months, did the food you bought not last and you didn't have the money to get more?: Never true Within the past 12 months, did you worry whether your food would run out before you got money to buy more?: Never true Do you have trouble paying for medicines?: No Do you have trouble getting transportation to medical appointments?: No Do you have trouble paying your heating and electricity bill?: No Do you have trouble taking care of your child, family member or friend?: No Do you have trouble with day-to-day activities such as bathing, preparing meals, shopping, managing finances, etc.?: No Are you currently unemployed and looking for a job?: No Are you interested in more education?: No Please select the resources that you would like help with: None Currently or been in a relationship where the following occur: no concerns reported THRIVE Score: 0 VERONICA-7 AMB Questionnaire VERONICA-7 Date VERONICA - 7 assessed: 09/12/23 Feeling nervous, anxious, or on edge: 0 = Not at all Not being able to stop or control worryin = Not at all Worrying too much about different things: 0 = Not at all Trouble relaxin = Not at all Being so restless that it is hard to sit still: 0 = Not at all Becoming easily annoyed or irritable: 3 = Nearly every day Feeling afraid as if something awful might happen: 0 = Not at all Total VERONICA-7 score (0-4 normal; 5-9 mild; 10-14 moderate; 15-21 severe): 3 Source: Developed by Drs. Derick Harvey, Tanya Fontaine, Moris Quinones and colleagues, with an educational alexis from [employer]. VERONICA-7 Assessment Billing VERONICA-7 Assessment Tool: VERONICA-7 Assessment 13045 Review of Systems Const All systems reviewed & are unremarkable except as noted in HPI and below ENT Denies dizziness Card Denies chest pain, Denies syncope and Denies dyspnea Resp Denies cough, Denies dyspnea and Denies wheezing GI Reports abdominal pain (epigastric), Denies change in bowel habits, Reports heartburn, Denies diarrhea, Denies nausea and Denies vomiting Musc Denies numbness Neuro Denies dizziness, Denies syncope and Denies numbness Psych Denies anxiety Aller/Immun Denies wheezing Physical exam (Primary Care) Vital Signs: Last Vital Signs Pulse 74 09/12/23 08:18 BP 122/78 09/12/23 08:18 Pulse Ox 98 09/12/23 08:18 Care Plan Goal for BP management: Vital signs reviewed stable. BMI result Body Mass Index 28.7 Tobacco/Smoking Status: Tobacco use Status Tobacco use date assessed 09/12/23 09/12/23 08:25 Patient Tobacco Use Status Never used Tobacco 09/12/23 08:25 e-Cigarette/Vaping Use Never Used 09/12/23 08:25 PHQ-9: PHQ-9 Score PHQ-9: Total score 0 09/12/23 13:35 Depression Screening Interpretation: Negative Thrive Assessment: Date of Thrive Assessment Date Thrive assessed 09/12/23 09/12/23 09:17 Currently or been in a relationship where the following occur: no concerns reported Const General: cooperative and no acute distress Orientation/consciousness: patient oriented x3 Limitations: no limitations HENMT Head: Yes normal to inspection Resp Auscultation: clear to auscultation bilaterally Cardio Rate: regular rate Rhythm: regular rhythm Heart sounds: S1 normal heart sound present and S2 normal heart sound present GI Inspection: Yes normal to inspection Palpation (GI): Soft to palpation, Tenderness to palpation present (GI) in the epigastrum and no masses Auscultation: normal bowel sounds Rectal Exam - Female: deferred Neuro General: patient oriented x3 Cranial nerves: Yes CN's II-XII intact bilaterally Psych Insight: Good insight present (Psych) Judgement: Good judgement present (Psych) Office Procedures Flu Questionnaire Does the patient have a severe egg allergy?: No Does the patient have severe life threatening allergies?: No Does the patient have a fever or illness today?: No Has the patient ever had Guillain-Crowell Syndrome?: No Has the patient ever had any past reaction to a flu shot?: No Immunizations flu vacc [id number] 6mos up(PF) 60 mcg(15 mcgx4)/0.5 mL IM syringe Performing Provider: ESTIVEN Ch Performing Location: [facility] Administered by: ELIAS Redmond on 09/12/23 09:04 Dose Route Admin Location Dispensed Lot Number Expiration Date NDC Cocktail Lounge Manager 0.5 mL IM Right Deltoid 0.5 mL [id number] 02/03/24 72159-757-31 Fur and Mask VIS Given Date VIS Provided VIS Publication Date 09/12/23 Single Vaccine 21 Eligibility Eligibility Date Funding Source Not VFC Eligible 09/12/23 Private Assessment and Plan Assessment & Plan (1) Hypothyroidism: Comment: Patient is taking levothyroxine sodium. Lab values within normal limits. Patient should continue taking medication as prescribed Code(s): E03.9 - Hypothyroidism, unspecified Qualifiers: Hypothyroidism type: unspecified Qualified Code(s): E03.9 - Hypothyroidism, unspecified (2) Epigastric abdominal pain: Comment: Patient's recent upper GI series demonstrated gastric reflux disease and gastritis. Patient will also have blood draw including lipase and amylase, will also obtain ultrasound upper abdomen Code(s): R10.13 - Epigastric pain Plan: Take your medications as prescribed. If you were prescribed antibiotics today, it is important that you take your medication to their entirety, do not skip any doses, do not finish them early. Follow-up with your primary care provider this week. Return to the emergency department with new or worsening symptoms. Such as fevers, chills, chest pain, shortness of breath, nausea, vomiting, dizziness, headache, vision changes, lethargy In case of emergency call 911 Plan Will follow-up with lab results. Patient will have physical exam in 3 months Orders: Orders Complete Blood Count Auto Diff 09/12/23 Z13.0 - Encounter for screening for diseases of the blood and blood-forming organs and certain disorders involving the immune mechanism Lipid Panel 09/12/23 Z13.220 - Encounter for screening for lipoid disorders [place] upper GI series 09/12/23 R10.13 - Epigastric pain Comprehensive Met. Panel 09/12/23 Z91.89 - Other specified personal risk factors, not elsewhere classified Vitamin D 25-OH (D2 and D3) 09/12/23 Z13.21 - Encounter for screening for nutritional disorder Vitamin B6 09/12/23 Z13.21 - Encounter for screening for nutritional disorder Vitamin B12 09/12/23 Z13.21 - Encounter for screening for nutritional disorder TSH reflex Free T4 09/12/23 Z13.29 - Encounter for screening for other suspected endocrine disorder Influenza [id number] Immunization 09/12/23 Z23 - Encounter for immunization Lipase 09/12/23 R10.13 - Epigastric pain Amylase 09/12/23 R10.13 - Epigastric pain US abdomen complete 09/12/23 R10.13 - Epigastric pain UA CC w/rflx Micro + Cult 09/12/23 E86.0 - Dehydration Medications: New omeprazole 20 mg PO DAILY 90 caps 0RF Coding Level of Care Code New Pt Level 4 (63109) Diagnoses Hypothyroidism, unspecified type E03.9 Hypothyroidism type: unspecified Epigastric abdominal pain R10.13 Additional Codes VERONICA-7 Assessment Billing - VERONICA-7 Assessment Tool: VERONICA-7 Assessment 61711 ([id number])
== END 2023-09-12 09:49 | disposition home or self-care (01) ==
PROVIDERS: Visit Provider Nurse Practitioner Primary Care
DX: E03.9 Hypothyroidism, unspecified (principal); R10.13 Epigastric pain
CPT/HCPCS: 90471; 90686; 99499

== ENCOUNTER 2023-11-01 08:20 | Outpatient (REF) | payer OTHER, SELFPAY ==
--- NOTE | ~2023-11-01 | US_ITS ---
EXAMINATION: US ABDOMEN COMPLETE CLINICAL INFORMATION: Epigastric pain. COMPARISON: CT abdomen and pelvis 10/20/2022. Ultrasound abdomen limited 09/25/2022. Ultrasound abdomen complete 06/13/2019. TECHNIQUE: Real-time imaging of the abdominal viscera. Limited visualization due to bowel gas. FINDINGS: PANCREAS: Limited visualization of pancreatic tail and head. Imaged portion of pancreatic body is unremarkable. ABDOMINAL AORTA: Nonaneurysmal. INFERIOR VENA CAVA: Visualized portions are normal. LIVER: Mildly increased hepatic parenchymal heterogeneity and echogenicity could be associated with hepatocellular disease/hepatic steatosis and substantially limits visualization. Correlation with liver function tests and clinical exam recommended to determine further management. GALLBLADDER: No gallbladder wall thickening. Tiny 2 mm gallbladder polyps. The gallbladder is physiologically distended without evidence of stones, sludge, wall thickening or pericholecystic fluid. COMMON BILE DUCT: Normal in caliber measuring 0.4 cm in diameter. RIGHT KIDNEY: 0.7 cm midpole cyst. There is no specific indication for additional imaging at this time. Limited visualization. No hydronephrosis or renal calculi. The kidney measures 10.8 cm in maximum dimension. LEFT KIDNEY: No hydronephrosis. No renal calculi. Limited visualization. The kidney measures 11.1 cm in maximum dimension. SPLEEN: Splenomegaly. The spleen measures 14.7 cm in maximum dimension. FREE FLUID: None. US/US abdomen complete IMPRESSION: 1. Mildly increased hepatic parenchymal heterogeneity and echogenicity could be associated with hepatocellular disease/hepatic steatosis and substantially limits visualization. Correlation with liver function tests and clinical exam recommended to determine further management. 2. Tiny 2 mm gallbladder polyps. 3. Splenomegaly.
== END 2023-11-01 08:21 | disposition home or self-care (01) ==
LOC: HO.US 08:20
PROVIDERS: PCP Nurse Practitioner Primary Care; Visit Provider Nurse Practitioner Primary Care
DX: R10.13 Epigastric pain (principal)
CPT/HCPCS: 76700

== ENCOUNTER 2023-11-09 08:16 | Outpatient (REF) | payer OTHER, SELFPAY ==
[2023-11-09 10:39] LABS: MANUAL DIFF FLAG NO
[2023-11-09 10:50] LABS: Basophils Percent Auto 0.7 % (0-2); Eosinophils Absolute Auto 0.1 X10*3/uL (0.0-0.4); Eosinophils Percent Auto 1.4 % (0-4); Hemoglobin 11.5 g/dl (12.0-16.0); Lymphocytes Absolute Auto 1.2 X10*3/uL (1.2-4.9); Lymphocytes Percent Auto 26.6 % (20-40); Mean Corpuscular HGB Conc 31.9 g/dl (31.0-35.0); Mean Corpuscular Hemoglobin 25.9 pg (27.0-33.0); Mean Corpuscular Volume 81.1 fL (80.0-98.0); Mean Platelet Volume 9.6 fL (9.4-12.3); Monocytes Absolute Auto 0.3 X10*3/uL (0.1-1.2); Neutrophils Absolute Auto 2.8 x10*3/uL (2.0-8.3); Neutrophils Percent Auto 64.3 % (45-73); Platelet Count 308 X10*3/uL (160-400); Red Blood Count 4.44 X10*6/uL (4.20-5.50); Red Cell Distribution Width 14.2 % (11.0-16.0); White Blood Count 4.4 X10*3/uL (4.8-10.8)
[2023-11-09 11:13] LABS: Appearance Urine Clear; Color Urine Yellow; Glucose Urine UA Negative (Negative); Leukocyte Esterase Urine Negative (Negative); Nitrite Urine Negative (Negative); PH 6.5 (5.0-9.0); Specific Gravity - Urine 1.025 (1.005-1.025); Urine Blood Negative (Negative); Urine Ketones Negative (Negative); Urine Protein Negative (Neg-Trace)
[2023-11-09 11:25] LABS: Alanine Aminotransferase 8 U/L (0-31); Albumin Level 4.2 g/dL (3.5-5.0); Alkaline Phosphatase 60 U/L (39-117); Amylase 58 U/L (28-100); Anion Gap 12 (12-20); Aspartate Amino Transferase 11 U/L (5-31); Bilirubin Total 0.3 mg/dL (0.0-1.0); Blood Urea Nitrogen 16 mg/dL (9-16); Calcium 8.8 mg/dL (8.4-10.2); Carbon Dioxide 23 mmol/L (22-29); Chloride 110 mmol/L (96-108); Cholesterol 197 mg/dL (<200); Estimated Glomerular Filt Rate > 60; Glucose Random 96 mg/dL (60-115); HDL Cholesterol 50 mg/dL (>40); LDL Cholesterol Calculated 133 mg/dL (<100); Lipase 38 U/L (8-78); Potassium 4.5 mmol/L (3.3-5.1); Sodium 140 mmol/L (135-145); TSH reflex Free T4 2.62 uIU/mL (0.32-4.0); Triglycerides 74 mg/dL (<150)
[2023-11-09 11:33] LABS: Vitamin B12 776 pg/mL (200-900)
[2023-11-13 12:08] LABS: Vitamin D 25-OH, D2 <4 ng/mL; Vitamin D 25-OH, D3 11 ng/mL; Vitamin D 25-OH, Total 11 ng/mL (30-100)
[2023-11-14 16:03] LABS: Vitamin B6 6.7 ng/mL (2.1-21.7)
== END 2023-11-09 08:17 | disposition home or self-care (01) ==
LOC: HO.HMGCLDS 08:16
PROVIDERS: PCP Nurse Practitioner Primary Care; Visit Provider Nurse Practitioner Primary Care
DX: Z13.0 Encounter for screening for diseases of the blood and blood-forming organs and certain disorders involving the immune mechanism (principal); Z13.220 Encounter for screening for lipoid disorders; Z13.21 Encounter for screening for nutritional disorder; Z13.6 Encounter for screening for cardiovascular disorders; Z13.29 Encounter for screening for other suspected endocrine disorder; R10.13 Epigastric pain; Z91.89 Other specified personal risk factors, not elsewhere classified; E86.0 Dehydration
CPT/HCPCS: 36415; 80053; 80061; 81003; 82150; 82306; 82607; 83690; 84207; 84443; 85025

== ENCOUNTER 2023-11-13 08:56 | Outpatient (REF) | payer OTHER, SELFPAY ==
--- NOTE | ~2023-11-13 | FL_ITS ---
EXAMINATION: XR FLUOROSCOPY UPPER GI WITH AIR CLINICAL INFORMATION: Epigastric pain COMPARISON: None TECHNIQUE: Fluoroscopic air contrast upper GI examination was performed utilizing standard techniques with thin and thick barium and effervescent granules. Numerous spot images were obtained. FINDINGS: Dual and single contrast images of the esophagus demonstrate a normal caliber, contour, and mucosal pattern. No evidence of stricture, mass, or ulcerations identified. Feline contraction pattern noted, usually associated with reflux. Esophageal peristalsis was otherwise normal. Small type I hiatus hernia. No significant gastroesophageal reflux was seen during the course of the examination and on reflux views. Dual contrast and single contrast images of the stomach demonstrated a normal contour. The gastric rugal folds appear mildly thickened. There are multiple tiny foci of contrast pooling in the fundus that may represent small superficial aphthous ulcers. Contrast freely passed into the gastric antrum and duodenal bulb without delay. Single and air-contrast images of the duodenal bulb demonstrate no abnormality. The duodenal sweep has a normal appearance, course, and mucosal fold appearance. No malrotation. The imaged proximal jejunum has a normal fold pattern and caliber. Calcified granuloma incidentally noted in the right lung base. FLUOROSCOPY TIME: 3 minutes 4 seconds Number of Spot Images: 6 Number of Cine: 10 DOSE AREA PRODUCT: 1735 uGy-m2 (microgray-meter squared) FL/FL upper GI w air IMPRESSION: 1. Mildly thickened gastric rugal folds. In addition, there are multiple tiny foci of contrast pooling in the fundus the stomach. These findings suggest erosive gastritis. Recommend correlation with EGD. 2. Small type I hiatus hernia. 3. Feline contraction pattern of the esophagus, typically associated with reflux. Suspect reflux is occurring despite not seeing it during the course of this exam. This procedure was performed by River Arevalo PA-C, and supervised by Dr. Valencia
== END 2023-11-13 08:57 | disposition home or self-care (01) ==
LOC: HO.XRAY 08:56
PROVIDERS: PCP Nurse Practitioner Primary Care; Visit Provider Nurse Practitioner Primary Care
DX: R10.13 Epigastric pain (principal)
CPT/HCPCS: 74246

== ENCOUNTER → 2023-11-13 08:58 | Outpatient (BNV) | payer OTHER, SELFPAY | PROVIDERS: PCP Nurse Practitioner Primary Care; Visit Provider Physician Assistant Surgical | DX: R10.13 Epigastric pain (principal) | CPT/HCPCS: 74246 ==

== ENCOUNTER 2023-11-16 08:42 | Outpatient (AMB) | payer OTHER, SELFPAY ==
--- NOTE | 2023-11-16 08:46 | MHC.PC.OV ---
Vital Signs 11/16/23 08:47 Height 5 ft 3 in Weight 159 lb 6 oz BMI 28.2 BP 120/86 Blood Pressure Location Rt brachial Position Sitting Pulse 79 Pulse Source Pulse Oximeter Pulse Oximetry (%) 98 Oxygen Delivery Method Room Air Intake Visit Reasons: Annual PE Intake Note: pt is here for her Annual PE Is last menstrual period known: Yes Last menstrual period: 11/03/23 Allergies Sulfa (Sulfonamide Antibiotics) [SULFA (SULFONAMIDE ANTIBIOTICS)] Allergy (Unknown, Verified 11/16/23 09:15) SHORTNESS OF BREATH vancomycin Adverse Reaction (Verified 11/16/23 09:15) Red Man Syndrome Medication List - Last Reconciled 11/16/23 by ESTIVEN Ch levonorgestrel (Mirena) intrauterine levothyroxine 100 mcg PO DAILY pantoprazole 40 mg PO DAILY Tobacco use date assessed: 11/16/23 Dental Screening Dental Screen Date: 11/16/23 Did you have a dental visit in the last 12 months?: No Did you have a dental problem in the last 6 months where you did not have access to dental care?: No Was dental information given to patient?: No HPI HPI Comments History of Present Illness Details Patient is a 48-year-old female here for follow-up. The patient has establish care with OBGYN, recently had IUD inserted. Patient is up-to-date with Pap smear. Patient is being followed by urology for renal calculi. Patient has had colonoscopy and endoscopy 2 months prior, recommended follow-up colonoscopy in 2 years. Patient's recent upper GI series demonstrated gastritis, reflux, with a question of Roldan's esophagus. Patient is currently taking omeprazole 20 mg. She admits to drinking small amounts of water, and drinking cups of coffee in the morning and at night before bed. The patient has been instructed that is very important she follow up bland diet, and that she should reduce or not drink coffee as that is a major gastric irritant. Patient has also been educated on other foods and drink she should avoid. The patient will be started on 40 mg pantoprazole sodium to be taken for the next month. Patient is also found to be low in vitamin-D, she will take vitamin-D 3 2000 units per day for the next 3 months and will redraw those labs. [facility] Medical History Leiomyoma FH: colon cancer Thyroid disease Surgical History History of back surgery H/O section Family History Family/Other History of breast cancer Father Brain cancer Social History Household Members: Family Housing: House Do you presently have visiting nurse or other home services: No Alcohol intake: current Alcohol intake frequency: holidays/special occasions only Comment: pt family at bedside Patient Tobacco Use Status: Never used Tobacco e-Cigarette/Vaping Use: Never Used service: No Current occupational status: employed Cognitive needs: No Hearing needs: No Vision needs: No Female Reproductive History Menstrual Date of last menstrual period: 11/03/23 Questionnaire Thrive Questionnaire Date Thrive assessed: 09/12/23 AUDIT C Alcohol Use Questionnaire (AUDIT-C) 1. How often do you have a drink containing alcohol?: Monthly or less 2. How many drinks containing alcohol do you have on a typical day when you are drinking?: 1 or 2 3. How often do you have six or more drinks on one occasion?: Never Total Score: 1 VERONICA-7 AMB Questionnaire VERONICA-7 Date VERONICA - 7 assessed: 09/12/23 Source: Developed by Drs. Derick Harvey, Tanya Fontaine, Moris Quinones and colleagues, with an educational alexis from [employer]. Review of Systems Const Details: Constitutional : No Weight loss, No Fever, No Chills, No Fatigue, No Malaise ENT/Mouth : No sore throat, No Rhinorrhea Eyes: No Eye Pain, No Swelling, No Redness. Cardiovascular : No Chest Pain, No SOB, No Dyspnea on Exertion, No Orthopnea, No Edema, No Palpitations Respiratory : No Cough, No Sputum, No Wheezing Gastrointestinal : No Nausea, No Vomiting, No Diarrhea, No Constipation, Admits some abdominal Pain, No Hematochezia, No Melena, Admits epigastric discomfort. Genitourinary : No Dysuria, No Urinary Frequency, No Hematuria, Musculoskeletal : No joint pain, No Myalgias, No Joint Swelling Skin : No Skin Lesions, No rash, Admits sagging of upper eyelids bilaterally. Neuro : No Weakness, No Numbness, No Dizziness, No Headache Psych : No Anxiety/Panic, No Depression Heme/Lymph: No Bruising, No Bleeding,No Lymphadenopathy Endocrine : No Polyuria, No Polydipsia All other systems reviewed and are negative Physical exam (Primary Care) Vital Signs: Last Vital Signs Pulse 79 11/16/23 08:47 BP 120/86 11/16/23 08:47 Pulse Ox 98 11/16/23 08:47 Oxygen Delivery Method Room Air 11/16/23 08:47 Care Plan Goal for BP management: Vital signs reviewed stable. BMI result Body Mass Index 28.2 Tobacco/Smoking Status: Tobacco use Status Tobacco use date assessed 11/16/23 11/16/23 08:52 Patient Tobacco Use Status Never used Tobacco 11/16/23 08:46 e-Cigarette/Vaping Use Never Used 11/16/23 08:46 Thrive Assessment: Date of Thrive Assessment Date Thrive assessed 09/12/23 11/16/23 08:46 Const Other: Appearance: Alert.? Oriented X3.? No acute distress.? Head: Normocephalic, atraumatic, Eyes: Pupils equal, round and reactive to light.?EOMI. ENT: Pharynx normal.?TM intact and pearly davis. Neck: Normal inspection.? Neck supple.?FUll ROM. CVS: Normal heart rate and rhythm.? Pulses normal.? Respiratory: No respiratory distress.? Breath sounds normal.? Abdomen: Soft. +Tender to LUQ. Hyperactive bowels sounds. Skin: Skin warm and dry.? Normal skin color. + eyelid upper eyelid droop bilaterally. Extremities: No lower extremity edema.? Back: No midline tenderness, no C-spine tenderness, full range of motion, no CVA tenderness bilaterally Neuro: Oriented X 3.? No motor deficit.? No sensory deficit. CN 2-12 intact Results Reviewed Results Reviewed: Sodium 140 135-145 mmol/L Potassium 4.5 3.3-5.1 mmol/L CL 110 H 96-108 mmol/L CO2 23 22-29 mmol/L Gap 12 12-20 BUN 16 9-16 mg/dL Creat 0.71 0.5-1.4 mg/dL EGFR > 60 NOTE: For -Luxembourger individuals, multiply the result by 1.210. Chronic Kidney Disease: Estimated GFR < 60 mL/min/1.73m2 Severe Kidney Disease: Estimated GFR < 15 mL/min/1.73m2 Glucose, Random 96 60-115 mg/dL CA 8.8 # 8.4-10.2 mg/dL Total Bili 0.3 0.0-1.0 mg/dL AST (GOT) 11 5-31 U/L ALT (GPT) 8 0-31 U/L Protein, Total 7.0 6.5-8.0 g/dL Alb 4.2 3.5-5.0 g/dL Triglyceride 74 <150 mg/dL Desirable Triglyceride: less than 150 mg/dL Borderline High Triglyceride 150-199 mg/dL High Triglyceride: 200-499 mg/dL Very High Triglyceride: greater than or equal to 5OO mg/dL Cholesterol 197 <200 mg/dL Desirable Cholesterol: less than 200 mg/dL Borderline High Cholesterol: 200-239 mg/dL High Cholesterol: greater than 239 mg/dL LDL Calculated 133 H <100 mg/dL Desirable LDL: less than 100 mg/dL Near Optimal/Above Optimal LDL: 110-129 mg/dL Borderline High LDL: 130-159 mg/dL High LDL: 160-189 mg/dL Very High LDL: greater than or equal to 190 mg/dL HDL 50 >40 mg/dL Desirable HDL: greater than 40 mg/dL Note: This HDL assay may give artificially low results in patients with liver disease. Alk Phos 60 39-117 U/L Milady 58 28-100 U/L Lipase 38 8-78 U/L TSH 2.62 0.32-4.0 uIU/mL WBC 4.4 L 4.8-10.8 X10*3/uL RBC 4.44 4.20-5.50 X10*6/uL HGB 11.5 L 12.0-16.0 g/dl HCT 36.0 L 37.0-47.0 % MCV 81.1 80.0-98.0 fL MCH 25.9 L 27.0-33.0 pg MCHC 31.9 31.0-35.0 g/dl RDW 14.2 11.0-16.0 % PLT 308 160-400 X10*3/uL MPV 9.6 9.4-12.3 fL Neut Pct Auto 64.3 45-73 % ImGran Pct Auto 0.0 0.0-0.4 % Lymp Pct Auto 26.6 20-40 % [place] Pct Auto 7.0 2-11 % Eos Pct Auto 1.4 0-4 % Baso Pct Auto 0.7 0-2 % NRBC Pct Auto 0.0 0.0-0.2 /100WBC ANC Neut Abs # 2.8 2.0-8.3 x10*3/uL ImGran Abs Auto 0.00 0.00-0.03 X10*3/uL Lymph Abs Auto 1.2 1.2-4.9 X10*3/uL [place] Abs Auto 0.3 0.1-1.2 X10*3/uL Eos Abs Auto 0.1 0.0-0.4 X10*3/uL Baso Abs Auto 0.0 0.0-0.2 X10*3/uL NRBC Abs Auto 0.000 0.0-0.012 X10*3/uL Assessment and Plan Assessment & Plan (1) Epigastric abdominal pain: Comment: Patient's recent upper GI series demonstrated gastric reflux disease and gastritis. Patient will also have blood draw including lipase and amylase, will also obtain ultrasound upper abdomen Code(s): R10.13 - Epigastric pain (2) Kidney stones: Comment: Patient is being followed by urology for renal calculi. Patient has been instructed to reduce coffee consumption and to increase consumption of water patient currently drinks about 14 oz of water per day Code(s): N20.0 - Calculus of kidney (3) Hypothyroidism: Comment: Patient is taking levothyroxine sodium. Lab values within normal limits. Patient should continue taking medication as prescribed Code(s): E03.9 - Hypothyroidism, unspecified Qualifiers: Hypothyroidism type: unspecified Qualified Code(s): E03.9 - Hypothyroidism, unspecified (4) Gastritis: Comment: Patient has been instructed to take 40 mg) oral sodium in the morning. Patient has also been educated on foods to avoid. Will give referral to GI. Code(s): K29.70 - Gastritis, unspecified, without bleeding Qualifiers: Chronicity: unspecified Gastritis bleeding: presence of bleeding unspecified Gastritis type: unspecified gastritis Qualified Code(s): K29.70 - Gastritis, unspecified, without bleeding (5) GERD (gastroesophageal reflux disease): Comment: Patient educated on foods to avoid. Patient educated not to drink coffee before bed. Patient educated to drink with head of bed elevated. Patient educated to increased water consumption. Patient will be given 40 mg pantoprazole sodium to be taken the morning. Code(s): K21.9 - Gastro-esophageal reflux disease without esophagitis Qualifiers: Esophagitis presence: esophagitis presence not specified Qualified Code(s): K21.9 - Gastro-esophageal reflux disease without esophagitis Plan: Take your medications as prescribed. If you were prescribed antibiotics today, it is important that you take your medication to their entirety, do not skip any doses, do not finish them early. Follow-up with your primary care provider this week. Return to the emergency department with new or worsening symptoms. Such as fevers, chills, chest pain, shortness of breath, nausea, vomiting, dizziness, headache, vision changes, lethargy In case of emergency call 911 Plan Patient will follow-up in 3 months Orders: Orders Lipase Today R10.13 - Epigastric pain Amylase Today R10.13 - Epigastric pain US abdomen limited Today R10.13 - Epigastric pain Medications: New pantoprazole 40 mg PO DAILY 90 tabs 0RF Coding Level of Care Code Est Pt Prev Care 40-64y(45108) Diagnoses Epigastric abdominal pain R10.13 Kidney stones N20.0 Hypothyroidism, unspecified type E03.9 Hypothyroidism type: unspecified Gastritis, presence of bleeding unspecified, unspecified chronicity, unspecified gastritis type K29.70 Chronicity: unspecified Gastritis bleeding: presence of bleeding unspecified Gastritis type: unspecified gastritis Gastroesophageal reflux disease, unspecified whether esophagitis present K21.9 Esophagitis presence: esophagitis presence not specified
[2023-11-16 08:47] VITALS: BP 120/86; PULSE 79; O2SAT 98; BMI 28.2
== END 2023-11-16 16:41 | disposition home or self-care (01) ==
PROVIDERS: PCP Nurse Practitioner Primary Care; Visit Provider Nurse Practitioner Primary Care
DX: Z00.00 Encounter for general adult medical examination without abnormal findings (principal); R10.13 Epigastric pain; N20.0 Calculus of kidney; E03.9 Hypothyroidism, unspecified; K29.70 Gastritis, unspecified, without bleeding; K21.9 Gastro-esophageal reflux disease without esophagitis
CPT/HCPCS: 99396

== ENCOUNTER 2024-01-25 08:10 | Outpatient (AMB) | payer OTHER, SELFPAY ==
[2024-01-25 08:13] VITALS: BMI 28.1
--- NOTE | 2024-01-25 08:13 | MHC.OFFVIS ---
Vital Signs 01/25/24 08:13 Height 5 ft 3 in Weight 158 lb 11.725 oz BMI 28.1 Intake Visit Reasons: IUD check Construction Safety Manager Required: Yes Construction Safety Manager Language: Apartment Leasing Specialist Services: Construction Safety Manager Present Construction Safety Manager Name: Yolanda GRIFFIN Information Interpreted: non-clinical & clinical Guide Visitor: Guide Visitor Present (Yolanda GRIFFIN) Accompanied by: Spouse Allergies Sulfa (Sulfonamide Antibiotics) [SULFA (SULFONAMIDE ANTIBIOTICS)] Allergy (Unknown, Verified 01/25/24 08:14) SHORTNESS OF BREATH vancomycin Adverse Reaction (Verified 01/25/24 08:14) Red Man Syndrome Is last menstrual period known: No (mirena) HPI Comments Details: Patient is here today accompanied by her and daughter for a IUD post insertion check. 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 She admits to having some gooey vaginal discharge that is not itching, irritating or has an odor. She admits to having left breast pain underneath the breast where the lower bra band meets the ribcage for the last 4 months. She denies any injuries or lump in the area. History of fibroids. [facility] Medical History Leiomyoma FH: colon cancer Thyroid disease Surgical History History of back surgery H/O section Family History Family/Other History of breast cancer Father Brain cancer Social History Household Members: Family Housing: House Do you presently have visiting nurse or other home services: No Alcohol intake: current Alcohol intake frequency: holidays/special occasions only Comment: pt family at bedside Patient Tobacco Use Status: Never used Tobacco e-Cigarette/Vaping Use: Never Used service: No Current occupational status: employed Cognitive needs: No Hearing needs: No Vision needs: No Review of Systems Const All systems reviewed & are unremarkable except as noted in HPI and below Reports no additional complaints Skin/Breast Reports system reviewed and no additional complaints, except as documented and Reports as per HPI Physical Exam Vital Signs: BMI result Body Mass Index 28.1 Const General: cooperative, healthy appearing and no acute distress Orientation/consciousness: patient oriented x3 Chest Breast/axilla inspection: normal inspection of the breasts and normal inspection of the axillae Breast/axilla palpation: normal palpation of the breasts GI Inspection: Yes normal to inspection Palpation (GI): Soft to palpation and Other GI palpation findings present (Nontender) Rectal Exam - Female: visual inspection normal General: Yes bladder normal to palpation External Female Exam: normal appearance of the urethra Speculum Exam - Vagina: normal appearance of the vagina, normal palpation and abnormal vaginal discharge yellow (Green) Speculum Exam - Cervix: normal appearance of the cervix, normal palpation and Other cervical findings present (IUD strings seen at the os) Bimanual exam- vagina & uterus: normal bimanual exam, normal palpation, uterine size normal, bladder normal to palpation, normal palpation, uterine shape normal and non-tender Bimanual Exam- Adnexa, other: normal adnexae Skin General skin exam: no rashes or lesions noted Neuro General: patient oriented x3 Assessment & Plan Assessment & Plan (1) Breast pain: Code(s): N64.4 - Mastodynia (2) Vaginal discharge: Code(s): N89.8 - Other specified noninflammatory disorders of vagina (3) IUD surveillance: Code(s): Z30.431 - Encounter for routine checking of intrauterine contraceptive device (4) Fibroid: Code(s): D21.9 - Benign neoplasm of connective and other soft tissue, unspecified Plan Discussed: Fibroids-follow up ultrasound to check stability ordered, vaginal discharge-BV panel obtained, breast pain-diagnostic mammogram and ultrasound ordered, encouraged to wear a sports bra, and report any increase and discomfort or if any other abnormal findings or concerns sooner than her follow up timeframe, routine mammogram ordered at timeframe when due, follow up in person for test results. Schedule annual exam. Call sooner if there is any concerns. Counseled re: Leiomyoma: common pelvic neoplasm. Differential diagnosis-may include leiomyosarcoma which is a rare uterine sarcoma 3-7/100,000, difficult to distinguish from fibroids on ultrasound from uterine sarcoma's. Unlikely any single test will have a highly positive predictive value. Hysterectomy is not recommended for sole purpose of excluding malignant neoplasm. Report any PMB/AUB. Pelvic pressure, bloating, or pain. Consult for surgical exploration verses expectant management offered. Patient prefers ultrasound follow up. Expectant management follow up in 6 months, then yearly for stability. Referral to MD if indicated for level of care. All of her questions and concerns were addressed to the best of my ability and shared decision making. She is agreeable to the plan of care. This note is constructed using voice recognition software. While every effort has been made to ensure accuracy, holiday detector operator errors may have been included. Orders: Orders US pelvic and transvaginal 06/06/24 D21.9 - Benign neoplasm of connective and other soft tissue, unspecified US breast LT complete Today N64.4 - Mastodynia Bacterial Vaginosis Panel 06/06/24 D21.9 - Benign neoplasm of connective and other soft tissue, unspecified, N89.8 - Other specified noninflammatory disorders of vagina MM tomosynthesis diagnostic LT Today N64.4 - Mastodynia, Z12.31 - Encounter for screening mammogram for malignant neoplasm of breast MM tomosynthesis screening BI 07/28/24 Z12.31 - Encounter for screening mammogram for malignant neoplasm of breast Coding Level of Care Code Est Pt Level 4 (44357) Diagnoses Breast pain N64.4 Vaginal discharge N89.8 IUD surveillance Z30.431 Fibroid D21.9
== END 2024-01-25 09:07 | disposition home or self-care (01) ==
PROVIDERS: PCP Nurse Practitioner Primary Care; Visit Provider Advanced Practice Midwife
DX: N64.4 Mastodynia (principal); N89.8 Other specified noninflammatory disorders of vagina; Z30.431 Encounter for routine checking of intrauterine contraceptive device; D21.9 Benign neoplasm of connective and other soft tissue, unspecified
CPT/HCPCS: 99214

== ENCOUNTER 2024-01-25 08:10 | Outpatient (REF) | payer OTHER, SELFPAY ==
[2024-01-25 16:28] LABS: Bacterial Vaginosis PCR NEGATIVE (Negative); Candida Group PCR NOT DETECTED (Not Detect); Candida glab krusei PCR NOT DETECTED (Not Detect); Trichomonas vaginalis PCR NOT DETECTED (Not Detect)
== END 2024-01-25 08:11 | disposition home or self-care (01) ==
LOC: HO.LNP 08:10
PROVIDERS: PCP Nurse Practitioner Primary Care; Visit Provider Advanced Practice Midwife
DX: N89.8 Other specified noninflammatory disorders of vagina (principal); D21.9 Benign neoplasm of connective and other soft tissue, unspecified
CPT/HCPCS: 0352U

== ENCOUNTER 2024-02-15 08:15 | Outpatient (AMB) | payer OTHER, SELFPAY ==
--- NOTE | 2024-02-15 08:21 | MHC.PC.OV ---
Vital Signs 02/15/24 08:23 Height 5 ft 3 in Weight 156 lb BMI 27.6 BP 108/66 Blood Pressure Location Lt brachial Position Sitting Pulse 74 Pulse Source Pulse Oximeter Pulse Oximetry (%) 98 Oxygen Delivery Method Room Air Intake Visit Reasons: 3M F/U Intake Note: pt is here for her 3 month f/u Allergies Sulfa (Sulfonamide Antibiotics) [SULFA (SULFONAMIDE ANTIBIOTICS)] Allergy (Unknown, Verified 02/15/24 08:37) SHORTNESS OF BREATH vancomycin Adverse Reaction (Verified 02/15/24 08:37) Red Man Syndrome Medication List - Last Reconciled 02/15/24 by ESTIVEN Ch levonorgestrel (Mirena) intrauterine levothyroxine 100 mcg PO DAILY pantoprazole 40 mg PO DAILY Tobacco use date assessed: 02/15/24 Dental Screening Dental Screen Date: 11/16/23 HPI HPI Comments History of Present Illness Details Patient is here for 3 month follow-up. Patient was found previous blood draw to be slightly anemic, has been utilizing diet higher iron, patient was also found to be vitamin-D deficient, has been utilizing vitamin D3 2000 units daily, will redraw labs today. Patient is reporting bilateral knee pain, chronic. Patient denies any trauma to the area. Patient is able to ambulate on both joints. Denies tingling or numbness. Utilizes Tylenol with mild effect. Will order bilateral knee x-rays. Patient also offers complaint of intermittent left and right wrist numbness. 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 Also is worse at night. Patient is positive Tinel sign in office today will refer for a nerve conduction study. patient reports increased urinary urgency over the past 2 days. Reports that feels like a UTI she has have been passed. Will order UA. [facility] Medical History Leiomyoma FH: colon cancer Thyroid disease Surgical History History of back surgery H/O section Family History Family/Other History of breast cancer Father Brain cancer Social History Household Members: Family Housing: House Do you presently have visiting nurse or other home services: No Alcohol intake: current Alcohol intake frequency: holidays/special occasions only Comment: pt family at bedside Patient Tobacco Use Status: Never used Tobacco e-Cigarette/Vaping Use: Never Used service: No Current occupational status: employed Cognitive needs: No Hearing needs: No Vision needs: No Questionnaire Thrive Questionnaire Date Thrive assessed: 09/12/23 AUDIT C Alcohol Use Questionnaire (AUDIT-C) 1. How often do you have a drink containing alcohol?: Monthly or less 2. How many drinks containing alcohol do you have on a typical day when you are drinking?: 1 or 2 3. How often do you have six or more drinks on one occasion?: Never Total Score: 1 VERONICA-7 AMB Questionnaire VERONICA-7 Date VERONICA - 7 assessed: 09/12/23 Source: Developed by Drs. Derick Harvey, Tanya Fontaine, Moris Quinones and colleagues, with an educational alexis from [employer]. Review of Systems Const All systems reviewed & are unremarkable except as noted in HPI and below Physical exam (Primary Care) Care Plan Goal for BP management: Vital signs are stable. Tobacco/Smoking Status: Tobacco use Status Tobacco use date assessed 02/15/24 02/15/24 08:23 Patient Tobacco Use Status Never used Tobacco 02/15/24 08:23 e-Cigarette/Vaping Use Never Used 02/15/24 08:23 Thrive Assessment: Date of Thrive Assessment Date Thrive assessed 09/12/23 02/15/24 08:23 Const Other: Appearance: Alert.? Oriented X3.? No acute distress.? Head: Normocephalic, atraumatic, no step-offs or deformities CVS: Normal heart rate and rhythm.? Pulses normal.? Respiratory: No respiratory distress.? Breath sounds normal.? Abdomen: Soft and nontender.? Skin: Skin warm and dry.? Normal skin color.? Normal skin turgor.? Extremities: No lower extremity edema.? No calf ttp. 5/5 strength to bilateral upper and lower extremities. +Crepitus of bilateral knees. + Tineals sign. Neuro: Oriented X 3.? No motor deficit.? No sensory deficit. CN 2-12 intact Assessment and Plan Assessment & Plan (1) Urinary urgency: Comment: Will order UA. Code(s): R39.15 - Urgency of urination (2) Carpal tunnel syndrome: Comment: Will order nerve conduction study test. Patient has been educated to utilize splint on bilateral wrists while she is working and night. Code(s): G56.00 - Carpal tunnel syndrome, unspecified upper limb Qualifiers: Laterality: unspecified laterality Qualified Code(s): G56.00 - Carpal tunnel syndrome, unspecified upper limb (3) Left knee pain: Comment: Will order x-ray. Patient to continue to utilize Tylenol Code(s): M25.562 - Pain in left knee Qualifiers: Chronicity: unspecified Qualified Code(s): M25.562 - Pain in left knee (4) Right knee pain: Comment: will order x-ray. Patient can continue to utilize Tylenol. Code(s): M25.561 - Pain in right knee Qualifiers: Chronicity: unspecified Qualified Code(s): M25.561 - Pain in right knee Orders: Orders Complete Blood Count Auto Diff Today Z13.0 - Encounter for screening for diseases of the blood and blood-forming organs and certain disorders involving the immune mechanism Comprehensive Met. Panel Today Z91.89 - Other specified personal risk factors, not elsewhere classified NE nerve conduction velocity Today G56.00 - Carpal tunnel syndrome, unspecified upper limb XR knee LT 2V Today M25.562 - Pain in left knee Vitamin D 25-OH (D2 and D3) Today Z13.21 - Encounter for screening for nutritional disorder UA CC w/rflx Micro + Cult Today R39.15 - Urgency of urination XR knee RT 2V Today M25.561 - Pain in right knee Referrals Gastroenterology Referral K21.9 - Gastro-esophageal reflux disease without esophagitis Coding Level of Care Code Est Pt Level 3 (86533) Diagnoses Urinary urgency R39.15 Carpal tunnel syndrome, unspecified laterality G56.00 Laterality: unspecified laterality Left knee pain, unspecified chronicity M25.562 Chronicity: unspecified Right knee pain, unspecified chronicity M25.561 Chronicity: unspecified Time Spent (min) 22
[2024-02-15 08:23] VITALS: BP 108/66; PULSE 74; O2SAT 98; BMI 27.6
== END 2024-02-15 08:54 | disposition home or self-care (01) ==
PROVIDERS: PCP Nurse Practitioner Primary Care; Visit Provider Nurse Practitioner Primary Care
DX: R39.15 Urgency of urination (principal); G56.00 Carpal tunnel syndrome, unspecified upper limb; M25.562 Pain in left knee; M25.561 Pain in right knee
CPT/HCPCS: 99213

== ENCOUNTER 2024-02-15 09:00 | Outpatient (REF) | payer OTHER, SELFPAY ==
--- NOTE | ~2024-02-15 | XR_ITS ---
EXAMINATION: XR KNEE, BILATERAL CLINICAL INFORMATION: Bilateral knee pain COMPARISON: None. TECHNIQUE: AP and lateral views of each knee FINDINGS: Right knee: No joint space narrowing. Small subchondral cyst of the inferior patella. No joint effusion. Left knee: No joint space narrowing. No joint effusion. No fracture or malalignment. Incidental bone island within the lateral tibia. XR/XR knee RT 2V IMPRESSION: RIGHT KNEE: Mild patellofemoral compartment osteoarthritis. LEFT KNEE: Normal.
--- NOTE | ~2024-02-15 | XR_ITS ---
EXAMINATION: XR KNEE, BILATERAL CLINICAL INFORMATION: Bilateral knee pain COMPARISON: None. TECHNIQUE: AP and lateral views of each knee FINDINGS: Right knee: No joint space narrowing. Small subchondral cyst of the inferior patella. No joint effusion. Left knee: No joint space narrowing. No joint effusion. No fracture or malalignment. Incidental bone island within the lateral tibia. XR/XR knee LT 2V IMPRESSION: RIGHT KNEE: Mild patellofemoral compartment osteoarthritis. LEFT KNEE: Normal.
[2024-02-15 13:08] LABS: MANUAL DIFF FLAG NO
[2024-02-15 13:13] LABS: Appearance Urine Clear; Color Urine Yellow; Glucose Urine UA Negative (Negative); Leukocyte Esterase Urine Moderate (2+) (Negative); Nitrite Urine Negative (Negative); PH 5.5 (5.0-9.0); Specific Gravity - Urine >= 1.030 (1.005-1.025); UMIC TRIGGER UACC YES; Urine Blood Trace (Negative); Urine Ketones Negative (Negative); Urine Protein Trace mg/dL (Neg-Trace)
[2024-02-15 13:15] LABS: Basophils Percent Auto 0.5 % (0-2); Eosinophils Percent Auto 1.1 % (0-4); Hematocrit 36.1 % (37.0-47.0); Hemoglobin 11.9 g/dl (12.0-16.0); Imm Gran Abs Auto 0.02 X10*3/uL (0.00-0.03); Imm Gran Pct Auto 0.5 % (0.0-0.4); Lymphocytes Absolute Auto 1.4 X10*3/uL (1.2-4.9); Lymphocytes Percent Auto 36.5 % (20-40); Mean Corpuscular Hemoglobin 26.8 pg (27.0-33.0); Mean Corpuscular Volume 81.3 fL (80.0-98.0); Mean Platelet Volume 9.3 fL (9.4-12.3); Monocytes Absolute Auto 0.3 X10*3/uL (0.1-1.2); Monocytes Percent Auto 7.7 % (2-11); Neutrophils Percent Auto 53.7 % (45-73); Platelet Count 288 X10*3/uL (160-400); Red Blood Count 4.44 X10*6/uL (4.20-5.50); Red Cell Distribution Width 13.7 % (11.0-16.0); White Blood Count 3.8 X10*3/uL (4.8-10.8)
[2024-02-15 13:31] LABS: Alanine Aminotransferase 7 U/L (0-31); Albumin Level 4.5 g/dL (3.5-5.0); Alkaline Phosphatase 65 U/L (39-117); Amylase 55 U/L (28-100); Anion Gap 14 (12-20); Aspartate Amino Transferase 12 U/L (5-31); Bilirubin Total 0.5 mg/dL (0.0-1.0); Blood Urea Nitrogen 17 mg/dL (9-16); Carbon Dioxide 24 mmol/L (22-29); Chloride 107 mmol/L (96-108); Estimated Glomerular Filt Rate > 60; Glucose Random 97 mg/dL (60-115); Lipase 36 U/L (8-78); Potassium 4.8 mmol/L (3.3-5.1); Sodium 140 mmol/L (135-145); Total Protein 7.2 g/dL (6.5-8.0)
[2024-02-15 14:32] LABS: Bacteria Urine Trace (None Seen); Squamous Epithelial Cell Urine 0-2 /HPF (0-2); UACC Culture Trigger YES; WBC Urine >50 /HPF (0-5)
[2024-02-21 13:48] LABS: Vitamin D 25-OH, D2 <4 ng/mL; Vitamin D 25-OH, D3 25 ng/mL; Vitamin D 25-OH, Total 25 ng/mL (30-100)
== END 2024-02-15 09:01 | disposition home or self-care (01) ==
LOC: HO.HMGCX 09:00
PROVIDERS: PCP Nurse Practitioner Primary Care; Visit Provider Nurse Practitioner Primary Care
DX: R10.13 Epigastric pain (principal); M25.562 Pain in left knee; M25.561 Pain in right knee; Z91.89 Other specified personal risk factors, not elsewhere classified; Z13.0 Encounter for screening for diseases of the blood and blood-forming organs and certain disorders involving the immune mechanism; Z13.21 Encounter for screening for nutritional disorder
CPT/HCPCS: 36415; 73560; 80053; 81001; 82150; 82306; 83690; 85025; 87086

== ENCOUNTER 2024-02-25 14:46 | Outpatient (REF) | payer OTHER, SELFPAY | END 2024-02-25 14:47 | disposition home or self-care (01) | LOC: HO.MAMMO 14:46 | PROVIDERS: PCP Nurse Practitioner Primary Care; Visit Provider Advanced Practice Midwife | DX: Z13.89 Encounter for screening for other disorder (principal) ==

== ENCOUNTER 2024-03-01 20:37 | Inpatient (IN) | payer OTHER, SELFPAY ==
[2024-03-01] VITALS (7 sets, daily range): BP systolic 104–145; BP diastolic 52–100; PULSE 90–143; RESP 16–22; TEMP 36.9–37.9; O2SAT 98–99; BMI 26.6
--- NOTE | ~2024-03-01 | XR_ITS ---
EXAMINATION: XR CHEST CLINICAL INFORMATION: Sepsis COMPARISON: 09/23/2022 TECHNIQUE: 2 views of the chest were obtained. FINDINGS: The lungs are mildly hypoinflated. No focal consolidation is seen. No evidence of pneumothorax, pleural effusion, or pulmonary edema. The cardiomediastinal contour is unremarkable. No acute osseous findings are seen. XR/XR chest 2V IMPRESSION: Low lung volumes without acute findings.
--- NOTE | ~2024-03-01 | CT_ITS ---
EXAMINATION: CT ABDOMEN AND PELVIS WITHOUT CONTRAST CLINICAL INFORMATION: Left flank pain. COMPARISON: 10/20/2022 TECHNIQUE: Multidetector volumetric imaging was performed from the superior aspect of the liver through the pubic symphysis. Sagittal and coronal reformatted images were obtained on the technologist's workstation. This CT examination was performed using dose optimization techniques as appropriate, variously including the following: *Automated exposure control *Adjustment of mA and/or kV according to patient size (this includes techniques or standardized protocols for targeted exams where dose is matched to indication/reason for exam; i.e. extremities or head) *Use of iterative reconstruction technique DLP: 565 mGy-cm FINDINGS: LUNG BASES: A calcified granuloma is present in the right lower lobe. Minimal atelectasis in the lung bases. LIVER, GALLBLADDER, AND BILIARY TREE: The liver borderline enlarged, measuring 20.5 cm craniocaudal. It is normal in shape and attenuation. No focal hepatic lesion or biliary ductal dilatation is present. The gallbladder is unremarkable with no evidence of radiopaque gallstones, gallbladder wall thickening, or obvious pericholecystic inflammatory changes. PANCREAS: Unremarkable. SPLEEN: Enlarged, measuring 16 cm in diameter. ADRENAL GLANDS: Unremarkable. KIDNEYS AND URETERS: A 4 mm calculus is present in the upper pole calyx of the left kidney. The attenuation value is 1026 Hounsfield units. The calculus resides 7.7 cm deep to the skin surface at the left posterior mid axillary line. The kidneys are normal in size, shape, and attenuation. No hydronephrosis or hydroureter. No perinephric stranding. BLADDER: Unremarkable. GASTROINTESTINAL TRACT: Stomach, small bowel, and colon are normal in caliber. No bowel wall thickening or surrounding inflammatory changes. Appendix is normal. No intraperitoneal free fluid or free air. ABDOMINAL WALL: No significant hernia is appreciated. LYMPH NODES: Normal. VASCULAR: Unremarkable. PELVIC VISCERA: IUD is appropriately situated within the uterus. Thickened appearance of the uterine myometrium is consistent with the fibroids seen on the prior contrast enhanced CT. No acute uterine or ovarian findings. 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 Chronic anterolisthesis is evident at L5-S1. No acute fractures. Mild osteoarthritis in the SI joints. Hip joints appear well-preserved. CT/CT abdomen pelvis wo IV con IMPRESSION: 1. No acute intra-abdominal or intrapelvic abnormalities. 2. A 4 mm nonobstructing calculus in the left kidney. No evidence of obstructive uropathy. 3. Borderline hepatosplenomegaly, unchanged. Fleischner guidelines were followed.
--- NOTE | 2024-03-01 20:40 | ED.ABDPAIN ---
HPI - Abdominal Pain General Chief Complaint: Urogenital-Female Stated Complaint: fever/left side pain/vomiting Time Seen by Provider: 03/01/24 21:10 Source: patient, family (daughter) and RN notes reviewed Mode of arrival: ambulatory Limitations: no limitations History of Present Illness ED Provider: Chau HPI narrative: 48-year-old female presents for evaluation of left flank pain and fever. Per the patient's daughter, the patient was complaining of urinary frequency and left flank pain about 2 weeks ago. She did provide a urine sample to her PCP on 02/15/2024 but never heard results and was never given any antibiotics. She reports a fever as high as 103.1 at home. She took Tylenol at 6:00 p.m. today She complains of 7/10 left flank pain but as well as weakness, body aches She continues to have urinary frequency The patient was diagnosed with sepsis in September 25, 2022 and reports that she feels similar currently Related Data Home Medications ?Medication ?Instructions ?Recorded ?Confirmed levonorgestrel 21 mcg/24 hr (up to intrauterine 11/16/23 02/15/24 8 years) 52 mg intrauterine device (Mirena) Previous Rx's ?Medication ?Instructions ?Recorded levothyroxine 100 mcg capsule 100 mcg PO DAILY #90 caps 04/21/23 pantoprazole 40 mg tablet,delayed 40 mg PO DAILY #90 tabs 02/11/24 release ferrous fumarate 324 mg (106 mg 324 mg PO DAILY #60 tabs 02/18/24 iron) tablet sennosides 8.6 mg capsule (senna) 8.6 mg PO BEDTIME PRN constipation 02/18/24 #60 caps Allergies Allergy/AdvReac Type Severity Reaction Status Date / Time Sulfa (Sulfonamide Allergy Unknown SHORTNESS Verified 03/01/24 20:48 Antibiotics) OF BREATH [SULFA (SULFONAMIDE ANTIBIOTICS)] vancomycin AdvReac Red Man Verified 03/01/24 20:48 Syndrome Review of Systems Constitutional: Reports body ache(s), Reports chills, Reports fever(s), Reports headache(s) and Reports malaise Eyes: Denies blurry vision Denies vertigo, Denies dizziness and Reports headache(s) Cardiovascular: Denies chest pain and Denies dyspnea Respiratory: Denies cough and Denies dyspnea Gastrointestinal: Reports abdominal pain, Denies nausea and Denies vomiting Genitourinary: Reports dysuria and Reports flank pain Comments: Urinary frequency Denies vertigo, Denies dizziness and Reports headache(s) [facility], [facility] Past Medical History Medical History Leiomyoma FH: colon cancer Thyroid disease Surgical History History of back surgery H/O section Family History Family History Family/Other History of breast cancer Father Brain cancer Social History Social History Household Members: Family Housing: House Do you presently have visiting nurse or other home services: No Alcohol intake: current Alcohol intake frequency: holidays/special occasions only Alcohol type: beer Comment: pt family at bedside Patient Tobacco Use Status: Never used Tobacco Smoked in Last 30 Days: No e-Cigarette/Vaping Use: Never Used Use of substances other than those prescribed or required for medical reasons: No Advance Directives: No Advance Directives Information Provided: No Do you have a plan to hurt others: No Plan Patient : No service: No Current occupational status: employed Cognitive needs: No Hearing needs: No Vision needs: No Physical Exam ED Vital Signs: Vital Signs - 24 hr 03/01/24 20:42 03/01/24 21:36 Temperature 99.5 F 100.2 F Pulse Rate 143 H 106 H Respiratory Rate 22 H 17 Blood Pressure 145/100 H 144/90 H Pulse Oximetry 99 98 Oxygen Delivery Method Room Air BMI result Body Mass Index 26.6 Const General: healthy appearing, no acute distress, alert and awake Nutritional Appearance: well nourished Orientation/consciousness: patient oriented x3 HENMT Head: Yes normocephalic and Yes atraumatic Throat: Yes posterior oropharynx normal Eyes Eyelids: Yes eyelids normal Conjunctivae: conjunctivae normal Sclerae: sclerae normal Corneas: corneas normal Pupils: Equal, round and reactive pupils present EOM: EOMs intact bilaterally Neck Neck: Yes full ROM Resp Effort & Inspection: normal respiratory effort, able to speak in complete sentences and not labored Cardio Rate: regular rate Rhythm: regular rhythm GI Inspection: No distended Palpation (GI): Soft to palpation, not firm, Tenderness to palpation present (GI) in the LLQ and suprapubicly, Guarding due to palpation present (GI) (Left lower quadrant and suprapubic without rebound) in the LLQ and not rigid Skin General skin exam: elasticity normal Neuro General: patient oriented x3 Cranial nerves: Yes Equal, round and reactive pupils present and Yes Bilaterally intact EOM present Cognition (Neuro): normal cognition Extrem Other: Moving all extremities well without any obvious deformities Course Course Course Narrative: This is a Rapid Medical Exam performed in triage by Veena Quiros PA-C. Full HPI, ROS and PE to be performed by primary ED provider. 48 year-old F w/ PMHx GERD, Gastritis, renal stones, bacteremia, presenting to the ED c/o fever (103.1), abdominal pain, nausea, vomiting, & dysuria x today. Took Tylenol [employer] PE: Uncomfortable, abdomen soft w/LLQ & suprapubic pain Plan: Labs, UA Reevaluation(s) Reevaluation #1: Patient is tachypneic, tachycardic with a temp to 100.2, [place] [address], she meets sepsis criteria with a suspected UTI. I ordered ceftriaxone and IV fluids as well as Toradol for discomfort. She received acetaminophen at 6:00 p.m. blood cultures have been drawn, her lactate is within normal limits. There is no evidence of severe sepsis at this time Time: 21:42 Medical Decision Making Medical Decision Making [facility] Narrative: 48-year-old female presents for evaluation of flank pain, urinary symptoms and fever. I was able to view her outpatient urinalysis from 02/15/2024 which appears consistent with urinary tract infection and this was never treated. The patient likely meets sepsis criteria due to UTI, will treat with ceftriaxone, IV fluids, Toradol. A CT scan will be obtained to evaluate for urinary obstruction. Differential Diagnosis Differential Diagnoses: The differential diagnosis associated with the presentation includes Urosepsis UTI Obstructive uropathy Flank pain Lab Data [facility] Lab Attestation statement: I reviewed the patient's lab results. There is a leukocytosis to 15.2 with a significant left shift. The patient does have a chronic microcytic anemia consistent with her baseline. Chemistries are significant for a carbon dioxide level of 18 otherwise no significant abnormalities. 03/01/24 21:02 03/01/24 21:02 Labs: Lab Results 03/01/24 03/01/24 Range/Units 21:02 21:36 WBC 15.2 H (4.8-10.8) X10*3/uL RBC 4.36 (4.20-5.50) X10*6/uL Hgb 11.7 L (12.0-16.0) g/dl Hct 34.0 L (37.0-47.0) % MCV 78.0 L (80.0-98.0) fL MCH 26.8 L (27.0-33.0) pg MCHC 34.4 (31.0-35.0) g/dl RDW 13.5 (11.0-16.0) % Plt Count 262 (160-400) X10*3/uL MPV 9.0 L (9.4-12.3) fL Immature Gran % (Auto) 0.5 H (0.0-0.4) % Neut % (Auto) 89.4 H (45-73) % Lymph % (Auto) 5.9 L (20-40) % [place] % (Auto) 3.9 (2-11) % Eos % (Auto) 0.1 (0-4) % Baso % (Auto) 0.2 (0-2) % Lymph # (Auto) 0.9 L (1.2-4.9) X10*3/uL [place] # (Auto) 0.6 (0.1-1.2) X10*3/uL Eos # (Auto) 0.0 (0.0-0.4) X10*3/uL Baso # (Auto) 0.0 (0.0-0.2) X10*3/uL Abs Immat Gran (auto) 0.07 H (0.00-0.03) X10*3/uL Absolute Neuts (auto) 13.6 H (2.0-8.3) x10*3/uL Absolute Nucleated RBC 0.000 (0.0-0.012) X10*3/uL Nucleated RBC % (auto) 0.0 (0.0-0.2) /100WBC Sodium 139 (135-145) mmol/L Potassium 3.8 D (3.3-5.1) mmol/L Chloride 109 H (96-108) mmol/L Carbon Dioxide 18 L (22-29) mmol/L Anion Gap 16 (12-20) BUN 13 (9-16) mg/dL Creatinine 0.89 (0.5-1.4) mg/dL Estim Creat Clear Calc 70.6 Estimated GFR > 60 Random Glucose 112 (60-115) mg/dL Lactic Acid 1.7 (0.5-2.0) mmol/L Calcium 9.3 (8.4-10.2) mg/dL Magnesium 1.7 (1.6-2.6) mg/dL Total Bilirubin 0.4 (0.0-1.0) mg/dL Direct Bilirubin 0.1 (0.0-0.5) mg/dL AST 10 (5-31) U/L ALT 7 (0-31) U/L Alkaline Phosphatase 59 (39-117) U/L Total Protein 7.2 (6.5-8.0) g/dL Albumin 4.5 (3.5-5.0) g/dL Lipase 45 (8-78) U/L Urine Color Yellow Urine Appearance Clear Urine pH 5.5 (5.0-9.0) Ur Specific [place] <= 1.005 (1.005-1.025) Urine Protein Negative (Neg-Trace) mg/dL Urine Glucose (UA) Negative (Negative) mg/dL Urine Ketones Negative (Negative) mg/dL Urine Blood Negative (Negative) Urine Nitrite Negative (Negative) Ur Leukocyte Esterase Negative (Negative) Urine Test NEGATIVE (NEGATIVE) Medications Administered Generic Name Dose Route Start Last Admin Trade Name Marti PRN Reason Stop Dose Admin Sodium Chloride 1,000 mls @ 999 mls/hr 03/01/24 21:15 03/01/24 21:24 Ns IV 03/01/24 22:15 999 mls/hr .Q1H1M ALYSSA Administration Discontinued Medications Generic Name Dose Route Start Last Admin Trade Name Marti PRN Reason Stop Dose Admin Ceftriaxone Sodium 1 gm/ 50 mls @ 100 mls/hr 03/01/24 21:23 03/01/24 21:34 Sodium Chloride IV 03/01/24 21:52 100 mls/hr ONCE ONE Administration Ketorolac Tromethamine 30 mg 03/01/24 21:11 03/01/24 21:23 Ketorolac Tromethamine 30 Mg/Ml Vial IVPUSH 03/01/24 21:12 30 mg ONCE ONE Administration Ondansetron HCl 4 mg 03/01/24 21:11 03/01/24 21:24 Ondansetron Hcl 4 Mg/2 Ml Vial IVPUSH 03/01/24 21:12 4 mg ONCE ONE Administration Discharge Plan Discharge Clinical Impression: Sepsis Patient Disposition: Admitted As Inpatient Print Language: Arabic
[2024-03-01 21:14] LABS: MANUAL DIFF FLAG NO
[2024-03-01 21:17] LABS: Basophils Percent Auto 0.2 % (0-2); Eosinophils Percent Auto 0.1 % (0-4); Hemoglobin 11.7 g/dl (12.0-16.0); Imm Gran Abs Auto 0.07 X10*3/uL (0.00-0.03); Imm Gran Pct Auto 0.5 % (0.0-0.4); Lymphocytes Absolute Auto 0.9 X10*3/uL (1.2-4.9); Lymphocytes Percent Auto 5.9 % (20-40); Mean Corpuscular HGB Conc 34.4 g/dl (31.0-35.0); Mean Corpuscular Hemoglobin 26.8 pg (27.0-33.0); Monocytes Absolute Auto 0.6 X10*3/uL (0.1-1.2); Monocytes Percent Auto 3.9 % (2-11); Neutrophils Absolute Auto 13.6 x10*3/uL (2.0-8.3); Neutrophils Percent Auto 89.4 % (45-73); Platelet Count 262 X10*3/uL (160-400); Red Blood Count 4.36 X10*6/uL (4.20-5.50); Red Cell Distribution Width 13.5 % (11.0-16.0); White Blood Count 15.2 X10*3/uL (4.8-10.8)
[2024-03-01] MEDS: Ketorolac Tromethamine 30 MG/ML VIAL IVPUSH (21:23)
[2024-03-01 21:24] LABS: Lactic Acid 1.7 mmol/L (0.5-2.0)
[2024-03-01] MEDS: 0.9 % Sodium Chloride 1,000 ML 999 ML IV (21:24)
[2024-03-01] MEDS: ondansetron HCL 4 MG/2 ML VIAL IVPUSH (21:24)
[2024-03-01 21:30] LABS: Alanine Aminotransferase 7 U/L (0-31); Albumin Level 4.5 g/dL (3.5-5.0); Alkaline Phosphatase 59 U/L (39-117); Anion Gap 16 (12-20); Aspartate Amino Transferase 10 U/L (5-31); Bilirubin Direct 0.1 mg/dL (0.0-0.5); Bilirubin Total 0.4 mg/dL (0.0-1.0); Blood Urea Nitrogen 13 mg/dL (9-16); Calcium 9.3 mg/dL (8.4-10.2); Carbon Dioxide 18 mmol/L (22-29); Chloride 109 mmol/L (96-108); Creatinine Clr Calc Pharmacy 70.6; Estimated Glomerular Filt Rate > 60; Glucose Random 112 mg/dL (60-115); Lipase 45 U/L (8-78); Magnesium 1.7 mg/dL (1.6-2.6); Potassium 3.8 mmol/L (3.3-5.1); Sodium 139 mmol/L (135-145); Total Protein 7.2 g/dL (6.5-8.0)
[2024-03-01] MEDS: cefTRIAXone sodium 1 GM in 0.9 % Sodium Chloride 50 ML IV (21:34)
[2024-03-01 21:46] LABS: Appearance Urine Clear; Color Urine Yellow; Glucose Urine UA Negative (Negative); Leukocyte Esterase Urine Negative (Negative); Nitrite Urine Negative (Negative); PH 5.5 (5.0-9.0); Specific Gravity - Urine <= 1.005 (1.005-1.025); Urine Blood Negative (Negative); Urine Ketones Negative (Negative); Urine Protein Negative (Neg-Trace)
[2024-03-01 21:48] LABS: UPreg QC Valid YES; Urine Pregnancy NEGATIVE (NEGATIVE)
--- NOTE | 2024-03-01 21:56 | PC.NURSE ---
Patient present to ED for evaluation of left flank pain and fever. Patient reports she developed urinary frequency and left flank pain about 2 weeks ago. She did provide a urine sample to her PCP on 02/15/2024, but never heard results and was never given any antibiotics. She reports a fever 103.1 at home, she took Tylenol at 6:00 p.m. today. She complains of 7/10 left flank pain, urinary frequency, dysuria, weakness, and body aches. Patient changed in a hospital gown, labs drawn and sen to lab. 20 G IV line established in AC. Patient medicated per OCT. Patient's daughter at bedside, call araujo in patient's reach, plan of care ongoing.
[2024-03-02] VITALS (13 sets, daily range): BP systolic 98–122; BP diastolic 61–79; PULSE 63–95; RESP 12–18; TEMP 36.2–36.9; O2SAT 96–100; BMI 28.7
[2024-03-02] MEDS: Acetaminophen 325 MG TABLET 650 MG PO (01:03)
[2024-03-02 01:11] LABS: Influenza A PCR NEGATIVE (Negative); Influenza B PCR NEGATIVE (Negative); Resp Syncy Virus RNA Qual PCR NEGATIVE (Negative); SARS COV2 PCR INHOUSE NEGATIVE (Negative)
--- NOTE | 2024-03-02 03:15 | P.HPHOSP_ITS ---
History of Present Illness Date of Service: 03/02/24 Attending physician on admission: Ivan Kaur Chief Complaint: Left flank pain Lakshmi Ramos is a very pleasant 48 years old woman with past medical history significant for hypothyroidism, nephrolithiasis and bacteremia by E coli due to UTI (September 2022) presents to the emergency department complaining of left flank pain radiating to the pelvic area that has been getting worse the last few days. She also has been experiencing pain with urination, chills, nausea, diarrhea, vomiting and fever. She also denied vaginal discharges or bleeding. Two weeks ago, she was evaluated by her PCP for these symptoms. She underwent urinalysis and urine culture that grew >100,000 cfu/ml mixed bacterial digna characteristic of urogenital contamination. She was not prescribed with antibiotics. She has been taking AZO that she got over the counter. She mentioned an episode hematuria that she attributes to passing urinary stone. Did not report any headache, palpitations or dizziness. Did not report any acute cardiopulmonary symptoms. She does have IUD in place (placed about 3 months ago. In the ED, she was found to have atrial pressure 100.2, marked tachycardia. Oxygen saturation and blood pressure are normal. Blood workup was remarkable for leukocytosis of 15.2. Hemoglobin is 11.7 which is at baseline and platelets are normal. There is no lactic acidosis. There are no significant electrolyte imbalances. LFTs are normal. test is negative. Urinalysis showed no nitrites, leukocyte esterase or WBC. Abdomen pelvis CT scan showed no acute intra-abdominal or intrapelvic abnormalities, 4 mm nonobstructive calculus in the left kidney without evidence of obstructive uropathy. ED tx: NS 1 L bolus, ketorolac 30 mg IV, Tylenol 1300 mg PO total, Zofran 4 mg p.o., ceftriaxone 1 g IV. Review of Systems 2 Review of Systems: All 12 systems were reviewed and normal except as noted in HPI. [facility] Medical History (Updated 03/02/24 @ 03:42 by Ivan Kaur MD) Hypothyroidism Leiomyoma FH: colon cancer Family History Family/Other History of breast cancer Father Brain cancer Surgical History History of back surgery H/O section Social History Household Members: Family Housing: House Do you presently have visiting nurse or other home services: No Alcohol intake: current Alcohol intake frequency: holidays/special occasions only Alcohol type: beer Comment: pt family at bedside Patient Tobacco Use Status: Never used Tobacco Smoked in Last 30 Days: No e-Cigarette/Vaping Use: Never Used Use of substances other than those prescribed or required for medical reasons: No Advance Directives: No Advance Directives Information Provided: No Do you have a plan to hurt others: No Plan Patient : No service: No Current occupational status: employed Cognitive needs: No Hearing needs: No Vision needs: No Meds Allergies Allergy/AdvReac Type Severity Reaction Status Date / Time Sulfa (Sulfonamide Allergy Unknown SHORTNESS Verified 03/01/24 20:48 Antibiotics) OF BREATH [SULFA (SULFONAMIDE ANTIBIOTICS)] vancomycin AdvReac Red Man Verified 03/01/24 20:48 Syndrome Active Medications: Current Medications Acetaminophen (Acetaminophen 325 Mg Tablet) 975 mg PO Q6H PRN PRN Reason: Pain, Mild (Pain Scale 1-3), fever or headache Enoxaparin Sodium (Enoxaparin Sodium 40 Mg/0.4 Ml Syringe) 40 mg SUBCUT Q24H ALYSSA Lactated Ringer's (Lr) 1,000 mls @ 125 mls/hr IVCONT .Q8H ALYSSA Ceftriaxone Sodium 1 gm/ (Sodium Chloride) 50 mls @ 100 mls/hr IV Q12H ALYSSA Ondansetron HCl (Ondansetron Hcl 4 Mg/2 Ml Vial) 4 mg IVPUSH Q6H PRN PRN Reason: Nausea and Vomiting Sodium Chloride (0.9 % Sodium Chloride Flush 3 Ml Syringe) 3 ml IVFLUSH QSHIFT ALYSSA Home Medications ?Medication ?Instructions ?Recorded ?Confirmed ?Last Taken ?Type levonorgestrel 21 mcg/24 hr (up to intrauterine 11/16/23 02/15/24 Unknown History 8 years) 52 mg intrauterine device (Mirena) Physical Exam 2 Vital Signs and Narrative: Vital Signs: Last Vital Signs Temp 98.3 F 03/02/24 02:15 Pulse 76 03/02/24 02:15 Resp 16 03/02/24 02:15 BP 112/64 03/02/24 02:15 Pulse Ox 98 03/02/24 02:15 O2 Del Method Room Air 03/02/24 02:15 BMI result Body Mass Index 26.6 Constitutional - Awake and Alert, No apparent distress. Looks uncomfortable due to pain. Pleasant. Cooperative. HEENT - Normocephalic. Dry oral mucosa. Heart - S1S2, RRR, No no murmurs Lungs - Normal lung expansion, Normal respiratory effort, No respiratory distress, CTA bilaterally Abdomen - nondistended, soft, increased bowel sounds, left flank pain with guarding. No rebound. - Left CVA tenderness Extremities - no calf tenderness bilaterally, no swelling Musculoskeletal - Normal inspection, normal ROM Skin - Warm/Dry Neurological - Alert & oriented x3. No focal weakness grossly noted. Psychological - Appropriate affect Results Labs 03/01/24 21:02 03/01/24 21:02 Labs: Laboratory Results - last 24 hr 03/01/24 03/01/24 03/02/24 21:02 21:36 00:30 MCV 78.0 L MCH 26.8 L MCHC 34.4 RDW 13.5 Plt Count 262 MPV 9.0 L Immature Gran % (Auto) 0.5 H Neut % (Auto) 89.4 H Lymph % (Auto) 5.9 L [place] % (Auto) 3.9 Eos % (Auto) 0.1 Baso % (Auto) 0.2 Lymph # (Auto) 0.9 L [place] # (Auto) 0.6 Eos # (Auto) 0.0 Baso # (Auto) 0.0 Abs Immat Gran (auto) 0.07 H Absolute Neuts (auto) 13.6 H Absolute Nucleated RBC 0.000 Nucleated RBC % (auto) 0.0 Anion Gap 16 Estim Creat Clear Calc 70.6 Estimated GFR > 60 Random Glucose 112 Lactic Acid 1.7 Calcium 9.3 Magnesium 1.7 Total Bilirubin 0.4 Direct Bilirubin 0.1 AST 10 ALT 7 Alkaline Phosphatase 59 Total Protein 7.2 Albumin 4.5 Lipase 45 Urine Color Yellow Urine Appearance Clear Urine pH 5.5 Ur Specific [place] <= 1.005 Urine Protein Negative Urine Glucose (UA) Negative Urine Ketones Negative Urine Blood Negative Urine Nitrite Negative Ur Leukocyte Esterase Negative Urine Test NEGATIVE Influenza Type A (PCR) NEGATIVE Influenza Type B (PCR) NEGATIVE RSV RNA Qual (PCR) NEGATIVE SARS-CoV-2 RNA (RT-PCR) NEGATIVE Imaging Radiologist's Impressions: Impressions Abdomen/Pelvis CT 03/01/24 21:59 IMPRESSION: 1. No acute intra-abdominal or intrapelvic abnormalities. 2. A 4 mm nonobstructing calculus in the left kidney. No evidence of obstructive uropathy. 3. Borderline hepatosplenomegaly, unchanged. Fleischner guidelines were followed. Chest X-Ray 03/01/24 23:55 IMPRESSION: Low lung volumes without acute findings. Assessment and Plan (1) Sepsis: Qualifiers: Sepsis type: sepsis due to unspecified organism Sepsis acute organ dysfunction status: without acute organ dysfunction Qualified Code(s): A41.9 - Sepsis, unspecified organism Status: Acute (2) Pyelonephritis: Status: Acute (3) Hypothyroidism: Qualifiers: Hypothyroidism type: unspecified Qualified Code(s): E03.9 - Hypothyroidism, unspecified Status: Acute Plan Lakshmi Ramos is a 48 y/o woman with PNHx significant for nephrolithiasis and bacteremia by E coli due to UTI (September 2022) admitted with: * Left flank pain suspecting UTI/pyelonephritis ?Kidney stone; rule out bacteremia. Admit to hospitalist service. IV fluids. Symptomatic therapy with Dilaudid and Toradol IV. Antiemetic therapy as needed. Continue empiric IV antibiotic therapy with ceftriaxone. Add microscopic and urine culture. Blood cultures obtained -will follow results. * SIRS/sepsis criteria, no severe sepsis. Secondary to above. Continue IV fluids and antibiotics. * Hypothyroidism. Continue levothyroxine. * Chronic anemia. Continue to monitor H&H. * IUD in place. Placed 3 months ago. DVT prophylaxis: Lovenox Code status: Full Patient will need hospitalization for at least 2 midnights for sepsis secondary to suspected pyelonephritis therapy with IV fluids and empiric IV antibiotic therapy. Quality Stroke Does the patient have a stroke diagnosis?: No VTE Prior VTE?: No VTE Risk Level:: Medical - moderate - high VTE Device Contraindication: Treatment Not Indicated VTE Drug Contraindication: N/A - Med Ordered
[2024-03-02 03:23] LABS: Thyroid Stimulating Hormone 3.11 uIU/mL (0.32-4.0)
[2024-03-02 03:32] LABS: UMIC TRIGGER UACC YES
[2024-03-02 03:40] LABS: Bacteria Urine None Seen (None Seen); Hyaline Casts Urine 0-2 /LPF (0-2); RBC Urine 0-2 /HPF (0-2); Squamous Epithelial Cell Urine 0-2 /HPF (0-2); WBC Urine 0-5 /HPF (0-5)
[2024-03-02 03:44] LABS: UACC Culture Trigger YES
[2024-03-02] MEDS: Lactated Ringers 1,000 ML 125 ML IVCONT ×3 (04:03→17:20)
[2024-03-02 05:02] LABS: MANUAL DIFF FLAG NO
[2024-03-02 05:04] LABS: Basophils Percent Auto 0.3 % (0-2); Eosinophils Percent Auto 0.2 % (0-4); Hematocrit 29.6 % (37.0-47.0); Hemoglobin 10.1 g/dl (12.0-16.0); Imm Gran Abs Auto 0.03 X10*3/uL (0.00-0.03); Imm Gran Pct Auto 0.3 % (0.0-0.4); Lymphocytes Absolute Auto 1.6 X10*3/uL (1.2-4.9); Lymphocytes Percent Auto 13.4 % (20-40); Mean Corpuscular HGB Conc 34.1 g/dl (31.0-35.0); Mean Corpuscular Volume 79.1 fL (80.0-98.0); Mean Platelet Volume 8.8 fL (9.4-12.3); Monocytes Absolute Auto 0.5 X10*3/uL (0.1-1.2); Neutrophils Absolute Auto 9.4 x10*3/uL (2.0-8.3); Neutrophils Percent Auto 81.8 % (45-73); Platelet Count 218 X10*3/uL (160-400); Red Blood Count 3.74 X10*6/uL (4.20-5.50); Red Cell Distribution Width 13.7 % (11.0-16.0); White Blood Count 11.5 X10*3/uL (4.8-10.8)
--- NOTE | 2024-03-02 05:08 | PC.NURSE ---
Patient alert and oriented x3. She is able to make her needs known. VSS. Patient reports pain in left flank at tolerable level 2/10 at present. Patient offers no complains at this time, plan of care ongoing. Call araujo within reach, pal of care ongoing.
[2024-03-02 05:22] LABS: Alanine Aminotransferase 7 U/L (0-31); Albumin Level 3.7 g/dL (3.5-5.0); Alkaline Phosphatase 49 U/L (39-117); Anion Gap 11 (12-20); Aspartate Amino Transferase 8 U/L (5-31); Bilirubin Total 0.4 mg/dL (0.0-1.0); Blood Urea Nitrogen 10 mg/dL (9-16); Calcium 8.4 mg/dL (8.4-10.2); Carbon Dioxide 20 mmol/L (22-29); Chloride 112 mmol/L (96-108); Creatinine Clr Calc Pharmacy 86.1; Estimated Glomerular Filt Rate > 60; Glucose Random 103 mg/dL (60-115); Potassium 3.3 mmol/L (3.3-5.1); Sodium 140 mmol/L (135-145); Total Protein 5.9 g/dL (6.5-8.0)
[2024-03-02] MEDS: cefTRIAXone sodium 2 GM in 0.9 % Sodium Chloride 50 ML IV (08:23)
[2024-03-02] MEDS: Tamsulosin HCL 0.4 MG CAPSULE PO (08:24)
[2024-03-02] MEDS: Enoxaparin Sodium 40 MG/0.4 ML SYRINGE SUBCUT (08:24)
--- NOTE | 2024-03-02 08:51 | PHA.MEDREC ---
Pharmacy Consult ? Medication Reconciliation Pharmacy has completed the medication reconciliation.
[2024-03-02] MEDS: Ketorolac Tromethamine 15 MG/ML VIAL IVPUSH (10:16)
--- NOTE | 2024-03-02 10:36 | MHC.CM.PN ---
pt lives with ,is independent has no servies dc plan home no servies
--- NOTE | 2024-03-02 10:37 | MHC.CM.PN ---
pt lives with is indepedent has own ride home dc plan home no servies
--- NOTE | 2024-03-02 11:26 | PM.EVENT ---
Event Note Date of Service: 03/02/24 Event Note: This patient is seen and examined hospitalist service this morning, seen and examined again has left flank pain, pain with urination no fevers Physical exam -unchanged as h&P and assessment and plan coordinated in APCs note, Agree with the plan in addition: left flank pain -d/d renal stone vs suspected uti? continue ivf ,pain meds,iv antibiotics ,blood cultures pending added urology eval. d/w family at bedside ind etail. Time Spent With Patient Time: Total time managing care of this patient today ____ minutes.
[2024-03-02] MEDS: Omeprazole 20 MG CAPSULE.DR PO ×2 (15:12→22:32)
[2024-03-02] MEDS: Levothyroxine Sodium 100 MCG TABLET PO (15:12)
[2024-03-02] MEDS: HYDROmorphone HCl 1 MG/ML SYRINGE IVPUSH (17:14)
[2024-03-02] MEDS: ondansetron HCL 4 MG/2 ML VIAL IVPUSH (18:26)
[2024-03-02] MEDS: Prochlorperazine Edisylate 10 MG/2 ML VIAL 5 MG IVPUSH (21:29)
[2024-03-02] MEDS: Lidocaine 4 % Patch ADH..PATCH 1 PATCH TRANSDERMA (21:34)
[2024-03-02] MEDS: Simethicone 80 MG TAB.CHEW 160 MG PO (22:32)
[2024-03-02] MEDS: Ibuprofen 400 MG TABLET PO (22:33)
[2024-03-03] MEDS: Lactated Ringers 1,000 ML 125 ML IVCONT ×3 (02:04→20:24)
[2024-03-03 03:33] VITALS: BP 100/60; PULSE 61; RESP 18; TEMP 36.9; O2SAT 97
[2024-03-03 06:49] VITALS: BP 119/75; PULSE 75; RESP 16; TEMP 36.6; O2SAT 95
--- NOTE | 2024-03-03 07:40 | P.CNUR_ITS ---
History of Present Illness Consult details Consult date: 03/03/24 Narrative: CC: pyelonephritis 48-year-old female. Prior history nephrolithiasis. Present with flank pain radiating to pelvic floor region over prior 48 hours. Associated dysuria, chills, nausea, vomiting and fever. Previous evaluation 2 weeks prior and urine culture grew 100,000 mixed digna bacteria. Antibiotics were not prescribed. A presentation found to have temperature 100.2 degrees, marked tachycardia. WBC 15.2. CT scan with no acute renal findings. Small 4 mm left nonobstructing stone. Blood culture Gram-negative rods. Current admission treatment for pyelonephritis. Recommend 14 days total antibiotic coverage. Oral antibiotics once blood cultures and urine culture determinant Review of Systems 2 Constitutional: Constitutional: Reports as per HPI and Reports no additional constitutional complaints Cardiovascular: Cardiovascular: Reports as per HPI and Reports no additional cardiovascular complaints Respiratory: Respiratory: Reports as per HPI and Reports no additional respiratory complaints Gastrointestinal: Gastrointestinal: Reports as per HPI and Reports no additional gastrointestinal complaints Genitourinary: Genitourinary: Reports as per HPI Musculoskeletal: Musculoskeletal: Reports no additional musculoskeletal complaints and Reports as per HPI Neurologic: Reports system reviewed and no additional complaints, except as documented and Reports as per HPI PMF Past Medical History Medical History (Updated 03/02/24 @ 03:42 by Ivan Kaur MD) Hypothyroidism Leiomyoma FH: colon cancer Family History Family History Family/Other History of breast cancer Father Brain cancer Surgical History Surgical History History of back surgery H/O section Social History Social History Household Members: Spouse Housing: House Do you presently have visiting nurse or other home services: No Alcohol intake: current Alcohol intake frequency: holidays/special occasions only Alcohol type: beer Comment: pt family at bedside Patient Tobacco Use Status: Never used Tobacco e-Cigarette/Vaping Use: Never Used service: No Current occupational status: employed Cognitive needs: No Hearing needs: No Vision needs: No Meds Allergies Allergy/AdvReac Type Severity Reaction Status Date / Time Sulfa (Sulfonamide Allergy Unknown SHORTNESS Verified 03/01/24 20:48 Antibiotics) OF BREATH [SULFA (SULFONAMIDE ANTIBIOTICS)] vancomycin AdvReac Red Man Verified 03/01/24 20:48 Syndrome Active Medications: Current Medications Acetaminophen (Acetaminophen 325 Mg Tablet) 975 mg PO Q6H PRN PRN Reason: Pain, Mild (Pain Scale 1-3), fever or headache Enoxaparin Sodium (Enoxaparin Sodium 40 Mg/0.4 Ml Syringe) 40 mg SUBCUT Q24H [facility] Last Admin: 03/02/24 08:24 Dose: 40 mg Lactated Ringer's (Lr) 1,000 mls @ 125 mls/hr IVCONT .Q8H [facility] Last Admin: 03/03/24 02:04 Dose: 125 mls/hr Ceftriaxone Sodium 2 gm/ (Sodium Chloride) 50 mls @ 100 mls/hr IV Q24H [facility] Last Infusion: 03/02/24 09:11 Dose: Infused Ibuprofen (Ibuprofen 400 Mg Tablet) 400 mg PO Q6H PRN PRN Reason: Pain, Moderate(Pain Scale 4-6) Last Admin: 03/02/24 22:33 Dose: 400 mg Levothyroxine Sodium (Levothyroxine Sodium 100 Mcg Tablet) 100 mcg PO DAILY [facility] Last Admin: 03/02/24 15:12 Dose: 100 mcg Lidocaine (Lidocaine 4 % Patch Adh..Patch) 1 patch TRANSDERMA DAILY [facility]; Protocol Last Admin: 03/02/24 21:34 Dose: 1 patch Omeprazole (Omeprazole 20 Mg Capsule.Dr) 20 mg PO BID [facility] Last Admin: 03/02/24 22:32 Dose: 20 mg Ondansetron HCl (Ondansetron Hcl 4 Mg/2 Ml Vial) 4 mg IVPUSH Q6H PRN PRN Reason: Nausea and Vomiting Last Admin: 03/02/24 18:26 Dose: 4 mg Prochlorperazine Edisylate (Prochlorperazine Edisylate 10 Mg/2 Ml Vial) 5 mg IVPUSH Q4H PRN PRN Reason: Nausea and Vomiting Last Admin: 03/02/24 21:29 Dose: 5 mg Sodium Chloride (0.9 % Sodium Chloride Flush 3 Ml Syringe) 3 ml IVFLUSH QSHIFT [facility] Last Admin: 03/03/24 07:17 Dose: Not Given Tamsulosin HCl (Tamsulosin Hcl 0.4 Mg Capsule) 0.4 mg PO DAILY [facility] Last Admin: 03/02/24 08:24 Dose: 0.4 mg Vitamin D (Cholecalciferol (Vitamin D3) 25 Mcg Tablet) 50 mcg PO DAILY [facility] Home Medications ?Medication ?Instructions ?Recorded ?Confirmed ?Last Taken ?Type acetaminophen 325 mg tablet 650 mg PO Q6H PRN Pain 03/02/24 03/02/24 Unknown History (Tylenol) cholecalciferol (vitamin D3) 50 50 mcg PO DAILY 03/02/24 03/02/24 03/01/24 History mcg (2,000 unit) tablet (Vitamin D3) levothyroxine 100 mcg tablet 100 mcg PO DAILY 03/02/24 03/02/24 03/01/24 History pantoprazole 40 mg tablet,delayed 40 mg PO DAILY@0630 03/02/24 03/02/24 03/01/24 History release Physical Exam 2 Vital Signs: Vital Signs: Last Vital Signs Temp 98 F 03/03/24 06:49 Pulse 75 03/03/24 06:49 Resp 16 03/03/24 06:49 BP 119/75 03/03/24 06:49 Pulse Ox 95 03/03/24 06:49 O2 Del Method Room Air 03/03/24 06:49 BMI result Body Mass Index 28.7 Const: General: cooperative, healthy appearing, comfortable and no acute distress Orientation/consciousness: patient oriented x3 HEENT: Face and sinus: Yes normal facial exam Mouth: moist mucous membranes Neck: Neck: Yes normal visual inspection, Yes full ROM and Yes trachea midline Chest: Chest palpation & inspection: normal inspection of the chest Resp: Effort & Inspection: normal respiratory effort, able to speak in complete sentences and no respiratory distress GI: Inspection: Yes normal to inspection Back/Spine/Pelvis: Cervical Spine: normal cervical lordosis Thoracic/Lumbar Spine: thoracic and lumbar spine normal to inspection Skin: General skin exam: no rashes or lesions noted Neuro: General: patient oriented x3, tone normal and moves all extremities Extrem: General: Yes normal to inspection and Yes capillary refill normal Results Labs 03/02/24 04:57 03/02/24 04:57 Labs: Urine 03/01/24 Range/Units 21:36 Urine Color Yellow Urine Appearance Clear Urine pH 5.5 (5.0-9.0) Ur Specific [place] <= 1.005 (1.005-1.025) Urine Protein Negative (Neg-Trace) mg/dL Urine Glucose (UA) Negative (Negative) mg/dL Urine Test NEGATIVE (NEGATIVE) All other labs normal. Assessment and Plan (1) Pyelonephritis: Status: Acute Plan Antibiotic therapy Procedures Date of Service Date of Service: 03/03/24
[2024-03-03] MEDS: cefTRIAXone sodium 2 GM in 0.9 % Sodium Chloride 50 ML IV (09:02)
[2024-03-03] MEDS: Cholecalciferol (Vitamin D3) 25 MCG TABLET 50 MCG PO (09:03)
[2024-03-03] MEDS: Omeprazole 20 MG CAPSULE.DR PO ×2 (09:03→20:20)
[2024-03-03] MEDS: Tamsulosin HCL 0.4 MG CAPSULE PO (09:03)
[2024-03-03] MEDS: Levothyroxine Sodium 100 MCG TABLET PO (09:03)
[2024-03-03] MEDS: Lidocaine 4 % Patch ADH..PATCH 1 PATCH TRANSDERMA (09:03)
[2024-03-03] MEDS: Enoxaparin Sodium 40 MG/0.4 ML SYRINGE SUBCUT (09:04)
--- NOTE | 2024-03-03 11:22 | HO.PM.IMPN ---
Subjective Subjective Date of Service: 03/03/24 Interval History: left flank pain Review of Systems seems improving no fevers Physical Exam Vital Signs: Vital Signs: Last Vital Signs Temp 98 F 03/03/24 06:49 Pulse 75 03/03/24 06:49 Resp 16 03/03/24 06:49 BP 119/75 03/03/24 06:49 Pulse Ox 95 03/03/24 06:49 O2 Del Method Room Air 03/03/24 06:49 BMI result Body Mass Index 28.7 Appearance: Alert.? Oriented X3.? cvs: rrr, [id number] , no murmur res: clear to auscultation ,no rhonchii or wheezing abd: no rebound or guarding ,nt, bs present. Gu-left flank pain improving ext pulses present , no cyanosis . neuro: axo3 , nonfocal. Objective Data Active Medications Acetaminophen (Acetaminophen 325 Mg Tablet) 975 mg PO Q6H PRN PRN Reason: Pain, Mild (Pain Scale 1-3), fever or headache Enoxaparin Sodium (Enoxaparin Sodium 40 Mg/0.4 Ml Syringe) 40 mg SUBCUT Q24H [facility] Last Admin: 03/03/24 09:04 Dose: 40 mg Documented By: PAULIE Lactated Ringer's (Lr) 1,000 mls @ 125 mls/hr IVCONT .Q8H [facility] Last Admin: 03/03/24 02:04 Dose: 125 mls/hr Documented By: OMEGA Ceftriaxone Sodium 2 gm/ (Sodium Chloride) 50 mls @ 100 mls/hr IV Q24H [facility] Last Infusion: 03/03/24 09:59 Dose: Infused Documented By: PAULIE Ibuprofen (Ibuprofen 400 Mg Tablet) 400 mg PO Q6H PRN PRN Reason: Pain, Moderate(Pain Scale 4-6) Last Admin: 03/02/24 22:33 Dose: 400 mg Documented By: OMEGA Levothyroxine Sodium (Levothyroxine Sodium 100 Mcg Tablet) 100 mcg PO DAILY [facility] Last Admin: 03/03/24 09:03 Dose: 100 mcg Documented By: PAULIE Lidocaine (Lidocaine 4 % Patch Adh..Patch) 1 patch TRANSDERMA DAILY [facility]; Protocol Last Admin: 03/03/24 09:03 Dose: 1 patch Documented By: PAULIE Omeprazole (Omeprazole 20 Mg Capsule.) 20 mg PO BID [facility] Last Admin: 03/03/24 09:03 Dose: 20 mg Documented By: PAULIE Ondansetron HCl (Ondansetron Hcl 4 Mg/2 Ml Vial) 4 mg IVPUSH Q6H PRN PRN Reason: Nausea and Vomiting Last Admin: 03/02/24 18:26 Dose: 4 mg Documented By: PAULIE Prochlorperazine Edisylate (Prochlorperazine Edisylate 10 Mg/2 Ml Vial) 5 mg IVPUSH Q4H PRN PRN Reason: Nausea and Vomiting Last Admin: 03/02/24 21:29 Dose: 5 mg Documented By: OMEGA Sodium Chloride (0.9 % Sodium Chloride Flush 3 Ml Syringe) 3 ml IVFLUSH QSHIFT [facility] Last Admin: 03/03/24 07:17 Dose: Not Given Documented By: PAULIE Non-Admin Reason: IV Running Tamsulosin HCl (Tamsulosin Hcl 0.4 Mg Capsule) 0.4 mg PO DAILY [facility] Last Admin: 03/03/24 09:03 Dose: 0.4 mg Documented By: PAULIE Vitamin D (Cholecalciferol (Vitamin D3) 25 Mcg Tablet) 50 mcg PO DAILY [facility] Last Admin: 03/03/24 09:03 Dose: 50 mcg Documented By: PAULIE Labs 03/02/24 04:57 03/02/24 04:57 Microbiology Microbiology Results: Microbiology 03/02/24 Unknown Urine Culture - Preliminary Urine clean catch - Clean Catch Midstream Gram negative erika 03/01/24 21:02 Blood Culture - Preliminary Blood - Venous No growth after 24 hours. 03/01/24 21:02 Blood Culture - Preliminary Blood - Venous No growth after 24 hours. Assessment and Plan (1) Kidney stones: Status: Acute (2) Pyelonephritis: Status: Acute Plan 48 y/o woman with PNHx significant for nephrolithiasis and bacteremia by E coli due to UTI (September 2022) admitted with: Left flank pain suspecting UTI/pyelonephritis ?Kidney stone: urine culture -gram neg erika blood culture @24hr neg CT/CT abdomen pelvis wo IV con: No acute intra-abdominal or intrapelvic abnormalities. A 4 mm nonobstructing calculus in the left kidney. No evidence of obstructive uropathy. Borderline hepatosplenomegaly, unchanged. continue IV fluids. Symptomatic therapy with Dilaudid and Toradol IV. Antiemetic therapy as needed, ceftriaxone day2 . Add microscopic and urine culture. Blood cultures as above. added urology eval. SIRS/sepsis criteria, no severe sepsis. Secondary to above. Continue IV fluids and antibiotics. Hypothyroidism. Continue levothyroxine. Chronic anemia. Continue to monitor H&H. IUD in place. Placed 3 months ago. ongoing hospitalisation need : Left flank pain suspecting UTI/pyelonephritis ?Kidney stone- conitnue hydration,iv antibiotics , pain control, considering hx of bacteremia -moniter blood culture for 48 hrs ,urology eval. Quality Stroke Does the patient have a stroke diagnosis?: No VTE Prior VTE?: No VTE Risk Level:: Medical - moderate - high VTE Device Contraindication: Treatment Not Indicated VTE Drug Contraindication: N/A - Med Ordered
[2024-03-03] MEDS: Prochlorperazine Edisylate 10 MG/2 ML VIAL 5 MG IVPUSH (12:55)
--- NOTE | 2024-03-03 14:06 | MHC.CM.PN ---
DX Pyelo Per MD rounds no discharge today. A consult has been ordered. Blood cultures are pending. DP home self care. Patients spouse will provide transportation home.
[2024-03-03 16:00] VITALS: BP 140/87; PULSE 66; RESP 12; TEMP 36.6; O2SAT 98
[2024-03-03 19:22] VITALS: BP 129/80; PULSE 55; RESP 18; TEMP 36.4; O2SAT 98
[2024-03-04 04:00] VITALS: BP 117/75; PULSE 58; RESP 16; TEMP 36.9; O2SAT 95
[2024-03-04 07:02] VITALS: BP 138/78; PULSE 62; RESP 16; TEMP 36.7; O2SAT 97
[2024-03-04] MEDS: Omeprazole 20 MG CAPSULE.DR PO (08:21)
[2024-03-04] MEDS: Enoxaparin Sodium 40 MG/0.4 ML SYRINGE SUBCUT (08:21)
[2024-03-04] MEDS: Tamsulosin HCL 0.4 MG CAPSULE PO (08:21)
[2024-03-04] MEDS: Cholecalciferol (Vitamin D3) 25 MCG TABLET 50 MCG PO (08:22)
[2024-03-04] MEDS: Levothyroxine Sodium 100 MCG TABLET PO (08:22)
[2024-03-04] MEDS: cefTRIAXone sodium 2 GM in 0.9 % Sodium Chloride 50 ML IV (08:22)
[2024-03-04] MEDS: 0.9 % Sodium Chloride Flush 3 ML SYRINGE IVFLUSH (08:27)
[2024-03-04 09:25] LABS: Hematocrit 32.8 % (37.0-47.0); Mean Corpuscular HGB Conc 33.5 g/dl (31.0-35.0); Mean Corpuscular Hemoglobin 26.9 pg (27.0-33.0); Mean Corpuscular Volume 80.2 fL (80.0-98.0); Mean Platelet Volume 9.1 fL (9.4-12.3); Platelet Count 271 X10*3/uL (160-400); Red Blood Count 4.09 X10*6/uL (4.20-5.50); Red Cell Distribution Width 13.5 % (11.0-16.0); White Blood Count 4.1 X10*3/uL (4.8-10.8)
[2024-03-04 09:37] LABS: Anion Gap 12 (12-20); Blood Urea Nitrogen 5 mg/dL (9-16); Calcium 9.3 mg/dL (8.4-10.2); Carbon Dioxide 25 mmol/L (22-29); Chloride 107 mmol/L (96-108); Creatinine Clr Calc Pharmacy 80.5; Estimated Glomerular Filt Rate > 60; Glucose Random 106 mg/dL (60-115); Sodium 140 mmol/L (135-145)
--- NOTE | 2024-03-04 11:19 | P.DS_ITS ---
DS: Providers Provider Date of Service: 03/04/24 Date of admission: 03/02/24 02:37 Primary care physician: Unknown Physician Consults: 03/02/24 07:53 Consult to Urology Routine Consulting Provider: [facility] Reason for consultation: persistent flank pain,nephrolithasis vs uti Has provider been notified: No DS: Diagnosis Discharge Diagnosis (1) Pyelonephritis: Status: Acute DS: Summary Hospital Course Hospital Course: admission hpi Chief Complaint: Left flank pain Lakshmi Ramos is a very pleasant 48 years old woman with past medical history significant for hypothyroidism, nephrolithiasis and bacteremia by E coli due to UTI (September 2022) presents to the emergency department complaining of left flank pain radiating to the pelvic area that has been getting worse the last few days. She also has been experiencing pain with urination, chills, nausea, diarrhea, vomiting and fever. She also denied vaginal discharges or bleeding. Two weeks ago, she was evaluated by her PCP for these symptoms. She underwent urinalysis and urine culture that grew >100,000 cfu/ml mixed bacterial digna characteristic of urogenital contamination. She was not prescribed with antibi otics. She has been taking AZO that she got over the counter. She mentioned an episode hematuria that she attributes to passing urinary stone. Did not report any headache, palpitations or dizziness. Did not report any acute cardiopulmonary symptoms. She does have IUD in place (placed about 3 months ago. In the ED, she was found to have atrial pressure 100.2, marked tachycardia. Oxygen saturation and blood pressure are normal. Blood workup was remarkable for leukocytosis of 15.2. Hemoglobin is 11.7 which is at baseline and platelets are normal. There is no lactic acidosis. There are no significant electrolyte imbalances. LFTs are normal. test is negative. Urinalysis showed no nitrites, leukocyte esterase or WBC. Abdomen pelvis CT scan showed no acute intra-abdominal or intrapelvic abnormalities, 4 mm nonobstructive calculus in the left kidney without evidence of obstructive uropathy. ED tx: NS 1 L bolus, ketorolac 30 mg IV, Tylenol 1300 mg PO total, Zofran 4 mg p.o., ceftriaxone 1 g IV. Hospital course: The patient presented with left flank pain, a positive urinalysis, and a CT scan showing a 4 mm non-obstructive calculus in the left kidney without evidence of obstructive uropathy. She was admitted and treated for acute pyelonephritis with IV ceftriaxone, to which she responded well. Her WBC count has decreased, and she is afebrile. The urine culture grew E. coli sensitive to ceftriaxone. She has received IV ceftriaxone for 4 days and will transition to oral cefuroxime for an additional 10 days, completing a total of 14 days of antibiotics as recommended by Urology. Her flank pain has resolved, her diet has been advanced and well tolerated, and she will be discharged home today. Final diagnosis: Acute pyelonephritis nonobstructive renal calculus Time Attestation Discharge Coordination Time (in mins): 35 Quality: Safe Use of Opioids Does Pt have an Active Cancer Diagnosis on the Problem List?: No Quality: Stroke Does the patient have a stroke diagnosis?: No Physical Exam Vital Signs: Vital Signs: Last Vital Signs Temp 98.1 F 03/04/24 07:02 Pulse 62 03/04/24 07:02 Resp 16 03/04/24 07:02 BP 138/78 03/04/24 07:02 Pulse Ox 97 03/04/24 07:02 O2 Del Method Room Air 03/04/24 07:02 BMI result Body Mass Index 28.7 General: AO X 3, no acute distress Resp: CTA bilateral CVS: S1,S2,RRR GI: +BS, NT, no distention Skin: No rash Neuro: motor grossly intact Psych: appropriate affect DS: Data Data Completed and Pending Completed studies during hospitalization [Text1]: Procedure Labs on day of discharge: Laboratory Results - last 24 hr 03/04/24 09:18 WBC 4.1 L RBC 4.09 L Hgb 11.0 L Hct 32.8 L MCV 80.2 MCH 26.9 L MCHC 33.5 RDW 13.5 Plt Count 271 MPV 9.1 L Absolute Nucleated RBC 0.000 Nucleated RBC % (auto) 0.0 Sodium 140 Potassium 4.0 D Chloride 107 Carbon Dioxide 25 Anion Gap 12 BUN 5 L Creatinine 0.81 Estim Creat Clear Calc 80.5 Estimated GFR > 60 Random Glucose 106 Calcium 9.3 D Preliminary micro results at discharge 03/01/24 21:02 Blood Culture - Preliminary Blood - Venous No growth after 48 hours. 03/01/24 21:02 Blood Culture - Preliminary Blood - Venous No growth after 48 hours. Discharge Plan Discharge Anticipated Discharge Date/Time: 03/04/24 08:34 Patient Disposition: Home, Self-Care Discharge Diagnosis: acute pyelonephritis, Referrals: Physician,Unknown J [Primary Care Provider] - 1 Week Discharge Medications: New cefuroxime axetil 500 mg tablet 500 mg PO BID 10 Days Qty: 20 0RF Rx Instructions: next dose 03/05/24 Continued acetaminophen [Tylenol] 325 mg Tablet 650 mg PO Q6H PRN (Reason: Pain) levothyroxine 100 mcg tablet 100 mcg PO DAILY cholecalciferol (vitamin D3) [Vitamin D3] 50 mcg (2,000 unit) Tablet 50 mcg PO DAILY pantoprazole 40 mg tablet,delayed release (DR/EC) 40 mg PO DAILY@0630 Discharge Orders: Discharge Order (Routine); Ordered 03/04/24 Ordered By: Samuel Cordoba Diet: Advance to usual diet Activity on Discharge: As tolerated Stand Alone Forms: Patient Portal Discharge page Print Language: Prydeinig Care Plan Goals: full recovery from acute pyelonephritis. Health Concerns: Acute pyelonephritis Plan of Treatment: take cefuroxime 500 mg twice daily for 10 days, starting tomorrow follow-up with your primary care doctor within a week to 2, call for appointment. Assessment: see above
--- NOTE | 2024-03-04 11:36 | MHC.CM.PN ---
DP: PT HAS BEEN MEDICALLY CLEARED FOR DC HOME, NO SERVICES. PT HAS OWN RIDE HOME
--- NOTE | 2024-03-09 07:11 | P.CDIM_ITS ---
PROVIDER RESPONSE TEXT: To clarify, the appropriate diagnosis supported by the clinical indicators: Sepsis is/was present on admission and is a clinical diagnosis QUERY TEXT: PHYSICIAN'S DOCUMENTATION REQUEST Date of Query: 03/07/2024 08:13 AM EDT Patient Name: LINDSAY BAEZA Admit Date: 03/02/2024 Dear Samuel Cordoba MD, A review of the medical record indicates additional documentation may be needed. Please review below and update the documentation accordingly. Documentation on progress note dated 03/02/24 included the diagnosis of sepsis. The patient's infectious clinical indicators include: Per H&P 03/02/24: SIRS/sepsis, continue IVF, IV ATB Patient reported a fever at home as per ED note 03/01/24 WBC 15.2 on 03/01/24, 11.5 on 03/02/24 P 100 LA 1.7 BC neg @ 24H UC gr - erika Discharge Summary 03/04/24 does not include the diagnosis of Sepsis Based on the above information and the recognized standard for sepsis, could you please clarify if th is diagnoses is still accurate and reflective of the patient's condition to ensure quality of the medical record. Sepsis is/was present on admission and is a clinical diagnosis After study, Sepsis has been ruled out Other (explain) Clinically unable to determine (explain) Thank you, Teresa Eric RN Use of terms such as suspected, likely, concern for, or probable (associated with a specific diagnosi s that is being evaluated, monitored, or treated as if it exists) are acceptable and can be coded in the inpatient se tting, when documented at the time of discharge. Please use your independent medical judgment in providing your response. THIS QUERY IS PART OF THE PERMANENT MEDICAL RECORD
== END 2024-03-04 12:06 | disposition home or self-care (01) | DRG 720 ==
LOC: HO.ED 21:45 → HO.EDOVER 03-02 02:47 → HO.S3 03-02 07:30
PROVIDERS: Physician Assistant; Admitting Provider Internal Medicine; Emergency Provider Emergency Medicine; Visit Provider Internal Medicine
DX: A41.9 Sepsis, unspecified organism (principal); D64.9 Anemia, unspecified; N20.0 Calculus of kidney; N10 Acute pyelonephritis; B96.20 Unspecified Escherichia coli [E. coli] as the cause of diseases classified elsewhere; E03.9 Hypothyroidism, unspecified; Z20.822 Contact with and (suspected) exposure to COVID-19; Z97.5 Presence of (intrauterine) contraceptive device; Z87.442 Personal history of urinary calculi; Z79.890 Hormone replacement therapy; Z79.899 Other long term (current) drug therapy
CPT/HCPCS: 0241U; 36415; 71046; 74176; 80048; 80053; 80076; 81001; 81003; 81025; 83605; 83690; 83735; 84443; 85025; 85027; 87040; 87086; 87088; 87186; 99285; J0696; J0737; J1170; J1650; J1885; J2405; J7120

== ENCOUNTER → 2024-03-02 02:37 | Outpatient (BNV) | payer OTHER, SELFPAY | PROVIDERS: Admitting Provider Internal Medicine; Emergency Provider Emergency Medicine; Visit Provider Urology | DX: N12 Tubulo-interstitial nephritis, not specified as acute or chronic (principal) | CPT/HCPCS: 99222 ==

== ENCOUNTER → 2024-03-02 02:37 | Outpatient (BNV) | payer OTHER, SELFPAY | PROVIDERS: Admitting Provider Internal Medicine; Emergency Provider Emergency Medicine; Visit Provider Internal Medicine | DX: N12 Tubulo-interstitial nephritis, not specified as acute or chronic (principal) | CPT/HCPCS: 99223; 99232; 99239; 99499 ==

== ENCOUNTER 2024-03-26 08:18 | Outpatient (AMB) | payer OTHER, SELFPAY ==
--- NOTE | 2024-03-26 08:43 | A.OFFVIS_ITS ---
Intake Visit Reasons: 1y/US(set) Intake Note: Patient is Present for Follow Up Ultrasound Urology Medication: None Antibiotic Allergies: Sulfa Antibiotics, Vancomycin Blood Thinners:None Patient states that she is not having any pain or discomfort at this moment Booth Cleaner Required: No Photo Producer: Photo Producer Present Accompanied by: Spouse Allergies Sulfa (Sulfonamide Antibiotics) [SULFA (SULFONAMIDE ANTIBIOTICS)] Allergy (Unknown, Verified 03/26/24 08:49) SHORTNESS OF BREATH vancomycin Adverse Reaction (Verified 03/26/24 08:49) Red Man Syndrome Medication List - Last Reconciled 03/26/24 by Johnson Duran MD acetaminophen (Tylenol) 650 mg PO Q6H PRN cefuroxime axetil 500 mg PO BID 10 days cholecalciferol (vitamin D3) (Vitamin D3) 50 mcg PO DAILY levothyroxine 100 mcg PO DAILY pantoprazole 40 mg PO DAILY@0630 vancomycin 250 mg PO QID 7 days HPI Comments Details: 03/26/2024--Lakshmi is here with her who interprets for her. She was hospitalized on 03/01/2024 due to UTI sepsis. She states that 2 weeks prior to admission she had pain with urination she was seen by her PCP and had urine culture that came back mixed digna and was treated with medication for constipation. Urine culture on admission came back E coli. The patient was treated with IV antibiotics she states that in the past she developed C diff and she is currently having diarrhea. I will start her on vancomycin. She had a CT scan done on admission which noted a 4 mm nonobstructing left kidney stone. I have discussed scheduling left ESWL. Plan will be to start antibiotics 3 days prior to the procedure. I have discussed risks and benefits related to shockwave lithotripsy including but not limited to bleeding, infection, sepsis and need to repeat the procedure due to ineffective fragmentation of the stone. Review of chart: Lakshmi is a 47-year-old female who presents to the office for discussion of 24-hour urine collection test results and kidney stone follow-up. LV?11/09/22--Lakshmi is a 47-year-old female who presents to the office as a new patient ER follow-up for kidney stones. The patient is a Cameroonian speaking female. Certified Cameroonian map maker was present during the visit. The patient has history of renal calculi and has passed the stones in the past. The patient visited ER for diarrhea on 09/22/22 and was diagnosed with C diff. She had a follow-up visit in November for abdominal pain. The patient was treated with vancomycin. During evaluation in the ED, CAT scan imaging was done noting small bilateral kidney stones. The patient mentions that she has subcutaneous calcinosis, which I discussed that I do not feel is related to her condition of kidney stones. The patient denies drinking adequate amount of water. CTAP results reviewed?10/20/22-- Suggestive of nonobstructive bilateral renal calculi. Largest calculi is of 0.3 cm in the left kidney. Small cyst in the kidneys that would not progress into malignancy. Also noted scarring in the left kidney which can be due to previous renal infection. Evaluation today: Blood: negative, leukocytes: negative. Plan: Will monitor the patient for renal calculi. She was educated that current size of kidney stones are small enough to pass. For metalbolic work up-- 24-hour urine test was discussed and ordered. Advised to drink at least (3) 16 ounces water and adding lemonade and orange juice in her daily fluid intake. Recommended to cut down on tea. Follow-up after 8 weeks. 01/03/23-- The patient is a Cameroonian speaking female. She visited the office with her who interpreted for her. The patient is here to review her 24-hour urine test results. Evaluation today-- Blood: negative, leukocytes: negative. Discussed 24 hour urine results?collected 11/23/22--Total volume 1.65 mL, Calcium 34 mg; Oxalate 26 mg, Sodium 120, Citrate 485 mg. Instructed on importance of fluid intake, Low oxalate diet, low sodium diet. Plan: Discussed to consume adequate amount of fluids up to 2-2.5 liters daily. Discussed to increase her citrate intake by consuming lemon, oranges, and grapefruit. Renal US was ordered. Follow-up after one year or sooner if needed. [facility] Medical History Hypothyroidism Leiomyoma FH: colon cancer Surgical History History of back surgery H/O section Family History Family/Other History of breast cancer Father Brain cancer Social History Household Members: Spouse Housing: House Do you presently have visiting nurse or other home services: No Alcohol intake: current Alcohol intake frequency: holidays/special occasions only Alcohol type: beer Comment: pt family at bedside Patient Tobacco Use Status: Never used Tobacco e-Cigarette/Vaping Use: Never Used service: No Current occupational status: employed Cognitive needs: No Hearing needs: No Vision needs: No Review of Systems Const All systems reviewed & are unremarkable except as noted in HPI and below Reports no additional complaints Eyes Reports no additional complaints ENT Reports no additional complaints Card Reports no additional complaints Resp Reports no additional complaints GI Reports no additional complaints Reports as per HPI Musc Reports no additional complaints Skin/Breast Reports system reviewed and no additional complaints, except as documented Neuro Reports no additional complaints Psych Reports no additional complaints Endo Reports no additional complaints Shekhar/Lymph Reports no additional complaints Aller/Immun Reports no additional complaints Results AMB Urinalysis, Automated UA Leukoctes 0 Berto/uL Last Edit by ELIAS Robert on 03/26/24 08:56 UA Nitrite Negative Last Edit by ELIAS Robert on 03/26/24 08:56 UA Urobilinogen 0.2 mg/dL Last Edit by Madonna Swift A on 03/26/24 08:5 6 UA Protein 0 mg/dL Last Edit by Madonna Swift A on 03/26/24 08:56 UA pH 5.5 Last Edit by Madonna Swift A on 03/26/24 08:56 UA Blood 0 Santosh/uL Last Edit by Madonna Swift [facility] on 03/26/24 08:56 UA Specific [place] 1.015 Last Edit by ELIAS Robert on 03/26/24 08: 56 UA Ketone Negative Last Edit by Madonna Swift A on 03/26/24 08:56 UA Bilirubin 0 mg/dL Last Edit by MIGUEL ANGEL Robert on 03/26/24 08:56 UA Glucose 0 mg/dL Last Edit by Madonna Swift Marlene on 03/26/24 08:56 Results Reviewed Results Reviewed: Laboratory Last Values Urine pH (Auto) 5.5 03/26/24 08:49 Specific [place] (Auto) 1.015 03/26/24 08:49 Urine Protein (Auto) 0 mg/dL 03/26/24 08:49 Glucose (UA)(Auto) 0 mg/dL 03/26/24 08:49 Urine Ketones (Auto) Negative 03/26/24 08:49 Urine Blood (Auto) 0 Santosh/uL 03/26/24 08:49 Urine Nitrite (Auto) Negative 03/26/24 08:49 Urine Bilirubin (Auto) 0 mg/dL 03/26/24 08:49 Urine Urobilinogen (Auto) 0.2 mg/dL 03/26/24 08:49 Leukocyte Esterase (Auto) 0 Berto/uL 03/26/24 08:49 Collected: 03/02/24-UNK Status: COMP Req#: [id number] Received: 03/02/24 Source: [facility] Desc: Clean Cat Subm Dr: Veena Quiros Ordered: Urine Culture Procedure Result Verified Urine Culture Final 03/04/24 Organism 1 Escherichia coli Quant 10,000 to 50,000 cfu/mL E coli M.I.C. RX --------- --- Ampicillin 4 S Ceftriaxone <=0.25 S Gentamicin <=1 S Levofloxacin <=0.12 S Nitrofurantoin <=16 S Trimethoprim/Sulfamethoxazole <=20 S Date of Service: 03/01/24 EXAMINATION: CT ABDOMEN AND PELVIS WITHOUT CONTRAST CLINICAL INFORMATION: Left flank pain. COMPARISON: 10/20/2022 TECHNIQUE: Multidetector volumetric imaging was performed from the superior aspect of the liver through the pubic symphysis. Sagittal and coronal reformatted images were obtained on the technologist's workstation. This CT examination was performed using dose optimization techniques as appropriate, variously including the following: *Automated exposure control *Adjustment of mA and/or kV according to patient size (this includes techniques or standardized protocols for targeted exams where dose is matched to indication/reason for exam; i.e. extremities or head) *Use of iterative reconstruction technique DLP: 565 mGy-cm FINDINGS: LUNG BASES: A calcified granuloma is present in the right lower lobe. Minimal atelectasis in the lung bases. LIVER, GALLBLADDER, AND BILIARY TREE: The liver borderline enlarged, measuring 20.5 cm craniocaudal. It is normal in shape and attenuation. No focal hepatic lesion or biliary ductal dilatation is present. The gallbladder is unremarkable with no evidence of radiopaque gallstones, gallbladder wall thickening, or obvious pericholecystic inflammatory changes. PANCREAS: Unremarkable. SPLEEN: Enlarged, measuring 16 cm in diameter. ADRENAL GLANDS: Unremarkable. KIDNEYS AND URETERS: A 4 mm calculus is present in the upper pole calyx of the left kidney. The attenuation value is 1026 Hounsfield units. The calculus resides 7.7 cm deep to the skin surface at the left posterior mid axillary line. The kidneys are normal in size, shape, and attenuation. No hydronephrosis or hydroureter. No perinephric stranding. BLADDER: Unremarkable. GASTROINTESTINAL TRACT: Stomach, small bowel, and colon are normal in caliber. No bowel wall thickening or surrounding inflammatory changes. Appendix is normal. No intraperitoneal free fluid or free air. ABDOMINAL WALL: No significant hernia is appreciated. LYMPH NODES: Normal. VASCULAR: Unremarkable. PELVIC VISCERA: IUD is appropriately situated within the uterus. Thickened appearance of the uterine myometrium is consistent with the fibroids seen on the prior contrast enhanced CT. No acute uterine or ovarian findings. 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 Chronic anterolisthesis is evident at L5-S1. No acute fractures. Mild osteoarthritis in the SI joints. Hip joints appear well-preserved. IMPRESSION: 1. No acute intra-abdominal or intrapelvic abnormalities. 2. A 4 mm nonobstructing calculus in the left kidney. No evidence of obstructive uropathy. 3. Borderline hepatosplenomegaly, unchanged. Date of Service: 10/20/22 EXAMINATION: CT ABDOMEN AND PELVIS WITH CONTRAST CLINICAL INFORMATION: Lower abdominal pain. COMPARISON: CT abdomen/pelvis 09/23/2022. TECHNIQUE: Multidetector volumetric images were obtained from the superior aspect of the liver through the pubic symphysis following administration 85 mL of Omnipaque 350 intravenous contrast. Sagittal and coronal reformatted images were obtained on the technologist's workstation. Oral contrast: No This CT examination was performed using dose optimization techniques as appropriate, variously including the following: *Automated exposure control *Adjustment of mA and/or kV according to patient size (this includes techniques or standardized protocols for targeted exams where dose is matched to indication/reason for exam; i.e. extremities or head) *Use of iterative reconstruction technique DLP: 491 mGy-cm FINDINGS: LUNG BASES: Redemonstration of calcified granuloma in the right lung base. No focal consolidation or pleural effusion. LIVER, GALLBLADDER, AND BILIARY TREE: The liver is enlarged measuring 21 cm craniocaudally but is otherwise normal in shape and attenuation. No discrete focal lesion. Decompressed gallbladder. No significant pericholecystic inflammatory changes to suspect acute cholecystitis. PANCREAS: Unremarkable. SPLEEN: The spleen is enlarged measuring 13.3 cm anterior to posterior. No focal lesion. ADRENAL GLANDS: Unremarkable. KIDNEYS AND URETERS: There is redemonstration of a 0.3 cm calculus in the upper pole of the left kidney, and a few additional bilateral punctate nonobstructive calculi. Symmetric nephrograms. No hydronephrosis. No perinephric fat stranding. A region of focal hypodensity and cortical thinning, likely scarring in the upper left kidney (8:49) is unchanged compared to 09/23/2022 in the area of a prior hemorrhagic/proteinaceous cyst on 06/13/2019. A few tiny cortical hypodensities are noted bilaterally, to a small to characterize but statistically likely to represent simple cysts, for which no imaging follow-up is recommended. BLADDER: Decompressed and suboptimally assessed. GASTROINTESTINAL TRACT: Nonspecific gastric distention. The small bowel is nondilated. Normal appendix. Colonic diverticulosis. No pericolonic inflammatory changes or evidence of bowel obstruction. ABDOMINAL WALL: No significant hernia is appreciated. LYMPH NODES: No lymphadenopathy. VASCULAR: Abdominal aorta is of normal diameter. Main portal vein is patent. PELVIC VISCERA: Heterogeneous uterine myometrium with multiple lesions, a statistically likely to represent fibroids. One of the lesions distorts the endometrium with a possible submucosal component (age: 69). The endometrium measures 0.7 cm in thickness. There is a 1.3 cm corpus luteal cyst in the left ovary (7:38). Trace amount of free fluid, likely physiologic. OSSEOUS STRUCTURES: Redemonstration of cerclage wire and postsurgical changes from L4 through S1. Multilevel degenerative changes of the spine with unchanged anterolisthesis of L5 on S1. No acute or aggressive appearing osseous abnormalities. IMPRESSION: 1. Nonspecific gastric distention, correlate clinically for postprandial state, other differentials include gastroparesis and gastric outlet obstruction. 2. Mild colonic diverticulosis but no evidence of acute diverticulitis. 3. Nonobstructive bilateral renal calculi. 4. Nonspecific hepatosplenomegaly. 5. Heterogeneous uterine myometrium with multiple lesions, statistically likely to represent fibroids. One of the lesions distorts the endometrium with a possible submucosal component. The endometrium measures 0.7 cm in thickness, which is enlarged for a postmenopausal patient. Recommend correlation with menstrual history, and if indicated FOOD AND BEVERAGE CONTROLLER consultation. Assessment & Plan Assessment & Plan (1) Kidney stones: Code(s): N20.0 - Calculus of kidney Category: Medical (2) Pyelonephritis: Code(s): N12 - Tubulo-interstitial nephritis, not specified as acute or chronic Category: Medical (3) E. coli UTI (urinary tract infection): Code(s): N39.0 - Urinary tract infection, site not specified; B96.20 - Unspecified Escherichia coli [E. coli] as the cause of diseases classified elsewhere Category: Medical (4) History of Clostridium difficile colitis: Code(s): Z86.19 - Personal history of other infectious and parasitic diseases Category: Medical Plan Discussed to consume adequate amount of fluids up to 2-2.5 liters daily. Discussed to increase her citrate intake by consuming lemon, orange, and grapefruit. Renal US prior to fu next year Follow-up after one year or sooner if needed. Orders: Orders AMB Urinalysis Automated Today Z13.9 - Encounter for screening, unspecified Medications: New vancomycin 250 mg PO QID 7 days 28 caps 0RF Coding Level of Care Code Est Pt Level 4 (18769) Diagnoses Kidney stones N20.0 Pyelonephritis N12 E. coli UTI (urinary tract infection) N39.0; B96.20 History of Clostridium difficile colitis Z86.19
== END 2024-03-26 09:54 | disposition home or self-care (01) ==
PROVIDERS: Visit Provider Urology
DX: N20.0 Calculus of kidney (principal); N12 Tubulo-interstitial nephritis, not specified as acute or chronic; N39.0 Urinary tract infection, site not specified; B96.20 Unspecified Escherichia coli [E. coli] as the cause of diseases classified elsewhere; Z86.19 Personal history of other infectious and parasitic diseases; Z13.9 Encounter for screening, unspecified
CPT/HCPCS: 99214

== ENCOUNTER → 2024-03-26 08:18 | Outpatient (BNVA) | payer OTHER, SELFPAY | PROVIDERS: Visit Provider Urology | DX: N20.0 Calculus of kidney (principal); N12 Tubulo-interstitial nephritis, not specified as acute or chronic; N39.0 Urinary tract infection, site not specified; B96.20 Unspecified Escherichia coli [E. coli] as the cause of diseases classified elsewhere; Z86.19 Personal history of other infectious and parasitic diseases | CPT/HCPCS: 81003 ==